=== PATIENT | female | born 1945 | race Caucasian/White ===

== ENCOUNTER 2016-09-27 13:47 | Inpatient (IN) ==
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
--- NOTE | 2016-09-27 15:38 | EKG Report ---
Stationary ECG Study [facility] Test Date: 09/27/2016 3:38:16 PM Pat Name: WHITLEY GODINEZ Department: Room: 518 Gender: F Laboratory Worker: LUIS : 1945 Requested by: Terrell Dixon Order Number: [id number] Reading MD: DON CHAUDHRY Intervals [place] Rate: 61 P: 999 IL: 0 QRS: 183 QRSD: 170 T: 13 QT: 511 QTc: 513 Interpretive Statements ELECTRONIC VENTRICULAR PACEMAKER ABNORMAL RHYTHM ECG "DON CHAUDHRY TO INTREPRET" Electronically Signed On 10-04-16 08:41:01 CDT by DON CHAUDHRY [email or web address]
[2016-09-27 15:43] LABS: Basophils % 0.5 % (0.0-0.8); Eosinophils # 0.2 10*3/uL (0.0-0.87); Eosinophils % 2.8 % (0.00-10.9); Hemoglobin 11.2 GM/DL (12.0-16.0); Immature Granulocytes % 0.3 %; Immature Granulocytes Absolute 0.02 #; Lymphocytes # 0.8 10*3/uL (1.4-4.0); Lymphocytes % 13.2 % (21.3-54.2); Mean Corpuscular Hemoglobin 27 PG (27-34); Mean Corpuscular Volume 84.1 FL (87-102); Monocytes # 0.8 10*3/uL (0.11-0.8); Monocytes % 13.7 % (1.7-12.7); Neutrophils # 4.2 10*3/uL (1.4-7.4); Neutrophils % 69.5 % (38.7-73.9); Platelet Count 123 T/CUMM (130-400); Red Blood Count 4.16 MC/CUMM (3.8-5.5); Red Cell Distribution Width 17.2 % (9.3-17.3)
[2016-09-27] MEDS: FUROSEMIDE 40 MG/4 ML VIAL IV SCH ×2 (15:47→19:01)
[2016-09-27 16:42] LABS: Albumin 4.2 G/DL (3.4-5.0); Bilirubin,Total 2.2 MG/DL (0.2-1.0); Calcium 9.4 MG/DL (8.5-10.1); Magnesium 2.3 MG/DL (1.8-2.4); Osmolality,Calculated 287.1 MOS/KG (273-304); Potassium 3.8 MMOL/L (3.5-5.1); Thyroid Stimulating Hormone 6.03 uIU/ml (0.358-3.74); Total Protein 7.8 G/DL (6.4-8.3)
[2016-09-27 16:58] LABS: Hepatitis A Ab IgM Quant 0.29 Index; Hepatitis A Ab IgM Result Negative (Negative); Hepatitis B Core IgM Quant 0.17 Index; Hepatitis B Core IgM Result Negative (Negative); Hepatitis B Surface Ag Quant 0.61 Index; Hepatitis B Surface Ag Result Negative (Negative); Hepatitis C Virus Ab Quant 0.13 Index; Hepatitis C Virus Ab Result Negative (Negative)
--- NOTE | 2016-09-27 17:39 | XRay Report ---
XR chest 2V Date: 09/27/2016 1:59 PM History: Shortness of breath Comparison: 06/16/2016 Technique: PA and lateral chest Findings: The heart is minimally enlarged with left subclavian atrioventricular pacemaker. Uncoiling of the aorta with prominent pulmonary vasculature. Progressive diffuse parenchymal findings at the right lung base with small right pleural effusion. Stable mediastinum with degenerative changes. Impression: Minimal cardiomegaly with left subclavian atrioventricular permanent pacemaker. Diffuse atelectasis/infiltration/edema at the right lung base with small right pleural effusion. Right lateral decubitus chest x-ray may be helpful to determine how much free fluid is present. Follow-up recommended to document clearing and exclude additional underlying pathology. PROCEDURE INTERPRETED AT [facility] DEPARTMENT OF RADIOLOGY Final Report Signed by: Dr. Arcelia Kitchen
--- NOTE | 2016-09-27 18:11 | Ultrasound Report ---
Exam: Bilateral lower extremity venous Doppler ultrasound Comparison: 03/22/2015 Clinical history: Lower extremity edema Technique: Duplex scan of the lower extremity veins using B-mode/grayscale scaled imaging and Doppler spectral analysis and color flow. Findings: Major venous structures of the lower extremities demonstrate a normal course and caliber. Normal color-flow study and spectral analysis. There is normal compression and augmentation of bilateral common femoral, superficial femoral and popliteal veins. The proximal bilateral greater saphenous veins appear to be patent. Impression: No evidence to suggest deep venous thrombosis within either lower extremity. Ultrasound images were captured and stored. PROCEDURE INTERPRETED AT [facility] DEPARTMENT OF RADIOLOGY Final Report Signed by: Dr. Arcelia Kitchen
--- NOTE | 2016-09-27 20:26 | Nephrology Consult Note ---
History of Present Illness Chief complaint: History of lupus and acute renal failure History of present illness: Ms. Dasilva is a 71 year old female history of lupus arthritis chronic kidney disease followed by Dr. Navarro and his chronic kidney disease clinic. Patient presents with approximately one-week history of increased lower extremity swelling associated with ascites. Patient describes increasing abdominal girth over the last week. No nausea or vomiting appreciated by the patient. Patient has had no changes in medications. 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 Nephrology is been consulted for renal issues. Patient serum creatinine is noted be 1.8 which appears to be her baseline. No history of NSAID medications. Patient had lower extremity Dopplers that were unremarkable. Home Medications Medication Instructions Recorded Confirmed Type Ascorbic Acid Tab [Vitamin C Tab] 500 mg PO DAILY 09/21/15 06/16/16 History Aspirin [Ecotrin] 81 mg PO DAILY 09/21/15 06/16/16 History Bimatoprost 0.01% Oph Soln 1 drop BOTH EYES BEDTIME 09/21/15 06/16/16 History [Lumigan] Carvedilol 25 mg PO BID 09/21/15 06/16/16 History Montelukast Tab [Singulair Tab] 10 mg PO DAILY 09/21/15 06/16/16 History Potassium Chloride 10 meq PO BID 09/21/15 06/16/16 History Simvastatin 40 mg PO BEDTIME 09/21/15 06/16/16 History Venlafaxine [Effexor] 37.5 mg PO DAILY 09/21/15 06/16/16 History amLODIPine [Norvasc] 5 mg PO DAILY 09/21/15 06/16/16 History Insulin Aspart Prot/Asp 70/30 12 unit SUBCUT AC SUPPER #0 10/04/15 06/16/16 Rx [NovoLOG Mix 70/30] injection Cholecalciferol (Vitamin D3) 5,000 unit PO DAILY 05/03/16 06/16/16 History [Vitamin D3] Famotidine Tab [Pepcid Tab] 20 mg PO DAILY 05/03/16 06/16/16 History Magnesium Chloride [Slow Mag] 64 mg PO BID 05/03/16 06/16/16 History Insulin Aspart Prot/Asp 70/30 10 unit SUBCUT AC BREAKFAST 09/27/16 09/27/16 History [NovoLOG Mix 70/30] Allergies Allergy/AdvReac Type Severity Reaction Status Date / Time ofloxacin [From Floxin] Allergy Severe Swelling Verified 06/16/16 11:42 of Lip/Tongue/Throat Penicillins Allergy Severe RASH Verified 06/16/16 11:42 Sulfa (Sulfonamide Allergy Severe RASH Verified 06/16/16 11:42 Antibiotics) cephalexin [From Keflex] Allergy Intermediate RASH Verified 06/16/16 11:42 doxycycline Allergy Intermediate RASH Verified 06/16/16 11:42 levofloxacin [From Levaquin] AdvReac Severe Swelling Verified 06/16/16 11:42 of Lip/Tongue/Throat Medical,Surgical,& Family Hx - Medical History Cardio: History of: Cardiac Dysrhythmia (Chronic atrial fibrillation), CAD ( History of coronary artery stent in 2010), Hypertension, Pacemaker Psychological: History of: Anxiety Disorders HEENT: History of: Eye Problem (glaucoma) Endocrine: History of: Diabetes Mellitus (IDDM), Diabetes Mellitus (NIDDM), Dyslipidemia Rheumatology: History of;: Rheumatological Problems (ARTHRITIS) Respiratory: History of: Bronchitis Renal: History of: Renal Failure (Patient has had 2 episodes of ATN in the last 6 months) Genitourinary: History of: Recurring Urinary Tract Infections Gastrointestinal: History of: GERD, 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) - Surgical History Cardiac Surgeries: Sugical HX of: Cardiac Catheterization (STENTS), Cardiac Surgery (PACEMAKER) Neurologic Surgeries: Patient denies: Neurologic Surgery Abdominal Surgeries: Surgical HX of: Appendectomy, Colonoscopy, EGD Reproductive Surgeries: Surgical HX of;: Hysterectomy Orthopedic Surgeries: Surgical HX of;: Orthopedic Surgery - Family History Family History: Reports;: Family Diabetes, Family Heart Disease - Social History Smoking Status: Never smoker Frequency of Alcohol Use: None Type of Drug Use: None Review of Systems Constitutional: fatigue, no anorexia, no chills Cardiovascular: no chest pain at rest, no chest pain with activity Gastrointestinal: abdominal pain, bloating, no melena Neurological: no abnormal gait, no abnormal speech Exam - Vital Signs Vital signs: Period Temp Pulse Resp BP Sys/Marcum Pulse Ox Last 24 Hr 96.7 F-96.7 F 63-63 16-20 118-118/70-70 90-90 - General Appearance General appearance: well-developed, well-nourished EENT: ATNC, PERRL Neck: supple Respiratory: clear Cardiology: edema (3+), regular rate, irregular rhythm Gastrointestinal: normoactive bowel sounds, no tenderness, distended Integumentary: no rash, warm and dry Neurologic: no focal deficit, alert and oriented x3, CN 3-12 intact Musculoskeletal: no deformities, no erythema, no clubbing Psychiatric: mood/affect appropriate, cooperative Results - Labs CBC & BMP: 09/27/16 15:33 09/27/16 15:34 Assessment and Plan (1) Atrial fibrillation Status: Chronic Current Visit: No Qualifiers: Atrial fibrillation type: chronic Qualified Code(s): I48.2 - Chronic atrial fibrillation (2) Diabetes Status: Chronic Current Visit: No Qualifiers: Diabetes mellitus type: type 2 Diabetes mellitus complication status: with kidney complications Chronic kidney disease stage: stage 2 (mild) (3) Hypertension Problem details: controlled Status: Chronic Current Visit: No Qualifiers: Hypertension type: essential hypertension (4) Chronic renal insufficiency Status: Chronic Assessment and plan: Has been followed by Dr. Navarro. Renal function appears to be stable. Metabolic panel is acceptable. Patient with history of lupus. Pending UA. Current Visit: No Qualifiers: Chronic kidney disease stage: stage 4 (severe) Qualified Code(s): N18.4 - Chronic kidney disease, stage 4 (severe) (5) Ascites Status: Acute Assessment and plan: Agree with Lasix 40 mg IV every 6. We will check a UA. Spot urine protein creatinine ratio. Current Visit: Yes
[2016-09-27] MEDS: INSULIN REGULAR 100 UNIT/ML SUBCUT SCH (20:54)
[2016-09-27] MEDS: SIMVASTATIN 40 MG TABLET PO SCH (21:13)
[2016-09-27] MEDS: CARVEDILOL 25 MG TABLET PO SCH (21:13)
[2016-09-27] MEDS: POTASSIUM CHLORIDE 10 MEQ TABLET PO SCH (21:13)
[2016-09-27] MEDS: MAGNESIUM CHLORIDE 64 MG TABLET PO SCH (21:13)
[2016-09-27 22:57] LABS: Protein/Creatinine Ratio,Urine 0.3 RATIO
[2016-09-28 07:17] LABS: Basophils % 0.8 % (0.0-0.8); Eosinophils # 0.1 10*3/uL (0.0-0.87); Eosinophils % 3.5 % (0.00-10.9); Hematocrit 32.5 VOL% (35.7-47.0); Hemoglobin 10.2 GM/DL (12.0-16.0); Immature Granulocytes % 0.5 %; Immature Granulocytes Absolute 0.02 #; Lymphocytes # 0.7 10*3/uL (1.4-4.0); Lymphocytes % 17.3 % (21.3-54.2); Mean Corpuscular HGB Conc 31.4 GM/DL (32-36); Mean Corpuscular Hemoglobin 27 PG (27-34); Mean Corpuscular Volume 84.9 FL (87-102); Mean Platelet Volume 11.2 FL (9.6-12.0); Monocytes # 0.6 10*3/uL (0.11-0.8); Monocytes % 14.5 % (1.7-12.7); Neutrophils # 2.5 10*3/uL (1.4-7.4); Neutrophils % 63.4 % (38.7-73.9); Platelet Count 108 T/CUMM (130-400); Red Blood Count 3.83 MC/CUMM (3.8-5.5); Red Cell Distribution Width 17.2 % (9.3-17.3)
[2016-09-28 07:45] LABS: Calcium 8.7 MG/DL (8.5-10.1); Osmolality,Calculated 290.8 MOS/KG (273-304); Potassium 3.7 MMOL/L (3.5-5.1)
[2016-09-28] MEDS: MAGNESIUM CHLORIDE 64 MG TABLET PO SCH ×2 (08:03→20:57)
[2016-09-28] MEDS: CHOLECALCIFEROL 1,000 UNIT TABLET PO SCH (08:04)
[2016-09-28] MEDS: POTASSIUM CHLORIDE 10 MEQ TABLET PO SCH ×2 (08:04→20:57)
[2016-09-28] MEDS: VENLAFAXINE 37.5 MG TABLET PO SCH (08:04)
[2016-09-28] MEDS: amLODIPine 5 MG TABLET PO SCH (08:04)
[2016-09-28] MEDS: MONTELUKAST 10 MG TABLET PO SCH (08:04)
[2016-09-28] MEDS: ASPIRIN EC 81 MG TABLET PO SCH (08:04)
[2016-09-28] MEDS: FAMOTIDINE 20 MG TABLET PO SCH (08:04)
[2016-09-28] MEDS: ASCORBIC ACID 500 MG TABLET PO SCH (08:04)
[2016-09-28] MEDS: FUROSEMIDE 40 MG/4 ML VIAL IV SCH ×2 (08:05→15:51)
[2016-09-28] MEDS: INSULIN REGULAR 100 UNIT/ML SUBCUT SCH ×4 (08:05→20:58)
[2016-09-28] MEDS: INSULIN ASPART PROTAMINE/ASPART 70/30 100 UNIT/ML SUBCUT SCH ×2 (08:05→16:51)
[2016-09-28] MEDS: CARVEDILOL 25 MG TABLET PO SCH ×2 (08:06→20:58)
[2016-09-28] MEDS: FUROSEMIDE 40 MG TABLET PO SCH (08:06)
[2016-09-28] MEDS ORDERED: AMIODARONE 200 MG TABLET PO SCH (09:00)
--- NOTE | 2016-09-28 09:02 | Gastrointestinal Progress Note ---
<Miri Dominguez - Last Filed: 09/28/16 08:56> Assessment and Plan (1) Ascites Status: Acute Assessment and plan: 09/28-No changes today. Will schedule for US guided paracentesis today. Hepatitis panel negative. Plan and addendum to follow by Dr Wing. 09/27-Three month hx of abd swelling worsening over last several weeks. Abd US results noted. Remote hx of hepatitis as a teenager. Obtain hepatitis panel. Plan and addendum to follow by Dr Wing. Current Visit: Yes Gastroenterology - PN: Subj Interval history: CC: Ascites Pt is seen awake and alert sitting up in side of bed. States that she is feeling about the same at this time. She is having continued shortness of breath related to her ascites. She denies any pain other than just from the discomfort of the distention and some mild RUQ tenderness at times. She is tolerating her diet at present. Weight is up slightly from admission. Abdomen is distended, mild tenderness with palpation. Hepatitis panel negative. ROS: Denies SOB or chest pain Exam (Progress Note) - Constitutional Vitals: Period Temp Pulse Resp BP Sys/Marcum Pulse Ox Last 24 Hr 96.7 F-98.2 F 62-70 14-20 109-125/55-73 90-94 General appearance: normal weight, no acute distress - Head Head exam: Present: normal inspection, normocephalic - Eye Eye exam: Present: other (lids and conjunctiva unremarkable). Absent: scleral icterus - ENT ENT exam: Present: normal exam, normal oropharynx - Neck Neck exam: Present: normal inspection - Respiratory Respiratory exam: Present: clear to auscultation bilaterally. Absent: rales, rhonchi, wheezes - Cardiovascular Cardiovascular exam: Present: regular rate and rhythm. Absent: diastolic murmur , JVD, systolic murmur - GI/Abdominal GI/Abdominal exam: Present: normal bowel sounds, ascites, distended, tenderness (mild), soft. Absent: mass, organomegaly - Extremities Exam Extremities exam: Present: normal inspection, full ROM, edema - Back Exam Back exam: Present: normal inspection - Neurological Exam Neurological exam: Present: alert, oriented X3 - Psychiatric Psychiatric exam: Present: normal affect, normal mood - Skin Skin exam: Present: normal color, warm, dry Results - Labs CBC & BMP: 09/28/16 07:04 09/28/16 07:04 Lab Results: I have reviewed the past 24 hour labs <Martin Wing - Last Filed: 09/28/16 11:09> Exam (Progress Note) - Constitutional Vitals: Period Temp Pulse Resp BP Sys/Marcum Pulse Ox Last 24 Hr 96.7 F-98.2 F 59-70 14-22 109-145/55-77 90-100 Results - Labs CBC & BMP: 09/28/16 07:04 09/28/16 07:04
--- NOTE | 2016-09-28 09:04 | XRay Report ---
XR chest 2V Indication: Shortness of breath. Comparison: Chest x-ray 09/27/2016 Technique: PA and lateral chest x-ray was performed. Findings: Mild elevation of the right hemidiaphragm is again demonstrated. The heart size is stable. Cardiac pacemaker is stable. Airspace opacification within the right cardiophrenic angle has changed little since comparison study could reflect evidence of infection or atelectasis. Minimal blunting the right costophrenic angle is stable. Bones and soft tissues appear stable. Impression: 1. Infectious process and/or atelectatic change is suggested within the right cardiophrenic angle on PA image. This is difficult to localize on the lateral image. 2. Small right-sided pleural effusion suggested. 09/28/2016 9:00 AM PROCEDURE INTERPRETED AT [facility]PARTMENT OF RADIOLOG[facility] Final Report Signed by: Dr. Paul Richard
[2016-09-28 09:44] LABS: INR 1.3
[2016-09-28 10:14] LABS: Apearance,Urine Slightly Hazy (Clear); Bacteria,Urine Moderate /HPF (Few); Bilirubin,Urine Negative (Negative); Blood, Urine Negative (Negative); Glucose,Urine (UA) Negative (Negative); Ketones,Urine Negative (Negative); Mucus,Urine Occasional /LPF (Occasional); Nitrite,Urine Negative (Negative); Protein,Urine Negative; RBC,Urine 14 /HPF (0-4); Squamous Epithelial Cell,Urine Occasional /HPF (0-10); Urine Color Yellow (Yellow); Urine Specific Gravity 1.008 (1.001-1.035); Urine Urobilinogen < 2.0 EU/DL (0.2-1.0); WBC,Urine 51 /HPF (0-6)
[2016-09-28] MEDS ORDERED: CARVEDILOL 12.5 MG TABLET PO SCH (11:30)
--- NOTE | 2016-09-28 11:49 | Pulmonology Progress Note ---
Pulmonary - PN: Subj Interval history: Raúl Medrano, ANP-BC, GNP-BC, acting as scribe for Dr. Luis Miguel Do Mrs. Dasilva is a 71-year-old white female who was admitted 09/27/2016 from [facility] with ascites/anasarca, cholelithiasis per ultrasound, and bilateral lower extremity edema. Other past history includes chronic atrial fibrillation, history of acute renal failure (interstitial nephritis) secondary to medications in contrast, systemic lupus erythematosus,, diabetes mellitus, arteriosclerotic heart disease, sick sinus syndrome, pacemaker, chronic Coumadin therapy, history of depression, history of esophageal stricture esophageal motility dysfunction, history of ruptured right Achilles tendon, allergic sinusitis, and history of abdominal wall hematoma with large retroperitoneal bleed. 09/28/2016. Patient seen today along with her sister and daughter. She is scheduled for paracentesis today by IR. We will follow-up those results. On exam, the patient obviously has less JVD today. She has been diuresed. She is being seen in GI, cardiology, and nephrology consultations. Her daughter reports that patient did not receive her Coreg this morning. Spoken with the nursing staff about this. Apparently, Leilas does not have 25 mg tablets. Pharmacy had not changed it to 12.5 mg 2 tablets twice daily. We will ask this be done. Certainly, she needs to continue her Coreg. Her home medications were restarted last night. Medications have been reviewed. Labs been reviewed. White count is 4000 with 63.4% segs; H&H 10.2/32.5; platelet count 108,000; INR 1.3; creatinine improved 1.70, BUN 28, electrolytes are normal; TSH and free T4 are both elevated at 6.030 and 1.52 respectively. BNP at admission was 455; total bilirubin 2.20; rheumatoid factor less than 15, VERNA screen is negative, hepatitis screen is negative; urinalysis shows large leukocytes but was nitrite negative, 51 WBCs per high-power field, and moderate bacteria. Urine cultures pending. Exam (Progress Note) - Constitutional Vitals: Period Temp Pulse Resp BP Sys/Marcum Pulse Ox Last 24 Hr 96.7 F-98.2 F 59-70 14-22 109-145/55-77 90-100 Exam: Chest is wheeze free Heart irregular Abdomen with moderate ascites; bowel sounds are positive 4 Extremities significant bilateral lower extremity edema Psychiatric oriented 3 Neurologic long-term motor function is intact Plan: Follow-up paracentesis results when available. Continue present treatment. We will change Coreg to 12.5 mg 2 tablets p.o. twice daily since [facility] does not 25 mg tablets. Repeat CBC, CMP, TSH, free T4, and ammonia level in the morning. See orders. Results - Labs CBC & BMP: 09/28/16 07:04 09/28/16 07:04
[2016-09-28 12:01] LABS: Neutrophils,Peritoneal Fluid 8 %
[2016-09-28 12:02] LABS: RBC,Peritoneal Fluid 8135 T/CUMM
--- NOTE | 2016-09-28 12:27 | Post Interventional Procedure ---
Pre-op diagnosis: ascites, diabetes, hypertension Post-op diagnosis: same Procedure: u/s guided paracentesis Contrast: none Flouroscopy: none Radiologist: Tucker Rosario Anesthesia: local Specimens: none sent Estimated blood loss: none Complications: none Condition: stable Description/Findings: Technically successful ultrasound guided paracentesis. See formal report for details. Assessment and Plan - Time spent with patient Time spent with patient: Less than 30 minutes
--- NOTE | 2016-09-28 12:30 | Ultrasound Report ---
Exam: Ultrasound-guided paracentesis Clinical history: ascites. Physician: Dr. Rosario. Procedure: Informed consent was obtained prior to procedure. A formal timeout was performed. Maximum sterile barrier technique was used. The right lower quadrant was prepped and draped in sterile fashion. Under sonographic guidance, a 6 [place] safety centesis catheter and needle were advanced into the ascites using trocar technique. A captured sonographic image documents needle position. The needle was removed. Through the catheter, we obtained a total of 2500 cc of straw-colored ascites. No additional fluid could be obtained. Therefore, the catheter was removed. A bandage was placed at the puncture site. The patient tolerated the procedure well. Complications: None. Estimated blood loss: Less than 5 mL. Impression: Technically successful ultrasound guided paracentesis. PROCEDURE INTERPRETED AT [facility] DEPARTMENT OF RADIOLOGY Final Report Signed by: Tucker Rosario
[2016-09-28 12:38] LABS: % Iron Saturation 12.9 % (18-50); Ferritin 214.5 ng/ml (8-252)
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
[2016-09-28 13:10] LABS: Hepatitis B Surface Ab Result Negative
[2016-09-28] MEDS: METHENAMINE HIPPURATE 1 GM TABLET PO SCH ×2 (13:19→20:57)
[2016-09-28] MEDS: BIMATOPROST 0.01% OPH SOLN 2.5 ML BOTTLE BOTH EYES SCH (20:56)
[2016-09-28] MEDS: SIMVASTATIN 40 MG TABLET PO SCH (20:57)
[2016-09-28] MEDS: SPIRONOLACTONE 50 MG TABLET PO SCH (20:58)
[2016-09-29 05:49] LABS: Basophils % 0.7 % (0.0-0.8); Eosinophils # 0.2 10*3/uL (0.0-0.87); Eosinophils % 3.7 % (0.00-10.9); Hematocrit 33.2 VOL% (35.7-47.0); Hemoglobin 10.4 GM/DL (12.0-16.0); Immature Granulocytes % 0.2 %; Immature Granulocytes Absolute 0.01 #; Lymphocytes # 0.7 10*3/uL (1.4-4.0); Lymphocytes % 16.8 % (21.3-54.2); Mean Corpuscular HGB Conc 31.3 GM/DL (32-36); Mean Corpuscular Hemoglobin 27 PG (27-34); Mean Platelet Volume 11.6 FL (9.6-12.0); Monocytes # 0.7 10*3/uL (0.11-0.8); Monocytes % 16.1 % (1.7-12.7); Neutrophils # 2.6 10*3/uL (1.4-7.4); Neutrophils % 62.5 % (38.7-73.9); Platelet Count 106 T/CUMM (130-400); Red Blood Count 3.86 MC/CUMM (3.8-5.5); Red Cell Distribution Width 17.2 % (9.3-17.3); White Blood Count 4.1 T/CUMM (4-12)
[2016-09-29 06:18] LABS: Band Neutrophils 1 % (0-10); Lymphocytes 18 % (20-55); Segmented Neutrophils 60 % (50-85); Total Cells Counted 100
[2016-09-29 06:19] LABS: Hypochromasia 1+; Ovalocytes Slight; Platelet Estimate Normal
[2016-09-29 06:21] LABS: Albumin 3.3 G/DL (3.4-5.0); Calcium 8.4 MG/DL (8.5-10.1); Free T4 (Free Thyroxine) 1.51 NG/DL (0.76-1.46); Osmolality,Calculated 289.8 MOS/KG (273-304); Potassium 3.4 MMOL/L (3.5-5.1); Thyroid Stimulating Hormone 4.51 uIU/ml (0.358-3.74); Total Protein 6.6 G/DL (6.4-8.3)
--- NOTE | 2016-09-29 07:40 | XRay Report ---
XR chest 2V Indication: Shortness of breath Comparison: 28 September 2016 Findings: The heart and mediastinum are stable in size and configuration. Pacemaker device is unchanged in position. The pulmonary vascularity is prominent centrally but similar to previous exam. No lung infiltrates, effusions, pneumothorax or other abnormality is demonstrated. Impression: No significant change. PROCEDURE INTERPRETED AT [facility] Final Report Signed by: Dr. Zack Goldman
[2016-09-29] MEDS: ASPIRIN EC 81 MG TABLET PO SCH (08:17)
[2016-09-29] MEDS: MAGNESIUM CHLORIDE 64 MG TABLET PO SCH ×2 (08:17→21:51)
[2016-09-29] MEDS: CHOLECALCIFEROL 1,000 UNIT TABLET PO SCH (08:17)
[2016-09-29] MEDS: SPIRONOLACTONE 50 MG TABLET PO SCH ×2 (08:18→21:51)
[2016-09-29] MEDS: MONTELUKAST 10 MG TABLET PO SCH (08:18)
[2016-09-29] MEDS: VENLAFAXINE 37.5 MG TABLET PO SCH (08:18)
[2016-09-29] MEDS: METHENAMINE HIPPURATE 1 GM TABLET PO SCH ×2 (08:18→21:51)
[2016-09-29] MEDS: ASCORBIC ACID 500 MG TABLET PO SCH (08:18)
[2016-09-29] MEDS: CARVEDILOL 25 MG TABLET PO SCH ×2 (08:18→21:51)
[2016-09-29] MEDS: FUROSEMIDE 40 MG TABLET PO SCH (08:18)
[2016-09-29] MEDS: FAMOTIDINE 20 MG TABLET PO SCH (08:18)
[2016-09-29] MEDS: amLODIPine 5 MG TABLET PO SCH (08:18)
[2016-09-29] MEDS: FUROSEMIDE 40 MG/4 ML VIAL IV SCH ×2 (08:18→15:49)
[2016-09-29] MEDS: POTASSIUM CHLORIDE 10 MEQ TABLET PO SCH ×2 (08:18→21:56)
[2016-09-29] MEDS: INSULIN ASPART PROTAMINE/ASPART 70/30 100 UNIT/ML SUBCUT SCH ×2 (08:18→15:50)
[2016-09-29] MEDS: FUROSEMIDE 20 MG TABLET PO SCH (08:19)
[2016-09-29] MEDS: INSULIN REGULAR 100 UNIT/ML SUBCUT SCH ×4 (08:19→21:45)
--- NOTE | 2016-09-29 08:50 | Gastrointestinal Progress Note ---
<Miri Dominguez - Last Filed: 09/29/16 08:46> Assessment and Plan (1) Ascites Status: Acute Assessment and plan: 09/29-No c/p today. Tolerating diet. Labwork still pending today, negative hepatitis B antibody. Plan and addendum to follow by Dr Wing. 09/28-No changes today. Will schedule for US guided paracentesis today. Hepatitis panel negative. Plan and addendum to follow by Dr Wing. 09/27-Three month hx of abd swelling worsening over last several weeks. Abd US results noted. Remote hx of hepatitis as a teenager. Obtain hepatitis panel. Plan and addendum to follow by Dr Wing. Current Visit: Yes Gastroenterology - PN: Subj Interval history: CC: Ascites Pt is seen sitting up in chair with family at side. States she is feeling better today. She voices relief from her abdominal discomfort following her paracentesis on yesterday. She brought forth this morning that the hepatitis she had as as teenager came from eating shrimp. Her hepatitis B antibody was negative on yesterday. Iron and saturation are low with normal TIBC and ferritin. Bilirubin is slighlty elevated at 2.00 with normal transaminases. Abdomen is soft, nontender. Other labwork is pending at present time. ROS: Denies SOB or chest pain Exam (Progress Note) - Constitutional Vitals: Period Temp Pulse Resp BP Sys/Marcum Pulse Ox Last 24 Hr 97.7 F-98.3 F 59-74 14-22 116-145/66-82 92-100 General appearance: normal weight, no acute distress - Head Head exam: Present: normal inspection, normocephalic - Eye Eye exam: Present: other (Lids and conjunctive are unremarkable). Absent: scleral icterus - ENT ENT exam: Present: normal exam, normal oropharynx - Neck Neck exam: Present: normal inspection - Respiratory Respiratory exam: Present: clear to auscultation bilaterally. Absent: rales, rhonchi, wheezes - Cardiovascular Cardiovascular exam: Present: regular rate and rhythm. Absent: diastolic murmur , JVD, systolic murmur - GI/Abdominal GI/Abdominal exam: Present: normal bowel sounds, soft. Absent: ascites, distended, mass, organomegaly, tenderness - Extremities Exam Extremities exam: Present: normal inspection, full ROM - Back Exam Back exam: Present: normal inspection - Neurological Exam Neurological exam: Present: alert, oriented X3 - Psychiatric Psychiatric exam: Present: normal affect, normal mood - Skin Skin exam: Present: normal color, warm, dry Results - Labs CBC & BMP: 09/29/16 05:24 09/29/16 05:24 Lab Results: I have reviewed the past 24 hour labs <Martin Wing - Last Filed: 09/29/16 18:18> Exam (Progress Note) - Constitutional Vitals: Period Temp Pulse Resp BP Sys/Marcum Pulse Ox Last 24 Hr 97.2 F-98.3 F 58-69 14-18 105-130/56-74 94-98 Results - Labs CBC & BMP: 09/29/16 05:24 09/29/16 05:24
--- NOTE | 2016-09-29 10:49 | Pathology Report from [facility] ---
ACCESSION # : [id number] PATIENT NAME : Erika Dasilva ORDERING DR : Tucker Rosario MD CLINICAL HX: New onset ascites POST-OP DX: Same SPECIMEN INFO: Fluid,Paracentesis - 1000 ml's red orange, cloudy CLASS: II CLASS COMMENTS: Blood, inflammation, reactive cell groups.CELL BLOCK: Same CLASS LEGEND: CLASS 0 Material inadequate for diagnosis because of (see comment) CLASS I Absence of atypical or abnormal cells CLASS II Atypical Cytology but no evidence of malignancy CLASS III Cytology suggestive of but not conclusive for malignancy CLASS IV Cytology strongly suggestive of malignancy CLASS V Cytology conclusive for malignancy SERVICE DATE: 09/28/2016 REPORT DATE: 09/29/2016 PATHOLOGIST: Demlar Hernandez III, M.D. MTDD
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
[2016-09-29] MEDS: amLODIPine 10 MG TABLET PO SCH (11:32)
--- NOTE | 2016-09-29 17:47 | Cardiology Progress Note ---
I, Evangelina Avalos RN, am scribing for, and in the presence of, Carlos A Patricia MD 17:46. Assessment and Plan (1) Shortness of breath Status: Acute Assessment and plan: Initial assessment and plan 09/28/2016: 1. 71-year-old overweight WF with CAD with remote stents in 2010, persistent atrial fibrillation with history of pacemaker, who I saw Dr. Burgess's absence late last week which she was having dyspnea fatigue and palpitations opted negative PE workup (negative his Dopplers and no PE on CT chest), where she was found to have ascites/anasarca with small, nodular liver, but had worsening symptoms and now admitted for further workup. 2. Echocardiogram last week showed normal ejection fraction of 55% with 1-2+ right ventricular enlargement and pulmonary hypertension (RVSP 55 mmHg plus RAP) 3. GI workup in progress 4. Probable chronic atrial fibrillation; discontinued amiodarone (was started last week) 5. Clinically had significant improvement after paracentesis. 09/29/2016: 1. Mrs. Dasilva is clearly improving clinically Is in progress 2. Significant lower extremity edema persists; increasing amlodipine to 10 mg may help her pulmonary hypertension marginally, but also may worsen her lower extremity edema; recommend placing her support nose and place her in the morning before getting up 3. Chronic atrial fibrillation with controlled rate, and pacemaker in place 4. No new recommendations, keep follow-up appointment with Dr. Burgess in 2-3 weeks 5. Sign-Off, please call if needed prior to discharge Current Visit: Yes (2) Ascites Status: Acute Current Visit: Yes (3) Chronic atrial fibrillation Status: Chronic Current Visit: Yes (4) Coronary artery disease Status: Chronic Current Visit: Yes Qualifiers: Coronary Disease-Associated Artery/Lesion type: [place] artery [place] vs. transplanted heart: [place] heart Associated angina: without angina Qualified Code(s): I25.10 - Atherosclerotic heart disease of [place] coronary artery without angina pectoris (5) Diabetes Status: Chronic Current Visit: Yes Qualifiers: Diabetes mellitus type: type 2 Diabetes mellitus complication status: with kidney complications Chronic kidney disease stage: stage 2 (mild) (6) Hypertension Problem details: controlled Status: Chronic Current Visit: Yes Qualifiers: Hypertension type: essential hypertension (7) Pacemaker Status: Chronic Current Visit: Yes (8) Edema, lower extremity Status: Acute Current Visit: Yes Cardiology - PN: Subj Interval history: Clinical Massage Therapist: Dr. Burgess Ms. Dasilva is seen sitting up in chair in no acute distress. She is not wearing oxygen, she states her breathing is much improved. She tells me she feels much better after paracentesis yesterday. Denies chest pain, palpitations , or dizziness. Vital signs been stable. Potassium is 3.4, she currently takes 10 meq twice daily. Exam (Progress Note) - Constitutional Vitals: Period Temp Pulse Resp BP Sys/Marcum Pulse Ox Last 24 Hr 97.7 F-98.3 F 59-74 14-22 116-145/66-82 92-100 General appearance: no acute distress, over weight - Head Head exam: Absent: abrasion, hematoma - Eye Eye exam: Absent: periorbital swelling, laceration to eyelids - Respiratory Respiratory exam: Present: clear to auscultation bilaterally. Absent: accessory muscle use, chest wall tenderness - Cardiovascular Cardiovascular exam: Present: irregular rhythm. Absent: systolic murmur - GI/Abdominal GI/Abdominal exam: Present: normal bowel sounds, soft. Absent: distended, tenderness - Extremities Exam Extremities exam: Present: edema (2-3+ bilateral lower extremities) - Neurological Exam Neurological exam: Present: alert, oriented X3 - Psychiatric Psychiatric exam: Present: normal affect, normal mood - Skin Skin exam: Present: warm, dry Result/EKG - Labs CBC & BMP: 09/29/16 05:24 09/29/16 05:24 Lab Results: I have reviewed the past 24 hour labs Labs: Laboratory Results - last 24 hr 09/28/16 09/28/16 09/28/16 10:00 10:07 11:00 WBC RBC Hgb Hct MCV MCH MCHC RDW Plt Count MPV Neut % (Auto) Lymph % (Auto) [place] % (Auto) Eos % (Auto) Baso % (Auto) Neut # (Auto) Lymph # (Auto) [place] # (Auto) Eos # (Auto) Baso # (Auto) Total Counted Immature Gran % Nucleated RBC % Immature Gran # Segmented Neutrophils Band Neutrophils Lymphocytes Monocytes Basophils Nucleated RBCs # Platelet Estimate Hypochromasia Ovalocytes Morphology Comment Sodium Potassium Chloride Carbon Dioxide Anion Gap BUN Creatinine GFR Calculation BUN/Creatinine Ratio Glucose POC Glucose Calculated Osmolality Calcium Iron TIBC % Saturation Ferritin Total Bilirubin AST ALT Alkaline Phosphatase Ammonia Total Protein Albumin Globulin Albumin/Globulin Ratio Free T4 TSH 3rd Generation Urine Color Yellow Urine Appearance Slightly hazy Urine pH 5.0 Ur Specific [place] 1.008 Urine Protein Negative Urine Glucose (UA) Negative Urine Ketones Negative Urine Blood Negative Urine Nitrate Negative Urine Bilirubin Negative Urine Urobilinogen < 2.0 H Urine Leukocytes Large H Urine RBC 14 Urine WBC 51 Ur Squamous Epith Cells Occasional Urine Bacteria Moderate Urine Mucus Occasional Ur Culture Indicated? Results to follow Peritoneal WBC 162 Peritoneal RBC [address] 100 Periton Neutrophils 8 Periton Lymphocytes 78 Peritoneal Monocytes 14 Peritoneal Diff Commnt Peritoneal Albumin 3.0 Hep Bs Antibody 09/28/16 09/28/16 09/28/16 11:57 12:15 12:15 WBC RBC Hgb Hct MCV MCH MCHC RDW Plt Count MPV Neut % (Auto) Lymph % (Auto) [place] % (Auto) Eos % (Auto) Baso % (Auto) Neut # (Auto) Lymph # (Auto) [place] # (Auto) Eos # (Auto) Baso # (Auto) Total Counted Immature Gran % Nucleated RBC % Immature Gran # Segmented Neutrophils Band Neutrophils Lymphocytes Monocytes Basophils Nucleated RBCs # Platelet Estimate Hypochromasia Ovalocytes Morphology Comment Sodium Potassium Chloride Carbon Dioxide Anion Gap BUN Creatinine GFR Calculation BUN/Creatinine Ratio Glucose POC Glucose 83 Calculated Osmolality Calcium Iron 35 L TIBC 271 % Saturation 12.9 L Ferritin 214.5 Total Bilirubin AST ALT Alkaline Phosphatase Ammonia Total Protein Albumin Globulin Albumin/Globulin Ratio Free T4 TSH 3rd Generation Urine Color Urine Appearance Urine pH Ur Specific [place] Urine Protein Urine Glucose (UA) Urine Ketones Urine Blood Urine Nitrate Urine Bilirubin Urine Urobilinogen Urine Leukocytes Urine RBC Urine WBC Ur Squamous Epith Cells Urine Bacteria Urine Mucus Ur Culture Indicated? Peritoneal WBC Peritoneal RBC Periton Tot Cells Ct Periton Neutrophils Periton Lymphocytes Peritoneal Monocytes Peritoneal Diff Commnt Peritoneal Albumin Hep Bs Antibody Negative 09/28/16 09/28/16 09/29/16 15:23 20:54 05:24 WBC 4.1 RBC 3.86 Hgb 10.4 L Hct 33.2 L MCV 86.0 L MCH 27 MCHC 31.3 L RDW 17.2 Plt Count 106 L MPV 11.6 Neut % (Auto) 62.5 Lymph % (Auto) 16.8 L [place] % (Auto) 16.1 H Eos % (Auto) 3.7 Baso % (Auto) 0.7 Neut # (Auto) 2.6 Lymph # (Auto) 0.7 L [place] # (Auto) 0.7 Eos # (Auto) 0.2 Baso # (Auto) 0.0 Total Counted 100 Immature Gran % 0.2 Nucleated RBC % 0.0 Immature Gran # 0.01 Segmented Neutrophils 60 Band Neutrophils 1 Lymphocytes 18 L Monocytes 20 H Basophils 1.0 H Nucleated RBCs # 0.00 Platelet Estimate Normal Hypochromasia 1+ Ovalocytes Slight Morphology Comment Sodium Potassium Chloride Carbon Dioxide Anion Gap BUN Creatinine GFR Calculation BUN/Creatinine Ratio Glucose POC Glucose 102 103 Calculated Osmolality Calcium Iron TIBC % Saturation Ferritin Total Bilirubin AST ALT Alkaline Phosphatase Ammonia Total Protein Albumin Globulin Albumin/Globulin Ratio Free T4 TSH 3rd Generation Urine Color Urine Appearance Urine pH Ur Specific [place] Urine Protein Urine Glucose (UA) Urine Ketones Urine Blood Urine Nitrate Urine Bilirubin Urine Urobilinogen Urine Leukocytes Urine RBC Urine WBC Ur Squamous Epith Cells Urine Bacteria Urine Mucus Ur Culture Indicated? Peritoneal WBC Peritoneal RBC Periton Tot Cells Ct Periton Neutrophils Periton Lymphocytes Peritoneal Monocytes Peritoneal Diff Commnt Peritoneal Albumin Hep Bs Antibody 09/29/16 09/29/16 05:24 07:07 WBC RBC Hgb Hct MCV MCH MCHC RDW Plt Count MPV Neut % (Auto) Lymph % (Auto) [place] % (Auto) Eos % (Auto) Baso % (Auto) Neut # (Auto) Lymph # (Auto) [place] # (Auto) Eos # (Auto) Baso # (Auto) Total Counted Immature Gran % Nucleated RBC % Immature Gran # Segmented Neutrophils Band Neutrophils Lymphocytes Monocytes Basophils Nucleated RBCs # Platelet Estimate Hypochromasia Ovalocytes Morphology Comment Sodium 144 Potassium 3.4 L Chloride 108 H Carbon Dioxide 27 Anion Gap 12.4 BUN 26 H Creatinine 1.80 H GFR Calculation 33 BUN/Creatinine Ratio 14.00 Glucose 75 POC Glucose 90 Calculated Osmolality 289.8 Calcium 8.4 L Iron TIBC % Saturation Ferritin Total Bilirubin 2.00 H AST 21 ALT 14 Alkaline Phosphatase 94 Ammonia 28 Total Protein 6.6 Albumin 3.3 L Globulin 3.3 Albumin/Globulin Ratio 1.0 L Free T4 1.51 H TSH 3rd Generation 4.510 H Urine Color Urine Appearance Urine pH Ur Specific [place] Urine Protein Urine Glucose (UA) Urine Ketones Urine Blood Urine Nitrate Urine Bilirubin Urine Urobilinogen Urine Leukocytes Urine RBC Urine WBC Ur Squamous Epith Cells Urine Bacteria Urine Mucus Ur Culture Indicated? Peritoneal WBC Peritoneal RBC Periton Tot Cells Ct Periton Neutrophils Periton Lymphocytes Peritoneal Monocytes Peritoneal Diff Commnt Peritoneal Albumin Hep Bs Antibody Simon, Carlos A Patricia MD, personally performed the services described in this documentation, ascribed by Evangelina Avalos RN in my presence, and it is both accurate and complete .
[2016-09-29] MEDS: SIMVASTATIN 40 MG TABLET PO SCH (21:51)
[2016-09-29] MEDS: BIMATOPROST 0.01% OPH SOLN 2.5 ML BOTTLE BOTH EYES SCH (21:52)
[2016-09-30 05:54] LABS: Basophils % 0.9 % (0.0-0.8); Eosinophils # 0.2 10*3/uL (0.0-0.87); Eosinophils % 4.1 % (0.00-10.9); Hematocrit 31.6 VOL% (35.7-47.0); Hemoglobin 10.1 GM/DL (12.0-16.0); Immature Granulocytes % 0.2 %; Immature Granulocytes Absolute 0.01 #; Lymphocytes # 0.8 10*3/uL (1.4-4.0); Lymphocytes % 18.3 % (21.3-54.2); Mean Corpuscular Hemoglobin 27 PG (27-34); Mean Corpuscular Volume 83.4 FL (87-102); Mean Platelet Volume 11.4 FL (9.6-12.0); Monocytes # 0.7 10*3/uL (0.11-0.8); Monocytes % 16.7 % (1.7-12.7); Neutrophils # 2.6 10*3/uL (1.4-7.4); Neutrophils % 59.8 % (38.7-73.9); Platelet Count 111 T/CUMM (130-400); Red Blood Count 3.79 MC/CUMM (3.8-5.5); Red Cell Distribution Width 17.2 % (9.3-17.3); White Blood Count 4.4 T/CUMM (4-12)
[2016-09-30 06:13] LABS: Calcium 9.1 MG/DL (8.5-10.1); Potassium 3.4 MMOL/L (3.5-5.1)
[2016-09-30 06:17] LABS: Eosinophils 2 % (0-10); Hypochromasia 1+; Lymphocytes 7 % (20-55); Platelet Estimate Decreased; Segmented Neutrophils 81 % (50-85); Total Cells Counted 100
[2016-09-30] MEDS: FUROSEMIDE 40 MG/4 ML VIAL IV SCH ×2 (08:17→17:00)
[2016-09-30] MEDS: INSULIN REGULAR 100 UNIT/ML SUBCUT SCH ×4 (08:18→20:56)
[2016-09-30] MEDS: INSULIN ASPART PROTAMINE/ASPART 70/30 100 UNIT/ML SUBCUT SCH ×2 (08:18→18:05)
--- NOTE | 2016-09-30 08:35 | Gastrointestinal Progress Note ---
<AngelicaMiri Shelton - Last Filed: 09/30/16 08:32> Assessment and Plan (1) Ascites Status: Acute Assessment and plan: 09/30-for liver biopsy today. Further serology testing still pending. No repeat LFTs today. Plan an addendum to follow by Dr. Wing. 09/29-No c/p today. Tolerating diet. Labwork still pending today, negative hepatitis B antibody. Plan and addendum to follow by Dr Wing. 09/28-No changes today. Will schedule for US guided paracentesis today. Hepatitis panel negative. Plan and addendum to follow by Dr Wing. 09/27-Three month hx of abd swelling worsening over last several weeks. Abd US results noted. Remote hx of hepatitis as a teenager. Obtain hepatitis panel. Plan and addendum to follow by Dr Wing. Current Visit: Yes Gastroenterology - PN: Subj Interval history: CC: Ascites Patient is seen awake alert sitting up in bed. Daughter at bedside. Patient is for liver biopsy later this morning. She denies any abdominal pain, nausea or vomiting. Abdomen is soft, nontender. No repeat LFTs today. Further serology testing is still pending at this time. We will await liver biopsy results later this week. ROS: Denies shortness of breath or chest pain Exam (Progress Note) - Constitutional Vitals: Period Temp Pulse Resp BP Sys/Marcum Pulse Ox Last 24 Hr 97.2 F-98.3 F 58-64 18-20 105-122/56-75 92-96 General appearance: normal weight, no acute distress - Head Head exam: Present: normal inspection, normocephalic - Eye Eye exam: Present: other (lids and conjunctiva unremarkable). Absent: scleral icterus - ENT ENT exam: Present: normal exam, normal oropharynx - Neck Neck exam: Present: normal inspection - Respiratory Respiratory exam: Present: clear to auscultation bilaterally. Absent: rales, rhonchi, wheezes - Cardiovascular Cardiovascular exam: Present: regular rate and rhythm. Absent: diastolic murmur , JVD, systolic murmur - GI/Abdominal GI/Abdominal exam: Present: normal bowel sounds, soft. Absent: ascites, distended, mass, organomegaly, tenderness - Extremities Exam Extremities exam: Present: normal inspection, full ROM - Back Exam Back exam: Present: normal inspection - Neurological Exam Neurological exam: Present: alert, oriented X3 - Psychiatric Psychiatric exam: Present: normal affect, normal mood - Skin Skin exam: Present: normal color, warm, dry Results - Labs CBC & BMP: 09/30/16 05:01 09/30/16 05:01 Lab Results: I have reviewed the past 24 hour labs Specialty Discharge - Follow Up or Referrals Follow up with: Renato Burgess MD [Primary Care Provider] - (3 weeks with EKG and labs) <Martin Wing - Last Filed: 09/30/16 18:41> Exam (Progress Note) - Constitutional Vitals: Period Temp Pulse Resp BP Sys/Marcum Pulse Ox Last 24 Hr 97.5 F-98.5 F 63-100 18-20 108-146/63-77 92-96 Results - Labs CBC & BMP: 09/30/16 05:01 09/30/16 05:01
[2016-09-30] MEDS ORDERED: DIAZEPAM 5 MG TABLET PO ONE (09:20)
[2016-09-30] MEDS: POTASSIUM CHLORIDE 10 MEQ TABLET PO SCH ×2 (11:16→20:31)
[2016-09-30] MEDS: FAMOTIDINE 20 MG TABLET PO SCH (11:17)
[2016-09-30] MEDS: CHOLECALCIFEROL 1,000 UNIT TABLET PO SCH (11:17)
[2016-09-30] MEDS: amLODIPine 10 MG TABLET PO SCH (11:17)
[2016-09-30] MEDS: MAGNESIUM CHLORIDE 64 MG TABLET PO SCH ×2 (11:17→20:31)
[2016-09-30] MEDS: ASPIRIN EC 81 MG TABLET PO SCH (11:17)
[2016-09-30] MEDS: METHENAMINE HIPPURATE 1 GM TABLET PO SCH ×2 (11:17→20:31)
[2016-09-30] MEDS: MONTELUKAST 10 MG TABLET PO SCH (11:18)
[2016-09-30] MEDS: SPIRONOLACTONE 50 MG TABLET PO SCH ×2 (11:18→20:35)
[2016-09-30] MEDS: CARVEDILOL 25 MG TABLET PO SCH ×2 (11:18→20:31)
[2016-09-30] MEDS: VENLAFAXINE 37.5 MG TABLET PO SCH (11:18)
[2016-09-30] MEDS: ASCORBIC ACID 500 MG TABLET PO SCH (11:18)
--- NOTE | 2016-09-30 11:20 | Post Interventional Procedure ---
Pre-op diagnosis: Abnormal liver function tests Post-op diagnosis: same Procedure: Ultrasound-guided core liver biopsy Radiologist: Nataliya Reddy Anesthesia: local Specimens: other (core liver biopsy specimen) Estimated blood loss: none Complications: none Condition: stable Description/Findings: A formal timeout was performed. Patient was placed supine on the CT table and cloth calender imaging obtained. The ventral skin overlying the target lesion was prepped and draped in a sterile fashion. 5 cc 1% lidocaine was injected. Under ultrasound guidance, a 17-gauge guide needle was advanced into the lesion by this radiology. Two 18-gauge core biopsies were obtained. Specimen was sent for routine pathology. Patient tolerated the procedure well. Immediate complications were encountered Assessment and Plan - Time spent with patient Time spent with patient: Less than 30 minutes
--- NOTE | 2016-09-30 11:22 | Ultrasound Report ---
History: Abnormal liver function tests Date: 09/30/2016 Study: Ultrasound-guided core liver biopsy Description: A formal timeout was performed. Patient was placed supine on the CT table and bell person imaging obtained. The ventral skin overlying the target lesion was prepped and draped in a sterile fashion. 5 cc 1% lidocaine was injected. Under ultrasound guidance, a 17-gauge guide needle was advanced into the lesion by this radiology. Two 18-gauge core biopsies were obtained. Specimen was sent for routine pathology. Patient tolerated the procedure well. Immediate complications were encountered Impression: Ultrasound-guided liver biopsy PROCEDURE INTERPRETED AT [facility] DEPARTMENT OF RADIOLOGY Final Report Signed by: Dr. Nataliya Reddy
--- NOTE | 2016-09-30 11:24 | Pulmonology Progress Note ---
Pulmonary - PN: Subj Interval history: Raúl Medrano, ANP-BC, GNP-BC, acting as scribe for Dr. Luis Miguel Do Mrs. Dasilva is a 71-year-old white female who was [facility] with ascites/anasarca, cholelithiasis per ultrasound, and bilateral lower extremity edema. Other past history includes chronic atrial fibrillation, history of acute renal failure (interstitial nephritis) secondary to medications in contrast, systemic lupus erythematosus,, diabetes mellitus, arteriosclerotic heart disease, sick sinus syndrome, pacemaker, chronic Coumadin therapy, history of depression, history of esophageal stricture esophageal motility dysfunction, history of ruptured right Achilles tendon, allergic sinusitis, and history of abdominal wall hematoma with large retroperitoneal bleed. 09/28/2016. Patient seen today along with her sister and daughter. She is scheduled for paracentesis today by IR. We will follow-up those results. On exam, the patient obviously has less JVD today. She has been diuresed. She is being seen in GI, cardiology, and nephrology consultations. Her daughter reports that patient did not receive her Coreg this morning. Spoken with the nursing staff about this. Apparently, Leilas does not have 25 mg tablets. Pharmacy had not changed it to 12.5 mg 2 tablets twice daily. We will ask this be done. Certainly, she needs to continue her Coreg. Her home medications were restarted last night. 09/29/2016. An echocardiogram done last week by Dr. Cortez the patient had an ejection fraction 55%. She had right ventricular enlargement and pulmonary artery pressures were 55 mmHg. These are elevated. Patient did not give us her medicine Norvasc 5 mg at time of admission but it turns out she was taken this for pulmonary hypertension. I am going to increase it to 10 mg daily. Her blood pressures looks safe but will be careful with this. A paracentesis was done yesterday. A number of tests are pending. Dr. Wing is 300 and GI consultation. I understand that cirrhosis of the liver is thought to be an underlying problem. After paracentesis yesterday the patient is markedly better. Her lower extremity edema is improved. Her stomach is much less distended. Jugular venous pressures are now normal. Overall her lab tests look good. 09/30/2016. The patient is for liver biopsy this morning. We will follow-up those results when available. Of note, alpha-1 antitrypsin level, ceruloplasmin and mitochondrial antibodies are all pending. Paracentesis was done 09/28/2016. Cytology has been reported as class II. The patient's glucose dropped last night to low 49. We have adjusted her nighttime insulin and decreased to 4 units. Urine cultures growing a gram-negative gerardo. ID and sensitivity is still pending. Keeping in mind her long list of allergies, we started Hiprex on 09/28/2016. Medications have been reviewed. Labs been reviewed. White count is 4400 with 59.8% segs; H&H 10.1/31.6; platelet count 111,000; creatinine has improved to 1.60, BUN 25, sodium 143, potassium 3.4 Exam (Progress Note) - Constitutional Vitals: Period Temp Pulse Resp BP Sys/Marcum Pulse Ox Last 24 Hr 97.2 F-98.5 F 58-100 18-20 105-146/56-77 92-96 Exam: Chest is wheeze free Heart irregular Abdomen with mild ascites; bowel sounds are positive 4 Extremities significant bilateral lower extremity edema Psychiatric oriented 3 Neurologic long-term motor function is intact Plan: Follow-up liver biopsy results when available. Decrease nighttime insulin to 4 units. Continue other present treatment. See orders. Results - Labs CBC & BMP: 09/30/16 05:01 09/30/16 05:01 Specialty Discharge - Follow Up or Referrals Follow up with: Renato Burgess MD [Primary Care Provider] - (3 weeks with EKG and labs)
[2016-09-30] MEDS: FUROSEMIDE 40 MG TABLET PO SCH (12:23)
[2016-09-30] MEDS: FUROSEMIDE 20 MG TABLET PO SCH (12:23)
--- NOTE | 2016-09-30 14:26 | XRay Report ---
XR chest 2V Date: 09/30/2016 4:00 AM History: Shortness of breath Comparison: 09/29/2016 Technique: PA and lateral chest Findings: The heart is minimally larger in size with left subclavian atrioventricular permanent pacemaker. More prominent pulmonary vasculature with progressive findings especially at the lung bases with small right pleural effusion. Minimal relative elevation of the right hemidiaphragm. Degenerative changes are noted. Apparent artifactual density noted far anteriorly in the left chest location. Impression: The heart is larger in size with stable left subclavian atrioventricular permanent pacemaker. Progressive mild CHF with larger small right pleural effusion. PROCEDURE INTERPRETED AT [facility] [place] DEPARTMENT OF RADIOLOGY Final Report Signed by: Dr. Arcelia Kitchen
[2016-09-30] MEDS: SIMVASTATIN 40 MG TABLET PO SCH (20:31)
[2016-09-30] MEDS: BIMATOPROST 0.01% OPH SOLN 2.5 ML BOTTLE BOTH EYES SCH (20:36)
--- NOTE | 2016-10-01 07:33 | Gastrointestinal Progress Note ---
<WallyburtcarissaMiri Shelton - Last Filed: 10/01/16 07:31> Assessment and Plan (1) Ascites Status: Acute Assessment and plan: 10/01-liver biopsy report pending at this time. Antimitochondrial antibody negative. Plan an addendum to follow by Dr. Wing 09/30-for liver biopsy today. Further serology testing still pending. No repeat LFTs today. Plan an addendum to follow by Dr. Wing. 09/29-No c/p today. Tolerating diet. Labwork still pending today, negative hepatitis B antibody. Plan and addendum to follow by Dr Wing. 09/28-No changes today. Will schedule for US guided paracentesis today. Hepatitis panel negative. Plan and addendum to follow by Dr Wing. 09/27-Three month hx of abd swelling worsening over last several weeks. Abd US results noted. Remote hx of hepatitis as a teenager. Obtain hepatitis panel. Plan and addendum to follow by Dr Wing. Current Visit: Yes Gastroenterology - PN: Subj Interval history: CC: Ascites Patient is seen awake and alert sitting on side of bed. Daughter is at bedside. Patient is status post liver biopsy on yesterday with pathology report pending this morning. She complains of some mild soreness to her biopsy site however no pain. Denies nausea or vomiting. She is tolerating her diet well. Edema seems to be improved to her lower extremities and no reaccumulation of ascitic fluid to her abdomen at present time. Her weight is down 1 pound today from yesterday. Abdomen is soft, nontender. Noted that her antimitochondrial antibody lab was returned with negative value. ROS: Denies shortness of breath or chest pain Exam (Progress Note) - Constitutional Vitals: Period Temp Pulse Resp BP Sys/Marcum Pulse Ox Last 24 Hr 97.5 F-98.6 F 63-100 18-20 99-146/60-77 92-97 General appearance: normal weight, no acute distress - Head Head exam: Present: normal inspection, normocephalic - Eye Eye exam: Present: other (Lids and conjunctive are unremarkable). Absent: scleral icterus - ENT ENT exam: Present: normal exam, normal oropharynx - Neck Neck exam: Present: normal inspection - Respiratory Respiratory exam: Present: clear to auscultation bilaterally. Absent: rales, rhonchi, wheezes - Cardiovascular Cardiovascular exam: Present: regular rate and rhythm. Absent: diastolic murmur , JVD, systolic murmur - GI/Abdominal GI/Abdominal exam: Present: normal bowel sounds, soft. Absent: ascites, distended, mass, organomegaly, tenderness - Extremities Exam Extremities exam: Present: normal inspection, full ROM - Back Exam Back exam: Present: normal inspection - Neurological Exam Neurological exam: Present: alert, oriented X3 - Psychiatric Psychiatric exam: Present: normal affect, normal mood - Skin Skin exam: Present: normal color, warm, dry Results - Labs CBC & BMP: 09/30/16 05:01 09/30/16 05:01 Lab Results: I have reviewed the past 24 hour labs Specialty Discharge - Follow Up or Referrals Follow up with: Renato Burgess MD [Primary Care Provider] - (3 weeks with EKG and labs) <Martin Wing - Last Filed: 10/01/16 16:04> Exam (Progress Note) - Constitutional Vitals: Period Temp Pulse Resp BP Sys/Marcum Pulse Ox Last 24 Hr 98.0 F-98.6 F 60-68 18-20 99-119/60-66 94-97 Results - Labs CBC & BMP: 09/30/16 05:01 10/01/16 10:15
[2016-10-01] MEDS: FUROSEMIDE 40 MG TABLET PO SCH (08:43)
[2016-10-01] MEDS: ASPIRIN EC 81 MG TABLET PO SCH (08:43)
[2016-10-01] MEDS: POTASSIUM CHLORIDE 10 MEQ TABLET PO SCH ×2 (08:43→21:27)
[2016-10-01] MEDS: METHENAMINE HIPPURATE 1 GM TABLET PO SCH ×2 (08:43→21:27)
[2016-10-01] MEDS: amLODIPine 10 MG TABLET PO SCH (08:43)
[2016-10-01] MEDS: SPIRONOLACTONE 50 MG TABLET PO SCH ×2 (08:43→21:27)
[2016-10-01] MEDS: VENLAFAXINE 37.5 MG TABLET PO SCH (08:43)
[2016-10-01] MEDS: ASCORBIC ACID 500 MG TABLET PO SCH (08:43)
[2016-10-01] MEDS: CARVEDILOL 25 MG TABLET PO SCH ×2 (08:43→21:34)
[2016-10-01] MEDS: FAMOTIDINE 20 MG TABLET PO SCH (08:43)
[2016-10-01] MEDS: CHOLECALCIFEROL 1,000 UNIT TABLET PO SCH (08:43)
[2016-10-01] MEDS: MONTELUKAST 10 MG TABLET PO SCH (08:43)
[2016-10-01] MEDS: MAGNESIUM CHLORIDE 64 MG TABLET PO SCH ×2 (08:43→21:27)
[2016-10-01] MEDS: FUROSEMIDE 40 MG/4 ML VIAL IV SCH ×2 (08:44→15:11)
[2016-10-01] MEDS: FUROSEMIDE 20 MG TABLET PO SCH (08:44)
[2016-10-01] MEDS: INSULIN ASPART PROTAMINE/ASPART 70/30 100 UNIT/ML SUBCUT SCH ×2 (08:44→17:10)
[2016-10-01] MEDS: INSULIN REGULAR 100 UNIT/ML SUBCUT SCH ×4 (08:45→21:27)
--- NOTE | 2016-10-01 09:53 | Nephrology Progress Note ---
Nephrology - PN: Subj Interval history: The patient is resting comfortably no acute changes. Serum creatinine stable at 1.6. Exam (PN)-Nephrology - Vital Signs Vital signs: Period Temp Pulse Resp BP Sys/Marcum Pulse Ox Last 24 Hr 97.5 F-98.6 F 63-100 18-20 99-146/60-77 92-97 - General Appearance General appearance: well-developed, well-nourished EENT: ATNC Neck: supple Respiratory: clear Cardiology: regular rate, regular rhythm Gastrointestinal: normoactive bowel sounds, no tenderness Neurologic: alert and oriented x3, CN 3-12 intact Musculoskeletal: no clubbing Psychiatric: mood/affect appropriate - Lab 09/30/16 05:01 09/30/16 05:01 Most recent lab results Calcium 9.1 MG/DL (8.5-10.1) 09/30/16 05:01 Magnesium 2.3 MG/DL (1.8-2.4) 09/27/16 15:34 Assessment and Plan (1) Atrial fibrillation Status: Chronic Current Visit: No Qualifiers: Atrial fibrillation type: chronic Qualified Code(s): I48.2 - Chronic atrial fibrillation (2) Diabetes Status: Chronic Current Visit: Yes Qualifiers: Diabetes mellitus type: type 2 Diabetes mellitus complication status: with kidney complications Chronic kidney disease stage: stage 2 (mild) (3) Hypertension Problem details: controlled Status: Chronic Current Visit: Yes Qualifiers: Hypertension type: essential hypertension (4) Chronic renal insufficiency Status: Chronic Assessment and plan: Renal function appears to be stable. Metabolic panel is acceptable. Patient with history of lupus. Current Visit: No Qualifiers: Chronic kidney disease stage: stage 4 (severe) Qualified Code(s): N18.4 - Chronic kidney disease, stage 4 (severe) (5) Ascites Status: Acute Assessment and plan: This is improving. Current Visit: Yes Specialty Discharge - Follow Up or Referrals Follow up with: Renato Burgess MD [Primary Care Provider] - (3 weeks with EKG and labs)
[2016-10-01 11:04] LABS: Calcium 8.7 MG/DL (8.5-10.1); Potassium 3.6 MMOL/L (3.5-5.1)
--- NOTE | 2016-10-01 11:50 | Pulmonology Progress Note ---
Pulmonary - PN: Subj Interval history: Raúl Medrano, ANP-BC, GNP-BC, acting as scribe for Dr. Luis Miguel Do Mrs. Dasilva is a 71-year-old white female who was [facility] with ascites/anasarca, cholelithiasis per ultrasound, and bilateral lower extremity edema. Other past history includes chronic atrial fibrillation, history of acute renal failure (interstitial nephritis) secondary to medications in contrast, systemic lupus erythematosus,, diabetes mellitus, arteriosclerotic heart disease, sick sinus syndrome, pacemaker, chronic Coumadin therapy, history of depression, history of esophageal stricture esophageal motility dysfunction, history of ruptured right Achilles tendon, allergic sinusitis, and history of abdominal wall hematoma with large retroperitoneal bleed. 09/28/2016. Patient seen today along with her sister and daughter. She is scheduled for paracentesis today by IR. We will follow-up those results. On exam, the patient obviously has less JVD today. She has been diuresed. She is being seen in GI, cardiology, and nephrology consultations. Her daughter reports that patient did not receive her Coreg this morning. Spoken with the nursing staff about this. Apparently, Leilas does not have 25 mg tablets. Pharmacy had not changed it to 12.5 mg 2 tablets twice daily. We will ask this be done. Certainly, she needs to continue her Coreg. Her home medications were restarted last night. 09/29/2016. An echocardiogram done last week by Dr. Cortez the patient had an ejection fraction 55%. She had right ventricular enlargement and pulmonary artery pressures were 55 mmHg. These are elevated. Patient did not give us her medicine Norvasc 5 mg at time of admission but it turns out she was taken this for pulmonary hypertension. I am going to increase it to 10 mg daily. Her blood pressures looks safe but will be careful with this. A paracentesis was done yesterday. A number of tests are pending. Dr. Wing is 300 and GI consultation. I understand that cirrhosis of the liver is thought to be an underlying problem. After paracentesis yesterday the patient is markedly better. Her lower extremity edema is improved. Her stomach is much less distended. Jugular venous pressures are now normal. Overall her lab tests look good. 09/30/2016. The patient is for liver biopsy this morning. We will follow-up those results when available. Of note, alpha-1 antitrypsin level, ceruloplasmin and mitochondrial antibodies are all pending. Paracentesis was done 09/28/2016. Cytology has been reported as class II. The patient's glucose dropped last night to low 49. We have adjusted her nighttime insulin and decreased to 4 units. Urine cultures growing a gram-negative gerardo. ID and sensitivity is still pending. Keeping in mind her long list of allergies, we started Hiprex on 09/28/2016. 10/01/16. The patient was seen today along with her daughter and Yenni Ureña RN. She had a liver biopsy yesterday and the results are pending. Her abdomen remains improved. On review of her medications, there were three different orders for Lasix. We have discontinued all oral Lasix and are going to only give IV Lasix for now. She is being seen by Dr. Wing and Dr. Sutton/Ramon. There notes have been reviewed. Her urine has grown E. coli. We have had her on Hiprex. We will repeat her urinalysis today. Medications have been reviewed. Labs been reviewed. Exam (Progress Note) - Constitutional Vitals: Period Temp Pulse Resp BP Sys/Marcum Pulse Ox Last 24 Hr 98.0 F-98.6 F 63-68 18-20 99-119/60-66 94-97 Exam: Chest is wheeze free Heart irregular Abdomen is nontender and nondistended; bowel sounds are positive 4 Extremities with markedly less edema; nothing to suggest acute DVT Psychiatric oriented 3 Neurologic long-term motor function is intact Plan: Follow-up liver biopsy results when available. Repeat urinalysis today. Stop oral Lasix. Daily BMP/Mg+. See orders. Results - Labs CBC & BMP: 09/30/16 05:01 10/01/16 10:15 Specialty Discharge - Follow Up or Referrals Follow up with: Renato Burgess MD [Primary Care Provider] - (3 weeks with EKG and labs)
[2016-10-01 14:21] LABS: Apearance,Urine CLEAR (Clear); Bacteria,Urine Moderate /HPF (Few); Bilirubin,Urine Negative (Negative); Blood, Urine Negative (Negative); Glucose,Urine (UA) Negative (Negative); Ketones,Urine Negative (Negative); Mucus,Urine Occasional /LPF (Occasional); Nitrite,Urine Negative (Negative); Protein,Urine Negative; RBC,Urine 2 /HPF (0-4); Squamous Epithelial Cell,Urine Occasional /HPF (0-10); Urine Color Straw (Yellow); Urine Specific Gravity 1.005 (1.001-1.035); Urine Urobilinogen < 2.0 EU/DL (0.2-1.0); WBC,Urine 14 /HPF (0-6)
[2016-10-01] MEDS: SIMVASTATIN 40 MG TABLET PO SCH (21:27)
[2016-10-01] MEDS: BIMATOPROST 0.01% OPH SOLN 2.5 ML BOTTLE BOTH EYES SCH (21:35)
[2016-10-02 05:54] LABS: Magnesium 2.1 MG/DL (1.8-2.4); Osmolality,Calculated 284.1 MOS/KG (273-304); Potassium 3.6 MMOL/L (3.5-5.1)
[2016-10-02] MEDS: FAMOTIDINE 20 MG TABLET PO SCH (08:09)
[2016-10-02] MEDS: VENLAFAXINE 37.5 MG TABLET PO SCH (08:09)
[2016-10-02] MEDS: CARVEDILOL 25 MG TABLET PO SCH ×2 (08:09→21:35)
[2016-10-02] MEDS: CHOLECALCIFEROL 1,000 UNIT TABLET PO SCH (08:09)
[2016-10-02] MEDS: amLODIPine 10 MG TABLET PO SCH (08:09)
[2016-10-02] MEDS: POTASSIUM CHLORIDE 10 MEQ TABLET PO SCH ×2 (08:09→21:35)
[2016-10-02] MEDS: MAGNESIUM CHLORIDE 64 MG TABLET PO SCH ×2 (08:10→21:35)
[2016-10-02] MEDS: METHENAMINE HIPPURATE 1 GM TABLET PO SCH ×2 (08:10→21:35)
[2016-10-02] MEDS: INSULIN ASPART PROTAMINE/ASPART 70/30 100 UNIT/ML SUBCUT SCH ×2 (08:10→17:06)
[2016-10-02] MEDS: ASPIRIN EC 81 MG TABLET PO SCH (08:10)
[2016-10-02] MEDS: ASCORBIC ACID 500 MG TABLET PO SCH (08:10)
[2016-10-02] MEDS: MONTELUKAST 10 MG TABLET PO SCH (08:10)
[2016-10-02] MEDS: FUROSEMIDE 40 MG/4 ML VIAL IV SCH ×2 (08:11→15:52)
[2016-10-02] MEDS: INSULIN REGULAR 100 UNIT/ML SUBCUT SCH ×4 (08:12→21:34)
[2016-10-02] MEDS: SPIRONOLACTONE 50 MG TABLET PO SCH ×2 (08:12→21:35)
--- NOTE | 2016-10-02 17:48 | Nephrology Progress Note ---
Nephrology - PN: Subj Interval history: Patient is resting comfortably and sitting up in chair visiting with family. Serum Creatinine is noted to be 2.0. No other acute changes. Exam (PN)-Nephrology - Vital Signs Vital signs: Period Temp Pulse Resp BP Sys/Marcum Pulse Ox Last 24 Hr 97.6 F-98.6 F 54-66 16-20 105-119/62-73 93-95 - General Appearance General appearance: well-developed, well-nourished EENT: ATNC Neck: supple Respiratory: clear Cardiology: regular rate, regular rhythm Gastrointestinal: normoactive bowel sounds, no tenderness Neurologic: CN 3-12 intact Psychiatric: mood/affect appropriate, cooperative - Lab 09/30/16 05:01 10/02/16 04:40 Most recent lab results Calcium 9.0 MG/DL (8.5-10.1) 10/02/16 04:40 Magnesium 2.1 MG/DL (1.8-2.4) 10/02/16 04:40 Assessment and Plan (1) Atrial fibrillation Status: Chronic Current Visit: No Qualifiers: Atrial fibrillation type: chronic Qualified Code(s): I48.2 - Chronic atrial fibrillation (2) Diabetes Status: Chronic Current Visit: Yes Qualifiers: Diabetes mellitus type: type 2 Diabetes mellitus complication status: with kidney complications Chronic kidney disease stage: stage 2 (mild) (3) Hypertension Problem details: controlled Status: Chronic Current Visit: Yes Qualifiers: Hypertension type: essential hypertension (4) Chronic renal insufficiency Status: Chronic Assessment and plan: Renal function appears to be stable. Metabolic panel is acceptable. Patient with history of lupus. Current Visit: No Qualifiers: Chronic kidney disease stage: stage 4 (severe) Qualified Code(s): N18.4 - Chronic kidney disease, stage 4 (severe) (5) Ascites Status: Acute Assessment and plan: This is improving. Current Visit: Yes Specialty Discharge - Follow Up or Referrals Follow up with: Renato Burgess MD [Primary Care Provider] - (3 weeks with EKG and labs)
--- NOTE | 2016-10-02 20:04 | Pulmonology Progress Note ---
Pulmonary - PN: Subj Interval history: 71-year-old female admitted with ascites/anasarca. Patient had no acute events overnight. This a.m. she admits to significant improvement in breathing as well as overall volume status. She continues to have lower extremity edema but she feels is improving. Abdominal distention is improved with paracentesis. Exam (Progress Note) - Constitutional Vitals: Period Temp Pulse Resp BP Sys/Marcum Pulse Ox Last 24 Hr 97.6 F-98.6 F 54-66 16-20 105-117/62-65 93-95 General appearance: over weight - Head Head exam: Present: normal inspection - Eye Eye exam: Present: EOMI Pupils: Present: PERRY - Neck Neck exam: Present: normal inspection - Respiratory Respiratory exam: Present: clear to auscultation bilaterally. Absent: rales, rhonchi, wheezes - Cardiovascular Cardiovascular exam: Present: regular rate and rhythm - GI/Abdominal GI/Abdominal exam: Present: normal bowel sounds, soft. Absent: distended, guarding, tenderness - Extremities Exam Extremities exam: Present: edema (2+ pitting edema bilateral lower extremities) - Neurological Exam Neurological exam: Present: alert, oriented X3, CN II-XII intact. Absent: motor sensory deficit - Psychiatric Psychiatric exam: Present: normal affect - Skin Skin exam: Present: warm, dry, erythema (Bilateral lower extremities consistent with venous stasis) Results - Labs CBC & BMP: 09/30/16 05:01 10/02/16 04:40 Assessment and Plan (1) Ascites Status: Acute Assessment and plan: Improved status post paracentesis. Continue to monitor for worsening and need for repeat drainage. Liver biopsy results pending. Current Visit: Yes (2) Edema, lower extremity Status: Acute Assessment and plan: Anasarca. Reportedly slowly improving per patient. Continue Lasix and monitor renal function. Current Visit: Yes (3) Shortness of breath Status: Acute Assessment and plan: Significantly improved per patient with diuresis. Monitor Current Visit: Yes (4) Atrial fibrillation Status: Chronic Assessment and plan: Currently rate controlled. Current Visit: No Qualifiers: Atrial fibrillation type: chronic Qualified Code(s): I48.2 - Chronic atrial fibrillation Specialty Discharge - Follow Up or Referrals Follow up with: Renato Burgess MD [Primary Care Provider] - (3 weeks with EKG and labs)
[2016-10-02] MEDS: SIMVASTATIN 40 MG TABLET PO SCH (21:35)
[2016-10-02] MEDS: BIMATOPROST 0.01% OPH SOLN 2.5 ML BOTTLE BOTH EYES SCH (21:36)
[2016-10-03 04:31] LABS: Ceruloplasmin 28 mg/dL (18-53)
[2016-10-03 06:38] LABS: Calcium 8.7 MG/DL (8.5-10.1); Potassium 3.9 MMOL/L (3.5-5.1)
--- NOTE | 2016-10-03 08:21 | Nephrology Progress Note ---
Nephrology - PN: Subj Interval history: The patient is resting comfortably sitting up in her chair. Serum creatinine is stable at 2.0. Lower extremity swelling is about the same. No shortness of breath. She continues to do acceptable. Exam (PN)-Nephrology - Vital Signs Vital signs: Period Temp Pulse Resp BP Sys/Marcum Pulse Ox Last 24 Hr 97.6 F-98.5 F 61-65 16-20 102-112/60-65 93-96 - General Appearance General appearance: well-developed, well-nourished EENT: ATNC Neck: supple Respiratory: clear Cardiology: edema (2+), regular rate, regular rhythm Gastrointestinal: normoactive bowel sounds, no tenderness Integumentary: no rash Neurologic: alert and oriented x3, CN 3-12 intact Musculoskeletal: no clubbing Psychiatric: mood/affect appropriate - Lab 09/30/16 05:01 10/03/16 05:16 Most recent lab results Calcium 8.7 MG/DL (8.5-10.1) 10/03/16 05:16 Magnesium 2.0 MG/DL (1.8-2.4) 10/03/16 05:16 Assessment and Plan (1) Atrial fibrillation Status: Chronic Current Visit: No Qualifiers: Atrial fibrillation type: chronic Qualified Code(s): I48.2 - Chronic atrial fibrillation (2) Diabetes Status: Chronic Current Visit: Yes Qualifiers: Diabetes mellitus type: type 2 Diabetes mellitus complication status: with kidney complications Chronic kidney disease stage: stage 2 (mild) (3) Hypertension Problem details: controlled Status: Chronic Current Visit: Yes Qualifiers: Hypertension type: essential hypertension (4) Chronic renal insufficiency Status: Chronic Assessment and plan: Renal function appears to be stable. Metabolic panel is acceptable. Patient with history of lupus. Current Visit: No Qualifiers: Chronic kidney disease stage: stage 4 (severe) Qualified Code(s): N18.4 - Chronic kidney disease, stage 4 (severe) (5) Ascites Status: Acute Assessment and plan: This is improving. Current Visit: Yes Specialty Discharge - Follow Up or Referrals Follow up with: Renato Burgess MD [Primary Care Provider] - (3 weeks with EKG and labs)
[2016-10-03] MEDS: ASPIRIN EC 81 MG TABLET PO SCH (08:32)
[2016-10-03] MEDS: amLODIPine 10 MG TABLET PO SCH (08:32)
[2016-10-03] MEDS: POTASSIUM CHLORIDE 10 MEQ TABLET PO SCH ×2 (08:32→21:23)
[2016-10-03] MEDS: FUROSEMIDE 40 MG/4 ML VIAL IV SCH ×2 (08:32→15:03)
[2016-10-03] MEDS: MONTELUKAST 10 MG TABLET PO SCH (08:32)
[2016-10-03] MEDS: FAMOTIDINE 20 MG TABLET PO SCH (08:32)
[2016-10-03] MEDS: VENLAFAXINE 37.5 MG TABLET PO SCH (08:32)
[2016-10-03] MEDS: ASCORBIC ACID 500 MG TABLET PO SCH (08:32)
[2016-10-03] MEDS: METHENAMINE HIPPURATE 1 GM TABLET PO SCH ×2 (08:32→21:23)
[2016-10-03] MEDS: CARVEDILOL 25 MG TABLET PO SCH ×2 (08:32→21:23)
[2016-10-03] MEDS: MAGNESIUM CHLORIDE 64 MG TABLET PO SCH ×2 (08:32→21:23)
[2016-10-03] MEDS: CHOLECALCIFEROL 1,000 UNIT TABLET PO SCH (08:32)
[2016-10-03] MEDS: INSULIN ASPART PROTAMINE/ASPART 70/30 100 UNIT/ML SUBCUT SCH ×2 (08:33→17:00)
[2016-10-03] MEDS: INSULIN REGULAR 100 UNIT/ML SUBCUT SCH ×4 (08:33→21:09)
[2016-10-03] MEDS: SPIRONOLACTONE 50 MG TABLET PO SCH ×2 (08:34→21:23)
--- NOTE | 2016-10-03 16:07 | Pulmonology Progress Note ---
Pulmonary - PN: Subj Interval history: 71-year-old female admitted with ascites/anasarca. Patient had no acute events overnight. Today she notes slight worsening of abdominal distention, but denies abdominal pain/diarrhea/nausea/vomiting. She continues to have lower extremity edema. She does note increased urine output in response to Lasix dosing. No new issues or concerns today. Exam (Progress Note) - Constitutional Vitals: Period Temp Pulse Resp BP Sys/Marcum Pulse Ox Last 24 Hr 97.6 F-98.5 F 62-75 18-20 100-118/60-65 93-96 General appearance: over weight - Head Head exam: Present: normal inspection - Eye Eye exam: Present: EOMI. Absent: scleral icterus Pupils: Present: PERRY - Respiratory Respiratory exam: Present: clear to auscultation bilaterally. Absent: rales, rhonchi, wheezes - Cardiovascular Cardiovascular exam: Present: regular rate and rhythm - GI/Abdominal GI/Abdominal exam: Present: normal bowel sounds, distended (Slight), soft. Absent: tenderness, rebound - Extremities Exam Extremities exam: Present: edema (2+ pitting edema bilateral lower extremities) - Neurological Exam Neurological exam: Present: alert, oriented X3, CN II-XII intact - Psychiatric Psychiatric exam: Present: normal affect - Skin Skin exam: Present: warm, dry Results - Labs CBC & BMP: 09/30/16 05:01 10/03/16 05:16 Assessment and Plan (1) Ascites Status: Acute Assessment and plan: Initially improved status post paracentesis, now with slight worsening. Continue to monitor for need for repeat drainage. Liver biopsy results pending to assess etiology of cirrhosis. Current Visit: Yes (2) Edema, lower extremity Status: Acute Assessment and plan: Anasarca. Continue Lasix and monitor renal function. Current Visit: Yes (3) Shortness of breath Status: Acute Assessment and plan: Significantly improved per patient with diuresis. Monitor Current Visit: Yes (4) Atrial fibrillation Status: Chronic Assessment and plan: Currently rate controlled. Current Visit: No Qualifiers: Atrial fibrillation type: chronic Qualified Code(s): I48.2 - Chronic atrial fibrillation (5) NONI (acute kidney injury) Problem details: improved to baseline Status: Acute Current Visit: No (6) Ngrep-hi-jhaxlvw kidney injury Status: Acute Assessment and plan: Nephrology following. Appreciate their assistance. Creatinine stable today with good urine output. Continue to monitor Current Visit: No Specialty Discharge - Follow Up or Referrals Follow up with: Renato Burgess MD [Primary Care Provider] - (3 weeks with EKG and labs)
[2016-10-03] MEDS: SIMVASTATIN 40 MG TABLET PO SCH (21:23)
[2016-10-03] MEDS: BIMATOPROST 0.01% OPH SOLN 2.5 ML BOTTLE BOTH EYES SCH (21:23)
[2016-10-04 06:59] LABS: Calcium 8.7 MG/DL (8.5-10.1); Magnesium 2.1 MG/DL (1.8-2.4); Osmolality,Calculated 287.1 MOS/KG (273-304); Potassium 4.2 MMOL/L (3.5-5.1)
[2016-10-04] MEDS: INSULIN ASPART PROTAMINE/ASPART 70/30 100 UNIT/ML SUBCUT SCH ×2 (07:48→16:46)
[2016-10-04] MEDS: INSULIN REGULAR 100 UNIT/ML SUBCUT SCH ×4 (07:48→21:46)
[2016-10-04] MEDS: MAGNESIUM CHLORIDE 64 MG TABLET PO SCH ×2 (08:26→21:28)
[2016-10-04] MEDS: ASPIRIN EC 81 MG TABLET PO SCH (08:26)
[2016-10-04] MEDS: VENLAFAXINE 37.5 MG TABLET PO SCH (08:26)
[2016-10-04] MEDS: MONTELUKAST 10 MG TABLET PO SCH (08:26)
[2016-10-04] MEDS: amLODIPine 10 MG TABLET PO SCH (08:26)
[2016-10-04] MEDS: CHOLECALCIFEROL 1,000 UNIT TABLET PO SCH (08:26)
[2016-10-04] MEDS: ASCORBIC ACID 500 MG TABLET PO SCH (08:27)
[2016-10-04] MEDS: SPIRONOLACTONE 50 MG TABLET PO SCH ×2 (08:27→21:29)
[2016-10-04] MEDS: FUROSEMIDE 40 MG/4 ML VIAL IV SCH ×2 (08:27→16:46)
[2016-10-04] MEDS: FAMOTIDINE 20 MG TABLET PO SCH (08:27)
[2016-10-04] MEDS: METHENAMINE HIPPURATE 1 GM TABLET PO SCH ×2 (08:27→21:29)
[2016-10-04] MEDS: CARVEDILOL 25 MG TABLET PO SCH ×2 (08:27→21:28)
[2016-10-04] MEDS: POTASSIUM CHLORIDE 10 MEQ TABLET PO SCH ×2 (08:27→21:28)
--- NOTE | 2016-10-04 09:09 | Nephrology Progress Note ---
Nephrology - PN: Subj Interval history: Patient is resting comfortably no acute changes. Still has some lower extremity swelling but is slowly improving. Serum creatinine is noted to be 2.1 which is stable for this patient. No shortness of breath or chest pain. Exam (PN)-Nephrology - Vital Signs Vital signs: Period Temp Pulse Resp BP Sys/Marcum Pulse Ox Last 24 Hr 97.3 F-98.5 F 61-74 18-20 100-121/60-67 94-97 - General Appearance General appearance: well-developed, well-nourished EENT: ATNC Neck: supple Respiratory: clear Cardiology: edema (2+), regular rate, regular rhythm Gastrointestinal: normoactive bowel sounds, no tenderness Integumentary: no rash Neurologic: alert and oriented x3 Psychiatric: mood/affect appropriate - Lab 09/30/16 05:01 10/04/16 05:08 Most recent lab results Calcium 8.7 MG/DL (8.5-10.1) 10/04/16 05:08 Magnesium 2.1 MG/DL (1.8-2.4) 10/04/16 05:08 Assessment and Plan (1) Atrial fibrillation Status: Chronic Current Visit: No Qualifiers: Qualified Code(s): I48.2 - Chronic atrial fibrillation (2) Diabetes Status: Chronic Current Visit: Yes (3) Hypertension Problem details: controlled Status: Chronic Current Visit: Yes (4) Chronic renal insufficiency Status: Chronic Assessment and plan: Renal function appears to be stable. Metabolic panel is acceptable. Patient with history of lupus. Current Visit: No Qualifiers: Qualified Code(s): N18.4 - Chronic kidney disease, stage 4 (severe) (5) Ascites Status: Acute Assessment and plan: This is improving. Current Visit: Yes Specialty Discharge - Follow Up or Referrals Follow up with: Renato Burgess MD [Primary Care Provider] - (3 weeks with EKG and labs)
--- NOTE | 2016-10-04 09:10 | Gastrointestinal Progress Note ---
<Hawa Dominguezher Shelton - Last Filed: 10/04/16 09:08> Assessment and Plan (1) Ascites Status: Acute Assessment and plan: 10/04-Path report still pending at present. Plan and addendum to follow by Dr Wing. 10/01-liver biopsy report pending at this time. Antimitochondrial antibody negative. Plan an addendum to follow by Dr. Wing 09/30-for liver biopsy today. Further serology testing still pending. No repeat LFTs today. Plan an addendum to follow by Dr. Wing. 09/29-No c/p today. Tolerating diet. Labwork still pending today, negative hepatitis B antibody. Plan and addendum to follow by Dr Wing. 09/28-No changes today. Will schedule for US guided paracentesis today. Hepatitis panel negative. Plan and addendum to follow by Dr Wing. 09/27-Three month hx of abd swelling worsening over last several weeks. Abd US results noted. Remote hx of hepatitis as a teenager. Obtain hepatitis panel. Plan and addendum to follow by Dr Wing. Current Visit: Yes Gastroenterology - PN: Subj Interval history: CC: Ascites Pt is awake and alert sitting up in chair, spouse at side. States she is feeling fairly well however her fluid seems to be reaccumulating at this time however she states she is not to the point of being very uncomfortable yet. Pathology report is pending at present time. Abdomen is soft, nontender. Weight continues to hold at this time. ROS: Denies SOB or chest pain Exam (Progress Note) - Constitutional Vitals: Period Temp Pulse Resp BP Sys/Marcum Pulse Ox Last 24 Hr 97.3 F-98.5 F 61-74 18-20 100-121/60-67 94-97 General appearance: normal weight, no acute distress - Head Head exam: Present: normal inspection, normocephalic - Eye Eye exam: Present: other (lids and conjunctiva unremarkable). Absent: scleral icterus - ENT ENT exam: Present: normal exam, normal oropharynx - Neck Neck exam: Present: normal inspection - Respiratory Respiratory exam: Present: clear to auscultation bilaterally. Absent: rales, rhonchi, wheezes - Cardiovascular Cardiovascular exam: Present: regular rate and rhythm. Absent: diastolic murmur , JVD, systolic murmur - GI/Abdominal GI/Abdominal exam: Present: normal bowel sounds, soft. Absent: ascites, distended, mass, organomegaly, tenderness - Extremities Exam Extremities exam: Present: normal inspection, full ROM - Back Exam Back exam: Present: normal inspection - Neurological Exam Neurological exam: Present: alert, oriented X3 - Psychiatric Psychiatric exam: Present: normal affect, normal mood - Skin Skin exam: Present: normal color, warm, dry Results - Labs CBC & BMP: 09/30/16 05:01 10/04/16 05:08 Lab Results: I have reviewed the past 24 hour labs Specialty Discharge - Follow Up or Referrals Follow up with: Renato Burgess MD [Primary Care Provider] - (3 weeks with EKG and labs) <Martin Wing - Last Filed: 10/04/16 20:46> Exam (Progress Note) - Constitutional Vitals: Period Temp Pulse Resp BP Sys/Marcum Pulse Ox Last 24 Hr 96.9 F-98.2 F 60-74 18-20 100-121/59-79 93-98 Results - Labs CBC & BMP: 09/30/16 05:01 10/04/16 05:08
--- NOTE | 2016-10-04 10:31 | Pulmonology Progress Note ---
Pulmonary - PN: Subj Interval history: Raúl Medrano, ANP-BC, GNP-BC, acting as scribe for Dr. Luis Miguel Do Mrs. Dasilva is a 71-year-old white female who was [facility] with ascites/anasarca, cholelithiasis per ultrasound, and bilateral lower extremity edema. Other past history includes chronic atrial fibrillation, history of acute renal failure (interstitial nephritis) secondary to medications in contrast, systemic lupus erythematosus,, diabetes mellitus, arteriosclerotic heart disease, sick sinus syndrome, pacemaker, chronic Coumadin therapy, history of depression, history of esophageal stricture esophageal motility dysfunction, history of ruptured right Achilles tendon, allergic sinusitis, and history of abdominal wall hematoma with large retroperitoneal bleed. 09/28/2016. Patient seen today along with her sister and daughter. She is scheduled for paracentesis today by IR. We will follow-up those results. On exam, the patient obviously has less JVD today. She has been diuresed. She is being seen in GI, cardiology, and nephrology consultations. Her daughter reports that patient did not receive her Coreg this morning. Spoken with the nursing staff about this. Apparently, Leilas does not have 25 mg tablets. Pharmacy had not changed it to 12.5 mg 2 tablets twice daily. We will ask this be done. Certainly, she needs to continue her Coreg. Her home medications were restarted last night. 09/29/2016. An echocardiogram done last week by Dr. Cortez the patient had an ejection fraction 55%. She had right ventricular enlargement and pulmonary artery pressures were 55 mmHg. These are elevated. Patient did not give us her medicine Norvasc 5 mg at time of admission but it turns out she was taken this for pulmonary hypertension. I am going to increase it to 10 mg daily. Her blood pressures looks safe but will be careful with this. A paracentesis was done yesterday. A number of tests are pending. Dr. Wing is 300 and GI consultation. I understand that cirrhosis of the liver is thought to be an underlying problem. After paracentesis yesterday the patient is markedly better. Her lower extremity edema is improved. Her stomach is much less distended. Jugular venous pressures are now normal. Overall her lab tests look good. 09/30/2016. The patient is for liver biopsy this morning. We will follow-up those results when available. Of note, alpha-1 antitrypsin level, ceruloplasmin and mitochondrial antibodies are all pending. Paracentesis was done 09/28/2016. Cytology has been reported as class II. The patient's glucose dropped last night to low 49. We have adjusted her nighttime insulin and decreased to 4 units. Urine cultures growing a gram-negative gerardo. ID and sensitivity is still pending. Keeping in mind her long list of allergies, we started Hiprex on 09/28/2016. 10/01/16. The patient was seen today along with her daughter and Yenni Ureña RN. She had a liver biopsy yesterday and the results are pending. Her abdomen remains improved. On review of her medications, there were three different orders for Lasix. We have discontinued all oral Lasix and are going to only give IV Lasix for now. She is being seen by Dr. Wing and Dr. Sutton/Ramon. There notes have been reviewed. Her urine has grown E. coli. We have had her on Hiprex. We will repeat her urinalysis today. 10/04/2016. The patient was seen today along with her in Sesar Montesinos RN. Ms. Dasilva states that her abdomen feels like it is becoming distended again. Her legs are less edematous however. She notes that her weight is up approximately 2-3 pounds from yesterday. Alpha-1 antitrypsin level was 214 ( normal 100-190). Ceruloplasmin was 28 (normal 18-53). Antimitochondrial antibody was less than 0.1 (negative). We called the lab to check on the patient's liver biopsy. Apparently, the specimen has been sent to [facility] and can take reportedly 7-10 business days to get back. Her urine has again grown E. coli and also a gram-positive cocci which is awaiting identification. She continues on Hiprex. Creatinine has increased slightly to 2.10. She is being followed by nephrology. Medications have been reviewed. We made no changes today. Labs been reviewed. Creatinine 2.10, BUN 28, electrolytes are normal Exam (Progress Note) - Constitutional Vitals: Period Temp Pulse Resp BP Sys/Marcum Pulse Ox Last 24 Hr 97.3 F-98.5 F 61-74 18-20 100-121/60-67 94-97 Exam: Chest is wheeze free Heart irregular Abdomen is nontender; bowel sounds are positive 4 Extremities (lower) with markedly less edema (approximately +1/4); nothing to suggest acute DVT Psychiatric oriented 3 Neurologic long-term motor function is intact Plan: Follow-up liver biopsy results when available. Continue present treatment. We have asked patient to be up and ambulating in halls today with the assistance of her . We will take her discharge date on the day by day basis. Results - Labs CBC & BMP: 09/30/16 05:01 10/04/16 05:08 Specialty Discharge - Follow Up or Referrals Follow up with: Renato Burgess MD [Primary Care Provider] - (3 weeks with EKG and labs)
[2016-10-04] MEDS: SIMVASTATIN 40 MG TABLET PO SCH (21:29)
[2016-10-04] MEDS: BIMATOPROST 0.01% OPH SOLN 2.5 ML BOTTLE BOTH EYES SCH (21:29)
[2016-10-05] MEDS: INSULIN ASPART PROTAMINE/ASPART 70/30 100 UNIT/ML SUBCUT SCH ×2 (07:59→16:54)
[2016-10-05] MEDS: INSULIN REGULAR 100 UNIT/ML SUBCUT SCH ×4 (07:59→20:21)
[2016-10-05] MEDS: MAGNESIUM CHLORIDE 64 MG TABLET PO SCH ×2 (08:23→20:24)
[2016-10-05] MEDS: CHOLECALCIFEROL 1,000 UNIT TABLET PO SCH (08:23)
[2016-10-05] MEDS: ASCORBIC ACID 500 MG TABLET PO SCH (08:23)
[2016-10-05] MEDS: VENLAFAXINE 37.5 MG TABLET PO SCH (08:23)
[2016-10-05] MEDS: FAMOTIDINE 20 MG TABLET PO SCH (08:23)
[2016-10-05] MEDS: MONTELUKAST 10 MG TABLET PO SCH (08:23)
[2016-10-05] MEDS: amLODIPine 10 MG TABLET PO SCH (08:23)
[2016-10-05] MEDS: METHENAMINE HIPPURATE 1 GM TABLET PO SCH (08:23)
[2016-10-05] MEDS: ASPIRIN EC 81 MG TABLET PO SCH (08:23)
[2016-10-05] MEDS: POTASSIUM CHLORIDE 10 MEQ TABLET PO SCH ×2 (08:23→20:25)
[2016-10-05] MEDS: SPIRONOLACTONE 50 MG TABLET PO SCH (08:23)
[2016-10-05] MEDS: CARVEDILOL 25 MG TABLET PO SCH ×2 (08:24→20:25)
[2016-10-05] MEDS: FUROSEMIDE 40 MG/4 ML VIAL IV SCH (08:27)
--- NOTE | 2016-10-05 08:52 | Gastrointestinal Progress Note ---
<AngelicaMiri Shelton - Last Filed: 10/05/16 08:49> Assessment and Plan (1) Ascites Status: Acute Assessment and plan: 10/05-no changes at present time. Path report still pending. Plan an addendum to follow by Dr. Wing. 10/04-Path report still pending at present. Plan and addendum to follow by Dr Wing. 10/01-liver biopsy report pending at this time. Antimitochondrial antibody negative. Plan an addendum to follow by Dr. Wing 09/30-for liver biopsy today. Further serology testing still pending. No repeat LFTs today. Plan an addendum to follow by Dr. Wing. 09/29-No c/p today. Tolerating diet. Labwork still pending today, negative hepatitis B antibody. Plan and addendum to follow by Dr Wing. 09/28-No changes today. Will schedule for US guided paracentesis today. Hepatitis panel negative. Plan and addendum to follow by Dr Wing. 09/27-Three month hx of abd swelling worsening over last several weeks. Abd US results noted. Remote hx of hepatitis as a teenager. Obtain hepatitis panel. Plan and addendum to follow by Dr Wing. Current Visit: Yes Gastroenterology - PN: Subj Interval history: cc: Ascites Pt is seen awake and alert sitting up in chair. Daughter at bedside. States she is feeling better at this time. Rested well overnight. We are still awaiting her liver biopsy results at present time. Abdomen is soft, nontender. Her weight is down 2 pounds today. She is tolerating her diet well. ROS: Denies SOB or chest pain Exam (Progress Note) - Constitutional Vitals: Period Temp Pulse Resp BP Sys/Marcum Pulse Ox Last 24 Hr 96.9 F-98.5 F 60-74 16-18 99-118/59-79 93-98 General appearance: normal weight, no acute distress - Head Head exam: Present: normal inspection, normocephalic - Eye Eye exam: Present: other (Lids and conjunctive are unremarkable). Absent: scleral icterus - ENT ENT exam: Present: normal exam, normal oropharynx - Neck Neck exam: Present: normal inspection - Respiratory Respiratory exam: Present: clear to auscultation bilaterally. Absent: rales, rhonchi, wheezes - Cardiovascular Cardiovascular exam: Present: regular rate and rhythm. Absent: diastolic murmur , JVD, systolic murmur - GI/Abdominal GI/Abdominal exam: Present: normal bowel sounds, soft. Absent: ascites, distended, mass, organomegaly, tenderness - Extremities Exam Extremities exam: Present: normal inspection, full ROM - Back Exam Back exam: Present: normal inspection - Neurological Exam Neurological exam: Present: alert, oriented X3 - Psychiatric Psychiatric exam: Present: normal affect, normal mood - Skin Skin exam: Present: normal color, warm, dry Results - Labs CBC & BMP: 09/30/16 05:01 10/04/16 05:08 Lab Results: I have reviewed the past 24 hour labs Specialty Discharge - Follow Up or Referrals Follow up with: Renato Burgess MD [Primary Care Provider] - (3 weeks with EKG and labs) <Martin Wing - Last Filed: 10/05/16 21:33> Exam (Progress Note) - Constitutional Vitals: Period Temp Pulse Resp BP Sys/Marcum Pulse Ox Last 24 Hr 97.4 F-98.5 F 61-74 16-18 103-118/54-67 93-96 Results - Labs CBC & BMP: 09/30/16 05:01 10/05/16 08:16
[2016-10-05 09:14] LABS: Calcium 9.3 MG/DL (8.5-10.1); Osmolality,Calculated 286.3 MOS/KG (273-304); Potassium 4.4 MMOL/L (3.5-5.1)
--- NOTE | 2016-10-05 10:16 | Pulmonology Progress Note ---
Pulmonary - PN: Subj Interval history: Mrs. Dasilva is a 71-year-old white female who was [facility] with ascites/anasarca, cholelithiasis per ultrasound, and bilateral lower extremity edema. Other past history includes chronic atrial fibrillation, history of acute renal failure (interstitial nephritis) secondary to medications in contrast, systemic lupus erythematosus,, diabetes mellitus, arteriosclerotic heart disease, sick sinus syndrome, pacemaker, chronic Coumadin therapy, history of depression, history of esophageal stricture esophageal motility dysfunction, history of ruptured right Achilles tendon, allergic sinusitis, and history of abdominal wall hematoma with large retroperitoneal bleed. 09/28/2016. Patient seen today along with her sister and daughter. She is scheduled for paracentesis today by IR. We will follow-up those results. On exam, the patient obviously has less JVD today. She has been diuresed. She is being seen in GI, cardiology, and nephrology consultations. Her daughter reports that patient did not receive her Coreg this morning. Spoken with the nursing staff about this. Apparently, Leilas does not have 25 mg tablets. Pharmacy had not changed it to 12.5 mg 2 tablets twice daily. We will ask this be done. Certainly, she needs to continue her Coreg. Her home medications were restarted last night. 09/29/2016. An echocardiogram done last week by Dr. Cortez the patient had an ejection fraction 55%. She had right ventricular enlargement and pulmonary artery pressures were 55 mmHg. These are elevated. Patient did not give us her medicine Norvasc 5 mg at time of admission but it turns out she was taken this for pulmonary hypertension. I am going to increase it to 10 mg daily. Her blood pressures looks safe but will be careful with this. A paracentesis was done yesterday. A number of tests are pending. Dr. Wing is 300 and GI consultation. I understand that cirrhosis of the liver is thought to be an underlying problem. After paracentesis yesterday the patient is markedly better. Her lower extremity edema is improved. Her stomach is much less distended. Jugular venous pressures are now normal. Overall her lab tests look good. 09/30/2016. The patient is for liver biopsy this morning. We will follow-up those results when available. Of note, alpha-1 antitrypsin level, ceruloplasmin and mitochondrial antibodies are all pending. Paracentesis was done 09/28/2016. Cytology has been reported as class II. The patient's glucose dropped last night to low 49. We have adjusted her nighttime insulin and decreased to 4 units. Urine cultures growing a gram-negative gerardo. ID and sensitivity is still pending. Keeping in mind her long list of allergies, we started Hiprex on 09/28/2016. 10/01/16. The patient was seen today along with her daughter and Yenni Ureña RN. She had a liver biopsy yesterday and the results are pending. Her abdomen remains improved. On review of her medications, there were three different orders for Lasix. We have discontinued all oral Lasix and are going to only give IV Lasix for now. She is being seen by Dr. Wing and Dr. Sutton/Ramon. There notes have been reviewed. Her urine has grown E. coli. We have had her on Hiprex. We will repeat her urinalysis today. 10/04/2016. The patient was seen today along with her in Sesar Montesinos RN. Ms. Dasilva states that her abdomen feels like it is becoming distended again. Her legs are less edematous however. She notes that her weight is up approximately 2-3 pounds from yesterday. Alpha-1 antitrypsin level was 214 ( normal 100-190). Ceruloplasmin was 28 (normal 18-53). Antimitochondrial antibody was less than 0.1 (negative). We called the lab to check on the patient's liver biopsy. Apparently, the specimen has been sent to [facility] and can take reportedly 7-10 business days to get back. Her urine has again grown E. coli and also a gram-positive cocci which is awaiting identification. She continues on Hiprex. Creatinine has increased slightly to 2.10. She is being followed by nephrology. 10/05/2016. Patient's creatinine is up to 2.2. In the past she has been seen by Dr. Efren Navarro and the family has requested consultation for him. I talked to Dr. Navarro and because they ask and I asked he is going to see her. Patient's been on Lasix and spironolactone. I will stop these. She was on these prior to admission but we switched it to IV push. I believe Spironolactone is new. I will also stop hiprex. This is metabolized in the liver and excreted in the kidney and is being given for urinary tract infection. Patient's anasarca has for all practical purposes resolved. Liver biopsies have been sent for second opinion and of the be a while before they come back. It is thought that she had cirrhosis of the liver as a cause of her anasarca and ascites. Note she also has pulmonary hypertension. During this admission I have increased her Norvasc from 5 mg daily to 10 mg daily. Medications have been reviewed. We made no changes today. Labs been reviewed. Creatinine 2.10, BUN 28, electrolytes are normal Exam (Progress Note) - Constitutional Vitals: Period Temp Pulse Resp BP Sys/Marcum Pulse Ox Last 24 Hr 97.3 F-98.5 F 61-74 18-20 100-121/60-67 94-97 Exam: Eyes face lips and tongue are normal. Neck. Symmetrical no meningismus. Lymphatics. No submandibular cervical supraclavicular adenopathy. No epitrochlear adenopathy. Chest is wheeze free Heart irregular Abdomen is nontender; bowel sounds are positive 4 Extremities (lower) with markedly less edema (approximately +1/4); nothing to suggest acute DVT Psychiatric oriented 3 Neurologic long-term motor function is intact Plan: 1. Follow-up liver biopsy results when available. Continue present treatment. We have asked patient to be up and ambulating in halls today with the assistance of her . We will take her discharge date on the day by day basis. 2. 10/05/2016. Patient's been followed as an outpatient by Dr. Efren Navarro. Family would and patient like to talk to him about her kidney status. This is understandable and I will let Dr. Ye know. 3. 10/05/2016. Stop Hiprex, spironolactone and Lasix. Exam (Progress Note) - Constitutional Vitals: Period Temp Pulse Resp BP Sys/Marcum Pulse Ox Last 24 Hr 96.9 F-98.5 F 60-74 16-18 99-118/59-79 93-98 Results - Labs CBC & BMP: 09/30/16 05:01 10/05/16 08:16 Specialty Discharge - Follow Up or Referrals Follow up with: Renato Burgess MD [Primary Care Provider] - (3 weeks with EKG and labs)
[2016-10-05 11:56] LABS: Apearance,Urine CLEAR (Clear); Bacteria,Urine Few /HPF (Few); Bilirubin,Urine Negative (Negative); Blood, Urine Negative (Negative); Glucose,Urine (UA) Negative (Negative); Hyaline Casts,Urine 4 /LPF (0-3); Ketones,Urine Negative (Negative); Mucus,Urine Occasional /LPF (Occasional); Nitrite,Urine Negative (Negative); Protein,Urine Negative; RBC,Urine 3 /HPF (0-4); Squamous Epithelial Cell,Urine Occasional /HPF (0-10); Urine Color Yellow (Yellow); Urine Specific Gravity 1.005 (1.001-1.035); Urine Urobilinogen < 2.0 EU/DL (0.2-1.0); WBC,Urine 55 /HPF (0-6)
--- NOTE | 2016-10-05 12:19 | Nephrology Progress Note ---
Nephrology - PN: Subj Interval history: The patient is sitting up resting comfortably no acute changes. No shortness of breath or chest pain. Exam (PN)-Nephrology - Vital Signs Vital signs: Period Temp Pulse Resp BP Sys/Marcum Pulse Ox Last 24 Hr 96.9 F-98.5 F 61-74 16-18 99-118/54-67 93-98 - General Appearance General appearance: well-developed, well-nourished EENT: ATNC Neck: supple Respiratory: clear Cardiology: edema (1+), regular rate, regular rhythm Gastrointestinal: normoactive bowel sounds, no tenderness Neurologic: alert and oriented x3 Musculoskeletal: no clubbing Psychiatric: mood/affect appropriate, cooperative - Lab 09/30/16 05:01 10/05/16 08:16 Most recent lab results Calcium 9.3 MG/DL (8.5-10.1) 10/05/16 08:16 Magnesium 2.1 MG/DL (1.8-2.4) 10/04/16 05:08 Assessment and Plan (1) Atrial fibrillation Status: Chronic Current Visit: No Qualifiers: Atrial fibrillation type: chronic Qualified Code(s): I48.2 - Chronic atrial fibrillation (2) Diabetes Status: Chronic Current Visit: Yes Qualifiers: Diabetes mellitus type: type 2 Diabetes mellitus complication status: with kidney complications Chronic kidney disease stage: stage 2 (mild) (3) Hypertension Problem details: controlled Status: Chronic Current Visit: Yes Qualifiers: Hypertension type: essential hypertension (4) Chronic renal insufficiency Status: Chronic Assessment and plan: Renal function appears to be stable. Metabolic panel is acceptable. Patient with history of lupus. Current Visit: No Qualifiers: Chronic kidney disease stage: stage 4 (severe) Qualified Code(s): N18.4 - Chronic kidney disease, stage 4 (severe) (5) Ascites Status: Acute Assessment and plan: This is improving. Current Visit: Yes Specialty Discharge - Follow Up or Referrals Follow up with: Renato Burgess MD [Primary Care Provider] - (3 weeks with EKG and labs)
--- NOTE | 2016-10-05 14:20 | Event Note ---
Asked to see patient at her and Dr Do's request. Chart/data reviewed. Pt interviewed and examined. Onset BLE edema and abd fullness as well as " worsening of my A fib" over the last 3 weeks or so per patient, longer per chart notes. Creatinine a couple of months ago was around 1.0. NONI x 2 in the last year both resolved. Currently creatinine has gone from 1.6 to 2.2 with diuresis, last dose of lasix IV this am, high dose aldactone 50 bid also on hold. UA shows poor acidification and concentration. FeUrea 47% is consistent with intrinsic renal dz, not prerenal azotemia. New dx of cirrhosis without etiology to date, s/p liver bx and paracentesis. Cytology class II. She feels her ascites and edema is recurring. Urine cx repeatedly shows UTI with E.coli pansensitive x for flouroquinolones which she has AIN with anyway. Multiple abx allergies listed have limited choices to treat. Pyuria is worsening. She carries a dx of lupus, there are no positive serologies or diagnostic criteria met for a diagnosis of SLE. Others have been ordered today by me. I think we must treat her UTI. Test dose rocephin today, if tolerated, give 1gm IV q24h until urine cleared. Renal failure can be caused by liver failure, and can be precipitated by large volume paracentesis as well as aggressive diuresis. I discussed with patient that the treatment for hepatorenal syndrome is liver transplant, not dialysis. I have started misoprostol, 200mcg po q6h to help with renal perfusion even in liver disease. Will follow up tomorrow am. Please call for any questions or concerns. I have answered all Ms Dasilva's questions to the best of my ability. She voices understanding and agrees with plan as stated above.
[2016-10-05] MEDS: cefTRIAXone 1,000 MG in SODIUM CHLORIDE 0.9% 100 ML IV SCH (14:26)
--- NOTE | 2016-10-05 14:45 | Pathology Report from [facility] ---
ACCESSION # : [id number] PATIENT NAME : Erika Godinez ORDERING DR : NATALIE NAJERA MD CLINICAL HX: New onset ascites POST-OP DX: Same SPECIMEN INFO: Liver, Maricruz cut BX x 2 GROSS DESCRIPTION: The specimen is received in formalin labeled with the patient 's name "ERIKA GODINEZ and LIVER" consists of two reddish-yellow cylindrical soft tissue fragments measuring 1.8 x 0.2 cm respectively. Submitted in one cassette. DIAGNOSIS FOR ERIKA GODINEZ: LIVER, MARICRUZ CUT BIOPSIES x 2: Fibrosis, possible cirrhosis Referred to [facility] for evaluation.The following is a consultation report from Dr. Aminta De Paz at [facility] Pathology, [place], [place]:LIVER, BIOPSY: Sinusoidal dilatation with congestion. Trichrome stain shows extensive sinusoidal fibrosis and periportal fibrosis and rare bridging. No evidence to support [id number] deficiency on PAS/D stain. PAS shows normal glycogen. Iron stain is negative.NOTE: Histologic finding are subtle, but suggestive of hepatic venous outflow obstruction. Differential diagnosis would include cardiac failure, Budd-Chiari syndrome and sinusoidal obstruction syndrome. Because of paucity of inflammation and steatosis, steatohepatitis, viral and autoimmune hepatitis are unlikely. Clinical correlation is recommended. SERVICE DATE: 09/30/2016 REPORT DATE: 10/05/2016 PATHOLOGIST: Kaitlyn Hagan
--- NOTE | 2016-10-05 16:01 | Ultrasound Report ---
Exam: US renal Bilateral Date: 10/05/2016 1:31 PM Comparison: 09/24/2015 Indication: Renal failure Technique:[Multiple real-time scans were obtained of the kidneys. Ultrasound images were captured and stored.] Findings: Right kidney measures 95 x 45 x 42 mm compared to 113 x 49 x 56 mm. The left kidney measures 103 x 48 x 45 mm compared to 107 x 53 x 86 mm. 9 mm simple appearing right midpole renal cyst with no hydronephrosis. Inhomogeneous echogenicity in the kidneys with evidence of ascites. Impression: Progressive cortical loss in the kidneys with no hydronephrosis. 9 mm simple appearing right midpole renal cyst. Inhomogeneous echogenicity which can be seen with medical renal disease. Ascites. PROCEDURE INTERPRETED AT [facility] DEPARTMENT OF RADIOLOGY Final Report Signed by: Dr. Arcelia Kitchen
[2016-10-05] MEDS: miSOPROStol 200 MCG TABLET PO SCH ×2 (16:54→20:24)
[2016-10-05] MEDS: SIMVASTATIN 40 MG TABLET PO SCH (20:25)
[2016-10-05] MEDS: BIMATOPROST 0.01% OPH SOLN 2.5 ML BOTTLE BOTH EYES SCH (20:25)
[2016-10-06 05:40] LABS: Basophils % 0.6 % (0.0-0.8); Eosinophils # 0.2 10*3/uL (0.0-0.87); Eosinophils % 4.8 % (0.00-10.9); Hematocrit 32.3 VOL% (35.7-47.0); Hemoglobin 10.3 GM/DL (12.0-16.0); Immature Granulocytes % 0.2 %; Immature Granulocytes Absolute 0.01 #; Lymphocytes # 0.9 10*3/uL (1.4-4.0); Lymphocytes % 18.3 % (21.3-54.2); Mean Corpuscular HGB Conc 31.9 GM/DL (32-36); Mean Corpuscular Hemoglobin 27 PG (27-34); Mean Corpuscular Volume 84.8 FL (87-102); Mean Platelet Volume 11.5 FL (9.6-12.0); Monocytes # 0.8 10*3/uL (0.11-0.8); Monocytes % 16.3 % (1.7-12.7); Neutrophils # 2.9 10*3/uL (1.4-7.4); Neutrophils % 59.8 % (38.7-73.9); Platelet Count 114 T/CUMM (130-400); Red Blood Count 3.81 MC/CUMM (3.8-5.5); Red Cell Distribution Width 17.2 % (9.3-17.3); White Blood Count 4.8 T/CUMM (4-12)
[2016-10-06 06:06] LABS: Eosinophils 2 % (0-10); Hypochromasia 1+; Lymphocytes 14 % (20-55); Ovalocytes Slight; Platelet Estimate Decreased; Segmented Neutrophils 73 % (50-85); Total Cells Counted 100
[2016-10-06 06:21] LABS: Albumin 3.5 G/DL (3.4-5.0); Bilirubin,Total 2.1 MG/DL (0.2-1.0); Calcium 8.7 MG/DL (8.5-10.1); Osmolality,Calculated 289.1 MOS/KG (273-304); Potassium 4.2 MMOL/L (3.5-5.1); Total Protein 6.9 G/DL (6.4-8.3)
--- NOTE | 2016-10-06 07:44 | Ultrasound Report ---
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 Duplex scan of the hepatic vasculature was also performed using B-Mode/grayscale imaging and Doppler spectral analysis and color flow. Ultrasound images were captured and stored. Findings: The liver measures 18.0 cm in length. No suspicious hepatic lesion is identified. The portal veins appear patent. The main portal vein is also patent, but demonstrates pulsatile waveforms which are nonspecific. There is hepatopetal flow within the main portal vein. Normal hepatic arterial waveforms are observed with no evidence of tardus parvus. The gallbladder is partially collapsed, which makes evaluation for gallbladder wall thickening difficult, especially in the presence of ascites. There are several small gallstones. The common bile duct was not measured, but no biliary duct dilatation is seen. The visualized pancreas is unremarkable. The right kidney measures 11.0 x 5.4 x 4.5 cm. No right hydronephrosis or suspicious renal lesion is identified. There is mild ascites, mainly adjacent to the liver. Impression: 1. The vein portal vein and hepatic veins appear patent. Note is made of nonspecific pulsatile flow within the main portal vein. 2. Mild ascites. 3. Gallstones. There is diffuse gallbladder wall thickening, but this is nonspecific in the setting of ascites and a collapsed gallbladder. If there is a concern for cholecystitis, further evaluation could be performed with a nuclear medicine biliary study. PROCEDURE INTERPRETED AT [facility] DEPARTMENT OF RADIOLOGY Final Report Signed by: Dr. Doroteo Vieira
--- NOTE | 2016-10-06 08:50 | Gastrointestinal Progress Note ---
<Miri Dominguez Shelton - Last Filed: 10/06/16 08:48> Assessment and Plan (1) Ascites Status: Acute Assessment and plan: 10/06-liver pathology report noted. Abdominal ultrasound, Doppler studies and echocardiogram pending for today. Weight down 4 pounds. Plan an addendum to follow by Dr. Wing. 10/05-no changes at present time. Path report still pending. Plan an addendum to follow by Dr. Wing. 10/04-Path report still pending at present. Plan and addendum to follow by Dr Wing. 10/01-liver biopsy report pending at this time. Antimitochondrial antibody negative. Plan an addendum to follow by Dr. Wing 09/30-for liver biopsy today. Further serology testing still pending. No repeat LFTs today. Plan an addendum to follow by Dr. Wing. 09/29-No c/p today. Tolerating diet. Labwork still pending today, negative hepatitis B antibody. Plan and addendum to follow by Dr Wing. 09/28-No changes today. Will schedule for US guided paracentesis today. Hepatitis panel negative. Plan and addendum to follow by Dr Wing. 09/27-Three month hx of abd swelling worsening over last several weeks. Abd US results noted. Remote hx of hepatitis as a teenager. Obtain hepatitis panel. Plan and addendum to follow by Dr Wing. Current Visit: Yes Gastroenterology - PN: Subj Interval history: CC: Ascites Patient is seen awake and alert sitting up in bed. States she rested well overnight. Denies any abdominal pain, nausea or vomiting. Tolerating her diet well at present time. Liver biopsy pathology report has been returned and findings noted to show fibrosis with sinusodial dilation with congestion. She is undergone abdominal ultrasound and Doppler studies this morning as well as echocardiogram. Abdomen is soft, nontender. Weight is down 4 pounds from yesterday. Creatinine is slightly elevated at 2.3. Bilirubin 2.1. ROS: Denies shortness of breath or chest pain Exam (Progress Note) - Constitutional Vitals: Period Temp Pulse Resp BP Sys/Marcum Pulse Ox Last 24 Hr 97.9 F-98.9 F 61-76 16-20 103-119/53-72 92-96 General appearance: normal weight, no acute distress - Head Head exam: Present: normal inspection, normocephalic - Eye Eye exam: Present: other (Lids and conjunctive are unremarkable). Absent: scleral icterus - ENT ENT exam: Present: normal exam, normal oropharynx - Neck Neck exam: Present: normal inspection - Respiratory Respiratory exam: Present: clear to auscultation bilaterally. Absent: rales, rhonchi, wheezes - Cardiovascular Cardiovascular exam: Present: regular rate and rhythm. Absent: diastolic murmur , JVD, systolic murmur - GI/Abdominal GI/Abdominal exam: Present: normal bowel sounds, soft. Absent: ascites, distended, mass, organomegaly, tenderness - Extremities Exam Extremities exam: Present: normal inspection, full ROM - Back Exam Back exam: Present: normal inspection - Neurological Exam Neurological exam: Present: alert, oriented X3 - Psychiatric Psychiatric exam: Present: normal affect, normal mood - Skin Skin exam: Present: normal color, warm, dry Results - Labs CBC & BMP: 10/06/16 04:55 10/06/16 04:55 Lab Results: I have reviewed the past 24 hour labs Specialty Discharge - Follow Up or Referrals Follow up with: Renato Burgess MD [Primary Care Provider] - (3 weeks with EKG and labs) <Martin Wing - Last Filed: 10/06/16 18:14> Exam (Progress Note) - Constitutional Vitals: Period Temp Pulse Resp BP Sys/Mracum Pulse Ox Last 24 Hr 98 F-98.9 F 60-90 16-20 105-119/53-72 92-96 Results - Labs CBC & BMP: 10/06/16 04:55 10/06/16 04:55
[2016-10-06] MEDS: INSULIN ASPART PROTAMINE/ASPART 70/30 100 UNIT/ML SUBCUT SCH ×2 (09:22→17:03)
[2016-10-06] MEDS: CHOLECALCIFEROL 1,000 UNIT TABLET PO SCH (09:23)
[2016-10-06] MEDS: ASCORBIC ACID 500 MG TABLET PO SCH (09:24)
[2016-10-06] MEDS: POTASSIUM CHLORIDE 10 MEQ TABLET PO SCH ×2 (09:24→21:43)
[2016-10-06] MEDS: ASPIRIN EC 81 MG TABLET PO SCH (09:24)
[2016-10-06] MEDS: amLODIPine 10 MG TABLET PO SCH (09:24)
[2016-10-06] MEDS: MONTELUKAST 10 MG TABLET PO SCH (09:24)
[2016-10-06] MEDS: miSOPROStol 200 MCG TABLET PO SCH ×4 (09:24→21:42)
[2016-10-06] MEDS: VENLAFAXINE 37.5 MG TABLET PO SCH (09:24)
[2016-10-06] MEDS: FAMOTIDINE 20 MG TABLET PO SCH (09:24)
[2016-10-06] MEDS: CARVEDILOL 25 MG TABLET PO SCH ×2 (09:24→21:42)
[2016-10-06] MEDS: MAGNESIUM CHLORIDE 64 MG TABLET PO SCH ×2 (09:24→21:42)
[2016-10-06] MEDS: INSULIN REGULAR 100 UNIT/ML SUBCUT SCH ×4 (09:29→21:38)
[2016-10-06 10:06] LABS: Double Stranded DNA Antibodies < 25.0 IU/ML
--- NOTE | 2016-10-06 11:23 | Nephrology Progress Note ---
Nephrology - PN: Subj Interval history: Ms Dasilva in good spirits this am. Daughter at bedside. Tolerated test dose of rocephin without evidence of allergic reaction so full dose 1gm q24hrs started for treatment of her E.coli UTI. Started on misoprostol to help reverse renal vasoconstriction seen with liver disease. Liver bx results noted. UOP increased weight down 2kg. Creatinine essentially unchanged. Exam (PN)-Nephrology - Vital Signs Vital signs: Period Temp Pulse Resp BP Sys/Marcum Pulse Ox Last 24 Hr 97.9 F-98.9 F 61-76 16-20 103-119/53-72 92-96 - General Appearance General appearance: well-developed, chronically ill EENT: ATNC, PERRL, mucous membranes dry, hearing intact, vision intact Neck: no JVD, no thyromegaly Respiratory: no kyphosis, clear Cardiology: no murmurs, no rub, edema Gastrointestinal: normoactive bowel sounds, no tenderness Integumentary: no rash, warm and dry Neurologic: no focal deficit, no asterixis, alert and oriented x3 Musculoskeletal: no deformities, no cyanosis Psychiatric: mood/affect appropriate, cooperative - Lab 10/06/16 04:55 10/06/16 04:55 Most recent lab results Calcium 8.7 MG/DL (8.5-10.1) 10/06/16 04:55 Magnesium 2.1 MG/DL (1.8-2.4) 10/06/16 04:55 Assessment and Plan (1) NONI (acute kidney injury) Problem details: Baseline creatinine around 1 a few months ago. Intrinsic renal injury by urinary indices. Complements normal. DsDNA neg. Other serologies to evaluate for SLE pending. RPR neg. May be hepatorenal type II. Continue misoprostol, consider increasing to 400mcg q6h since no side effects to the 200mcg. Low side effect profile, mainly abd pain, dose dependent. Status: Acute Current Visit: No Specialty Discharge - Follow Up or Referrals Follow up with: Renato Burgess MD [Primary Care Provider] - (3 weeks with EKG and labs)
--- NOTE | 2016-10-06 12:06 | Pulmonology Progress Note ---
Pulmonary - PN: Subj Interval history: Raúl Medrano, ANP-BC, GNP-BC, acting as scribe for Dr. Luis Miguel Do Mrs. Dasilva is a 71-year-old white female who was [facility] with ascites/anasarca, cholelithiasis per ultrasound, and bilateral lower extremity edema. Other past history includes chronic atrial fibrillation, history of acute renal failure (interstitial nephritis) secondary to medications in contrast, systemic lupus erythematosus,, diabetes mellitus, arteriosclerotic heart disease, sick sinus syndrome, pacemaker, chronic Coumadin therapy, history of depression, history of esophageal stricture esophageal motility dysfunction, history of ruptured right Achilles tendon, allergic sinusitis, and history of abdominal wall hematoma with large retroperitoneal bleed. 09/28/2016. Patient seen today along with her sister and daughter. She is scheduled for paracentesis today by IR. We will follow-up those results. On exam, the patient obviously has less JVD today. She has been diuresed. She is being seen in GI, cardiology, and nephrology consultations. Her daughter reports that patient did not receive her Coreg this morning. Spoken with the nursing staff about this. Apparently, Leilas does not have 25 mg tablets. Pharmacy had not changed it to 12.5 mg 2 tablets twice daily. We will ask this be done. Certainly, she needs to continue her Coreg. Her home medications were restarted last night. 09/29/2016. An echocardiogram done last week by Dr. Cortez the patient had an ejection fraction 55%. She had right ventricular enlargement and pulmonary artery pressures were 55 mmHg. These are elevated. Patient did not give us her medicine Norvasc 5 mg at time of admission but it turns out she was taken this for pulmonary hypertension. I am going to increase it to 10 mg daily. Her blood pressures looks safe but will be careful with this. A paracentesis was done yesterday. A number of tests are pending. Dr. Wing is 300 and GI consultation. I understand that cirrhosis of the liver is thought to be an underlying problem. After paracentesis yesterday the patient is markedly better. Her lower extremity edema is improved. Her stomach is much less distended. Jugular venous pressures are now normal. Overall her lab tests look good. 09/30/2016. The patient is for liver biopsy this morning. We will follow-up those results when available. Of note, alpha-1 antitrypsin level, ceruloplasmin and mitochondrial antibodies are all pending. Paracentesis was done 09/28/2016. Cytology has been reported as class II. The patient's glucose dropped last night to low 49. We have adjusted her nighttime insulin and decreased to 4 units. Urine cultures growing a gram-negative gerardo. ID and sensitivity is still pending. Keeping in mind her long list of allergies, we started Hiprex on 09/28/2016. 10/01/16. The patient was seen today along with her daughter and Yenni Ureña RN. She had a liver biopsy yesterday and the results are pending. Her abdomen remains improved. On review of her medications, there were three different orders for Lasix. We have discontinued all oral Lasix and are going to only give IV Lasix for now. She is being seen by Dr. Wing and Dr. Sutton/Ramon. There notes have been reviewed. Her urine has grown E. coli. We have had her on Hiprex. We will repeat her urinalysis today. 10/04/2016. The patient was seen today along with her in Sesar Montesinos RN. Ms. Dasilva states that her abdomen feels like it is becoming distended again. Her legs are less edematous however. She notes that her weight is up approximately 2-3 pounds from yesterday. Alpha-1 antitrypsin level was 214 ( normal 100-190). Ceruloplasmin was 28 (normal 18-53). Antimitochondrial antibody was less than 0.1 (negative). We called the lab to check on the patient's liver biopsy. Apparently, the specimen has been sent to [facility] and can take reportedly 7-10 business days to get back. Her urine has again grown E. coli and also a gram-positive cocci which is awaiting identification. She continues on Hiprex. Creatinine has increased slightly to 2.10. She is being followed by nephrology. 10/05/2016. Patient's creatinine is up to 2.2. In the past she has been seen by Dr. Efren Navarro and the family has requested consultation for him. I talked to Dr. Navarro and because they ask and I asked he is going to see her. Patient's been on Lasix and spironolactone. I will stop these. She was on these prior to admission but we switched it to IV push. I believe Spironolactone is new. I will also stop hiprex. This is metabolized in the liver and excreted in the kidney and is being given for urinary tract infection. Patient's anasarca has for all practical purposes resolved. Liver biopsies have been sent for second opinion and of the be a while before they come back. It is thought that she had cirrhosis of the liver as a cause of her anasarca and ascites. Note she also has pulmonary hypertension. During this admission I have increased her Norvasc from 5 mg daily to 10 mg daily. 10/06/16. The patient was seen today along with her daughter and Sesar Montesinos RN. She has been seen by Dr. Navarro today. His note has been reviewed and we appreciate his help. The patient's liver biopsy report has been reviewed. We will await Dr. Wing' interpretation. Her weight is down again today. Her urine has grown E. coli and Enterococcus faecalis. Rocephin was started yesterday. We will continue the Hiprex. Urinalysis obtained yesterday is growing a gram negative gerardo. Medications have been reviewed. We made no changes today. Labs been reviewed. Exam (Progress Note) - Constitutional Vitals: Period Temp Pulse Resp BP Sys/Marcum Pulse Ox Last 24 Hr 97.9 F-98.9 F 61-76 16-20 106-119/53-72 92-96 Exam: Chest is wheeze free Heart irregular Abdomen is nontender; bowel sounds are positive 4; mild ascites Extremities (lower) with markedly less edema (approximately +1/4); nothing to suggest acute DVT Psychiatric oriented 3 Neurologic long-term motor function is intact Plan: Continue present treatment. Continue present medications. We will take her discharge date on the day by day basis. Results - Labs CBC & BMP: 10/06/16 04:55 10/06/16 04:55 Specialty Discharge - Follow Up or Referrals Follow up with: Renato Burgess MD [Primary Care Provider] - (3 weeks with EKG and labs)
[2016-10-06 12:31] LABS: Anti SS-A Antibodies < 16 EU/ML; Anti SS-B Antibodies < 16 EU/ML
[2016-10-06] MEDS: OCTREOTIDE 100 MCG/ML SYRINGE SUBCUT SCH ×2 (14:26→21:43)
[2016-10-06] MEDS: cefTRIAXone 1,000 MG in SODIUM CHLORIDE 0.9% 100 ML IV SCH (14:30)
--- NOTE | 2016-10-06 17:50 | ECHO Report ---
Erika Dasilva Exam Date: 10/06/2016 08:16 Referring Physician: Technologist: Kenyetta Corrales RDCS Age: 71 Ht (in): 65 Wt (lb): 202 Gender: F Exam Location: [facility] Echo Indications: Ascites, Anasarca, Pleural effusion, Atrial fibrillation, Presence of cardiac pacemaker BP: 115 / 63 HR: 67 Rhythm: Atrial fibrillation Technical Quality: Good IMPRESSIONS Left ventricular ejection fraction is estimated at 60 %. Flat or D shaped septum in SA view indicative or pulmonary pressure overload. [id number]-jhlvetgs tricuspid valve regurgitation. Tricuspid regurgitation velocities suggest a PAP of 80 mmHg. 2+ increased right ventricular size. Moderately increased right atrial size. Moderately increased left atrial size. Mild mitral annular and leaflet calcification with mild mitral regurgitation. Aortic valve sclerosis without stenosis or regurgitation. MEASUREMENTS (Male / Female) Normal Values 2D ECHO LV Diastolic Diameter PLAX 4.1 cm 4.2 - 5.9 / 3.9 - 5.3 cm LV Systolic Diameter PLAX 2.4 cm LV Fractional Shortening PLAX 40.3 % IVS Diastolic Thickness 1.2 cm 0.6 - 1.0 / 0.6 - 0.9 cm LVPW Diastolic Thickness 1.1 cm 0.6 - 1.0 / 0.6 - 0.9 cm RV Internal Dim ED PLAX 3.9 cm Aortic Root Diameter 3.5 cm LA Systolic Diameter LX 5.1 cm 3.0 - 4.0 / 2.7 - 3.8 cm DOPPLER TR Peak Velocity 419.0 cm/s TR Peak Gradient 70.2 mmHg FINDINGS Left Ventricle Normal left ventricular cavity size. Mild left ventricular hypertrophy. Left ventricular ejection fraction is estimated at 60 %. flat or D shaped septum in SA view indicative or pulmonary pressure overload Right Ventricle 2+ increased right ventricular size. Catheter/pacemaker wire visualized in the right ventricle. Right Atrium Moderately increased right atrial size. Catheter/pacemaker wire in the right atrial cavity. Left Atrium Moderately increased left atrial size. Mitral Valve Mild mitral annular and leaflet calcification with mild mitral regurgitation. Aortic Valve Aortic valve sclerosis without stenosis or regurgitation. Tricuspid Valve Morphologically normal tricuspid valve. Mznj-el-dbbtbssf tricuspid valve regurgitation. Tricuspid regurgitation velocities suggest a PAP of 80 mmHg. Pulmonic Valve Morphologically normal pulmonic valve. Mild pulmonary valve stenosis. Pericardium Normal pericardium without effusion. Aorta Normal ascending aorta dimension. Lalo Bhardwaj MD (Electronically Signed) Final Date: 06 October 2016 17:49
[2016-10-06] MEDS: SIMVASTATIN 40 MG TABLET PO SCH (21:42)
[2016-10-06] MEDS: BIMATOPROST 0.01% OPH SOLN 2.5 ML BOTTLE BOTH EYES SCH (21:43)
--- NOTE | 2016-10-07 08:35 | Gastrointestinal Progress Note ---
<FrederickcarissaMiri Shelton - Last Filed: 10/07/16 08:32> Assessment and Plan (1) Ascites Status: Acute Assessment and plan: 10/07-weight increased 4 kg according to nursing records. No complaints of increased shortness of breath. Tolerating diet. Plan an addendum to follow by Dr. Wing. 10/06-liver pathology report noted. Abdominal ultrasound, Doppler studies and echocardiogram pending for today. Weight down 4 pounds. Plan an addendum to follow by Dr. Wing. 10/05-no changes at present time. Path report still pending. Plan an addendum to follow by Dr. Wing. 10/04-Path report still pending at present. Plan and addendum to follow by Dr Wing. 10/01-liver biopsy report pending at this time. Antimitochondrial antibody negative. Plan an addendum to follow by Dr. Wing 09/30-for liver biopsy today. Further serology testing still pending. No repeat LFTs today. Plan an addendum to follow by Dr. Wing. 09/29-No c/p today. Tolerating diet. Labwork still pending today, negative hepatitis B antibody. Plan and addendum to follow by Dr Wing. 09/28-No changes today. Will schedule for US guided paracentesis today. Hepatitis panel negative. Plan and addendum to follow by Dr Wing. 09/27-Three month hx of abd swelling worsening over last several weeks. Abd US results noted. Remote hx of hepatitis as a teenager. Obtain hepatitis panel. Plan and addendum to follow by Dr Wing. Current Visit: Yes Gastroenterology - PN: Subj Interval history: CC: Ascites Patient is seen awake and alert with daughter at bedside. Patient states she rested well overnight. Denies any abdominal pain, nausea or vomiting. Patient is tolerating her diet well at present time. Weight is noted to be up 4 kg today. Unsure as to this accuracy at this time. Patient's edema to her lower extremities does not seem to be significantly worse and she does not seem to have an increase in her ascites. She denies shortness of breath. Abdomen is soft, nontender. She has started IV antibiotics for her UTI noted with E. coli and Enterococcus faecalis. VERNA is negative. Patient and daughter are slightly confused regarding patient's prognosis and diagnosis regarding her liver. Informed patient that Dr. Wing and Dr. Navarro would discuss this further today. ROS: Denies shortness of breath or chest pain Exam (Progress Note) - Constitutional Vitals: Period Temp Pulse Resp BP Sys/Marcum Pulse Ox Last 24 Hr 97.9 F-99.1 F 60-90 16-18 105-127/59-68 92-96 General appearance: normal weight, no acute distress - Head Head exam: Present: normal inspection, normocephalic - Eye Eye exam: Present: other (Lids and conjunctive are unremarkable). Absent: scleral icterus - ENT ENT exam: Present: normal exam, normal oropharynx - Neck Neck exam: Present: normal inspection - Respiratory Respiratory exam: Present: clear to auscultation bilaterally. Absent: rales, rhonchi, wheezes - Cardiovascular Cardiovascular exam: Present: regular rate and rhythm. Absent: diastolic murmur , JVD, systolic murmur - GI/Abdominal GI/Abdominal exam: Present: normal bowel sounds, soft. Absent: ascites, distended, mass, organomegaly, tenderness - Extremities Exam Extremities exam: Present: normal inspection, full ROM - Back Exam Back exam: Present: normal inspection - Neurological Exam Neurological exam: Present: alert, oriented X3 - Psychiatric Psychiatric exam: Present: normal affect, normal mood - Skin Skin exam: Present: normal color, warm, dry Results - Labs CBC & BMP: 10/06/16 04:55 10/06/16 04:55 Lab Results: I have reviewed the past 24 hour labs Specialty Discharge - Follow Up or Referrals Follow up with: Renato Burgess MD [Primary Care Provider] - (3 weeks with EKG and labs) <Martin Wing - Last Filed: 10/07/16 11:03> Exam (Progress Note) - Constitutional Vitals: Period Temp Pulse Resp BP Sys/Marcum Pulse Ox Last 24 Hr 97.9 F-99.6 F 60- 16-18 105-127/59-77 92-96 Results - Labs CBC & BMP: 10/07/16 04:37 10/07/16 09:24
[2016-10-07] MEDS: INSULIN REGULAR 100 UNIT/ML SUBCUT SCH ×4 (08:41→21:44)
[2016-10-07 09:20] LABS: Basophils % 0.6 % (0.0-0.8); Eosinophils # 0.3 10*3/uL (0.0-0.87); Eosinophils % 4.7 % (0.00-10.9); Hematocrit 32.1 VOL% (35.7-47.0); Hemoglobin 10.1 GM/DL (12.0-16.0); Immature Granulocytes % 0.4 %; Immature Granulocytes Absolute 0.02 #; Lymphocytes % 19.2 % (21.3-54.2); Mean Corpuscular HGB Conc 31.5 GM/DL (32-36); Mean Corpuscular Hemoglobin 27 PG (27-34); Mean Corpuscular Volume 86.1 FL (87-102); Mean Platelet Volume 12.3 FL (9.6-12.0); Monocytes # 0.9 10*3/uL (0.11-0.8); Monocytes % 16.2 % (1.7-12.7); Neutrophils # 3.2 10*3/uL (1.4-7.4); Neutrophils % 58.9 % (38.7-73.9); Platelet Count 133 T/CUMM (130-400); Red Blood Count 3.73 MC/CUMM (3.8-5.5); Red Cell Distribution Width 17.2 % (9.3-17.3); White Blood Count 5.4 T/CUMM (4-12)
[2016-10-07] MEDS: CHOLECALCIFEROL 1,000 UNIT TABLET PO SCH (09:31)
[2016-10-07] MEDS: POTASSIUM CHLORIDE 10 MEQ TABLET PO SCH ×2 (09:31→21:43)
[2016-10-07] MEDS: CARVEDILOL 25 MG TABLET PO SCH ×2 (09:32→21:43)
[2016-10-07] MEDS: ASCORBIC ACID 500 MG TABLET PO SCH (09:32)
[2016-10-07] MEDS: MONTELUKAST 10 MG TABLET PO SCH (09:32)
[2016-10-07] MEDS: VENLAFAXINE 37.5 MG TABLET PO SCH (09:32)
[2016-10-07] MEDS: FAMOTIDINE 20 MG TABLET PO SCH (09:32)
[2016-10-07] MEDS: ASPIRIN EC 81 MG TABLET PO SCH (09:32)
[2016-10-07] MEDS: MAGNESIUM CHLORIDE 64 MG TABLET PO SCH ×2 (09:32→21:43)
[2016-10-07] MEDS: INSULIN ASPART PROTAMINE/ASPART 70/30 100 UNIT/ML SUBCUT SCH ×2 (09:33→17:28)
[2016-10-07] MEDS: miSOPROStol 200 MCG TABLET PO SCH ×4 (09:33→21:43)
[2016-10-07] MEDS: amLODIPine 10 MG TABLET PO SCH (09:35)
[2016-10-07 09:37] LABS: Calcium 8.8 MG/DL (8.5-10.1); Magnesium 2.1 MG/DL (1.8-2.4); Osmolality,Calculated 284.5 MOS/KG (273-304); Potassium 4.2 MMOL/L (3.5-5.1)
[2016-10-07] MEDS: OCTREOTIDE 100 MCG/ML SYRINGE SUBCUT SCH (10:13)
--- NOTE | 2016-10-07 10:24 | Nephrology Progress Note ---
Nephrology - PN: Subj Interval history: Pt thinks her abd distention is worse and her BLE edema is better. Fixated on daily weights which are obviously not accurate. Echo revealed very high right sided pulmonary pressures. Got one dose of octreotide 50mcg, refused any further dosing. Liver bx felt to be from congestive findings, may be related to right sided failure. Untreated has high one year mortality. Exam (PN)-Nephrology - Vital Signs Vital signs: Period Temp Pulse Resp BP Sys/Marcum Pulse Ox Last 24 Hr 97.9 F-99.6 F 60-90 16-18 105-127/59-77 92-96 - General Appearance General appearance: well-developed, obese EENT: ATNC, PERRL, mucous membranes moist, hearing intact, vision intact Neck: no JVD, no thyromegaly Respiratory: no kyphosis, clear Cardiology: no murmurs, no rub, edema Gastrointestinal: normoactive bowel sounds, distended Integumentary: no rash, warm and dry Neurologic: no focal deficit, no asterixis, alert and oriented x3 Musculoskeletal: no deformities, no erythema Psychiatric: mood/affect appropriate, cooperative - Lab 10/07/16 04:37 10/07/16 09:24 Most recent lab results Calcium 8.8 MG/DL (8.5-10.1) 10/07/16 09:24 Magnesium 2.1 MG/DL (1.8-2.4) 10/07/16 09:24 Assessment and Plan (1) NONI (acute kidney injury) Problem details: Baseline creatinine around 1 a few months ago. Continue misoprostol 400mcg q6h to help with renal perfusion. Low side effect profile, mainly abd pain, dose dependent. Creatinine improved slightly to 2.1. Status: Acute Current Visit: No (2) Iron deficiency anemia Problem details: Fe Sat too low for effective erythropoiesis. Will hold on IV iron sucrose until infection cleared. Status: Acute Current Visit: Yes (3) UTI (urinary tract infection) Problem details: Continue rocephin 1gm IVP daily. Repeat urine culture today. Status: Acute Current Visit: No (4) Pulmonary hypertension Problem details: Discussed complicated physiology with Dr Do. We agree on assessment and plans. Status: Acute Current Visit: No (5) Ascites Problem details: Spot urine sodium today in 20s. Agree with treatment of pHTN with revatio. Will need to restart diuretics to help reduce ascites. Aldactone alone when urine Na is >20, add lasix when urine Na <20 at a ratio of 100:40 aldactone to lasix ratio. Continue to hold for now. Status: Acute Current Visit: Yes Specialty Discharge - Follow Up or Referrals Follow up with: Renato Burgess MD [Primary Care Provider] - (3 weeks with EKG and labs)
[2016-10-07 10:28] LABS: Eosinophils 1 % (0-10); Hypochromasia 1+; Lymphocytes 16 % (20-55); Ovalocytes Slight; Platelet Estimate Normal; Segmented Neutrophils 67 % (50-85); Total Cells Counted 100
--- NOTE | 2016-10-07 11:55 | Pulmonology Progress Note ---
Pulmonary - PN: Subj Interval history: Raúl Medrano, ANP-BC, GNP-BC, acting as scribe for Dr. Luis Miguel Do Mrs. Dasilva is a 71-year-old white female who was admitted [facility]/27/2016 [facility] with ascites/anasarca, cholelithiasis per ultrasound, and bilateral lower extremity edema. Other past history includes chronic atrial fibrillation, history of acute renal failure (interstitial nephritis) secondary to medications in contrast, systemic lupus erythematosus,, diabetes mellitus, arteriosclerotic heart disease, sick sinus syndrome, pacemaker, chronic Coumadin therapy, history of depression, history of esophageal stricture esophageal motility dysfunction, history of ruptured right Achilles tendon, allergic sinusitis, and history of abdominal wall hematoma with large retroperitoneal bleed. 09/28/2016. Patient seen today along with her sister and daughter. She is scheduled for paracentesis today by IR. We will follow-up those results. On exam, the patient obviously has less JVD today. She has been diuresed. She is being seen in GI, cardiology, and nephrology consultations. Her daughter reports that patient did not receive her Coreg this morning. Spoken with the nursing staff about this. Apparently, Leilas does not have 25 mg tablets. Pharmacy had not changed it to 12.5 mg 2 tablets twice daily. We will ask this be done. Certainly, she needs to continue her Coreg. Her home medications were restarted last night. 09/29/2016. An echocardiogram done last week by Dr. Cortez the patient had an ejection fraction 55%. She had right ventricular enlargement and pulmonary artery pressures were 55 mmHg. These are elevated. Patient did not give us her medicine Norvasc 5 mg at time of admission but it turns out she was taken this for pulmonary hypertension. I am going to increase it to 10 mg daily. Her blood pressures looks safe but will be careful with this. A paracentesis was done yesterday. A number of tests are pending. Dr. Wing is 300 and GI consultation. I understand that cirrhosis of the liver is thought to be an underlying problem. After paracentesis yesterday the patient is markedly better. Her lower extremity edema is improved. Her stomach is much less distended. Jugular venous pressures are now normal. Overall her lab tests look good. 09/30/2016. The patient is for liver biopsy this morning. We will follow-up those results when available. Of note, alpha-1 antitrypsin level, ceruloplasmin and mitochondrial antibodies are all pending. Paracentesis was done 09/28/2016. Cytology has been reported as class II. The patient's glucose dropped last night to low 49. We have adjusted her nighttime insulin and decreased to 4 units. Urine cultures growing a gram-negative gerardo. ID and sensitivity is still pending. Keeping in mind her long list of allergies, we started Hiprex on 09/28/2016. 10/01/16. The patient was seen today along with her daughter and Yenni Ureña RN. She had a liver biopsy yesterday and the results are pending. Her abdomen remains improved. On review of her medications, there were three different orders for Lasix. We have discontinued all oral Lasix and are going to only give IV Lasix for now. She is being seen by Dr. Wing and Dr. Sutton/Ramon. There notes have been reviewed. Her urine has grown E. coli. We have had her on Hiprex. We will repeat her urinalysis today. 10/04/2016. The patient was seen today along with her in Sesar Montesinos RN. Ms. Dasilva states that her abdomen feels like it is becoming distended again. Her legs are less edematous however. She notes that her weight is up approximately 2-3 pounds from yesterday. Alpha-1 antitrypsin level was 214 ( normal 100-190). Ceruloplasmin was 28 (normal 18-53). Antimitochondrial antibody was less than 0.1 (negative). We called the lab to check on the patient's liver biopsy. Apparently, the specimen has been sent to [facility] and can take reportedly 7-10 business days to get back. Her urine has again grown E. coli and also a gram-positive cocci which is awaiting identification. She continues on Hiprex. Creatinine has increased slightly to 2.10. She is being followed by nephrology. 10/05/2016. Patient's creatinine is up to 2.2. In the past she has been seen by Dr. Efren Navarro and the family has requested consultation for him. I talked to Dr. Navarro and because they ask and I asked he is going to see her. Patient's been on Lasix and spironolactone. I will stop these. She was on these prior to admission but we switched it to IV push. I believe Spironolactone is new. I will also stop hiprex. This is metabolized in the liver and excreted in the kidney and is being given for urinary tract infection. Patient's anasarca has for all practical purposes resolved. Liver biopsies have been sent for second opinion and of the be a while before they come back. It is thought that she had cirrhosis of the liver as a cause of her anasarca and ascites. Note she also has pulmonary hypertension. During this admission I have increased her Norvasc from 5 mg daily to 10 mg daily. 10/06/16. The patient was seen today along with her daughter and Sesar Montesinos RN. She has been seen by Dr. Navarro today. His note has been reviewed and we appreciate his help. The patient's liver biopsy report has been reviewed. We will await Dr. Wing' interpretation. Her weight is down again today. Her urine has grown E. coli and Enterococcus faecalis. Rocephin was started yesterday. We will continue the Hiprex. Urinalysis obtained yesterday is growing a gram negative gerardo. 10/07/2016. The patient was seen today along with Yenni Ureña RN, and multiple family members. We have discussed the case with Dr. Wing and Dr. Navarro and all coordinated our care. Patient's echocardiogram done 10/06/[address] Bhardwaj showed an EF of 60%, flat or D shaped septum and SA view indicative of pulmonary pressure overload, mild to moderate tricuspid regurgitation, pulmonary artery pressure 80 mmHg, 2+ increased right ventricular size, moderately increased right atrial size, moderately increased left atrial size, mild mitral annular and leaflet calcification with mild mitral regurgitation, and aortic valve sclerosis without stenosis or regurgitation. All things considered, we will more aggressively treat the patient's pulmonary hypertension. She has had her Norvasc increased this admission to 10 mg daily. She is tolerating this fine. We will add Revatio 20 mg 3 times daily. Her abdomen is certainly more distended and firm today. We will ask IR for a therapeutic paracentesis. Dr. Navarro started the patient on Cytotec and we absolutely agree with this rationale. All of these things were discussed with the patient and her family at length into their understanding. They are in agreement. We will repeat urinalysis today as discussed with Dr. Navarro. Urinalysis obtained 10/05/2016 again grew E. coli. Medications have been reviewed. Today we started Revatio 20 mg p.o. 3 times daily. Labs been reviewed. White count is 5400 with 58.9 percent segs; H&H 10.1/32.1; platelet count 133,000; creatinine 2.10, BUN 33, electrolytes are normal; VERNA screen was negative Exam (Progress Note) - Constitutional Vitals: Period Temp Pulse Resp BP Sys/Marcum Pulse Ox Last 24 Hr 97.9 F-99.6 F 60-90 16-18 105-127/59-77 92-96 Exam: Chest is wheeze free Heart irregular Abdomen... See above Extremities (lower) with markedly less edema (approximately +1/4); nothing to suggest acute DVT Psychiatric oriented 3 Neurologic long-term motor function is intact Plan: Start Revatio 20 mg p.o. 3 times daily. Consult interventional radiology for therapeutic paracentesis. Continue other present treatment as discussed with Dr. Navarro and Dr. Wing. Repeat urinalysis today. We will take her discharge date on the day by day basis. Results - Labs CBC & BMP: 10/07/16 04:37 10/07/16 09:24 Specialty Discharge - Follow Up or Referrals Follow up with: Renato Burgess MD [Primary Care Provider] - (3 weeks with EKG and labs)
[2016-10-07] MEDS: cefTRIAXone 1,000 MG in SODIUM CHLORIDE 0.9% 100 ML IV SCH (13:51)
[2016-10-07] MEDS: SILDENAFIL 20 MG TABLET PO SCH ×2 (14:15→21:43)
[2016-10-07 16:26] LABS: Phospholipid Ab IgM, S < 9.4 MPL
--- NOTE | 2016-10-07 17:05 | Ultrasound Report ---
US paracentesis abd w/image Indication: Ascites. Ultrasound-guided paracentesis Description: A formal timeout was performed. Maximum sterile barrier technique was used. The right lower quadrant was prepped and draped in sterile fashion. Under sonographic guidance, a 6 Swedish pigtail catheter was advanced into the ascites using trocar technique. A captured sonographic image documents needle position. The needle was removed. Through the catheter, we obtained a total of 800 cc of straw-colored ascites. No additional fluid could be obtained. Therefore, the catheter was removed. A bandage was placed at the puncture site. The patient tolerated the procedure well. Impression: Ultrasound-guided paracentesis. Recommend future drainages only after a significantly larger accumulation of ascites than was present today. PROCEDURE INTERPRETED AT [facility] DEPARTMENT OF RADIOLOGY Final Report Signed by: Too Amin M.D.
[2016-10-07] MEDS: COLESEVELAM 625 MG TABLET PO SCH (17:26)
[2016-10-07] MEDS: BIMATOPROST 0.01% OPH SOLN 2.5 ML BOTTLE BOTH EYES SCH (21:43)
[2016-10-07] MEDS: SIMVASTATIN 40 MG TABLET PO SCH (21:43)
[2016-10-08 03:51] LABS: Apearance,Urine CLEAR (Clear); Bilirubin,Urine Negative (Negative); Blood, Urine Negative (Negative); Glucose,Urine (UA) Negative (Negative); Ketones,Urine Negative (Negative); Nitrite,Urine Negative (Negative); Protein,Urine Negative; RBC,Urine <1 /HPF (0-4); Urine Color Yellow (Yellow); Urine Specific Gravity 1.014 (1.001-1.035); Urine Urobilinogen < 2.0 EU/DL (0.2-1.0); WBC,Urine 2 /HPF (0-6)
[2016-10-08 06:16] LABS: PT Mix 1:1 (Mayo Reflex) 12.2 sec; Thrombin Time (Bovine), P 15 sec (15 - 23)
[2016-10-08] MEDS: COLESEVELAM 625 MG TABLET PO SCH ×3 (07:17→16:54)
[2016-10-08 08:06] LABS: Calcium 8.5 MG/DL (8.5-10.1); Magnesium 2.1 MG/DL (1.8-2.4); Osmolality,Calculated 279.5 MOS/KG (273-304)
--- NOTE | 2016-10-08 08:35 | Gastrointestinal Progress Note ---
<Miri Dominguez - Last Filed: 10/08/16 08:33> Assessment and Plan (1) Ascites Problem details: Spot urine sodium today in 20s. Agree with treatment of pHTN with revatio. Will need to restart diuretics to help reduce ascites. Aldactone alone when urine Na is >20, add lasix when urine Na <20 at a ratio of 100:40 aldactone to lasix ratio. Continue to hold for now. Status: Acute Assessment and plan: 10/08-weight down 2 kg. Creatinine down today at 1.8. Paracentesis with 800 cc removed. Plan an addendum to follow by Dr. Wing. 10/07-weight increased 4 kg according to nursing records. No complaints of increased shortness of breath. Tolerating diet. Plan an addendum to follow by Dr. Wing. 10/06-liver pathology report noted. Abdominal ultrasound, Doppler studies and echocardiogram pending for today. Weight down 4 pounds. Plan an addendum to follow by Dr. Wing. 10/05-no changes at present time. Path report still pending. Plan an addendum to follow by Dr. Wing. 10/04-Path report still pending at present. Plan and addendum to follow by Dr Wing. 10/01-liver biopsy report pending at this time. Antimitochondrial antibody negative. Plan an addendum to follow by Dr. Wing 09/30-for liver biopsy today. Further serology testing still pending. No repeat LFTs today. Plan an addendum to follow by Dr. Wing. 09/29-No c/p today. Tolerating diet. Labwork still pending today, negative hepatitis B antibody. Plan and addendum to follow by Dr Wing. 09/28-No changes today. Will schedule for US guided paracentesis today. Hepatitis panel negative. Plan and addendum to follow by Dr Wing. 09/27-Three month hx of abd swelling worsening over last several weeks. Abd US results noted. Remote hx of hepatitis as a teenager. Obtain hepatitis panel. Plan and addendum to follow by Dr Wing. Current Visit: Yes Gastroenterology - PN: Subj Interval history: CC: Ascites Patient is seen awake alert sitting up in chair eating breakfast. States her appetite is improving every day. She is having regular bowel movements. She had a paracentesis on yesterday with 800 cc of straw-colored fluid removed. She verbalizes some relief from her abdominal discomfort. Weight is noted to be down 2 kg today creatinine is also down at 1.8. Abdomen soft, nontender. ROS: Denies shortness of breath or chest pain Exam (Progress Note) - Constitutional Vitals: Period Temp Pulse Resp BP Sys/Marcum Pulse Ox Last 24 Hr 98.1 F-100.2 F 60-88 16-20 109-133/47-90 92-96 General appearance: normal weight, no acute distress - Head Head exam: Present: normal inspection, normocephalic - Eye Eye exam: Present: other (Lids and conjunctive are unremarkable). Absent: scleral icterus - ENT ENT exam: Present: normal exam, normal oropharynx - Neck Neck exam: Present: normal inspection - Respiratory Respiratory exam: Present: clear to auscultation bilaterally. Absent: rales, rhonchi, wheezes - Cardiovascular Cardiovascular exam: Present: regular rate and rhythm. Absent: diastolic murmur , JVD, systolic murmur - GI/Abdominal GI/Abdominal exam: Present: normal bowel sounds, soft. Absent: ascites, distended, mass, organomegaly, tenderness - Extremities Exam Extremities exam: Present: normal inspection, full ROM - Back Exam Back exam: Present: normal inspection - Neurological Exam Neurological exam: Present: alert, oriented X3 - Psychiatric Psychiatric exam: Present: normal affect, normal mood - Skin Skin exam: Present: normal color, warm, dry Results - Labs CBC & BMP: 10/07/16 04:37 10/08/16 06:00 Lab Results: I have reviewed the past 24 hour labs Specialty Discharge - Follow Up or Referrals Follow up with: Renato Burgess MD [Primary Care Provider] - (3 weeks with EKG and labs) <Martin Wing - Last Filed: 10/08/16 11:04> Exam (Progress Note) - Constitutional Vitals: Period Temp Pulse Resp BP Sys/Marcum Pulse Ox Last 24 Hr 98.1 F-100.2 F 60-88 16-20 108-133/47-90 92-96 Results - Labs CBC & BMP: 10/07/16 04:37 10/08/16 06:00
--- NOTE | 2016-10-08 09:25 | Nephrology Progress Note ---
Nephrology - PN: Subj Interval history: Pt states she is breathing better s/p approx 1L paracentesis yesterday. Creatinine down to 1.8, has recieved 2 doses revatio for pHTN. States she had some diarrhea overnight. May be due to antibiotics or the misoprostol. UA cleared of E.coli, s/p 3 days rocephin. Exam (PN)-Nephrology - Vital Signs Vital signs: Period Temp Pulse Resp BP Sys/Marcum Pulse Ox Last 24 Hr 98.1 F-100.2 F 60-88 16-20 109-133/47-90 92-96 - General Appearance General appearance: well-developed, well-nourished EENT: ATNC, PERRL, mucous membranes dry, hearing intact, vision intact Neck: no thyromegaly, no carotid bruit Respiratory: no kyphosis, clear Cardiology: no murmurs, no rub, edema Gastrointestinal: normoactive bowel sounds, no tenderness, distended Integumentary: no rash, warm and dry Neurologic: no focal deficit, no asterixis, alert and oriented x3 Musculoskeletal: no deformities, no erythema Psychiatric: mood/affect appropriate, cooperative - Lab 10/07/16 04:37 10/08/16 06:00 Most recent lab results Calcium 8.5 MG/DL (8.5-10.1) 10/08/16 06:00 Magnesium 2.1 MG/DL (1.8-2.4) 10/08/16 06:00 Assessment and Plan (1) NONI (acute kidney injury) Problem details: Baseline creatinine around 1 a few months ago. Decrease misoprostol to 200mcg q6h to help with renal perfusion. Low side effect profile , mainly abd pain, dose dependent. Creatinine improved slightly to 1.8. Status: Acute Current Visit: No (2) Iron deficiency anemia Problem details: Fe Sat too low for effective erythropoiesis. Will hold on IV iron sucrose until infection cleared. Status: Acute Current Visit: Yes (3) UTI (urinary tract infection) Problem details: Cleared. Stop rocephin. Status: Acute Current Visit: No (4) Pulmonary hypertension Problem details: Discussed complicated physiology with Dr Do. We agree on assessment and plans. Status: Acute Current Visit: No (5) Ascites Problem details: Agree with treatment of pHTN with revatio. Restart aldactone to help reduce ascites. 100mg po qam. Status: Acute Current Visit: Yes Specialty Discharge - Follow Up or Referrals Follow up with: Renato Burgess MD [Primary Care Provider] - (3 weeks with EKG and labs)
[2016-10-08] MEDS: CHOLECALCIFEROL 1,000 UNIT TABLET PO SCH (10:09)
[2016-10-08] MEDS: ASCORBIC ACID 500 MG TABLET PO SCH (10:10)
[2016-10-08] MEDS: MAGNESIUM CHLORIDE 64 MG TABLET PO SCH ×2 (10:10→21:11)
[2016-10-08] MEDS: MONTELUKAST 10 MG TABLET PO SCH (10:11)
[2016-10-08] MEDS: FAMOTIDINE 20 MG TABLET PO SCH (10:11)
[2016-10-08] MEDS: miSOPROStol 200 MCG TABLET PO SCH ×4 (10:11→21:12)
[2016-10-08] MEDS: ASPIRIN EC 81 MG TABLET PO SCH (10:11)
[2016-10-08] MEDS: VENLAFAXINE 37.5 MG TABLET PO SCH (10:11)
[2016-10-08] MEDS: POTASSIUM CHLORIDE 10 MEQ TABLET PO SCH ×2 (10:11→21:11)
[2016-10-08] MEDS: SILDENAFIL 20 MG TABLET PO SCH ×3 (10:12→21:11)
[2016-10-08] MEDS: CARVEDILOL 25 MG TABLET PO SCH ×2 (10:12→21:11)
[2016-10-08] MEDS: INSULIN REGULAR 100 UNIT/ML SUBCUT SCH ×4 (10:14→21:12)
[2016-10-08] MEDS: INSULIN ASPART PROTAMINE/ASPART 70/30 100 UNIT/ML SUBCUT SCH ×2 (10:14→16:54)
[2016-10-08] MEDS: amLODIPine 10 MG TABLET PO SCH (10:16)
[2016-10-08] MEDS: SPIRONOLACTONE 50 MG TABLET PO SCH (10:17)
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
[2016-10-08 13:56] LABS: INR 1.4
[2016-10-08 15:26] LABS: IgG Immunoblot Negative (Negative); IgM Immunoblot Negative (Negative)
[2016-10-08] MEDS: SIMVASTATIN 40 MG TABLET PO SCH (21:11)
[2016-10-08] MEDS: BIMATOPROST 0.01% OPH SOLN 2.5 ML BOTTLE BOTH EYES SCH (21:12)
[2016-10-09 07:03] LABS: Calcium 9.1 MG/DL (8.5-10.1); Magnesium 2.3 MG/DL (1.8-2.4); Osmolality,Calculated 280.5 MOS/KG (273-304); Potassium 4.1 MMOL/L (3.5-5.1)
[2016-10-09] MEDS: CHOLECALCIFEROL 1,000 UNIT TABLET PO SCH (08:41)
[2016-10-09] MEDS: SILDENAFIL 20 MG TABLET PO SCH ×3 (08:41→21:30)
[2016-10-09] MEDS: amLODIPine 10 MG TABLET PO SCH ×2 (08:41→08:50)
[2016-10-09] MEDS: MAGNESIUM CHLORIDE 64 MG TABLET PO SCH ×2 (08:41→21:28)
[2016-10-09] MEDS: ASCORBIC ACID 500 MG TABLET PO SCH (08:41)
[2016-10-09] MEDS: POTASSIUM CHLORIDE 10 MEQ TABLET PO SCH ×2 (08:41→21:28)
[2016-10-09] MEDS: ASPIRIN EC 81 MG TABLET PO SCH (08:42)
[2016-10-09] MEDS: SPIRONOLACTONE 50 MG TABLET PO SCH (08:42)
[2016-10-09] MEDS: COLESEVELAM 625 MG TABLET PO SCH ×3 (08:42→17:15)
[2016-10-09] MEDS: VENLAFAXINE 37.5 MG TABLET PO SCH (08:43)
[2016-10-09] MEDS: FAMOTIDINE 20 MG TABLET PO SCH (08:43)
[2016-10-09] MEDS: INSULIN ASPART PROTAMINE/ASPART 70/30 100 UNIT/ML SUBCUT SCH ×2 (08:43→17:15)
[2016-10-09] MEDS: CARVEDILOL 25 MG TABLET PO SCH ×2 (08:43→21:28)
[2016-10-09] MEDS: MONTELUKAST 10 MG TABLET PO SCH (08:43)
[2016-10-09] MEDS: miSOPROStol 200 MCG TABLET PO SCH ×4 (08:44→21:28)
[2016-10-09] MEDS: INSULIN REGULAR 100 UNIT/ML SUBCUT SCH ×4 (08:44→21:29)
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
--- NOTE | 2016-10-09 14:40 | Nephrology Progress Note ---
Nephrology - PN: Subj Interval history: Pt states she had a good night. Abd pressure less, BLE improved. Diarrhea still , but improved per her report.Creatinine down to 1.7 from 1.8. Exam (PN)-Nephrology - Vital Signs Vital signs: Period Temp Pulse Resp BP Sys/Marcum Pulse Ox Last 24 Hr 98.2 F-99.5 F 64-72 18-20 94-119/47-69 93-95 - General Appearance General appearance: well-developed, obese EENT: ATNC, PERRL, mucous membranes dry, hearing intact, vision intact Neck: JVD, no thyromegaly Respiratory: no kyphosis, clear Cardiology: no murmurs, no rub, edema Gastrointestinal: normoactive bowel sounds, no tenderness, obese, distended Integumentary: no rash, warm and dry Neurologic: no focal deficit, no asterixis, alert and oriented x3 Musculoskeletal: no deformities, no erythema Psychiatric: mood/affect appropriate, cooperative - Lab 10/07/16 04:37 10/09/16 06:07 Most recent lab results Calcium 9.1 MG/DL (8.5-10.1) 10/09/16 06:07 Magnesium 2.3 MG/DL (1.8-2.4) 10/09/16 06:07 Assessment and Plan (1) NONI (acute kidney injury) Problem details: Baseline creatinine around 1 a few months ago. Decrease misoprostol to 200mcg q6h to help with renal perfusion. Low side effect profile , mainly abd pain, dose dependent. Creatinine improved slightly to 1.7. Status: Acute Current Visit: No (2) Iron deficiency anemia Status: Acute Current Visit: Yes (3) UTI (urinary tract infection) Problem details: Cleared. Status: Resolved Current Visit: No (4) Pulmonary hypertension Problem details: Discussed complicated physiology with Dr Do. We agree on assessment and plans. Status: Acute Current Visit: No (5) Ascites Problem details: Agree with treatment of pHTN with revatio. Restart aldactone to help reduce ascites. 100mg po qam. Status: Acute Current Visit: Yes Specialty Discharge - Follow Up or Referrals Follow up with: Renato Burgess MD [Primary Care Provider] - (3 weeks with EKG and labs)
[2016-10-09] MEDS: FERROUS SULFATE 325 MG TABLET PO SCH (21:28)
[2016-10-09] MEDS: SIMVASTATIN 40 MG TABLET PO SCH (21:28)
[2016-10-09] MEDS: BIMATOPROST 0.01% OPH SOLN 2.5 ML BOTTLE BOTH EYES SCH (21:28)
[2016-10-10] MEDS: INSULIN REGULAR 100 UNIT/ML SUBCUT SCH ×4 (07:13→20:41)
[2016-10-10 07:33] LABS: Calcium 8.9 MG/DL (8.5-10.1); Magnesium 2.2 MG/DL (1.8-2.4); Osmolality,Calculated 280.5 MOS/KG (273-304); Potassium 4.5 MMOL/L (3.5-5.1)
[2016-10-10] MEDS: INSULIN ASPART PROTAMINE/ASPART 70/30 100 UNIT/ML SUBCUT SCH ×2 (09:09→16:08)
[2016-10-10] MEDS: CHOLECALCIFEROL 1,000 UNIT TABLET PO SCH (09:10)
[2016-10-10] MEDS: COLESEVELAM 625 MG TABLET PO SCH ×3 (09:10→16:08)
[2016-10-10] MEDS: FAMOTIDINE 20 MG TABLET PO SCH (09:11)
[2016-10-10] MEDS: amLODIPine 10 MG TABLET PO SCH (09:11)
[2016-10-10] MEDS: SPIRONOLACTONE 50 MG TABLET PO SCH (09:11)
[2016-10-10] MEDS: ASPIRIN EC 81 MG TABLET PO SCH (09:11)
[2016-10-10] MEDS: MAGNESIUM CHLORIDE 64 MG TABLET PO SCH ×2 (09:11→20:40)
[2016-10-10] MEDS: FERROUS SULFATE 325 MG TABLET PO SCH ×2 (09:11→20:40)
[2016-10-10] MEDS: miSOPROStol 200 MCG TABLET PO SCH ×2 (09:11→11:02)
[2016-10-10] MEDS: SILDENAFIL 20 MG TABLET PO SCH ×3 (09:12→20:40)
[2016-10-10] MEDS: ASCORBIC ACID 500 MG TABLET PO SCH (09:12)
[2016-10-10] MEDS: VENLAFAXINE 37.5 MG TABLET PO SCH (09:12)
[2016-10-10] MEDS: MONTELUKAST 10 MG TABLET PO SCH (09:12)
[2016-10-10] MEDS: CARVEDILOL 25 MG TABLET PO SCH ×2 (09:12→20:40)
[2016-10-10] MEDS: POTASSIUM CHLORIDE 10 MEQ TABLET PO SCH ×2 (09:12→20:40)
[2016-10-10] MEDS ORDERED: LOPERAMIDE 2 MG CAPSULE PO ONE (10:35)
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
--- NOTE | 2016-10-10 12:48 | Nephrology Progress Note ---
Nephrology - PN: Subj Interval history: Diarrhea continues, less frequent. Creatinine down to 1.6. C. diff toxin negative. Abd swelling and BLE improved. CO2 19, likely from bicarb loss in stool. Exam (PN)-Nephrology - Vital Signs Vital signs: Period Temp Pulse Resp BP Sys/Marcum Pulse Ox Last 24 Hr 97.8 F-99.5 F 62-104 17-20 100-122/53-62 92-95 - General Appearance General appearance: well-developed, well-nourished, chronically ill EENT: ATNC, PERRL, mucous membranes dry, hearing intact, vision intact Neck: no JVD, no thyromegaly Respiratory: no kyphosis, clear Cardiology: no murmurs, no rub, edema Gastrointestinal: normoactive bowel sounds, no tenderness, distended Integumentary: no rash, warm and dry Neurologic: no focal deficit, no asterixis, alert and oriented x3 Musculoskeletal: no deformities, no erythema Psychiatric: mood/affect appropriate, cooperative - Lab 10/07/16 04:37 10/10/16 07:02 Most recent lab results Calcium 8.9 MG/DL (8.5-10.1) 10/10/16 07:02 Magnesium 2.2 MG/DL (1.8-2.4) 10/10/16 07:02 Assessment and Plan (1) NONI (acute kidney injury) Problem details: Baseline creatinine around 1 a few months ago. Creatinine improved slightly to 1.6. Status: Acute Current Visit: No (2) Iron deficiency anemia Status: Acute Current Visit: Yes (3) Pulmonary hypertension Problem details: Discussed complicated physiology with Dr Do. We agree on assessment and plans. Status: Acute Current Visit: No (4) Ascites Problem details: Agree with treatment of pHTN with revatio. Restarted aldactone to help reduce ascites. 100mg po qam. Status: Acute Current Visit: Yes (5) Diarrhea Problem details: slightly improved. Status: Acute Assessment and plan: Doubt due to misoprostol, but will stop it. Current Visit: Yes Specialty Discharge - Follow Up or Referrals Follow up with: Renato Burgess MD [Primary Care Provider] - (3 weeks with EKG and labs)
[2016-10-10] MEDS: FUROSEMIDE 40 MG TABLET PO SCH (15:17)
[2016-10-10] MEDS: SIMVASTATIN 40 MG TABLET PO SCH (20:40)
[2016-10-10] MEDS: BIMATOPROST 0.01% OPH SOLN 2.5 ML BOTTLE BOTH EYES SCH (20:41)
[2016-10-11 05:26] LABS: Basophils % 0.5 % (0.0-0.8); Eosinophils # 0.2 10*3/uL (0.0-0.87); Eosinophils % 3.7 % (0.00-10.9); Hematocrit 29.1 VOL% (35.7-47.0); Hemoglobin 9.3 GM/DL (12.0-16.0); Immature Granulocytes % 0.2 %; Immature Granulocytes Absolute 0.01 #; Lymphocytes # 0.7 10*3/uL (1.4-4.0); Lymphocytes % 16.2 % (21.3-54.2); Mean Corpuscular Hemoglobin 27 PG (27-34); Mean Corpuscular Volume 85.8 FL (87-102); Monocytes # 0.8 10*3/uL (0.11-0.8); Monocytes % 19.2 % (1.7-12.7); Neutrophils # 2.4 10*3/uL (1.4-7.4); Neutrophils % 60.2 % (38.7-73.9); Platelet Count 110 T/CUMM (130-400); Red Blood Count 3.39 MC/CUMM (3.8-5.5); Red Cell Distribution Width 16.8 % (9.3-17.3)
[2016-10-11 06:10] LABS: Calcium 8.6 MG/DL (8.5-10.1); Magnesium 2.1 MG/DL (1.8-2.4); Osmolality,Calculated 282.3 MOS/KG (273-304); Potassium 4.4 MMOL/L (3.5-5.1)
[2016-10-11 06:12] LABS: Eosinophils 3 % (0-10); Hypochromasia 1+; Lymphocytes 16 % (20-55); Microcytosis 1+; Ovalocytes Slight; Segmented Neutrophils 65 % (50-85); Total Cells Counted 100
[2016-10-11 06:13] LABS: Platelet Estimate Adequate
[2016-10-11] MEDS: INSULIN REGULAR 100 UNIT/ML SUBCUT SCH ×4 (08:19→22:10)
--- NOTE | 2016-10-11 08:40 | Gastrointestinal Progress Note ---
<AngelicaMiri Shelton - Last Filed: 10/11/16 08:38> Assessment and Plan (1) Ascites Problem details: Agree with treatment of pHTN with revatio. Restarted aldactone to help reduce ascites. 100mg po qam. Status: Acute Assessment and plan: 10/11-Creatnine better at 1.6. Weight down today. Plan and addendum to follow by Dr Wing. 10/08-weight down 2 kg. Creatinine down today at 1.8. Paracentesis with 800 cc removed. Plan an addendum to follow by Dr. Wing. 10/07-weight increased 4 kg according to nursing records. No complaints of increased shortness of breath. Tolerating diet. Plan an addendum to follow by Dr. Wing. 10/06-liver pathology report noted. Abdominal ultrasound, Doppler studies and echocardiogram pending for today. Weight down 4 pounds. Plan an addendum to follow by Dr. Wing. 10/05-no changes at present time. Path report still pending. Plan an addendum to follow by Dr. Wing. 10/04-Path report still pending at present. Plan and addendum to follow by Dr Wing. 10/01-liver biopsy report pending at this time. Antimitochondrial antibody negative. Plan an addendum to follow by Dr. Wing 09/30-for liver biopsy today. Further serology testing still pending. No repeat LFTs today. Plan an addendum to follow by Dr. Wing. 09/29-No c/p today. Tolerating diet. Labwork still pending today, negative hepatitis B antibody. Plan and addendum to follow by Dr Wing. 09/28-No changes today. Will schedule for US guided paracentesis today. Hepatitis panel negative. Plan and addendum to follow by Dr Wing. 09/27-Three month hx of abd swelling worsening over last several weeks. Abd US results noted. Remote hx of hepatitis as a teenager. Obtain hepatitis panel. Plan and addendum to follow by Dr Wing. Current Visit: Yes Gastroenterology - PN: Subj Interval history: CC: Ascites Pt is seen, awake and alert sitting up in bed, family at side. States she had a good weekend and is feeling better today. Denies any abdominal pain, nausea or vomiting. She is tolerating her diet well. Abdomen is soft, nontender. She states the diarrhea has almost resolved at this time. She was negative for C.diff. Weight is down two pounds today. She seems to have decreased edema to BLE as well. Creatnine is improved at 1.6 ROS: Denies SOB or chest pain Exam (Progress Note) - Constitutional Vitals: Period Temp Pulse Resp BP Sys/Marcum Pulse Ox Last 24 Hr 97.5 F-99.7 F 58-104 18-21 104-170/54-78 92-96 General appearance: normal weight, no acute distress - Head Head exam: Present: normal inspection, normocephalic - Eye Eye exam: Present: other (lids and conjunctiva unremarkable). Absent: scleral icterus - ENT ENT exam: Present: normal exam, normal oropharynx - Neck Neck exam: Present: normal inspection - Respiratory Respiratory exam: Present: clear to auscultation bilaterally. Absent: rales, rhonchi, wheezes - Cardiovascular Cardiovascular exam: Present: regular rate and rhythm. Absent: diastolic murmur , JVD, systolic murmur - GI/Abdominal GI/Abdominal exam: Present: normal bowel sounds, soft. Absent: ascites, distended, mass, organomegaly, tenderness - Extremities Exam Extremities exam: Present: normal inspection, full ROM - Back Exam Back exam: Present: normal inspection - Neurological Exam Neurological exam: Present: alert, oriented X3 - Psychiatric Psychiatric exam: Present: normal affect, normal mood - Skin Skin exam: Present: normal color, warm, dry Results - Labs CBC & BMP: 10/11/16 04:37 10/11/16 04:37 Lab Results: I have reviewed the past 24 hour labs Specialty Discharge - Follow Up or Referrals Follow up with: Renato Burgess MD [Primary Care Provider] - (3 weeks with EKG and labs) <Martin Wing - Last Filed: 10/11/16 18:00> Exam (Progress Note) - Constitutional Vitals: Period Temp Pulse Resp BP Sys/Marcum Pulse Ox Last 24 Hr 97.5 F-99.7 F 58-83 20-20 98-170/54-78 92-96 Results - Labs CBC & BMP: 10/11/16 04:37 10/11/16 04:37
[2016-10-11] MEDS: ASCORBIC ACID 500 MG TABLET PO SCH (08:42)
[2016-10-11] MEDS: INSULIN ASPART PROTAMINE/ASPART 70/30 100 UNIT/ML SUBCUT SCH ×2 (08:42→16:53)
[2016-10-11] MEDS: FERROUS SULFATE 325 MG TABLET PO SCH ×2 (08:42→22:10)
[2016-10-11] MEDS: ASPIRIN EC 81 MG TABLET PO SCH (08:42)
[2016-10-11] MEDS: MAGNESIUM CHLORIDE 64 MG TABLET PO SCH ×2 (08:42→22:09)
[2016-10-11] MEDS: SILDENAFIL 20 MG TABLET PO SCH ×3 (08:42→22:10)
[2016-10-11] MEDS: COLESEVELAM 625 MG TABLET PO SCH ×3 (08:42→16:53)
[2016-10-11] MEDS: FUROSEMIDE 40 MG TABLET PO SCH ×2 (08:43→16:53)
[2016-10-11] MEDS: CARVEDILOL 25 MG TABLET PO SCH ×2 (08:43→22:10)
[2016-10-11] MEDS: amLODIPine 10 MG TABLET PO SCH (08:43)
[2016-10-11] MEDS: SPIRONOLACTONE 50 MG TABLET PO SCH (08:43)
[2016-10-11] MEDS: POTASSIUM CHLORIDE 10 MEQ TABLET PO SCH ×2 (08:43→22:10)
[2016-10-11] MEDS: VENLAFAXINE 37.5 MG TABLET PO SCH (08:43)
[2016-10-11] MEDS: MONTELUKAST 10 MG TABLET PO SCH (08:43)
[2016-10-11] MEDS: FAMOTIDINE 20 MG TABLET PO SCH (08:43)
--- NOTE | 2016-10-11 11:00 | Pulmonology Progress Note ---
Pulmonary - PN: Subj Interval history: Mrs. Dasilva is a 71-year-old white female who was [facility] with ascites/anasarca, cholelithiasis per ultrasound, and bilateral lower extremity edema. Other past history includes chronic atrial fibrillation, history of acute renal failure (interstitial nephritis) secondary to medications in contrast, systemic lupus erythematosus,, diabetes mellitus, arteriosclerotic heart disease, sick sinus syndrome, pacemaker, chronic Coumadin therapy, history of depression, history of esophageal stricture esophageal motility dysfunction, history of ruptured right Achilles tendon, allergic sinusitis, and history of abdominal wall hematoma with large retroperitoneal bleed. 09/28/2016. Patient seen today along with her sister and daughter. She is scheduled for paracentesis today by IR. We will follow-up those results. On exam, the patient obviously has less JVD today. She has been diuresed. She is being seen in GI, cardiology, and nephrology consultations. Her daughter reports that patient did not receive her Coreg this morning. Spoken with the nursing staff about this. Apparently, Leilas does not have 25 mg tablets. Pharmacy had not changed it to 12.5 mg 2 tablets twice daily. We will ask this be done. Certainly, she needs to continue her Coreg. Her home medications were restarted last night. 09/29/2016. An echocardiogram done last week by Dr. Cortez the patient had an ejection fraction 55%. She had right ventricular enlargement and pulmonary artery pressures were 55 mmHg. These are elevated. Patient did not give us her medicine Norvasc 5 mg at time of admission but it turns out she was taken this for pulmonary hypertension. I am going to increase it to 10 mg daily. Her blood pressures looks safe but will be careful with this. A paracentesis was done yesterday. A number of tests are pending. Dr. Wing is 300 and GI consultation. I understand that cirrhosis of the liver is thought to be an underlying problem. After paracentesis yesterday the patient is markedly better. Her lower extremity edema is improved. Her stomach is much less distended. Jugular venous pressures are now normal. Overall her lab tests look good. 09/30/2016. The patient is for liver biopsy this morning. We will follow-up those results when available. Of note, alpha-1 antitrypsin level, ceruloplasmin and mitochondrial antibodies are all pending. Paracentesis was done 09/28/2016. Cytology has been reported as class II. The patient's glucose dropped last night to low 49. We have adjusted her nighttime insulin and decreased to 4 units. Urine cultures growing a gram-negative gerardo. ID and sensitivity is still pending. Keeping in mind her long list of allergies, we started Hiprex on 09/28/2016. 10/01/16. The patient was seen today along with her daughter and Yenni Ureña RN. She had a liver biopsy yesterday and the results are pending. Her abdomen remains improved. On review of her medications, there were three different orders for Lasix. We have discontinued all oral Lasix and are going to only give IV Lasix for now. She is being seen by Dr. Wing and Dr. Sutton/Ramon. There notes have been reviewed. Her urine has grown E. coli. We have had her on Hiprex. We will repeat her urinalysis today. 10/04/2016. The patient was seen today along with her in Sesar Montesinos RN. Ms. Dasilva states that her abdomen feels like it is becoming distended again. Her legs are less edematous however. She notes that her weight is up approximately 2-3 pounds from yesterday. Alpha-1 antitrypsin level was 214 ( normal 100-190). Ceruloplasmin was 28 (normal 18-53). Antimitochondrial antibody was less than 0.1 (negative). We called the lab to check on the patient's liver biopsy. Apparently, the specimen has been sent to [facility] and can take reportedly 7-10 business days to get back. Her urine has again grown E. coli and also a gram-positive cocci which is awaiting identification. She continues on Hiprex. Creatinine has increased slightly to 2.10. She is being followed by nephrology. 10/05/2016. Patient's creatinine is up to 2.2. In the past she has been seen by Dr. Efren Navarro and the family has requested consultation for him. I talked to Dr. Navarro and because they ask and I asked he is going to see her. Patient's been on Lasix and spironolactone. I will stop these. She was on these prior to admission but we switched it to IV push. I believe Spironolactone is new. I will also stop hiprex. This is metabolized in the liver and excreted in the kidney and is being given for urinary tract infection. Patient's anasarca has for all practical purposes resolved. Liver biopsies have been sent for second opinion and of the be a while before they come back. It is thought that she had cirrhosis of the liver as a cause of her anasarca and ascites. Note she also has pulmonary hypertension. During this admission I have increased her Norvasc from 5 mg daily to 10 mg daily. 10/06/16. The patient was seen today along with her daughter and Sesar Montesinos RN. She has been seen by Dr. Navarro today. His note has been reviewed and we appreciate his help. The patient's liver biopsy report has been reviewed. We will await Dr. Wing' interpretation. Her weight is down again today. Her urine has grown E. coli and Enterococcus faecalis. Rocephin was started yesterday. We will continue the Hiprex. Urinalysis obtained yesterday is growing a gram negative gerardo. 10/07/2016. The patient was seen today along with Yenni Ureña RN, and multiple family members. We have discussed the case with Dr. Wing and Dr. Navarro and all coordinated our care. Patient's echocardiogram done 10/06/[address] Bhardwaj showed an EF of 60%, flat or D shaped septum and SA view indicative of pulmonary pressure overload, mild to moderate tricuspid regurgitation, pulmonary artery pressure 80 mmHg, 2+ increased right ventricular size, moderately increased right atrial size, moderately increased left atrial size, mild mitral annular and leaflet calcification with mild mitral regurgitation, and aortic valve sclerosis without stenosis or regurgitation. All things considered, we will more aggressively treat the patient's pulmonary hypertension. She has had her Norvasc increased this admission to 10 mg daily. She is tolerating this fine. We will add Revatio 20 mg 3 times daily. Her abdomen is certainly more distended and firm today. We will ask IR for a therapeutic paracentesis. Dr. Navarro started the patient on Cytotec and we absolutely agree with this rationale. All of these things were discussed with the patient and her family at length into their understanding. They are in agreement. We will repeat urinalysis today as discussed with Dr. Navarro. Urinalysis obtained 10/05/2016 again grew E. coli. 10/08/2016. Patient was seen today along with Sesar Montesinos RN. The patient was started on Cytotec yesterday as per Dr. Navarro. She has developed some diarrhea which could be secondary to the Cytotec and/or antibiotics. Nonetheless, we started WelChol 1250 mg before meals 3 times daily yesterday. This is helped. Will continue the Cytotec and WelChol. Her creatinine has improved to 1.8 today. Repeat urinalysis shows her previously noted urinary tract infection has resolved. Dr. Navarro. The patient's Rocephin. Paracentesis was done yesterday by interventional radiology with approximately 800 cc of fluid drawn off. There is no growth from the peritoneal fluid at 12 hours. Her weight is down approximately 16 pounds since admission. Overall, she states she feels "pretty good" today. Yesterday we started the patient on Revatio for severe pulmonary hypertension. She is also on Norvasc 10 mg daily. Her blood pressure has remained stable. 10/11/2016. Today the patient was seen along with Raúl Medrano nurse practitioner, Juju Ureña RN, the patient's son. I spent a long time discussing my plan. Patient has pulmonary hypertension. Recent pulmonary artery pressure was estimated to be 80 mmHg. In April it was estimated to be 67 mmHg. I recently increased her Norvasc from 5 mg to 10 mg daily. 3 days ago we added Revatio 20 mg 3 times daily and could go a good bit higher if needed. I am going to add back a low dose of Cytotec, 100 g p.o. twice daily for its prostaglandin properties. If she has no diarrhea will use this as an add-on for pulmonary hypertension. She has had negative venograms. I will check a ventilation perfusion lung scan to make sure there are no clandestine on pulmonary emboli. I have consulted Dr. Calles for sleep studies. I have told her that I will refer her to [facility] in the future if these measures do not work. Right now her kidneys are not good enough to do the dye studies they would like to have done. Her creatinine has fallen from 2.1-1.[address] Navarro's help. The patient does well with these changes a day I will probably discharge her tomorrow. All questions were answered. The son has should she be on anticoagulation. I told him not with her history. I also told him that this is sometimes used especially in the cases of venoocclusive disease. Patient however did not present as a venoocclusive pulmonary hypertension. Dr. 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 I have asked him to see her in cardiology follow-up today. Dr. Newton has seen her during this admission Medications have been reviewed. We made no changes today. Labs been reviewed. Creatinine has improved to 1.0, BUN 27, electrolytes are normal; urinalysis was nitrate and leukocyte negative with only 2 WBCs per high- power field. Exam (Progress Note) - Constitutional Vitals: Period Temp Pulse Resp BP Sys/Marcum Pulse Ox Last 24 Hr 98.1 F-100.2 F 60-88 16-20 109-133/47-90 92-96 Exam: Psychiatric oriented 3 Face. Symmetrical. Neck. No meningismus. Lymphatics. No submandibular cervical supraclavicular or epitrochlear adenopathy. Chest is wheeze free Heart irregular Abdomen soft and nontender; bowel sounds are positive 4 Extremities (lower) with markedly less edema (approximately +1/4); nothing to suggest acute DVT Neurologic long-term motor function is intact. Cranial nerves are intact. The remainder the physical exam is noncontributory. Plan. 1. 10/11/2016. See today's note 2. Possible discharge tomorrow Exam (Progress Note) - Constitutional Vitals: Period Temp Pulse Resp BP Sys/Marcum Pulse Ox Last 24 Hr 97.5 F-99.7 F 58-104 18-21 104-170/54-78 92-96 Results - Labs CBC & BMP: 10/11/16 04:37 10/11/16 04:37 Specialty Discharge - Follow Up or Referrals Follow up with: Renato Burgess MD [Primary Care Provider] - (3 weeks with EKG and labs)
--- NOTE | 2016-10-11 12:16 | Pathology Report from [facility] ---
ACCESSION # : [id number] PATIENT NAME : Erika Dasilva ORDERING DR : HOLGER JACKSON MD CLINICAL HX: Peritoneal Fluid, Ascites POST-OP DX: Same SPECIMEN INFO: Fluid,Peritoneal - 1000 ml's bloody, cloudy CLASS: II CLASS COMMENTS: Blood, acute, chronic inflammation, reactive mesothelial cells.CELL BLOCK: Same. CLASS LEGEND: CLASS 0 Material inadequate for diagnosis because of (see comment) CLASS I Absence of atypical or abnormal cells CLASS II Atypical Cytology but no evidence of malignancy CLASS III Cytology suggestive of but not conclusive for malignancy CLASS IV Cytology strongly suggestive of malignancy CLASS V Cytology conclusive for malignancy SERVICE DATE: 10/08/2016 REPORT DATE: 10/11/2016 PATHOLOGIST: Ramiro Espana M.D. [id number]
--- NOTE | 2016-10-11 12:24 | Nuclear Medicine Report ---
History: Pulmonary hypertension. Pleural effusion. Date: 10/11/2016 Study: Nuclear medicine ventilation/perfusion lung scan. Post lung scan PA chest x-ray Comparison exam: Chest x-ray September 30, 2016 Following the inhalation of 40 mCi of aerosolized technetium 99m DTPA, images were acquired of the lungs in 6 projections for the purpose of ventilation study. Then, following IV administration of 5 mCi technetium 99m MAA, images were acquired of the lungs in same projections for the purpose of a perfusion scan. There is a matched area of decreased ventilation/perfusion involving the right lower lobe posteriorly and inferiorly. There is a small amount of corresponding infiltrate in the right lower lobe in this area. There is also a matched area of decreased ventilation perfusion involving the posterior inferior aspect of the left upper lobe without corresponding infiltrate. There is no moderate or large unmatched segmental perfusion defect. Impression: Intermediate probability for pulmonary embolic disease on the basis of a triple match in the right lower lobe Single view chest x-ray post lung scan: There is stable borderline to mild cardiomegaly. The mediastinal contours are unchanged from the September 30, 2016 chest x-ray exam. The pulmonary vasculature is not engorged. Left lung is generally clear. Atelectatic parenchymal consolidation in the right lower lobe is similar to the previous study. There is mild right-sided pleural effusion as before. A left subclavian dual lead transvenous pacemaker is noted as before. The osseous structures are unchanged. Impression: Mild right lower lobe atelectasis/infiltrate and mild right pleural effusion, unchanged. Otherwise unchanged PROCEDURE INTERPRETED AT [facility] DEPARTMENT OF RADIOLOGY Final Report Signed by: Dr. Nataliya Reddy
--- NOTE | 2016-10-11 13:43 | Sleep Medicine Consult ---
Assessment and Plan (1) Unspecified sleep apnea Status: Acute Assessment and plan: Pulmonary hypertension can be associated with obstructive sleep apnea. It is usually mild to moderate at worse unless accompanied by an other breathing disorder that would cause chronic hypoxia or CO2 retention such as obesity hypoventilation or severe chronic lung disease. Given this patient's comorbidities of coronary artery disease and atrial fibrillation, sleep evaluation is indicated to see if there is any significant coincident oxygen desaturation. In this patient's case treatment of any contributing factor may be of some benefit to her. We will schedule HST evaluation. Hopefully this can be done tonight. If this does not show significant sleep apnea, I think with her lack of snoring, we can avoid polysomnography. I do suspect that her pulmonary hypertension may be more related to a combination of her chronic liver disease and/or lupus. Current Visit: Yes (2) Diabetes Status: Chronic Assessment and plan: The prevalence rate for obstructive sleep apnea in patients with type 2 diabetes can be as high as 86%. Those patients with moderate to severe obstructive sleep apnea are at a greater risk for diabetic nephropathy and neuropathy. Compliance with CPAP therapy for these patients can lead to improvement in glycemic control and improvement in insulin sensitivity. Current Visit: Yes Qualifiers: Diabetes mellitus type: type 2 Diabetes mellitus complication status: with kidney complications Chronic kidney disease stage: stage 2 (mild) (3) Hypertension Problem details: controlled Status: Chronic Assessment and plan: The prevalence rate for obstructive sleep apnea patients with hypertension is 35 %. That rate can be as high as 80% in patients who require 4 or more medications for blood pressure control. Current Visit: Yes Qualifiers: Hypertension type: essential hypertension History of Present Illness Chief complaint: Possible sleep apnea History of present illness: Ms. Dasilva is a 71 year old female admitted with abdominal swelling and increased girth. 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 She has had large volume paracentesis twice since this hospitalization. She has had previous CTA of the chest done which showed no evidence of pulmonary thromboembolic disease. She was found to have severe pulmonary artery hypertension with a PA pressure of 80 and sleep medicine was consulted to exclude sleep apnea as a contributing factor. She does not have a history of snoring. She denies any significant issues with daytime fatigue and sleepiness. She usually retires about 10 PM and will awaken the next morning around 8 AM. She will only awaken about twice a night to urinate. She has never been told that she snores loudly nor has she been told that she stops breathing during her sleep. She has no family history of sleep apnea. Notably , she does have a history of coronary artery disease, atrial fibrillation, and a previous diagnosis of systemic lupus erythematosus. Home Medications Medication Instructions Recorded Confirmed Type Ascorbic Acid Tab [Vitamin C Tab] 500 mg PO DAILY 09/21/15 09/27/16 History Aspirin [Ecotrin] 81 mg PO DAILY 09/21/15 09/27/16 History Bimatoprost 0.01% Oph Soln 1 drop BOTH EYES BEDTIME 09/21/15 09/27/16 History [Lumigan] Carvedilol 25 mg PO BID 09/21/15 09/27/16 History Montelukast Tab [Singulair Tab] 10 mg PO DAILY 09/21/15 09/27/16 History Potassium Chloride 10 meq PO BID 09/21/15 09/27/16 History Simvastatin 40 mg PO BEDTIME 09/21/15 09/27/16 History Venlafaxine [Effexor] 37.5 mg PO DAILY 09/21/15 09/27/16 History amLODIPine [Norvasc] 5 mg PO DAILY 09/21/15 09/27/16 History Insulin Aspart Prot/Asp 70/30 12 unit SUBCUT AC SUPPER #0 10/04/15 09/27/16 Rx [NovoLOG Mix 70/30] injection Cholecalciferol (Vitamin D3) 5,000 unit PO DAILY 05/03/16 09/27/16 History [Vitamin D3] Famotidine Tab [Pepcid Tab] 40 mg PO DAILY 05/03/16 09/27/16 History Magnesium Chloride [Slow Mag] 128 mg PO BID 05/03/16 09/27/16 History Amiodarone Tab [Cordarone Tab] 200 mg PO DAILY 09/27/16 09/27/16 History Furosemide Tab [Lasix Tab] 40 mg PO DAILY 09/27/16 09/27/16 History Insulin Aspart Prot/Asp 70/30 10 unit SUBCUT AC BREAKFAST 09/27/16 09/27/16 History [NovoLOG Mix 70/30] Valsartan [Diovan] 40 mg PO DAILY 09/27/16 09/27/16 History Allergies Allergy/AdvReac Type Severity Reaction Status Date / Time ofloxacin [From Floxin] Allergy Severe Swelling Verified 06/16/16 11:42 of Lip/Tongue/Throat Penicillins Allergy Severe RASH Verified 06/16/16 11:42 Sulfa (Sulfonamide Allergy Severe RASH Verified 06/16/16 11:42 Antibiotics) cephalexin [From Keflex] Allergy Intermediate RASH Verified 06/16/16 11:42 doxycycline Allergy Intermediate RASH Verified 06/16/16 11:42 levofloxacin [From Levaquin] AdvReac Severe Swelling Verified 06/16/16 11:42 of Lip/Tongue/Throat Review of systems: Otherwise unremarkable from a sleep standpoint. Exam (Pulmonay) H&P - Constitutional Vitals: Period Temp Pulse Resp BP Sys/Marcum Pulse Ox Last 24 Hr 97.5 F-99.7 F 58-83 20-21 106-170/54-78 92-96 Exam: She is alert and responsive in no acute distress. Pupils equal round reactive to light and accommodation. Extraocular movements intact. Oropharynx with a class II Mallampati exam. Neck is supple without adenopathy or thyromegaly. No supraclavicular adenopathy is noted. Chest with symmetrical breath sounds without significant wheeze or rhonchi. Cardiac exam reveals a regular rhythm without murmur or gallop. Abdomen obese nontender without palpable hepatosplenomegaly. Extremities with trace edema bilaterally. Neurologically, she is grossly intact. She moves all extremities with good strength. Medical,Surgical,& Family Hx - Medical History Cardio: History of: Cardiac Dysrhythmia (Chronic atrial fibrillation), CAD ( History of coronary artery stent in 2010), Hypertension, Pacemaker Psychological: History of: Anxiety Disorders HEENT: History of: Eye Problem (glaucoma) Endocrine: History of: Diabetes Mellitus (IDDM), Dyslipidemia No history of: Diabetes Mellitus (NIDDM) Rheumatology: History of;: Rheumatological Problems (ARTHRITIS) Respiratory: History of: Bronchitis Renal: History of: Renal Failure (Patient has had 2 episodes of ATN in the last 6 months) Genitourinary: History of: Recurring Urinary Tract Infections Gastrointestinal: History of: GERD, 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) - Surgical History Cardiac Surgeries: Sugical HX of: Cardiac Catheterization (STENTS), Cardiac Surgery (PACEMAKER) Neurologic Surgeries: Patient denies: Neurologic Surgery HEENT Surgeries: Surgical HX of: Eye Surgery (bilateral cataract) Abdominal Surgeries: Surgical HX of: Appendectomy, Colonoscopy, EGD Reproductive Surgeries: Surgical HX of;: Breast Surgery (biopsy), Hysterectomy Orthopedic Surgeries: Surgical HX of;: Orthopedic Surgery (bilateral carpal tunnel) - Family History Family History: Reports;: Family Diabetes, Family Heart Disease - Social History Smoking Status: Never smoker Frequency of Alcohol Use: None Type of Drug Use: None Results - Labs CBC & BMP: 10/11/16 04:37 10/11/16 04:37 Labs: VERNA was negative and she is anemic. She does have mild renal insufficiency with a creatinine of 1.6. Specialty Discharge - Follow Up or Referrals Follow up with: Renato Burgess MD [Primary Care Provider] - (3 weeks with EKG and labs)
--- NOTE | 2016-10-11 14:03 | Nephrology Progress Note ---
Nephrology - PN: Subj Interval history: Pt not in room on am rounds. Getting V/Q scan revealing no mismatches, read as intermediate prob. Her cytotec was stopped yesterday to see if diarrhea improved, since it was causing a mild metabolic acidosis from stool loss of bicarb. I do not know if diarrhea resolved. It was added back at reduced dose bid. I added back lasix to her aldactone to help keep ascites off since her urine Na on aldactone alone was <30. Her weight is down today, but has been unreliable regarding her volume. She has no serologic evidence of systemic lupus erythematosus. She does not meet WHO criteria for dx of SLE. But I am not an expert in Rheumatology. She certainly does not have labs or urinary evidence of lupus nephrititis and does not warrant a renal biopsy in my opinion. Exam (PN)-Nephrology - Vital Signs Vital signs: Period Temp Pulse Resp BP Sys/Marcum Pulse Ox Last 24 Hr 97.5 F-99.7 F 58-83 20-21 106-170/54-78 92-96 Exam: Not available for exam. Labs, notes and VS reviewed. Nursing staff interviewed. - Lab 10/11/16 04:37 10/11/16 04:37 Most recent lab results Calcium 8.6 MG/DL (8.5-10.1) 10/11/16 04:37 Magnesium 2.1 MG/DL (1.8-2.4) 10/11/16 04:37 Assessment and Plan (1) NONI (acute kidney injury) Problem details: Baseline creatinine around 1 a few months ago. Creatinine stable 1.6. Status: Acute Current Visit: No (2) Iron deficiency anemia Status: Acute Assessment and plan: Consider IV iron today, 200mg slow (2-3min) IVP. Repeat 200mg slow IVP in am prior to planned dc. Current Visit: Yes (3) Pulmonary hypertension Problem details: Discussed complicated physiology with Dr Do. We agree on assessment and plans. Status: Acute Current Visit: No (4) Ascites Problem details: Agree with treatment of pHTN with revatio. Continue aldactone/ lasix at ratio of 100 aldactone 40 lasix. Status: Acute Current Visit: Yes (5) Diarrhea Status: Acute Assessment and plan: Misoprostol restarted, low dose. Current Visit: Yes Specialty Discharge - Follow Up or Referrals Follow up with: Renato Burgess MD [Primary Care Provider] - (3 weeks with EKG and labs)
[2016-10-11] MEDS: LIDOCAINE 5% PATCH TRANSDERM SCH (16:54)
[2016-10-11] MEDS: miSOPROStol 100 MCG TABLET PO SCH (16:54)
[2016-10-11] MEDS: SIMVASTATIN 40 MG TABLET PO SCH (22:10)
[2016-10-11] MEDS: BIMATOPROST 0.01% OPH SOLN 2.5 ML BOTTLE BOTH EYES SCH (22:12)
[2016-10-11] MEDS ORDERED: ACETAMINOPHEN 325 MG TABLET ONE (22:18)
[2016-10-12] MEDS: INSULIN REGULAR 100 UNIT/ML SUBCUT SCH ×2 (09:09→12:18)
[2016-10-12 10:22] LABS: Calcium 9.1 MG/DL (8.5-10.1); Osmolality,Calculated 286.4 MOS/KG (273-304); Potassium 4.2 MMOL/L (3.5-5.1)
--- NOTE | 2016-10-12 10:38 | Pulmonology Progress Note ---
Pulmonary - PN: Subj Interval history: Mrs. Dasilva is a 71-year-old white female who was [facility] with ascites/anasarca, cholelithiasis per ultrasound, and bilateral lower extremity edema. Other past history includes chronic atrial fibrillation, history of acute renal failure (interstitial nephritis) secondary to medications in contrast, systemic lupus erythematosus,, diabetes mellitus, arteriosclerotic heart disease, sick sinus syndrome, pacemaker, chronic Coumadin therapy, history of depression, history of esophageal stricture esophageal motility dysfunction, history of ruptured right Achilles tendon, allergic sinusitis, and history of abdominal wall hematoma with large retroperitoneal bleed. 09/28/2016. Patient seen today along with her sister and daughter. She is scheduled for paracentesis today by IR. We will follow-up those results. On exam, the patient obviously has less JVD today. She has been diuresed. She is being seen in GI, cardiology, and nephrology consultations. Her daughter reports that patient did not receive her Coreg this morning. Spoken with the nursing staff about this. Apparently, Leilas does not have 25 mg tablets. Pharmacy had not changed it to 12.5 mg 2 tablets twice daily. We will ask this be done. Certainly, she needs to continue her Coreg. Her home medications were restarted last night. 09/29/2016. An echocardiogram done last week by Dr. Cortez the patient had an ejection fraction 55%. She had right ventricular enlargement and pulmonary artery pressures were 55 mmHg. These are elevated. Patient did not give us her medicine Norvasc 5 mg at time of admission but it turns out she was taken this for pulmonary hypertension. I am going to increase it to 10 mg daily. Her blood pressures looks safe but will be careful with this. A paracentesis was done yesterday. A number of tests are pending. Dr. Wing is 300 and GI consultation. I understand that cirrhosis of the liver is thought to be an underlying problem. After paracentesis yesterday the patient is markedly better. Her lower extremity edema is improved. Her stomach is much less distended. Jugular venous pressures are now normal. Overall her lab tests look good. 09/30/2016. The patient is for liver biopsy this morning. We will follow-up those results when available. Of note, alpha-1 antitrypsin level, ceruloplasmin and mitochondrial antibodies are all pending. Paracentesis was done 09/28/2016. Cytology has been reported as class II. The patient's glucose dropped last night to low 49. We have adjusted her nighttime insulin and decreased to 4 units. Urine cultures growing a gram-negative gerardo. ID and sensitivity is still pending. Keeping in mind her long list of allergies, we started Hiprex on 09/28/2016. 10/01/16. The patient was seen today along with her daughter and Yenni Ureña RN. She had a liver biopsy yesterday and the results are pending. Her abdomen remains improved. On review of her medications, there were three different orders for Lasix. We have discontinued all oral Lasix and are going to only give IV Lasix for now. She is being seen by Dr. Wing and Dr. Sutton/Ramon. There notes have been reviewed. Her urine has grown E. coli. We have had her on Hiprex. We will repeat her urinalysis today. 10/04/2016. The patient was seen today along with her in Sesar Montesinos RN. Ms. Dasilva states that her abdomen feels like it is becoming distended again. Her legs are less edematous however. She notes that her weight is up approximately 2-3 pounds from yesterday. Alpha-1 antitrypsin level was 214 ( normal 100-190). Ceruloplasmin was 28 (normal 18-53). Antimitochondrial antibody was less than 0.1 (negative). We called the lab to check on the patient's liver biopsy. Apparently, the specimen has been sent to [facility] and can take reportedly 7-10 business days to get back. Her urine has again grown E. coli and also a gram-positive cocci which is awaiting identification. She continues on Hiprex. Creatinine has increased slightly to 2.10. She is being followed by nephrology. 10/05/2016. Patient's creatinine is up to 2.2. In the past she has been seen by Dr. Efren Navarro and the family has requested consultation for him. I talked to Dr. Navarro and because they ask and I asked he is going to see her. Patient's been on Lasix and spironolactone. I will stop these. She was on these prior to admission but we switched it to IV push. I believe Spironolactone is new. I will also stop hiprex. This is metabolized in the liver and excreted in the kidney and is being given for urinary tract infection. Patient's anasarca has for all practical purposes resolved. Liver biopsies have been sent for second opinion and of the be a while before they come back. It is thought that she had cirrhosis of the liver as a cause of her anasarca and ascites. Note she also has pulmonary hypertension. During this admission I have increased her Norvasc from 5 mg daily to 10 mg daily. 10/06/16. The patient was seen today along with her daughter and Sesar Montesinos RN. She has been seen by Dr. Navarro today. His note has been reviewed and we appreciate his help. The patient's liver biopsy report has been reviewed. We will await Dr. Wing' interpretation. Her weight is down again today. Her urine has grown E. coli and Enterococcus faecalis. Rocephin was started yesterday. We will continue the Hiprex. Urinalysis obtained yesterday is growing a gram negative gerardo. 10/07/2016. The patient was seen today along with Yenni Ureña RN, and multiple family members. We have discussed the case with Dr. Wing and Dr. Navarro and all coordinated our care. Patient's echocardiogram done 10/06/[address] Bhardwaj showed an EF of 60%, flat or D shaped septum and SA view indicative of pulmonary pressure overload, mild to moderate tricuspid regurgitation, pulmonary artery pressure 80 mmHg, 2+ increased right ventricular size, moderately increased right atrial size, moderately increased left atrial size, mild mitral annular and leaflet calcification with mild mitral regurgitation, and aortic valve sclerosis without stenosis or regurgitation. All things considered, we will more aggressively treat the patient's pulmonary hypertension. She has had her Norvasc increased this admission to 10 mg daily. She is tolerating this fine. We will add Revatio 20 mg 3 times daily. Her abdomen is certainly more distended and firm today. We will ask IR for a therapeutic paracentesis. Dr. Navarro started the patient on Cytotec and we absolutely agree with this rationale. All of these things were discussed with the patient and her family at length into their understanding. They are in agreement. We will repeat urinalysis today as discussed with Dr. Navarro. Urinalysis obtained 10/05/2016 again grew E. coli. 10/08/2016. Patient was seen today along with Sesar Montesinos RN. The patient was started on Cytotec yesterday as per Dr. Navarro. She has developed some diarrhea which could be secondary to the Cytotec and/or antibiotics. Nonetheless, we started WelChol 1250 mg before meals 3 times daily yesterday. This is helped. Will continue the Cytotec and WelChol. Her creatinine has improved to 1.8 today. Repeat urinalysis shows her previously noted urinary tract infection has resolved. Dr. Navarro. The patient's Rocephin. Paracentesis was done yesterday by interventional radiology with approximately 800 cc of fluid drawn off. There is no growth from the peritoneal fluid at 12 hours. Her weight is down approximately 16 pounds since admission. Overall, she states she feels "pretty good" today. Yesterday we started the patient on Revatio for severe pulmonary hypertension. She is also on Norvasc 10 mg daily. Her blood pressure has remained stable. 10/11/2016. Today the patient was seen along with Raúl Medrano nurse practitioner, Juju Ureña RN, the patient's son. I spent a long time discussing my plan. Patient has pulmonary hypertension. Recent pulmonary artery pressure was estimated to be 80 mmHg. In April it was estimated to be 67 mmHg. I recently increased her Norvasc from 5 mg to 10 mg daily. 3 days ago we added Revatio 20 mg 3 times daily and could go a good bit higher if needed. I am going to add back a low dose of Cytotec, 100 g p.o. twice daily for its prostaglandin properties. If she has no diarrhea will use this as an add-on for pulmonary hypertension. She has had negative venograms. I will check a ventilation perfusion lung scan to make sure there are no clandestine on pulmonary emboli. I have consulted Dr. Calles for sleep studies. I have told her that I will refer her to [facility] in the future if these measures do not work. Right now her kidneys are not good enough to do the dye studies they would like to have done. Her creatinine has fallen from 2.1-1.[address] Navarro's help. The patient does well with these changes a day I will probably discharge her tomorrow. All questions were answered. The son has should she be on anticoagulation. I told him not with her history. I also told him that this is sometimes used especially in the cases of venoocclusive disease. Patient however did not present as a venoocclusive pulmonary hypertension. Dr. Burgess is back on hospital duty and has been this patient's municipal bond trader on a long-term basis. I have asked him to see her in cardiology follow-up today. Dr. Newton has seen her during this admission 10/12/2016. Patient was seen along with Raúl Medrano nurse practitioner and joon Montesinos RN. No family was present. Dr. Calles's HST is pending. Ventilation perfusion lung scan shows no evidence of pulmonary emboli. Creatinine has increased to 1.9. Lasix was added back to her regimen yesterday. Patient will be discharged today she has a follow-up appointment to see Racquel Dixon nurse practitioner and me in about 1 month. On that day will check a CBC and a BMP. I have asked for Dr. Renato Burgess to do an echocardiogram with attention pulmonary artery pressures before that visit. See my note 10/11/2016 concerning pulmonary artery pressures. Vital signs are normal. Today's weight is 89.76 kg. The patient's admit weight was 99.337 kg edema in her legs are markedly improved. She says her abdomen no longer feels distended. Her jugular veins collapse with a deep breath. ress Note) - Constitutional Vitals: Period Temp Pulse Resp BP Sys/Marcum Pulse Ox Last 24 Hr 98.1 F-100.2 F 60-88 16-20 109-133/47-90 92-96 Exam: Psychiatric oriented 3 Face. Symmetrical. Neck. No meningismus. Lymphatics. No submandibular cervical supraclavicular or epitrochlear adenopathy. Chest is wheeze free Heart irregular Abdomen soft and nontender; bowel sounds are positive 4 Extremities (lower) with markedly less edema (approximately +1/4); nothing to suggest acute DVT Neurologic long-term motor function is intact. Cranial nerves are intact. Venous exam. Chronic venous stasis both lower extremities. Jugular veins collapse with a deep breath. Right heart failure is resolved The remainder the physical exam is noncontributory. Plan. 1. 10/11/2016. See today's note 2. 10/12/2016. See my note 10/11/2016 and see my note 10/12/2016. Creatinine is increased from 1.6-1.9. Electrolytes are normal. Patient is comfortable. I am going to discharge her home today and she will see Racquel Dixon nurse practitioner and me in about 1 month. She will have an echocardiogram read by Dr. Burgess just before the visit. Pulmonary artery pressures this hospitalization was estimated to be 80 mmHg. Several months ago the pressures were estimated to be 67 mmHg. Patient is presently on Norvasc 10 mg daily and Viagra 20 mg every 8 hours. Revatio can be increased higher if needed. Patient understands that for pulmonary hypertension does not respond in a fashion and appears appropriate we will last for second opinion from the pulmonary hypertension Center at [facility]. Exam (Progress Note) - Constitutional Vitals: Period Temp Pulse Resp BP Sys/Marcum Pulse Ox Last 24 Hr 97.3 F-98.3 F 60-64 16-20 95-128/54-68 92-94 Results - Labs CBC & BMP: 10/11/16 04:37 10/12/16 09:32 Specialty Discharge - Follow Up or Referrals Follow up with: Renato Burgess MD [Primary Care Provider] - (3 weeks with EKG and labs)
[2016-10-12 10:44] LABS: Apearance,Urine CLEAR (Clear); Bacteria,Urine Occasional /HPF (Few); Bilirubin,Urine Negative (Negative); Blood, Urine Negative (Negative); Glucose,Urine (UA) Negative (Negative); Hyaline Casts,Urine 4 /LPF (0-3); Ketones,Urine Negative (Negative); Mucus,Urine Occasional /LPF (Occasional); Nitrite,Urine Negative (Negative); Protein,Urine Negative; RBC,Urine 3 /HPF (0-4); Squamous Epithelial Cell,Urine Occasional /HPF (0-10); Urine Color Straw (Yellow); Urine Specific Gravity 1.004 (1.001-1.035); Urine Urobilinogen < 2.0 EU/DL (0.2-1.0); WBC,Urine 8 /HPF (0-6)
[2016-10-12] MEDS: INSULIN ASPART PROTAMINE/ASPART 70/30 100 UNIT/ML SUBCUT SCH (10:51)
[2016-10-12] MEDS: FAMOTIDINE 20 MG TABLET PO SCH (10:51)
[2016-10-12] MEDS: COLESEVELAM 625 MG TABLET PO SCH ×2 (10:51)
[2016-10-12] MEDS: VENLAFAXINE 37.5 MG TABLET PO SCH (10:52)
[2016-10-12] MEDS: MAGNESIUM CHLORIDE 64 MG TABLET PO SCH (10:52)
[2016-10-12] MEDS: FUROSEMIDE 40 MG TABLET PO SCH (10:52)
[2016-10-12] MEDS: SPIRONOLACTONE 50 MG TABLET PO SCH (10:52)
[2016-10-12] MEDS: amLODIPine 10 MG TABLET PO SCH (10:53)
[2016-10-12] MEDS: FERROUS SULFATE 325 MG TABLET PO SCH (10:53)
[2016-10-12] MEDS: ASCORBIC ACID 500 MG TABLET PO SCH (10:53)
[2016-10-12] MEDS: MONTELUKAST 10 MG TABLET PO SCH (10:53)
[2016-10-12] MEDS: POTASSIUM CHLORIDE 10 MEQ TABLET PO SCH (10:53)
[2016-10-12] MEDS: SILDENAFIL 20 MG TABLET PO SCH (10:53)
[2016-10-12] MEDS: CARVEDILOL 25 MG TABLET PO SCH (10:53)
[2016-10-12] MEDS: ASPIRIN EC 81 MG TABLET PO SCH (10:53)
[2016-10-12] MEDS: LIDOCAINE 5% PATCH TRANSDERM SCH (10:54)
[2016-10-12] MEDS: miSOPROStol 100 MCG TABLET PO SCH (10:54)
--- NOTE | 2016-10-12 11:14 | Discharge Summary ---
Hospital Course - Hospital Course Hospital Course: Raúl Medrano, ANP-BC, GNP-BC, acting as scribe for Dr. Luis Miguel Do Mrs. Dasilva is a 71-year-old white female who was admitted 09/27/2016 from [facility] with ascites and anasarca. The patient was seen in GI consultation by Dr. Wing. Ultrasound prior to admission showed cholelithiasis. Paracentesis was done initially on 09/28/2016 by interventional radiology. Cytology was reported as class II. Peritoneal fluid showed 162 WBCs, 8135 RBCs, 8 neutrophils, 78 lymphocytes, 14 monocytes, and albumin 3.0. Repeat paracentesis was done 10/07/2016. Liver biopsy was done 09/30/2016. This was ultimately sent off to [facility] pathology in [place], [place]. This showed sinusoidal dilatation with congestion. 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 There is no evidence to support alpha-1 antitrypsin deficiency. PAS showed normal glycogen. Iron stain was negative. It was noted that the histologic findings were subtle but suggestive of hepatic venous outflow obstruction. Differential diagnoses included cardiac failure, blood Chiari syndrome and sinusoidal obstruction syndrome. Because of paucity of inflammation and steatosis, steatohepatitis, viral and autoimmune hepatitis was felt unlikely. Alpha-1 antitrypsin level was 214 (normal 100-190). Ceruloplasmin was 28 (normal 18-53). Antimitochondrial antibody was less than 0.1 (negative). She has been seen in nephrology consultation by Dr. Navarro. He made several medication adjustments to help better perfuse the kidneys. He tried octreotide , but the patient refused this after 1 dose. She was started on Cytotec. This initially caused significant diarrhea. The dose was lowered and at the time of discharge she has no diarrhea. She is on WelChol 1250 milligrams before meals 3 times a day. Her Lasix and Aldactone were discontinued on 10/05/2016, but were restarted as per Dr. Navarro. She will continue these at discharge. Her renal function has remained stable. She has been seen in cardiology consultation by Dr. Patricia for Dr. Burgess. 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 Echocardiogram in April 2016 showed an estimated pulmonary artery pressure of 67 mmHg. At admission, the patient's Norvasc was increased to 10 mg daily. Repeat echocardiogram done 10/06/[address] Bhardwaj showed an EF of 60%, flat or D shaped septum and SA view indicative of pulmonary pressure overload, mild to moderate tricuspid regurgitation, pulmonary artery pressure 88 mmHg, 2+ increased right ventricular size, moderately increased right atrial size, moderately increased left atrial size, mild mitral annular and leaflet calcification with mild mitral regurgitation, and aortic valve sclerosis without stenosis or regurgitation. On 10/07/2016 the patient was started on Revatio. We will repeat an echocardiogram with Dr. Burgess to read in approximately 1 month and prior to her follow-up appointment. If the patient does not improve on these medications, we would consider referral to [facility] pulmonary hypertension clinic. She has been seen in sleep consultation with Dr. Calles. An HST was ordered by Dr. Calles on 10/11/2016. The results of that are pending at the time of discharge. He did note, however, if this did not show significant sleep apnea he felt with her lack of snoring we could avoid polysomnography. The patient and her daughter reported that Dr. Nguyen has told him that the patient has lupus. We have been unable to prove that with labs here. Lupus PPT interpretation showed no evidence of lupus anticoagulant. Dilute Mario viper venom was 1.0 (normal 0.0-1.1). Rheumatoid factor was less than 15. VERNA screen was negative. SSA/RO antibody was less than 16, SSB/LA antibody was less than 16, SSB/LA IgG antibody was less than 0.2, Vieira antibody was less than 16, ION EXCHANGE OPERATOR antibody was less than 16, double-stranded DNA antibody was less than 25.0, antimitochondrial antibody was less than 0.1, beta2 GPI IgG antibody was less than 9.4, beta2 GPI IgM antibody was less than 9.4, phospholipid IgG antibody was less than 9.4, phospholipid IgA antibody was less than 9.4, phospholipid IgM antibody was less than 9.4, complement C3 was 108.0, and complement C4 was 17.9. We asked medical records to contact Dr. Nguyen's office for his documentations and labs to this effect. At the time of discharge , these have not been received. Doppler venograms done 09/27/2016 showed no evidence of deep venous thrombophlebitis within either lower extremity. Renal ultrasound on 10/05/2016 showed progressive cortical loss in the kidneys with no hydronephrosis. There was a 9 mm simple appearing right midpole renal cyst. Inhomogenous echogenicity which was noted could be seen with medical renal disease. Ascites. Abdominal arterial ultrasound done 10/06/2016 showed the portal vein and hepatic veins appeared patent. Note is made of nonspecific pulsatile flow within the main portal vein. Mild ascites. Gallstones. There is diffuse gallbladder wall thickening, but this was nonspecific in the setting of ascites and a collapsed gallbladder. VQ lung scan done 10/11/2016 showed mild intermediate probability for pulmonary embolic disease on the basis of a triple match in the right lower lobe. At the time of discharge, the patient's weight has decreased from 99.337 kg to 89.222 kg. She is breathing comfortably. Her lower extremity edema has markedly improved. There is no significant ascites. She did have an acute urinary tract infection secondary to E. coli and Enterococcus faecalis. This was initially treated with Hiprex, but ultimately required the addition of Rocephin. Urinalysis obtained 10/12/2016 showed small leukocytes, 8 WBCs per high-power field and occasional bacteria. At discharge, white count is 4000 with 60.2% segs, 16.2% lymphs, 19.2% monos; H& H 9.3/29.1 with low to low normal indices and top normal red blood cell distribution with; platelet count 110,000; creatinine 1.90, BUN 23, sodium 140, potassium 4.2, magnesium 2.1; liver function tests within normal limits; total bilirubin 2.10; TSH was elevated at 4.510 and free T4 was elevated at 1.51; BNP at admission was 455; ammonia level 28; iron is low at 35, iron saturation was low at 12.9%, and total iron-binding capacity was normal at 271; ferritin 214.5 ; INR 1.4. Treponema palladium IgG was nonreactive. Lyme IgG bands were reported as P 41. Lyme IgG antibody was negative. Lyme IgM antibody was negative. Lyme IgM bands were reported as no bands detected. Hepatitis A IgM antibody was negative. Hepatitis B surface antigen was negative. Hepatitis B surface antibody was negative. Hepatitis B core IgM antibody was negative. Hepatitis C antibody was negative. For more information regarding Mrs. Dasilva's past medical history, social history, family history, admit labs, admit x-rays and admit exam, please see the admission note dated 09/27/2016. Impression: 1. Ascites/anasarca felt secondary to severe pulmonary hypertension. Requiring to paracenteses this admission. Improved 2. Cholelithiasis per ultrasound with no evidence of cholecystitis. 3. Severe pulmonary hypertension as evidenced by estimated pulmonary artery pressure of 80 mmHg seen on echocardiogram this admission. 4. Chronic atrial fib. Note, the patient is not on anticoagulation secondary to history of GI bleed and anemia. This is followed by Dr. Renato uBrgess. 5. History of acute renal failure with medications and contrast. This is followed by Dr. Minal Navarro. 6. Systemic lupus erythematosus followed by Dr. Sunny Nguyen by report. 7. Diabetes mellitus. 8. See past medical history Plan: Norvasc 10 mg daily, vitamin C 500 mg daily, aspirin 81 mg daily, Lumigan eyedrops 1 drop in each eye at bedtime, Coreg 25 mg twice daily, WelChol 1250 mg before meals 3 times daily, Pepcid 40 mg daily, Feosol 325 mg twice daily, Lasix 40 mg twice daily, NovoLog units before breakfast and 4 units before supper, Slow-Mag 128 mg twice daily, Cytotec 100 g twice daily with meals, Singulair 10 mg daily, K-Dur 10 milliequivalents twice daily, Revatio 20 mg 3 times daily, Zocor 40 mg at bedtime, Aldactone 100 mg daily, and Effexor 37.5 mg daily. Note, the patient's amiodarone, Diovan, and vitamin D3 were discontinued this admission. She will be scheduled to follow-up with Racquel Dixon, nurse practitioner, and Dr. Do in 1 month with a BMP/magnesium and CBC. A few days prior to that admission will ask for an echocardiogram to be scheduled with attention to the patient's pulmonary artery pressure. This will need to be read by Dr. Renato Burgess. She could be seen sooner if needed. Specialty Discharge - Follow Up or Referrals Follow up with: Renato Burgess MD [Primary Care Provider] - (3 weeks with EKG and labs) Racquel Dixon CFNP [Advanced Practice Nurse] - (One month (NOT A TUESDAY) with CBC and BMP/Mg+. She needs to also be scheduled for an echocardiogram a few days prior to this appointment. It should be read by Dr. Burgess with attention to the patient's PAP. It can be done at [facility] or [place].) Discharge Plan - Discharge Data Disposition: Disch To Home/Self Care Condition at Discharge: Stable Discharge Diet: diabetic diet, heart healthy, low salt diet Activity: resume usual activities as tolerated - Discharge Medications New Ferrous Sulfate Tab [Feosol Original Tab] 325 mg PO BID #60 tablet Furosemide Tab [Lasix Tab] 40 mg PO BID DIURETIC #60 tablet Insulin Aspart Prot/Asp 70/30 [NovoLOG Mix 70/30] 10 unit SUBCUT AC BREAKFAST unit Sildenafil [Revatio] 20 mg PO TID #90 tablet Spironolactone [Aldactone] 100 mg PO DAILY #60 tablet miSOPROStol [Cytotec] 100 mcg PO BID W/MEALS #60 tablet Colesevelam [Welchol] 1,250 mg PO TIDAC #180 tablet Insulin Aspart Prot/Asp 70/30 [NovoLOG Mix 70/30] 4 unit SUBCUT AC SUPPER unit amLODIPine [Norvasc] 10 mg PO DAILY #30 tablet Continue Aspirin [Ecotrin] 81 mg PO DAILY Ascorbic Acid Tab [Vitamin C Tab] 500 mg PO DAILY Bimatoprost 0.01% Oph Soln [Lumigan] 1 drop BOTH EYES BEDTIME Potassium Chloride 10 meq PO BID Montelukast Tab [Singulair Tab] 10 mg PO DAILY Carvedilol 25 mg PO BID Venlafaxine [Effexor] 37.5 mg PO DAILY Simvastatin 40 mg PO BEDTIME Famotidine Tab [Pepcid Tab] 40 mg PO DAILY Magnesium Chloride [Slow Mag] 128 mg PO BID Discontinued amLODIPine [Norvasc] 5 mg PO DAILY Insulin Aspart Prot/Asp 70/30 [NovoLOG Mix 70/30] 12 unit SUBCUT AC SUPPER # 0 injection Cholecalciferol (Vitamin D3) [Vitamin D3] 5,000 unit PO DAILY Insulin Aspart Prot/Asp 70/30 [NovoLOG Mix 70/30] 10 unit SUBCUT AC BREAKFAST Furosemide Tab [Lasix Tab] 40 mg PO DAILY Amiodarone Tab [Cordarone Tab] 200 mg PO DAILY Valsartan [Diovan] 40 mg PO DAILY - Follow Up or Referral Follow Up: Renato Burgess MD [Primary Care Provider] - (3 weeks with EKG and labs) - Forms/Instructions Exam - Constitutional Vitals: Period Temp Pulse Resp BP Sys/Marcum Pulse Ox Last 24 Hr 97.3 F-98.3 F 60-64 16-20 95-128/54-68 92-94 Discharge Results Procedures and tests throughout hospitalization: Pending Orders 09/28/16 09:12 Cytology Request Routine 10/07/16 10:39 Cytology Request Routine 10/10/16 10:32 stool [C. Diff Toxins A & B] Routine 10/12/16 04:00 Sodium, Urine Random Urinalysis Labs on day of discharge: Labs from last 24 hours 10/12/16 10/12/16 10/11/16 09:32 07:21 20:58 PT INR APTT PT Normal/Saline 1:1 Thrombin Time Lupus aPPT Interpret Dil Mario Viper Venom Sodium 140 Potassium 4.2 Chloride 109 H Carbon Dioxide 21 Anion Gap 14.2 BUN 23 H Creatinine 1.90 H GFR Calculation 30 BUN/Creatinine Ratio 12.00 Glucose 172 H POC Glucose 101 122 H Calculated Osmolality 286.4 Calcium 9.1 Lgaxe-4-Rouvdydeyha SS-B/La IgG Antibody Beta-2 GPI IgG Ab Beta-2 GPI IgM Ab Phospholipid IgG Ab Phospholipid IgA Ab Phospholipid IgM Ab Lyme IgG Bands Present Lyme IgG Ab (Immblot) Lyme IgM Ab (Immblot) Lyme IgM Bands Present Lyme Interpret Prior 10/11/16 10/11/16 10/05/16 15:35 12:49 14:10 PT 15.4 H INR 1.4 APTT 35 PT Normal/Saline 1:1 12.2 Thrombin Time 15 Lupus aPPT Interpret See comments Dil Mario Viper Venom 1.0 Sodium Potassium Chloride Carbon Dioxide Anion Gap BUN Creatinine GFR Calculation BUN/Creatinine Ratio Glucose POC Glucose 141 H 120 H Calculated Osmolality Calcium Gluhu-0-Ularlunnmnb 242 H SS-B/La IgG Antibody < 0.2 Beta-2 GPI IgG Ab < 9.4 Beta-2 GPI IgM Ab < 9.4 Phospholipid IgG Ab < 9.4 Phospholipid IgA Ab < 9.4 Phospholipid IgM Ab < 9.4 Lyme IgG Bands Present p41, Lyme IgG Ab (Immblot) Negative Lyme IgM Ab (Immblot) Negative Lyme IgM Bands Present No bands detected Lyme Interpret Prior See comments DS: Provider Date of admission: 09/27/16 14:13 Primary care physician: Renato Burgess MD Attending physician on admission: Luis Miguel Do MD Consults: 09/27/16 13:56 Consult to Physician [CONS] Routine Comment: known patient of dr. navarro Consulting Provider: Danilo Sutton Jr. Person Notified: tanner Date Notified: 09/27/16 Time Notified: 16:14 Consult to Physician [CONS] Routine Comment: new onset ascites, anasarca, cholelithiasis Consulting Provider: Martin Wing Consulting Provider Notified: Yes Consult to Specialist Group: Gastroenterology Person Notified: tanner Date Notified: 09/27/16 Time Notified: 16:23 09/27/16 14:00 Consult to Physician [CONS] Routine Comment: known patient of dr. burgess consult for afib Consulting Provider: Cardiology - [facility] Person Notified: Zora Date Notified: 09/27/16 Time Notified: 16:11 09/27/16 17:27 Consult to Pharmacy [CONS] Routine Reason for Pharmacy Consult: Adjust Meds Renal Funct 10/11/16 10:26 Consult to Physician [CONS] Routine Comment: Sleep eval; severe Pulm HTN (PAP 80mmHg) Consulting Provider: Jen Calles Person Notified: md august Date Notified: 10/11/16 Time Notified: 11:39 Discharging clinician: RETA Brown
--- NOTE | 2016-10-12 11:27 | Nephrology Progress Note ---
Nephrology - PN: Subj Interval history: Creatinine 1.9 from 1.6. Likely from diuretics. Forward flow with pHTN can be tricky. Too much diuresis, decreased left heart filling. Need additional preload. So, some degree of edema for ideal Starling curve for her. Exam (PN)-Nephrology - Vital Signs Vital signs: Period Temp Pulse Resp BP Sys/Marcum Pulse Ox Last 24 Hr 97.3 F-98.3 F 60-64 16-20 95-128/54-68 92-94 - General Appearance General appearance: well-developed, chronically ill EENT: ATNC, PERRL, mucous membranes dry, hearing intact, vision intact Neck: no JVD, no thyromegaly Respiratory: no kyphosis, clear Cardiology: no murmurs, no rub, edema (1+ to proximal tibias bilat) Gastrointestinal: normoactive bowel sounds, no tenderness, distended (less distended) Integumentary: no rash, warm and dry Neurologic: no focal deficit, no asterixis, alert and oriented x3 Musculoskeletal: no deformities, no erythema Psychiatric: mood/affect appropriate, cooperative - Lab 10/11/16 04:37 10/12/16 09:32 Most recent lab results Calcium 9.1 MG/DL (8.5-10.1) 10/12/16 09:32 Magnesium 2.1 MG/DL (1.8-2.4) 10/11/16 04:37 Assessment and Plan (1) NONI (acute kidney injury) Problem details: Varies according to volume/forward cardiac outpt. Creatinine 1.9 today for eGFR 30cc/min. Continue lasix/aldactone at current dosage. Status: Acute Assessment and plan: Stable for d/c. Follow up with me on same day as appt with Dr Do if possible. Renal function panel and urine sodium at that time. Current Visit: No (2) Iron deficiency anemia Status: Acute Assessment and plan: Consider IV iron today, 200mg slow (2-3min) IVP. Repeat 200mg slow IVP in am prior to planned dc. Current Visit: Yes (3) Pulmonary hypertension Problem details: Discussed complicated physiology with Dr Do. We agree on assessment and plans. Status: Acute Current Visit: No (4) Ascites Problem details: Agree with treatment of pHTN with revatio. Continue aldactone/ lasix at ratio of 100 aldactone 40 lasix. Status: Acute Current Visit: Yes Specialty Discharge - Follow Up or Referrals Follow up with: Efren Navarro MD [Physician] - 1 Month (RENAL PANEL AND URINE SODIUM ) Renato Burgess MD [Primary Care Provider] - (3 weeks with EKG and labs) Racquel Dixon CFNP [Advanced Practice Nurse] - (One month (NOT A TUESDAY) with CBC and BMP/Mg+. She needs to also be scheduled for an echocardiogram a few days prior to this appointment. It should be read by Dr. Burgess with attention to the patient's PAP. It can be done at [facility] or [place].)
--- NOTE | 2016-10-12 13:12 | Sleep Medicine Progress Note ---
Assessment and Plan (1) Unspecified sleep apnea Status: Acute Assessment and plan: Patient does have evidence of obstructive sleep apnea on HST. We will set her up for outpatient CPAP titration. Current Visit: Yes (2) Diabetes Status: Chronic Current Visit: Yes Qualifiers: Diabetes mellitus type: type 2 Diabetes mellitus complication status: with kidney complications Chronic kidney disease stage: stage 2 (mild) (3) Hypertension Problem details: controlled Status: Chronic Current Visit: Yes Qualifiers: Hypertension type: essential hypertension Sleep Medicine Subjective Interval history: Patient did have mild obstructive sleep apnea with AHI of 5.7. She had O2 desaturation to lows of 80%. She did spend over 20 minutes of her sleep with O2 sats of less than 85%. I should note that the first portion of her study was technically insufficient. Her sleep apnea actually could be worse than what we were able to ascertain on review of the data. I reviewed these results with her and we will set her up for outpatient sleep study for CPAP titration. If she does not tolerate CPAP, she would be a candidate for supplemental oxygen alone based on severity and duration of oxygen desaturation. Exam (Progress Note) - Constitutional Vitals: Period Temp Pulse Resp BP Sys/Marcum Pulse Ox Last 24 Hr 97.3 F-98.3 F 60-64 16-20 95-128/56-68 92-94 Exam: Patient alert and responsive in no acute distress. Chest with good air movement and no focal wheeze or rhonchi. Cardiac exam reveals a regular rhythm without murmur or gallop. Abdomen soft nontender extremities with edema. Neurologically, grossly intact. Results - Labs CBC & BMP: 10/11/16 04:37 10/12/16 09:32 Lab Results: I have reviewed the past 24 hour labs Specialty Discharge - Follow Up or Referrals Follow up with: Efren Navarro MD [Physician] - 11/15/16 10:00 am (RENAL PANEL AND URINE SODIUM ) Renato Burgess MD [Primary Care Provider] - 11/02/16 1:00 pm (3 weeks with EKG and labs) Racquel Dixon CFNP [Advanced Practice Nurse] - 11/15/16 1:00 pm (One month (NOT A TUESDAY) with CBC and BMP/Mg+. She needs to also be scheduled for an echocardiogram a few days prior to this appointment. It should be read by Dr. Burgess with attention to the patient's PAP. It can be done at [facility] or [place].)
[2016-10-12 13:44] VITALS: BP 120/66
== END 2016-10-12 13:47 | disposition home or self-care (01) | DRG 315 ==
LOC: N.5E 14:13
PROVIDERS: ADMIT Internal Medicine Pulmonary Disease; ATTEND Internal Medicine Pulmonary Disease

== ENCOUNTER 2016-10-18 10:43 | Inpatient (IN) ==
[2016-10-18] MEDS ORDERED: DEXTROSE 50% 25 GM/50 ML VIAL IV PRN (10:45)
[2016-10-18] MEDS ORDERED: GLUCAGON 1 MG VIAL IM PRN (10:45)
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
--- NOTE | 2016-10-18 12:01 | EKG Report ---
Stationary ECG Study [facility] Test Date: 10/18/2016 12:01:26 PM Pat Name: WHITLEY GODINEZ Department: Room: 545 Gender: F Maintenance Controller: LUIS : 1945 Requested by: Raúl Medrano Order Number: [id number] Reading MD: DON CHAUDHRY Intervals [place] Rate: 68 P: 999 DE: 0 QRS: 74 QRSD: 124 T: 245 QT: 427 QTc: 443 Interpretive Statements ATRIAL FIBRILLATION RIGHT BUNDLE BRANCH BLOCK . Left bundle branch block. No acute changes. Functioning pacemaker Electronically Signed On 10-20-16 09:33:34 CDT by DON CHAUDHRY [email or web address]
--- NOTE | 2016-10-18 12:49 | Nephrology Consult Note ---
History of Present Illness Chief complaint: Increased BUN and creatinine History of present illness: Ms. Dasilva is a 71 year old female with chronic kidney disease who was admitted today for nausea vomiting and back pain. Patient states she began to have some back pain as well as nausea and vomiting about 2 days prior to admission. She was seen in the emergency room however conservative measures at home did not result in any improvement. She is admitted at this time for treatment of her persistent nausea and vomiting. We are asked see the patient for increased BUN and creatinine. The patient states her creatinine was around 2 mg/dL recently. The patient has a history of acute renal failure secondary to fluoroquinolones about a year ago and then acute renal failure secondary to hypotension and contrast nephropathy about 6 months ago. The patient's creatinine over the past month has ranged between 1.3-2.3 mg/dL. Patient has a history of moderate tricuspid regurgitation and pulmonary hypertension as well as a long history of diabetes and essential hypertension. The patient states she has been able to drink or eat much of anything the past couple of days. She denies any urinary hesitancy straining or decrease in her urine output. Patient does take Lasix on a regular basis. The patient has a history of ascites and has required recent abdominal paracentesis, she feels like her abdomen is beginning to swell a little bit. ROS: Head - denies headaches ENT - denies sore throat Lymphatics - denies lymphadenopathy Hematology - denies bleeding problems Heart - denies chest pain Lungs - denies shortness of breath Abdomen - denies abdominal pain Musculoskeletal -patient complains of arthritis she does not take any nonsteroidal anti-inflammatory medications. She has been having some back pain the past few days between her shoulder blades Skin - denies rash Neurology - denies stroke General - denies fever PE: General: in no acute distress Eyes: Pupils are round and reactive, conjunctivae are clear ENT: Nose is clear, O/P is benign Neck: Supple, no thyromegaly Lymphatics: No cervical, supraclavicular or axillary adenopathy Heart: Regular rate and rhythm, no pretibial edema Lungs: Clear to auscultation anteriorly, chest expansion symmetric Abdomen: Firm, normoactive bowel sounds, no hepatomegaly Musculoskeletal: No joint erythema or effusions or joint asymmetry Skin: Normal turgor, normal hydration, no rash Neuro/Psych: Alert and cooperative with fair insight Home Medications Medication Instructions Recorded Confirmed Type Ascorbic Acid Tab [Vitamin C Tab] 500 mg PO DAILY 09/21/15 09/27/16 History Aspirin [Ecotrin] 81 mg PO DAILY 09/21/15 09/27/16 History Bimatoprost 0.01% Oph Soln 1 drop BOTH EYES BEDTIME 09/21/15 09/27/16 History [Lumigan] Carvedilol 25 mg PO BID 09/21/15 09/27/16 History Montelukast Tab [Singulair Tab] 10 mg PO DAILY 09/21/15 09/27/16 History Potassium Chloride 10 meq PO BID 09/21/15 09/27/16 History Simvastatin 40 mg PO BEDTIME 09/21/15 09/27/16 History Venlafaxine [Effexor] 37.5 mg PO DAILY 09/21/15 09/27/16 History Famotidine Tab [Pepcid Tab] 40 mg PO DAILY 05/03/16 09/27/16 History Magnesium Chloride [Slow Mag] 128 mg PO BID 05/03/16 09/27/16 History Colesevelam [Welchol] 1,250 mg PO TIDAC #180 tablet 10/12/16 Rx Ferrous Sulfate Tab [Feosol 325 mg PO BID #60 tablet 10/12/16 Rx Original Tab] Furosemide Tab [Lasix Tab] 40 mg PO BID DIURETIC #60 tablet 10/12/16 Rx Insulin Aspart Prot/Asp 70/30 4 unit SUBCUT AC SUPPER unit 10/12/16 Rx [NovoLOG Mix 70/30] Insulin Aspart Prot/Asp 70/30 10 unit SUBCUT AC BREAKFAST unit 10/12/16 Rx [NovoLOG Mix 70/30] Sildenafil [Revatio] 20 mg PO TID #90 tablet 10/12/16 Rx Spironolactone [Aldactone] 100 mg PO DAILY #60 tablet 10/12/16 Rx amLODIPine [Norvasc] 10 mg PO DAILY #30 tablet 10/12/16 Rx miSOPROStol [Cytotec] 100 mcg PO BID W/MEALS #60 tablet 10/12/16 Rx Allergies Allergy/AdvReac Type Severity Reaction Status Date / Time ofloxacin [From Floxin] Allergy Severe Swelling Verified 06/16/16 11:42 of Lip/Tongue/Throat Penicillins Allergy Severe RASH Verified 06/16/16 11:42 Sulfa (Sulfonamide Allergy Severe RASH Verified 06/16/16 11:42 Antibiotics) cephalexin [From Keflex] Allergy Intermediate RASH Verified 06/16/16 11:42 doxycycline Allergy Intermediate RASH Verified 06/16/16 11:42 levofloxacin [From Levaquin] AdvReac Severe Swelling Verified 06/16/16 11:42 of Lip/Tongue/Throat Medical,Surgical,& Family Hx - Medical History Cardio: History of: Cardiac Dysrhythmia (Chronic atrial fibrillation), CAD ( History of coronary artery stent in 2010), Hypertension, Pacemaker Psychological: History of: Anxiety Disorders HEENT: History of: Eye Problem (glaucoma) Endocrine: History of: Diabetes Mellitus (IDDM), Dyslipidemia No history of: Diabetes Mellitus (NIDDM) Rheumatology: History of;: Rheumatological Problems (ARTHRITIS) Respiratory: History of: Bronchitis Renal: History of: Renal Failure (Patient has had 2 episodes of ATN in the last 6 months) Genitourinary: History of: Recurring Urinary Tract Infections Gastrointestinal: History of: GERD, 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) Musculoskeletal: History of: Back/Neck Problems Hematology: History of: Blood Transfusion Reaction - Surgical History Cardiac Surgeries: Sugical HX of: Cardiac Catheterization (STENTS), Cardiac Surgery (PACEMAKER) Thoracic Surgeries: Patient denies;: Organ Transplant, Lobectomy Neurologic Surgeries: Patient denies: Neurologic Surgery HEENT Surgeries: Surgical HX of: Eye Surgery (bilateral cataract) Abdominal Surgeries: Surgical HX of: Appendectomy, Colonoscopy, EGD Reproductive Surgeries: Surgical HX of;: Breast Surgery (biopsy), Hysterectomy Orthopedic Surgeries: Surgical HX of;: Orthopedic Surgery (bilateral carpal tunnel) - Family History Family History: Reports;: Family Diabetes, Family Heart Disease - Social History Smoking Status: Never smoker Type of Drug Use: None Assessment and Plan (1) Yhtdb-fi-bykfyle kidney injury Status: Acute Assessment and plan: This patient's creatinine was recently around 2 mg/dL the past month it is very quite wildly between 1.3-2.3 mg/dL, I suspect she has some acute on chronic injury related to volume depletion and her decreased p.o. intake. I agree with the gentle IV fluid hydration of 75 cc an hour Current Visit: No (2) Tricuspid regurgitation Status: Acute Current Visit: Yes (3) Ascites Problem details: Agree with treatment of pHTN with revatio. Continue aldactone/ lasix at ratio of 100 aldactone 40 lasix. Status: Acute Current Visit: No (4) Debility Status: Acute Current Visit: No (5) Pulmonary hypertension Problem details: Discussed complicated physiology with Dr Do. We agree on assessment and plans. Status: Acute Current Visit: No (6) Atrial fibrillation Status: Chronic Current Visit: No Qualifiers: Atrial fibrillation type: chronic Qualified Code(s): I48.2 - Chronic atrial fibrillation (7) Diabetes Status: Chronic Current Visit: No Qualifiers: Diabetes mellitus type: type 2 Diabetes mellitus complication status: with kidney complications Chronic kidney disease stage: stage 2 (mild) (8) Hypertension Problem details: controlled Status: Chronic Current Visit: No Qualifiers: Hypertension type: essential hypertension
[2016-10-18 13:54] LABS: Albumin 4.1 G/DL (3.4-5.0); Calcium 9.5 MG/DL (8.5-10.1); Magnesium 2.2 MG/DL (1.8-2.4); Osmolality,Calculated 283.7 MOS/KG (273-304); Thyroid Stimulating Hormone 5.71 uIU/ml (0.358-3.74)
[2016-10-18] MEDS: INSULIN REGULAR 100 UNIT/ML SUBCUT SCH ×3 (14:56→20:00)
--- NOTE | 2016-10-18 15:02 | Gastrointestinal Consult Note ---
<Miri Dominguez - Last Filed: 10/18/16 14:49> Assessment and Plan (1) Abdominal pain Status: Acute Assessment and plan: 8-2 day history of severe right upper quadrant abdominal pain radiating to back and shoulder shoulders with associated nausea and intractable vomiting. Recent hospitalization with findings on ultrasound of cholelithiasis without acute cholecystitis. No change in LFTs at present time. Repeat ultrasound in consult surgery at this time. Plan an addendum to follow by Dr. Wing. Current Visit: Yes History of Present Illness Chief complaint: Abdominal pain, nausea and vomiting History of present illness: Ms. Dasilva is a 71 year old female who presented to Dr. Do's office with complaints of abdominal pain and intractable nausea and vomiting. Patient has a history of chronic atrial fibrillation (no anticoagulation), pulmonary hypertension, lupus, diabetes mellitus, and chronic kidney disease. Patient states that on Tuesday she was not feeling very well and having some mild discomfort between her shoulder blades however she went and ate lunch and shortly after this she had an onset of nausea with intractable vomiting. She states that the pain between her shoulder blades worsened and she also had onset of right upper quadrant pain that radiated around to her back. She states the pain was severe in nature with sharp and stabbing. She continued having nausea and vomiting and presented to the ER here at [facility]. Due to the severity of her symptoms, and the delay in being seen, she left and went to [place] where she had an EKG and was given an aspirin and something for nausea and sent home. Patient states that the symptoms continued throughout yesterday and she was unable to eat or drink anything due to the pain, nausea vomiting. She presented to see Dr. Do this morning and was admitted for further workup. Patient denies any coffee-ground emesis or hematemesis. She states she did initially have diarrhea at the onset of symptoms but this is resolved, but denies any melena or hematochezia with this. She states his abdominal pain is like none she has had in the past. She was recently discharged from our facility last week after a protracted inpatient stay for workup after findings of ascites. She had an abdominal ultrasound done prior to this admission with findings of cholelithiasis without acute cholecystitis. While inpatient, she had a liver biopsy at that time with findings returned as fibrosis, probably cirrhosis. She underwent paracentesis during this stay for her ascites and which 2500 cc were removed at that time. She was discharged home on 10/12 from this inpatient stay. Home Medications Medication Instructions Recorded Confirmed Type Ascorbic Acid Tab [Vitamin C Tab] 500 mg PO DAILY 09/21/15 09/27/16 History Aspirin [Ecotrin] 81 mg PO DAILY 09/21/15 09/27/16 History Bimatoprost 0.01% Oph Soln 1 drop BOTH EYES BEDTIME 09/21/15 09/27/16 History [Lumigan] Carvedilol 25 mg PO BID 09/21/15 09/27/16 History Montelukast Tab [Singulair Tab] 10 mg PO DAILY 09/21/15 09/27/16 History Potassium Chloride 10 meq PO BID 09/21/15 09/27/16 History Simvastatin 40 mg PO BEDTIME 09/21/15 09/27/16 History Venlafaxine [Effexor] 37.5 mg PO DAILY 09/21/15 09/27/16 History Famotidine Tab [Pepcid Tab] 40 mg PO DAILY 05/03/16 09/27/16 History Magnesium Chloride [Slow Mag] 128 mg PO BID 05/03/16 09/27/16 History Colesevelam [Welchol] 1,250 mg PO TIDAC #180 tablet 10/12/16 Rx Ferrous Sulfate Tab [Feosol 325 mg PO BID #60 tablet 10/12/16 Rx Original Tab] Furosemide Tab [Lasix Tab] 40 mg PO BID DIURETIC #60 tablet 10/12/16 Rx Insulin Aspart Prot/Asp 70/30 4 unit SUBCUT AC SUPPER unit 10/12/16 Rx [NovoLOG Mix 70/30] Insulin Aspart Prot/Asp 70/30 10 unit SUBCUT AC BREAKFAST unit 10/12/16 Rx [NovoLOG Mix 70/30] Sildenafil [Revatio] 20 mg PO TID #90 tablet 10/12/16 Rx Spironolactone [Aldactone] 100 mg PO DAILY #60 tablet 10/12/16 Rx amLODIPine [Norvasc] 10 mg PO DAILY #30 tablet 10/12/16 Rx miSOPROStol [Cytotec] 100 mcg PO BID W/MEALS #60 tablet 10/12/16 Rx Allergies Allergy/AdvReac Type Severity Reaction Status Date / Time ofloxacin [From Floxin] Allergy Severe Swelling Verified 06/16/16 11:42 of Lip/Tongue/Throat Penicillins Allergy Severe RASH Verified 06/16/16 11:42 Sulfa (Sulfonamide Allergy Severe RASH Verified 06/16/16 11:42 Antibiotics) cephalexin [From Keflex] Allergy Intermediate RASH Verified 06/16/16 11:42 doxycycline Allergy Intermediate RASH Verified 06/16/16 11:42 levofloxacin [From Levaquin] AdvReac Severe Swelling Verified 06/16/16 11:42 of Lip/Tongue/Throat Medical,Surgical,& Family Hx - Medical History Cardio: History of: Cardiac Dysrhythmia (Chronic atrial fibrillation), CAD ( History of coronary artery stent in 2010), Hypertension, Pacemaker Psychological: History of: Anxiety Disorders HEENT: History of: Eye Problem (glaucoma) Endocrine: History of: Diabetes Mellitus (IDDM), Dyslipidemia No history of: Diabetes Mellitus (NIDDM) Rheumatology: History of;: Rheumatological Problems (ARTHRITIS) Respiratory: History of: Bronchitis Renal: History of: Renal Failure (Patient has had 2 episodes of ATN in the last 6 months) Genitourinary: History of: Recurring Urinary Tract Infections Gastrointestinal: History of: GERD, 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) Musculoskeletal: History of: Back/Neck Problems Hematology: History of: Blood Transfusion Reaction - Surgical History Cardiac Surgeries: Sugical HX of: Cardiac Catheterization (STENTS), Cardiac Surgery (PACEMAKER) Thoracic Surgeries: Patient denies;: Organ Transplant, Lobectomy Neurologic Surgeries: Patient denies: Neurologic Surgery HEENT Surgeries: Surgical HX of: Eye Surgery (bilateral cataract) Abdominal Surgeries: Surgical HX of: Appendectomy, Colonoscopy, EGD Reproductive Surgeries: Surgical HX of;: Breast Surgery (biopsy), Hysterectomy Orthopedic Surgeries: Surgical HX of;: Orthopedic Surgery (bilateral carpal tunnel) - Family History Family History: Reports;: Family Diabetes, Family Heart Disease - Social History Smoking Status: Never smoker Type of Drug Use: None 12 point system: reviewed and no additional remarkable complaints except as stated - Constitutional Constitutional: Present: as per HPI - EENT Eyes: Present: as per HPI Ears: Present: as per HPI Nose, mouth and throat: Present: as per HPI - Cardiovascular Cardiovascular: Present: as per HPI - Respiratory Respiratory: Present: as per HPI - Gastrointestinal Gastrointestinal: Present: as per HPI, abdominal pain, nausea, vomiting - Genitourinary Genitourinary: Present: as per HPI - Musculoskeletal Musculoskeletal: Present: as per HPI - Neurological Neurological: Present: as per HPI - Psychiatric Psychiatric: Present: as per HPI - Endocrine Endocrine: Present: as per HPI - Hematologic/Lymphatic Hematologic/Lymphatic: Present: as per HPI Exam - Constitutional Vitals: Period Temp Pulse Resp BP Sys/Marcum Pulse Ox Last 24 Hr 97.3 F 70 18 118/68 93 General appearance: normal weight, no acute distress - Head Head exam: Present: normal inspection, normocephalic - Eye Eye exam: Present: other (lids and conjunctiva unremarkable). Absent: scleral icterus - ENT ENT exam: Present: normal exam, normal oropharynx - Neck Neck exam: Present: normal inspection - Respiratory Respiratory exam: Present: clear to auscultation bilaterally. Absent: rales, rhonchi, wheezes - Cardiovascular Cardiovascular exam: Present: regular rate and rhythm. Absent: diastolic murmur , JVD, systolic murmur - GI/Abdominal GI/Abdominal exam: Present: normal bowel sounds, soft. Absent: ascites, distended, mass, organomegaly, tenderness - Extremities Exam Extremities exam: Present: normal inspection, full ROM - Back Exam Back exam: Present: normal inspection - Neurological Exam Neurological exam: Present: alert, oriented X3 - Psychiatric Psychiatric exam: Present: normal affect, normal mood - Skin Skin exam: Present: normal color, warm, dry Results - Labs CBC & BMP: 10/18/16 12:22 Lab Results: I have reviewed the past 24 hour labs Quality Measures - Stroke Symptom Onset Unknown: No <Martin Wing - Last Filed: 10/18/16 18:26> History of Present Illness Chief complaint: 3030 History of present illness: Ms. Dasilva is a 71 year old female Exam - Constitutional Vitals: Period Temp Pulse Resp BP Sys/Marcum Pulse Ox Last 24 Hr 97.3 F-97.8 F 70-73 18-18 118-118/66-68 91-93 Results - Labs CBC & BMP: 10/18/16 12:22
[2016-10-18] MEDS: ONDANSETRON 4 MG/2 ML VIAL IV PRN ×2 (15:05→20:18)
[2016-10-18] MEDS: COLESEVELAM 625 MG TABLET PO SCH ×2 (15:06→17:38)
[2016-10-18] MEDS: SILDENAFIL 20 MG TABLET PO SCH ×2 (15:06→20:18)
[2016-10-18] MEDS: DEXTROSE 5% NACL 0.9% 1,000 ML IV SCH (15:12)
--- NOTE | 2016-10-18 16:04 | XRay Report ---
Portable chest Date: 10/18/2016 Clinical history: Shortness of breath Comparison: 10/11/2016 Technique: Portable AP sitting chest Findings: The heart is slightly larger in size with left subclavian atrioventricular permanent pacemaker. More prominent pulmonary vasculature/perihilar lung markings with smaller right pleural effusion. Stable left subclavian atrioventricular permanent pacemaker and degenerative changes. Impression: Smaller right pleural effusion with minimally progressive cardiomegaly and prominent pulmonary vasculature. Progressive perihilar atelectasis/edema/infiltration especially in the right hilar location. There is associated right hilar prominence and follow-up chest x-ray is recommended document clearing. Left subclavian atrioventricular pacemaker. PROCEDURE INTERPRETED AT [facility] DEPARTMENT OF RADIOLOGY Final Report Signed by: Dr. Arcelia Kitchen
[2016-10-18] MEDS: INSULIN ASPART PROTAMINE/ASPART 70/30 100 UNIT/ML SUBCUT SCH (17:38)
[2016-10-18] MEDS: FUROSEMIDE 40 MG TABLET PO SCH (17:38)
--- NOTE | 2016-10-18 17:59 | Ultrasound Report ---
Referring Physician: Miri Dominguez Exam: US abdomen Date: October 18, 2016 at 4:27 PM Reason: Generalized abdominal pain, nausea and vomiting, history of gallstones Comparison: CT abdomen and pelvis May 05, 2016 Technique: Kern scale and color flow images of the abdomen were obtained. Ultrasound images were captured and stored. Findings: The liver measures 16.6 cm in length. No suspicious hepatic lesion is identified. There is echogenic material within the gallbladder, which is consistent with sludge and stones. Evaluation for gallbladder wall thickening is difficult due to adjacent ascites. The common bile duct is prominent, measuring 0.7-0.8 cm in diameter. A distal obstructing process such as a biliary duct stone cannot be excluded. The visualized pancreas is unremarkable. The right kidney measures 9.6 x 4.7 x 4.7 cm, and the left kidney measures 9.5 x 4.8 x 4.7 cm. No hydronephrosis is seen. There is a 0.9 x 0.8 x 0.6 cm exophytic cyst at the upper pole of the right kidney. The spleen measures 11.2 x 4.2 x 4.0 cm. The visualized IVC appears patent. The visualized aorta is normal in size. There is ascites within the right upper quadrant and right lower quadrant. Impression: 1. Gallstones and gallbladder sludge are present. Evaluation for cholecystitis is limited by adjacent ascites. Further evaluation could be performed with a nuclear medicine biliary scan. 2. The common bile duct is mildly dilated, measuring 0.7-0.8 cm in diameter. A distal obstructing process such as a biliary duct stone cannot be excluded. Please correlate with bilirubin levels. 3. Moderate ascites. 4. Small right renal cyst. PROCEDURE INTERPRETED AT [facility] DEPARTMENT OF RADIOLOGY Final Report Signed by: Dr. Doroteo Vieira
[2016-10-18] MEDS: miSOPROStol 100 MCG TABLET PO SCH (18:14)
--- NOTE | 2016-10-18 18:19 | General Surgery Consult Note ---
Assessment and Plan (1) Abdominal pain Status: Acute Assessment and plan: This patient has abdominal pain and has evidence of gallstones on her ultrasound. She is tender in the right upper quadrant. I believe she is symptomatic from her gallstones. Based on her presentation cholecystitis is concerning. I have discussed her care with Dr. Wing and Dr. Hancock in both feel that from their standpoints cholecystectomy would be possible without undue risk to the patient. I have discussed her risk of liver problems as well as pulmonary problems with cholecystectomy and have discussed the options of percutaneous cholecystostomy drainage versus cholecystectomy versus antibiotics and Actigall. The patient would prefer to go ahead with laparoscopic cholecystectomy. We will do a cholangiogram because of her dilated bile duct and her elevated bilirubin to rule out any stones in her bile duct. Current Visit: Yes History of Present Illness Chief complaint: Abdominal pain History of present illness: Ms. Dasilva is a 71 year old female with an extensive history of pulmonary hypertension and potential right heart failure who was recently admitted to the hospital with congestive hepatopathy that resulted in ascites in the abdomen treated with paracentesis and she seemed to stabilize from a standpoint of some renal failure and heart failure during that hospital stay. She was then at home and developed some right upper quadrant pain that radiated to the back and both shoulder blades. She was brought back to the hospital and admitted. I was consulted to evaluate her because of a history of gallstones. Her total bilirubin is 2 with remaining LFTs are normal. She had a gallbladder ultrasound that showed some moderate ascites in the right upper and lower quadrants. Gallbladder wall thickening is at 5 mm. The common bile duct measures 7-8 mm in size. The patient reports pain in the right upper quadrant when examined. Home Medications Medication Instructions Recorded Confirmed Type Ascorbic Acid Tab [Vitamin C Tab] 500 mg PO DAILY 09/21/15 09/27/16 History Aspirin [Ecotrin] 81 mg PO DAILY 09/21/15 09/27/16 History Bimatoprost 0.01% Oph Soln 1 drop BOTH EYES BEDTIME 09/21/15 09/27/16 History [Lumigan] Carvedilol 25 mg PO BID 09/21/15 09/27/16 History Montelukast Tab [Singulair Tab] 10 mg PO DAILY 09/21/15 09/27/16 History Potassium Chloride 10 meq PO BID 09/21/15 09/27/16 History Simvastatin 40 mg PO BEDTIME 09/21/15 09/27/16 History Venlafaxine [Effexor] 37.5 mg PO DAILY 09/21/15 09/27/16 History Famotidine Tab [Pepcid Tab] 40 mg PO DAILY 05/03/16 09/27/16 History Magnesium Chloride [Slow Mag] 128 mg PO BID 05/03/16 09/27/16 History Colesevelam [Welchol] 1,250 mg PO TIDAC #180 tablet 10/12/16 Rx Ferrous Sulfate Tab [Feosol 325 mg PO BID #60 tablet 10/12/16 Rx Original Tab] Furosemide Tab [Lasix Tab] 40 mg PO BID DIURETIC #60 tablet 10/12/16 Rx Insulin Aspart Prot/Asp 70/30 4 unit SUBCUT AC SUPPER unit 10/12/16 Rx [NovoLOG Mix 70/30] Insulin Aspart Prot/Asp 70/30 10 unit SUBCUT AC BREAKFAST unit 10/12/16 Rx [NovoLOG Mix 70/30] Sildenafil [Revatio] 20 mg PO TID #90 tablet 10/12/16 Rx Spironolactone [Aldactone] 100 mg PO DAILY #60 tablet 10/12/16 Rx amLODIPine [Norvasc] 10 mg PO DAILY #30 tablet 10/12/16 Rx miSOPROStol [Cytotec] 100 mcg PO BID W/MEALS #60 tablet 10/12/16 Rx Allergies Allergy/AdvReac Type Severity Reaction Status Date / Time ofloxacin [From Floxin] Allergy Severe Swelling Verified 06/16/16 11:42 of Lip/Tongue/Throat Penicillins Allergy Severe RASH Verified 06/16/16 11:42 Sulfa (Sulfonamide Allergy Severe RASH Verified 06/16/16 11:42 Antibiotics) cephalexin [From Keflex] Allergy Intermediate RASH Verified 06/16/16 11:42 doxycycline Allergy Intermediate RASH Verified 06/16/16 11:42 levofloxacin [From Levaquin] AdvReac Severe Swelling Verified 06/16/16 11:42 of Lip/Tongue/Throat Medical,Surgical,& Family Hx - Medical History Cardio: History of: Cardiac Dysrhythmia (Chronic atrial fibrillation), CAD ( History of coronary artery stent in 2010), Hypertension, Pacemaker Psychological: History of: Anxiety Disorders HEENT: History of: Eye Problem (glaucoma) Endocrine: History of: Diabetes Mellitus (IDDM), Dyslipidemia No history of: Diabetes Mellitus (NIDDM) Rheumatology: History of;: Rheumatological Problems (ARTHRITIS) Respiratory: History of: Bronchitis Renal: History of: Renal Failure (Patient has had 2 episodes of ATN in the last 6 months) Genitourinary: History of: Recurring Urinary Tract Infections Gastrointestinal: History of: GERD, 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) Musculoskeletal: History of: Back/Neck Problems Hematology: History of: Blood Transfusion Reaction - Surgical History Cardiac Surgeries: Sugical HX of: Cardiac Catheterization (STENTS), Cardiac Surgery (PACEMAKER) Thoracic Surgeries: Patient denies;: Organ Transplant, Lobectomy Neurologic Surgeries: Patient denies: Neurologic Surgery HEENT Surgeries: Surgical HX of: Eye Surgery (bilateral cataract) Abdominal Surgeries: Surgical HX of: Appendectomy, Colonoscopy, EGD Reproductive Surgeries: Surgical HX of;: Breast Surgery (biopsy), Hysterectomy Orthopedic Surgeries: Surgical HX of;: Orthopedic Surgery (bilateral carpal tunnel) - Family History Family History: Reports;: Family Diabetes, Family Heart Disease - Social History Smoking Status: Never smoker Type of Drug Use: None - Constitutional Constitutional: Present: as per HPI - EENT Nose, mouth and throat: Present: as per HPI - Cardiovascular Cardiovascular: Present: as per HPI - Respiratory Respiratory: Present: as per HPI - Gastrointestinal Gastrointestinal: Present: as per HPI - Genitourinary Genitourinary: Present: as per HPI - Musculoskeletal Musculoskeletal: Present: as per HPI - Neurological Neurological: Present: as per HPI - Endocrine Endocrine: Present: as per HPI Hematologic/Lymphatic: Present: as per HPI Exam - Constitutional Vitals: Period Temp Pulse Resp BP Sys/Marcum Pulse Ox Last 24 Hr 97.3 F-97.8 F 70-73 18-18 118-118/66-68 91-93 General appearance: no acute distress, over weight - Head Head exam: Present: normal inspection, normocephalic - Eye Eye exam: Present: EOMI Pupils: Present: PERRY - ENT ENT exam: Present: normal exam Mouth exam: Present: normal external inspection, normal voice - Neck Neck exam: Present: normal inspection, trachea midline - Respiratory Respiratory exam: Present: clear to auscultation bilaterally. Absent: accessory muscle use, chest wall tenderness - Cardiovascular Cardiovascular exam: Present: RRR. Absent: systolic murmur, tachycardia - GI/Abdominal GI/Abdominal exam: Present: normal bowel sounds, Black's sign, tenderness, soft. Absent: guarding, rebound - Extremities Exam Extremities exam: Present: normal inspection, normal capillary refill - Back Exam Back exam: Present: normal inspection - Neurological Exam Neurological exam: Present: alert, oriented X3 Speech: Present: normal - Skin Skin exam: Present: normal color, warm Quality Measures - Stroke Symptom Onset Unknown: No Results - Labs CBC & BMP: 10/18/16 12:22 - Diagnostic Findings Procedure: Ultrasound: image reviewed by me, report reviewed by me (Gallstones with sludge and wall thickening. 7-8 mm common bile duct. There is some moderate ascites in the right upper and lower quadrants.)
[2016-10-18] MEDS: HYDROmorphone 2 MG/1 ML VIAL IV PRN ×2 (18:32→22:32)
[2016-10-18 18:58] LABS: Basophils % 0.4 % (0.0-0.8); Eosinophils # 0.1 10*3/uL (0.0-0.87); Eosinophils % 1.1 % (0.00-10.9); Hematocrit 37.7 VOL% (35.7-47.0); Hemoglobin 11.8 GM/DL (12.0-16.0); Immature Granulocytes % 0.2 %; Immature Granulocytes Absolute 0.02 #; Lymphocytes # 0.6 10*3/uL (1.4-4.0); Lymphocytes % 7.1 % (21.3-54.2); Mean Corpuscular HGB Conc 31.3 GM/DL (32-36); Mean Corpuscular Hemoglobin 28 PG (27-34); Mean Corpuscular Volume 87.9 FL (87-102); Mean Platelet Volume 11.1 FL (9.6-12.0); Monocytes # 1.1 10*3/uL (0.11-0.8); Monocytes % 12.9 % (1.7-12.7); Neutrophils # 6.4 10*3/uL (1.4-7.4); Neutrophils % 78.3 % (38.7-73.9); Platelet Count 164 T/CUMM (130-400); Red Blood Count 4.29 MC/CUMM (3.8-5.5); Red Cell Distribution Width 17.5 % (9.3-17.3); White Blood Count 8.2 T/CUMM (4-12)
[2016-10-18 19:06] LABS: INR 1.2; PT Patient Result 12.7 SECS
[2016-10-18] MEDS: CLINDAMYCIN INJ 600 MG in PREMIX 1 EACH IV SCH (20:17)
[2016-10-18] MEDS: SIMVASTATIN 40 MG TABLET PO SCH (20:18)
[2016-10-18] MEDS: BIMATOPROST 0.01% OPH SOLN 2.5 ML BOTTLE BOTH EYES SCH (20:18)
[2016-10-18] MEDS: POTASSIUM CHLORIDE 10 MEQ TABLET PO SCH (20:18)
[2016-10-18] MEDS: MAGNESIUM CHLORIDE 64 MG TABLET PO SCH (20:18)
[2016-10-18] MEDS: CARVEDILOL 25 MG TABLET PO SCH (20:18)
[2016-10-19] MEDS: DEXTROSE 5% NACL 0.9% 1,000 ML IV SCH (04:33)
[2016-10-19] MEDS: CLINDAMYCIN INJ 600 MG in PREMIX 1 EACH IV SCH ×3 (04:55→18:43)
[2016-10-19 05:00] LABS: Apearance,Urine Slightly Hazy (Clear); Bacteria,Urine Occasional /HPF (Few); Bilirubin,Urine Negative (Negative); Blood, Urine Negative (Negative); Glucose,Urine (UA) Negative (Negative); Hyaline Casts,Urine 15 /LPF (0-3); Ketones,Urine Negative (Negative); Mucus,Urine Occasional /LPF (Occasional); Nitrite,Urine Negative (Negative); Protein,Urine Negative; RBC,Urine 54 /HPF (0-4); Squamous Epithelial Cell,Urine Occasional /HPF (0-10); Urine Color Yellow (Yellow); Urine Specific Gravity 1.016 (1.001-1.035); Urine Urobilinogen < 2.0 EU/DL (0.2-1.0); WBC,Urine 36 /HPF (0-6)
[2016-10-19 05:35] LABS: Basophils % 0.1 % (0.0-0.8); Eosinophils % 0.4 % (0.00-10.9); Hematocrit 31.5 VOL% (35.7-47.0); Hemoglobin 10.1 GM/DL (12.0-16.0); Immature Granulocytes % 0.5 %; Immature Granulocytes Absolute 0.04 #; Lymphocytes # 0.5 10*3/uL (1.4-4.0); Lymphocytes % 5.9 % (21.3-54.2); Mean Corpuscular HGB Conc 32.1 GM/DL (32-36); Mean Corpuscular Hemoglobin 27 PG (27-34); Mean Corpuscular Volume 84.2 FL (87-102); Mean Platelet Volume 11.9 FL (9.6-12.0); Monocytes # 1.3 10*3/uL (0.11-0.8); Monocytes % 16.8 % (1.7-12.7); Neutrophils # 5.9 10*3/uL (1.4-7.4); Neutrophils % 76.3 % (38.7-73.9); Platelet Count 146 T/CUMM (130-400); Red Blood Count 3.74 MC/CUMM (3.8-5.5); Red Cell Distribution Width 17.6 % (9.3-17.3); White Blood Count 7.7 T/CUMM (4-12)
[2016-10-19 06:00] LABS: Lymphocytes 11 % (20-55); Segmented Neutrophils 78 % (50-85); Total Cells Counted 100
[2016-10-19 06:01] LABS: Hypochromasia 1+; Ovalocytes Slight; Platelet Estimate Normal
[2016-10-19 06:06] LABS: Calcium 9.1 MG/DL (8.5-10.1); Magnesium 2.1 MG/DL (1.8-2.4); Osmolality,Calculated 287.4 MOS/KG (273-304)
[2016-10-19] MEDS ORDERED: CLINDAMYCIN INJ 900 MG in PREMIX 1 EACH IV ONE (07:00)
--- NOTE | 2016-10-19 07:29 | General Surgery Progress Note ---
Assessment and Plan (1) Abdominal pain Status: Acute Assessment and plan: The patient is scheduled for laparoscopic cholecystectomy with cholangiogram today. I will defer the treatment of urinary tract infection to Dr. Do because of her multiple antibiotic allergies. She certainly understands her cardiopulmonary risk and risk related to the surgery from this and wants to proceed as opposed to a cholecystostomy tube. I have discussed this with her medical physiologist and I will think this is reasonable and that she should be able to tolerate the operation. Current Visit: Yes Subjective Patient reports: Present: no new complaints, feels better, still having pain, pain is less, nausea, fever. Absent: vomiting Narrative: The patient continues to have mild right upper quadrant pain and had a low- grade temperature overnight. Her urinalysis demonstrates the possibility of urinary tract infection. She denies any dysuria, frequency, or urgency. Exam - Constitutional Vitals: Period Temp Pulse Resp BP Sys/Marcum Pulse Ox Last 24 Hr 97.3 F-100.3 F 70-80 16-18 100-121/52-68 90-93 General appearance: no acute distress, over weight - Head Head exam: Present: normal inspection, normocephalic - Eye Eye exam: Present: EOMI Pupils: Present: PERRY - ENT ENT exam: Present: normal exam Mouth exam: Present: normal external inspection, normal voice - Neck Neck exam: Present: normal inspection, trachea midline - Respiratory Respiratory exam: Present: clear to auscultation bilaterally. Absent: accessory muscle use, chest wall tenderness - Cardiovascular Cardiovascular exam: Present: RRR. Absent: systolic murmur, tachycardia - GI/Abdominal GI/Abdominal exam: Present: tenderness (There is some right upper quadrant tenderness today), soft. Absent: Black's sign, rebound - Extremities Exam Extremities exam: Present: normal inspection, normal capillary refill - Back Exam Back exam: Present: normal inspection - Neurological Exam Neurological exam: Present: alert, oriented X3 Speech: Present: normal - Skin Skin exam: Present: normal color, warm Results - Labs CBC & BMP: 10/19/16 04:33 10/19/16 04:33 Quality Measures - Stroke Symptom Onset Unknown: No
[2016-10-19] MEDS: INSULIN ASPART PROTAMINE/ASPART 70/30 100 UNIT/ML SUBCUT SCH ×2 (07:41→16:56)
[2016-10-19] MEDS: INSULIN REGULAR 100 UNIT/ML SUBCUT SCH ×4 (07:41→21:38)
--- NOTE | 2016-10-19 08:27 | Gastrointestinal Progress Note ---
<AngelicaMiri Shelton - Last Filed: 10/19/16 08:24> Assessment and Plan (1) Abdominal pain Status: Acute Assessment and plan: 10/19-Pain better controlled today. US findings noted. For lap lucila today with Dr Toussaint. Plan and addendum to follow by Dr Wing. 10/18-2 day history of severe right upper quadrant abdominal pain radiating to back and shoulder shoulders with associated nausea and intractable vomiting. Recent hospitalization with findings on ultrasound of cholelithiasis without acute cholecystitis. No change in LFTs at present time. Repeat ultrasound in consult surgery at this time. Plan an addendum to follow by Dr. Wing. Current Visit: Yes Gastroenterology - PN: Subj Interval history: CC: Abd pain Pt is seen awake and alert, states she had a more restful night last night and pain was better controlled. Denies any nausea or vomiting at present time. Abdomen is soft, mild tenderness. She is for surgery this morning for laparascopic cholecystectomy and will have intraoperative cholangiogram as well. Noted to have UTI with C&S pending at this time. Afebrile without leukocytosis. ROS: Denies SOB or chest pain Exam (Progress Note) - Constitutional Vitals: Period Temp Pulse Resp BP Sys/Marcum Pulse Ox Last 24 Hr 97.3 F-100.3 F 70-80 16-18 100-121/52-68 90-93 General appearance: normal weight, no acute distress - Head Head exam: Present: normal inspection, normocephalic - Eye Eye exam: Present: other (lids and conjunctiva unremarkable). Absent: scleral icterus - ENT ENT exam: Present: normal exam, normal oropharynx - Neck Neck exam: Present: normal inspection - Respiratory Respiratory exam: Present: clear to auscultation bilaterally. Absent: rales, rhonchi, wheezes - Cardiovascular Cardiovascular exam: Present: regular rate and rhythm. Absent: diastolic murmur , JVD, systolic murmur - GI/Abdominal GI/Abdominal exam: Present: normal bowel sounds, tenderness, soft. Absent: ascites, distended, mass, organomegaly - Extremities Exam Extremities exam: Present: normal inspection, full ROM - Back Exam Back exam: Present: normal inspection - Neurological Exam Neurological exam: Present: alert, oriented X3 - Psychiatric Psychiatric exam: Present: normal affect, normal mood - Skin Skin exam: Present: normal color, warm, dry Results - Labs CBC & BMP: 10/19/16 04:33 10/19/16 04:33 Lab Results: I have reviewed the past 24 hour labs - Diagnostic Findings Procedure: Ultrasound: report reviewed by me <Martin Wing - Last Filed: 10/19/16 11:02> Exam (Progress Note) - Constitutional Vitals: Period Temp Pulse Resp BP Sys/Marcum Pulse Ox Last 24 Hr 97.3 F-100.3 F 70-83 16-18 100-121/52-70 90-93 Results - Labs CBC & BMP: 10/19/16 04:33 10/19/16 04:33
[2016-10-19] MEDS: FUROSEMIDE 40 MG TABLET PO SCH (08:33)
[2016-10-19] MEDS: VENLAFAXINE 75 MG TABLET PO SCH (08:33)
[2016-10-19] MEDS: miSOPROStol 100 MCG TABLET PO SCH ×2 (08:33→16:58)
[2016-10-19] MEDS: POTASSIUM CHLORIDE 10 MEQ TABLET PO SCH (08:33)
[2016-10-19] MEDS: COLESEVELAM 625 MG TABLET PO SCH ×3 (08:33→16:27)
[2016-10-19] MEDS: ASPIRIN EC 81 MG TABLET PO SCH (08:33)
[2016-10-19] MEDS: MONTELUKAST 10 MG TABLET PO SCH (08:34)
[2016-10-19] MEDS: SILDENAFIL 20 MG TABLET PO SCH ×3 (08:34→22:56)
[2016-10-19] MEDS: FAMOTIDINE 20 MG TABLET PO SCH (08:34)
[2016-10-19] MEDS: MAGNESIUM CHLORIDE 64 MG TABLET PO SCH ×2 (08:34→22:56)
[2016-10-19] MEDS: ASCORBIC ACID 500 MG TABLET PO SCH (08:34)
[2016-10-19] MEDS ORDERED: amLODIPine 10 MG TABLET PO SCH (09:00)
[2016-10-19] MEDS ORDERED: SPIRONOLACTONE 50 MG TABLET PO SCH (09:00)
[2016-10-19] MEDS: CARVEDILOL 25 MG TABLET PO SCH (09:13)
--- NOTE | 2016-10-19 11:08 | Pulmonology Progress Note ---
Pulmonary - PN: Subj Interval history: This is a 71-year-old white female whom I admitted from my office on 10/18/2016. She had had a recent hospitalization and had been sent home in good condition. At that time she had presented with anasarca secondary to pulmonary hypertension and right heart failure. She is followed from a renal standpoint by Dr. Efren Navarro, cardiology standpoint by Dr. Renato Burgess and from a GI standpoint by Dr. Mateo Wing. My impressions were. 1. Acute nausea, vomiting, and dehydration refractory top OP treatment. Viral vs. bacterial vs. medication side effect. 2. Recent hospitalization secondary to ascites/anasarca felt secondary to severe pulmonary hypertension. Requiring to paracenteses that admission. 2. Cholelithiasis per ultrasound with no evidence of cholecystitis. 3. Severe pulmonary hypertension as evidenced by estimated pulmonary artery pressure of 80 mmHg seen on echocardiogram. 4. Chronic atrial fib. Note, the patient is not on anticoagulation secondary to history of GI bleed and anemia. This is followed by Dr. Renato Burgess. 5. History of acute renal failure with medications and contrast. This is followed by Dr. Efren Navarro. 6. Systemic lupus erythematosus followed by Dr. Sunny Nguyen by report. 7. Diabetes mellitus. 8. See past medical history 10/19/2016. This patient has had acute cholecystitis and she is for surgery little later on this morning. Ultrasound of the abdomen shows she still has ascites. Her renal status is stable with a creatinine of 2.1 and a BUN of 31. Electrolytes are normal. Admit white count was 8200 with 78 segs 7 lymphs and 13 monos. Physical exam. Vital signs see below Psychiatric. Alert oriented 3. Family is present Neurological. Cranial nerves are intact long track motor functions intact Face. Symmetrical. Lips and tongue are normal. Neck. Symmetrical. No meningismus. Lymphatics. No submandibular cervical supraclavicular or epitrochlear adenopathy. Chest. Wheeze free Heart. Regular no gallop. Abdomen. Right upper quadrant tenderness. Lower extremities. Small amount of pedal and pretibial edema under much better control than usual. The remainder the physical exam is noncontributory. Plan: 10/18/2016 1. Admit to inpatient 2. Consult Dr. Navarro 3. Hold medications which could cause nausea 3. Daily labs 5. Gentle rehydration 6. See orders. GI consult. Surgery consult. #7. 10/19/2016. For cholecystectomy today. We will have to monitor her fluid status and renal status etc. very carefully. Exam (Progress Note) - Constitutional Vitals: Period Temp Pulse Resp BP Sys/Marcum Pulse Ox Last 24 Hr 97.3 F-100.3 F 70-83 16-18 100-121/52-70 90-93 Results - Labs CBC & BMP: 10/19/16 04:33 10/19/16 04:33
--- NOTE | 2016-10-19 12:11 | Anesthesia Post-Op ---
Anesthesia Post OP - Post Ansesthetic Evaluation Patient seen in post op: Yes Resp: within normal limits CV: within normal limits Mental: within normal limits Temp: within normal limits [id number]-[id number]: within normal limits Nausea and Vomiting: within normal limits Pain: within normal limits
--- NOTE | 2016-10-19 12:20 | Nephrology Progress Note ---
Nephrology - PN: Subj Interval history: Patient denies shortness of breath. Review of systems CV-the patient denies much swelling in her legs, GI she denies nausea vomiting today, she is to have her gallbladder removed today Physical exam general the patient is chronically ill-appearing, she has no pitting edema Assessment/plan 1. Acute renal failure on chronic renal failure-this patient's creatinine is 2.1 mg/dL down from 2.2 mg/dL yesterday 2. Pulmonary hypertension 3. Diabetes mellitus 4. Hypertension 5. Cholelithiasis-patient's to have a cholecystectomy today 6. Elevated potassium-I am going to stop her potassium supplement, the patient' s potassium was 5.0 today 7. Metabolic acidosis-I am going to adjust her IV fluids to give her some sodium bicarbonate Exam (PN)-Nephrology - Vital Signs Vital signs: Period Temp Pulse Resp BP Sys/Marcum Pulse Ox Last 24 Hr 97.8 F-100.3 F 73-89 16-18 99-121/52-70 90-93 - Lab 10/19/16 04:33 10/19/16 04:33 Most recent lab results Calcium 9.1 MG/DL (8.5-10.1) 10/19/16 04:33 Magnesium 2.1 MG/DL (1.8-2.4) 10/19/16 04:33 Assessment and Plan (1) [id number] kidney injury Status: Acute Assessment and plan: This patient's creatinine was recently around 2 mg/dL the past month it is very quite wildly between 1.3-2.3 mg/dL, I suspect she has some acute on chronic injury related to volume depletion and her decreased p.o. intake. I agree with the gentle IV fluid hydration of 75 cc an hour Current Visit: No (2) Tricuspid regurgitation Status: Acute Current Visit: Yes (3) Ascites Problem details: Agree with treatment of pHTN with revatio. Continue aldactone/ lasix at ratio of 100 aldactone 40 lasix. Status: Acute Current Visit: No (4) Debility Status: Acute Current Visit: No (5) Pulmonary hypertension Problem details: Discussed complicated physiology with Dr Do. We agree on assessment and plans. Status: Acute Current Visit: No (6) Atrial fibrillation Status: Chronic Current Visit: No Qualifiers: Atrial fibrillation type: chronic Qualified Code(s): I48.2 - Chronic atrial fibrillation (7) Diabetes Status: Chronic Current Visit: No Qualifiers: Diabetes mellitus type: type 2 Diabetes mellitus complication status: with kidney complications Chronic kidney disease stage: stage 2 (mild) (8) Hypertension Problem details: controlled Status: Chronic Current Visit: No Qualifiers: Hypertension type: essential hypertension
[2016-10-19] MEDS ORDERED: LIDOCAINE 2%/EPI 20 ML VIAL ONE (12:22)
[2016-10-19] MEDS ORDERED: TISSUE ADHESIVE 1 EACH APPLICATOR TOP ONE (12:22)
[2016-10-19] MEDS ORDERED: PHENYLEPHRINE 1 MG/10 ML SYRINGE IV ONE (12:47)
[2016-10-19] MEDS: LACTATED RINGERS 1,000 ML IV SCH ×2 (12:47→14:31)
[2016-10-19] MEDS ORDERED: LIDOCAINE 2% 5 ML VIAL ONE (12:47)
[2016-10-19] MEDS ORDERED: ETOMIDATE 20 MG/10 ML VIAL IV ONE (12:47)
[2016-10-19] MEDS ORDERED: ROCURONIUM 100 MG/10 ML VIAL IV ONE (12:47)
[2016-10-19] MEDS ORDERED: ONDANSETRON 4 MG/2 ML VIAL ONE (12:47)
[2016-10-19] MEDS ORDERED: DEXTROSE 5% IV SCH (13:00)
[2016-10-19] MEDS ORDERED: SODIUM ACETATE IV SCH (13:00)
[2016-10-19] MEDS ORDERED: SODIUM ACETATE 100 MEQ in DEXTROSE 5% 1,000 ML IV SCH ×2 (13:00→19:00)
--- NOTE | 2016-10-19 14:31 | Operative Note ---
Date of procedure: 10/19/16 Pre-op diagnosis: Acute cholecystitis Post-op diagnosis: same Procedure: Preoperative diagnosis Acute cholecystitis Postoperative diagnosis Same Procedures performed Laparoscopic cholecystectomy Laparoscopic repair of serosal defect of the transverse colon 22 modifier Findings Acute and chronic cholecystitis was seen. The critical view of safety was obtained prior to placing clips on the cystic duct and cystic artery. There was a serosal laceration at the transverse colon from the Veress needle placement due to some scar tissue just below this and this was oversewn with a 3 -0 silk Lembert suture. The gallbladder had acute cholecystitis and there is actually pus in the gallbladder. I was unable to culture the pus because the case was done laparoscopically but a MARISABEL drain was left in the gallbladder fossa. Unfortunately, because of the tenuous nature of the cystic duct infundibulum junction and significant scar tissue at the cystic duct, I was unable to do a cholangiogram. I was able to get into the cystic duct several times but it was occluded distally and I was unable to opacify this or fill it with contrast. A 22 modifier was added to this case. Because of how friable tissue was and inflamed the surgery took more than twice usual length of time. Complications None apparent Specimen Gallbladder Anesthesia GETA Blood loss 5 mL Indications This patient was admitted with acute cholecystitis. The risks, benefits, and alternatives of the operation were discussed with the patient in detail, and the expected outcomes were reviewed. In particular, the risk of bowel injury, liver injury, bile duct leak and bile duct injury, as well as pancreatitis and retained or drop stones were discussed in detail. All the patient's questions were answered. She like to proceed with the operation. Description of procedure The patient was taken to the operating room and transferred to the operating table in the supine position. Pressure points were padded and SCDs were placed to bilateral lower extremities. General endotracheal anesthesia was administered. The abdomen was prepped chlorhexidine and draped sterilely. Preoperative antibiotics were administered, a timeout was performed. The abdomen was entered in a supraumbilical location of the Veress needle. The skin incision was made in the supraumbilical location with a 11 blade scalpel after local anesthetic was administered. Umbilical stalk was grasped with a penetrating towel clip. A Veress needle was used to enter the peritoneal cavity confirmed by double click technique. Aspiration was negative. Saline drop test confirmed intraperitoneal location. The abdomen was insufflated to 15 mmHg with an initial insufflation pressure of 2 mmHg. The Veress needle was removed and a 5 mm trocar was placed blindly. The towel clip was removed. Diagnostic laparoscopy was performed. There is no evidence of Veress needle or trocar injury. The patient was placed in reverse Trendelenburg and left side rolled down position. Under direct visualization, and after local anesthetic was administered, an 11 mm midepigastric trocar and 2 right subcostal 5 mm trochars were placed. There was a serosal laceration of the transverse colon from the edge of the Veress needle that was oversewn with 3-0 silk Lembert suture. The gallbladder was acutely inflamed and had hydrops as well as pus which required aspiration prior to grasping the gallbladder. Initially only hydrops was aspirated so no cultures were taken but the gallbladder tore later and dissection and pus came out of it. The gallbladder was grasped at the fundus and infundibulum. The cystic plate peritoneum was dissected into the critical view of safety was obtained. The cystic duct and infundibulum was very friable and tore easily. Pus erupted from the gallbladder when it tore and several stones spilled out which were suctioned and removed from the abdomen. I attempted to perform a cholangiogram through the cystic duct autotomy which actually with a tear and the cystic duct and the catheter advanced about 1 cm and but would not pass beyond this. A clip was placed over the catheter but I was unable to opacify the bile duct because of complete obstruction at this level. The critical view of safety was able to be obtained and I did not feel the cholangiogram was absolutely necessary for anatomic purposes but rather we were just trying to get it to clear her bile duct of any stones. The suspicion for this was not extremely high preoperatively so I thought the safest thing to do was to ligate the cystic duct and remove the gallbladder and trend her LFTs postoperatively. The cystic duct and cystic artery were clipped twice initially and once laterally and divided laparoscopically with scissors between clips. Gallbladder was removed from the gallbladder fossa using hook electrocautery. A #10 MARISABEL drain was tunneled in the abdominal wall in order to prevent leakage when it was removed postoperatively and placed in the gallbladder fossa. The MARISABEL drain was sewn in with a 3-0 nylon suture. The gallbladder was placed in a Endo Catch retrieval bag through the 11 mm trocar and removed through the trocar with no significant fascial extension of the incision. The gallbladder fossa was suction irrigated until the effluent was clear. The CO2 was released from the abdomen and the trochars were removed. The skin incisions were closed with 4-0 Monocryl subcuticular suture and sterile skin glue. The patient was awakened from anesthesia and transferred to recovery. Postoperative plan Continue antibiotics and monitor in ICU overnight Advance diet as tolerated Pain control Implants: #10 MARISABEL drain Anesthesia: TIMA, local Surgeon / Physician: Mohan Toussaint Estimated blood loss: minimal Specimens: other (gallbladder) Condition: stable Disposition: PACU Results - Labs CBC & BMP: 10/19/16 04:33 10/19/16 04:33 Discharge Plan - Discharge Medications No Action RX: Aspirin [Ecotrin] 81 mg PO DAILY RX: Ascorbic Acid Tab [Vitamin C Tab] 500 mg PO DAILY RX: Bimatoprost 0.01% Oph Soln [Lumigan] 1 drop BOTH EYES BEDTIME RX: Potassium Chloride 10 meq PO BID RX: Montelukast Tab [Singulair Tab] 10 mg PO DAILY RX: Carvedilol 25 mg PO BID RX: Venlafaxine [Effexor] 37.5 mg PO DAILY RX: Simvastatin 40 mg PO BEDTIME RX: Famotidine Tab [Pepcid Tab] 40 mg PO DAILY RX: Magnesium Chloride [Slow Mag] 128 mg PO BID RX: Ferrous Sulfate Tab [Feosol Original Tab] 325 mg PO BID #60 tablet RX: Furosemide Tab [Lasix Tab] 40 mg PO BID DIURETIC #60 tablet RX: Insulin Aspart Prot/Asp 70/30 [NovoLOG Mix 70/30] 10 unit SUBCUT AC BREAKFAST unit RX: Sildenafil [Revatio] 20 mg PO TID #90 tablet RX: Spironolactone [Aldactone] 100 mg PO DAILY #60 tablet RX: miSOPROStol [Cytotec] 100 mcg PO BID W/MEALS #60 tablet RX: Colesevelam [Welchol] 1,250 mg PO TIDAC #180 tablet RX: Insulin Aspart Prot/Asp 70/30 [NovoLOG Mix 70/30] 4 unit SUBCUT AC SUPPER unit RX: amLODIPine [Norvasc] 10 mg PO DAILY #30 tablet - Follow Up or Referral - Forms/Instructions
[2016-10-19] MEDS ORDERED: ALBUMIN 5% 12.5 GM/250 ML VIAL IV ONE ×2 (14:48)
[2016-10-19] MEDS ORDERED: fentaNYL 100 MCG/2 ML VIAL ONE (14:50)
[2016-10-19] MEDS ORDERED: ALBUMIN 5% 25 GM in PREMIX 1 EACH IV ONE (15:00)
[2016-10-19] MEDS ORDERED: MEROPENEM 500 MG in SODIUM CHLORIDE 0.9% 100 ML IV SCH (15:49)
[2016-10-19] MEDS ORDERED: ALBUMIN 5% 50 GM in PREMIX 1 EACH IV ONE (15:51)
[2016-10-19] MEDS: HYDROmorphone 2 MG/1 ML VIAL IV PRN ×2 (16:01→18:42)
[2016-10-19 18:25] LABS: Basophils % 0.1 % (0.0-0.8); Eosinophils % 0.1 % (0.00-10.9); Hematocrit 29.5 VOL% (35.7-47.0); Hemoglobin 9.7 GM/DL (12.0-16.0); Immature Granulocytes % 0.8 %; Immature Granulocytes Absolute 0.06 #; Lymphocytes # 0.6 10*3/uL (1.4-4.0); Lymphocytes % 8.4 % (21.3-54.2); Mean Corpuscular HGB Conc 32.9 GM/DL (32-36); Mean Corpuscular Hemoglobin 28 PG (27-34); Mean Corpuscular Volume 85.3 FL (87-102); Monocytes # 1.3 10*3/uL (0.11-0.8); Monocytes % 17.5 % (1.7-12.7); Neutrophils # 5.2 10*3/uL (1.4-7.4); Neutrophils % 73.1 % (38.7-73.9); Platelet Count 111 T/CUMM (130-400); Red Blood Count 3.46 MC/CUMM (3.8-5.5); Red Cell Distribution Width 17.8 % (9.3-17.3); White Blood Count 7.2 T/CUMM (4-12)
[2016-10-19] MEDS ORDERED: ALBUMIN 25% 25 GM in PREMIX 1 EACH IV ONE (18:48)
[2016-10-19 18:49] LABS: Alanine Aminotransferase < 9 U/L (13-56); Albumin 3.6 G/DL (3.4-5.0); Alkaline Phosphatase 60 U/L (45-117); Aspartate Amino Transferase 12 U/L (0-37); Blood Urea Nitrogen 30 MG/DL (7-18); Calcium 8.4 MG/DL (8.5-10.1); Glucose 121 MG/DL (74-106); Osmolality,Calculated 289.1 MOS/KG (273-304); Potassium 5.1 MMOL/L (3.5-5.1); Sodium 142 MMOL/L (136-145); Total Protein 6.5 G/DL (6.4-8.3)
--- NOTE | 2016-10-19 18:53 | Event Note ---
General Surgery Progress Note Chief complaint This patient is a 71-year-old woman with pulmonary hypertension who was admitted to the hospital with acute cholecystitis and underwent laparoscopic cholecystectomy on 10/19/2016 Interval history The patient is hypotensive but she is not tachycardic. She is doing well from a pulmonary standpoint. Her urine output is only 10 cc since surgery. She received 500 cc of 25% albumin in the recovery room. Her hemoglobin is stable on her repeat lab work. Physical exam The patient is afebrile and she is not tachycardic but she does have a low blood pressure. She is awake and alert. Abdominal exam is benign with expected postoperative tenderness and serosanguineous fluid in the MARISABEL drain Labs Hemoglobin is stable Platelet count is only 111,000 Imaging None new Assessment and plan I discussed the patient's care with Dr. Do who is her signal helper. We will place her on dopamine low dose for her blood pressure and also continue her pulmonary hypertension medications. She will be given another dose of albumin now and her Lasix and spironolactone will be held. Follow-up chemistry Repeat labs tomorrow
[2016-10-19] MEDS ORDERED: DEXTROSE 5% NACL 0.9% 1,000 ML IV SCH (19:00)
[2016-10-19 20:01] LABS: Hypochromasia Slight; Lymphocytes 9 % (20-55); Platelet Estimate Adequate; Segmented Neutrophils 83 % (50-85); Total Cells Counted 100
[2016-10-19] MEDS: DOPamine 800 MG/250 ML PREMIX IV SCH (21:10)
[2016-10-19] MEDS: ONDANSETRON 4 MG/2 ML VIAL IV PRN (21:54)
[2016-10-19] MEDS: SIMVASTATIN 40 MG TABLET PO SCH (22:56)
[2016-10-20] MEDS: BIMATOPROST 0.01% OPH SOLN 2.5 ML BOTTLE BOTH EYES SCH ×2 (00:17→20:34)
[2016-10-20 01:23] LABS: ABG HCO3 19.4 MMOL/L (20-26); ABG Oxygen Saturation 92.7 % (95-100); ABG PCO2 28.5 MM HG (35-48); ABG PH 7.402 (7.35-7.45); ABG TCO2 16.1 MMOL/L (23-27); Allen Test Positive
[2016-10-20] MEDS: CLINDAMYCIN INJ 600 MG in PREMIX 1 EACH IV SCH ×3 (04:02→20:34)
[2016-10-20 04:43] LABS: Basophils % 0.2 % (0.0-0.8); Eosinophils % 0.3 % (0.00-10.9); Hematocrit 33.2 VOL% (35.7-47.0); Immature Granulocytes % 0.6 %; Immature Granulocytes Absolute 0.05 #; Lymphocytes # 0.4 10*3/uL (1.4-4.0); Lymphocytes % 4.7 % (21.3-54.2); Mean Corpuscular HGB Conc 33.1 GM/DL (32-36); Mean Corpuscular Hemoglobin 27 PG (27-34); Mean Corpuscular Volume 82.6 FL (87-102); Mean Platelet Volume 12.1 FL (9.6-12.0); Monocytes # 1.4 10*3/uL (0.11-0.8); Neutrophils # 6.9 10*3/uL (1.4-7.4); Neutrophils % 78.2 % (38.7-73.9); Platelet Count 140 T/CUMM (130-400); Red Blood Count 4.02 MC/CUMM (3.8-5.5); Red Cell Distribution Width 17.3 % (9.3-17.3); White Blood Count 8.8 T/CUMM (4-12)
[2016-10-20 05:08] LABS: Calcium 8.8 MG/DL (8.5-10.1); Osmolality,Calculated 287.5 MOS/KG (273-304)
[2016-10-20 05:09] LABS: Band Neutrophils 1 % (0-10); Burr Cells Slight; Elliptocytes Few; Eosinophils 2 % (0-10); Hypochromasia 1+; Lymphocytes 3 % (20-55); Platelet Estimate Normal; Segmented Neutrophils 82 % (50-85); Total Cells Counted 100
[2016-10-20 05:10] LABS: Albumin 3.9 G/DL (3.4-5.0); Bilirubin,Indirect 2.6 MG/DL (0.0-1.0); Bilirubin,Total 3.6 MG/DL (0.2-1.0)
[2016-10-20] MEDS: MEROPENEM 500 MG in SODIUM CHLORIDE 0.9% 100 ML IV SCH ×2 (05:51→16:22)
[2016-10-20] MEDS ORDERED: ALBUMIN 5% 25 GM in PREMIX 1 EACH IV ONE ×2 (06:51→21:14)
--- NOTE | 2016-10-20 07:01 | Nephrology Progress Note ---
Nephrology - PN: Subj Interval history: Patient denies shortness of breath. Review of systems GI-she denies pain Physical exam general the patient in no acute distress, heart is regular rate and rhythm, lungs are clear to auscultation anteriorly, extremities reveal trace edema Assessment/plan 1. Acute renal failure on chronic renal failure-this patient's creatinine is increased to 3 mg/dL from 2.2 mg/dL yesterday, I suspect this is related to her hypotension, will continue pressure support therapy, I am going to decrease her IV fluids to 50 cc an hour. 2. Pulmonary hypertension with tricuspid regurgitation 3. Diabetes mellitus 4. Hypotension continue dopamine 5. Cholecystitis-patient status post laparoscopic cholecystectomy yesterday. 6. Metabolic acidosis-I am going to increase her sodium acetate in her IV fluids. Exam (PN)-Nephrology - Vital Signs Vital signs: Period Temp Pulse Resp BP Sys/Marcum Pulse Ox Last 24 Hr 98.1 F-100.1 F 61-106 12-29 76-114/39-70 87-100 - Lab 10/20/16 03:36 10/20/16 03:36 Most recent lab results ABG pH 7.402 (7.35-7.45) 10/20/16 01:12 ABG pCO2 28.5 MM HG (35-48) L 10/20/16 01:12 ABG pO2 63.0 MM HG (80-95) L 10/20/16 01:12 ABG HCO3 19.4 MMOL/L (20-26) L 10/20/16 01:12 ABG O2 Saturation 92.7 % (95-100) L 10/20/16 01:12 Calcium 8.8 MG/DL (8.5-10.1) 10/20/16 03:36 Magnesium 2.0 MG/DL (1.8-2.4) 10/20/16 03:36 Assessment and Plan (1) [id number] kidney injury Status: Acute Assessment and plan: This patient's creatinine was recently around 2 mg/dL the past month it is very quite wildly between 1.3-2.3 mg/dL, I suspect she has some acute on chronic injury related to volume depletion and her decreased p.o. intake. I agree with the gentle IV fluid hydration of 75 cc an hour Current Visit: No (2) Tricuspid regurgitation Status: Acute Current Visit: Yes (3) Ascites Problem details: Agree with treatment of pHTN with revatio. Continue aldactone/ lasix at ratio of 100 aldactone 40 lasix. Status: Acute Current Visit: No (4) Debility Status: Acute Current Visit: No (5) Pulmonary hypertension Problem details: Discussed complicated physiology with Dr Do. We agree on assessment and plans. Status: Acute Current Visit: No (6) Atrial fibrillation Status: Chronic Current Visit: No Qualifiers: Atrial fibrillation type: chronic Qualified Code(s): I48.2 - Chronic atrial fibrillation (7) Diabetes Status: Chronic Current Visit: No Qualifiers: Diabetes mellitus type: type 2 Diabetes mellitus complication status: with kidney complications Chronic kidney disease stage: stage 2 (mild) (8) Hypertension Problem details: controlled Status: Chronic Current Visit: No Qualifiers: Hypertension type: essential hypertension
--- NOTE | 2016-10-20 07:17 | XRay Report ---
XR chest 1V portable Indication: SOB Comparison: Chest x-ray dated October 18, 2016 Technique: Single frontal view of the chest Findings: Continued cardiomegaly. Cardiac pacemaker apparatus again noted. Interval development of diffuse hazy opacification throughout the right lung, greatest inferiorly. This could reflect right lower lobe atelectasis. However, infection, other consolidative process, and pleural fluid not excluded. Osseous and surrounding soft tissue structures appear grossly unchanged. IMPRESSION: As above. PROCEDURE INTERPRETED AT [facility] DEPARTMENT OF RADIOLOGY Final Report Signed by: Dr Jame Lomax
--- NOTE | 2016-10-20 08:07 | Event Note ---
General Surgery Progress Note Chief complaint This patient is a 71-year-old woman with pulmonary hypertension who was admitted to the hospital with acute cholecystitis and underwent laparoscopic cholecystectomy on 10/19/2016 Interval history The patient has remained hypotensive overnight. She is making minimal urine but is starting to warp picker some this morning. She is on dopamine. She is awake and alert. Her chest x-ray shows increased opacification of the right lung. Her MARISABEL drain is serosanguineous. Her bilirubin has gone up with a direct bilirubin component of 1. Alk phos is normal Physical exam The patient is afebrile and she is not tachycardic but she does have a low blood pressure. She is awake and alert. Abdominal exam is benign with expected postoperative tenderness and serosanguineous fluid in the MARISABEL drain Labs Hemoglobin is stable LFTs as above Imaging chest xray reviewed Assessment and plan The patient is struggling a little bit postoperatively from a volume standpoint. We continued her antibiotics postop because of pus in her gallbladder. Her MARISABEL drain looks clear. We will continue supportive care but I am concerned about her kidney function and whether or not this will return. I have discussed her volume status in detail with Dr. Hancock last night and we will give her another challenge of albumin and wait until he gets her to do any more fluid but I do not want to overdo it with fluids because of her underlying medical problems.
[2016-10-20] MEDS: SODIUM ACETATE 150 MEQ in DEXTROSE 5% 1,000 ML IV SCH (08:23)
[2016-10-20] MEDS: ASPIRIN EC 81 MG TABLET PO SCH (08:24)
[2016-10-20] MEDS: miSOPROStol 100 MCG TABLET PO SCH ×2 (08:24→16:19)
[2016-10-20] MEDS: VENLAFAXINE 75 MG TABLET PO SCH (08:24)
[2016-10-20] MEDS: FAMOTIDINE 20 MG TABLET PO SCH (08:25)
[2016-10-20] MEDS: MAGNESIUM CHLORIDE 64 MG TABLET PO SCH ×2 (08:25→20:34)
[2016-10-20] MEDS: MONTELUKAST 10 MG TABLET PO SCH (08:26)
[2016-10-20] MEDS: ASCORBIC ACID 500 MG TABLET PO SCH (08:29)
[2016-10-20] MEDS: INSULIN REGULAR 100 UNIT/ML SUBCUT SCH ×4 (08:30→20:35)
[2016-10-20] MEDS: INSULIN ASPART PROTAMINE/ASPART 70/30 100 UNIT/ML SUBCUT SCH ×2 (08:35→16:21)
[2016-10-20] MEDS: DOPamine 800 MG/250 ML PREMIX IV SCH ×2 (08:36→19:18)
--- NOTE | 2016-10-20 09:17 | Gastrointestinal Progress Note ---
<FrederickcarissaMiri Shelton - Last Filed: 10/20/16 09:15> Assessment and Plan (1) Abdominal pain Status: Acute Assessment and plan: 10/20-Post op tenderness but controlled. Hypotension with Dopamine infusion, decreased UOP. Elevated bilirubin today at 3.6. Plan and addendum to follow by Dr Wing. 10/19-Pain better controlled today. US findings noted. For lap lucila today with Dr Toussaint. Plan and addendum to follow by Dr Wing. 10/18-2 day history of severe right upper quadrant abdominal pain radiating to back and shoulder shoulders with associated nausea and intractable vomiting. Recent hospitalization with findings on ultrasound of cholelithiasis without acute cholecystitis. No change in LFTs at present time. Repeat ultrasound in consult surgery at this time. Plan an addendum to follow by Dr. Wing. Current Visit: Yes Gastroenterology - PN: Subj Interval history: CC: Abdominal pain Patient is seen awake and alert sitting up in bed, status post laparoscopic cholecystectomy on yesterday. She was placed in ICU for observation overnight and is noted to have had some hypotension develop and initiation of dopamine. She continues on dopamine infusion this morning with also noted report of decreased urine output. She is having suboptimal output at this time and is receiving her second albumin challenge. Noted to have an elevation in her bilirubin to 3.6 today. Creatinine is also up at 3 today. Abdomen is soft, mild tenderness postoperatively. ROS: Denies shortness of breath or chest Exam (Progress Note) - Constitutional Vitals: Period Temp Pulse Resp BP Sys/Marcum Pulse Ox Last 24 Hr 98.1 F-100.1 F 61-106 12-29 76-114/39-64 87-100 General appearance: normal weight, no acute distress - Head Head exam: Present: normal inspection, normocephalic - Eye Eye exam: Present: other (lids and conjunctiva unremarkable ). Absent: scleral icterus - ENT ENT exam: Present: normal exam, normal oropharynx - Neck Neck exam: Present: normal inspection - Respiratory Respiratory exam: Present: clear to auscultation bilaterally. Absent: rales, rhonchi, wheezes - Cardiovascular Cardiovascular exam: Present: regular rate and rhythm. Absent: diastolic murmur , JVD, systolic murmur - GI/Abdominal GI/Abdominal exam: Present: normal bowel sounds, soft. Absent: ascites, distended, mass, organomegaly, tenderness - Extremities Exam Extremities exam: Present: normal inspection, full ROM - Back Exam Back exam: Present: normal inspection - Neurological Exam Neurological exam: Present: alert, oriented X3 - Psychiatric Psychiatric exam: Present: normal affect, normal mood - Skin Skin exam: Present: normal color, warm, dry Results - Labs CBC & BMP: 10/20/16 03:36 10/20/16 03:36 Lab Results: I have reviewed the past 24 hour labs <Martin Wing - Last Filed: 10/20/16 10:04> Exam (Progress Note) - Constitutional Vitals: Period Temp Pulse Resp BP Sys/Marcum Pulse Ox Last 24 Hr 98.1 F-100.1 F 61-106 12-29 76-114/39-64 87-100 Results - Labs CBC & BMP: 10/20/16 03:36 10/20/16 03:36
--- NOTE | 2016-10-20 10:49 | Pulmonology Progress Note ---
Pulmonary - PN: Subj Interval history: This is a 71-year-old white female whom I admitted from my office on 10/18/2016. She had had a recent hospitalization and had been sent home in good condition. At that time she had presented with anasarca secondary to pulmonary hypertension and right heart failure. She is followed from a renal standpoint by Dr. Efren Navarro, cardiology standpoint by Dr. Renato Burgess and from a GI standpoint by Dr. Mateo Wing. My impressions were. 1. Acute nausea, vomiting, and dehydration refractory top OP treatment. Viral vs. bacterial vs. medication side effect. 2. Recent hospitalization secondary to ascites/anasarca felt secondary to severe pulmonary hypertension. Requiring to paracenteses that admission. 2. Cholelithiasis per ultrasound with no evidence of cholecystitis. 3. Severe pulmonary hypertension as evidenced by estimated pulmonary artery pressure of 80 mmHg seen on echocardiogram. 4. Chronic atrial fib. Note, the patient is not on anticoagulation secondary to history of GI bleed and anemia. This is followed by Dr. Renato Burgess. 5. History of acute renal failure with medications and contrast. This is followed by Dr. Efren Navarro. 6. Systemic lupus erythematosus followed by Dr. Sunny Nguyen by report. 7. Diabetes mellitus. 8. See past medical history 10/19/2016. This patient has had acute cholecystitis and she is for surgery little later on this morning. Ultrasound of the abdomen shows she still has ascites. Her renal status is stable with a creatinine of 2.1 and a BUN of 31. Electrolytes are normal. Admit white count was 8200 with 78 segs 7 lymphs and 13 monos. 10/20/2016. On 10/19/2016 this patient had a laparoscopic cholecystectomy. Her gallbladder was infected. See Dr. Preston to lupus surgical note. Patient had hypotensive tension and I kept her in the unit overnight. She has low urine output and I put her on on dopamine open to increase her renal function. She is tolerated this well but her systolic blood pressures are mainly around 90. Creatinine is increased from 2.3-3.0 with a BUN of 38. and he is seeing her in renal consultation. Electrolytes are normal. Today's chest x-ray shows a small right pleural effusion and I assume that this is related to the patient' s ascites which Dr. Toussaint noted during surgery. Her ascites is thought to be secondary to right heart failure based on pulmonary hypertension. I am restarting her Norvasc to 5 mg daily which is one half the previous dose and I am going to restart Revatio 20 mg p.o. every 8 hours. Will have to watch her blood pressure closely while she is on this but if it works like it is supposed to it should actually help the blood pressure improved. I am giving the patient fluids for the present time and her diuretics are being held. She is previously been on Lasix and Aldactone. White count is 8800 with 78 segs per ABGs on FiO2 of 50% show a pH 7.40, PCO2 28.5, PO2 of 63 and a bicarb at 19.4. When the patient takes several deep breaths this improved significantly. There are no positive cultures. Patient's had a temp up to 100.1. She is on Cleocin and meropenem and we have given her test doses for allergies since she has multiple allergies by history. She remains in atrial fib. She cannot be anticoagulated because of previous bleeding problems. Dr. Renato Burgess is her manager country and I have consulted him. She has been followed by Dr. Efren Navarro from a renal standpoint for chronic renal failure. For the present time I will follow serial lab chest x-rays. Physical exam. Vital signs see below Psychiatric. Alert oriented 3. Neurological. Cranial nerves are intact long track motor functions intact Face. Symmetrical. Lips and tongue are normal. Neck. Symmetrical. No meningismus. Lymphatics. No submandibular cervical supraclavicular or epitrochlear adenopathy. Chest. Wheeze free Heart. Regular no gallop. Abdomen. Right upper quadrant tenderness. Lower extremities. Small amount of pedal and pretibial edema under much better control than usual. The remainder the physical exam is noncontributory. Plan: 10/18/2016 1. Admit to inpatient 2. Consult Dr. Navarro 3. Hold medications which could cause nausea 3. Daily labs 5. Gentle rehydration 6. See orders. GI consult. Surgery consult. #7. 10/19/2016. For cholecystectomy today. We will have to monitor her fluid status and renal status etc. very carefully. 8. 10/20/2016. See today's note above. Exam (Progress Note) - Constitutional Vitals: Period Temp Pulse Resp BP Sys/Marcum Pulse Ox Last 24 Hr 98.1 F-100.1 F 61-106 12-29 76-114/39-64 87-100 Results - Labs CBC & BMP: 10/20/16 03:36 10/20/16 03:36
--- NOTE | 2016-10-20 10:55 | Physician Query Form ---
CLICK EDIT DOCUMENT TO SELECT QUERY ANSWER --> OK --> SIGN Viv Day RN Clinical Supervisor [employer] W) [phone] (f) [phone] [email or web address]: Make your selection(s) from the choices in EACH section by typing an "x" and enter comments in the comment section. Please use your independent medical judgment in providing your response. This request does not imply that any particular answer is desired or expected. CLINICAL INDICATORS: (Providers should not edit this section) Pt. had Laparoscopic cholecystectomy and Laparoscopic repair of serosal defect of the transverse colon. Based on documentation in the operative report of "There was a serosal laceration at the transverse colon from the Veress needle placement due to some scar tissue just below this and this was oversewn with a 3 -0 silk Lembert suture". Diagnosis: Serosal laceration Please clarify the following: ( ) The above diagnosis is an expected occurrence following this surgery and is not a complication ( ) The above diagnosis is not an expected occurrence following this surgery but is not a complication ( ) The above diagnosis is a complication but not due to the surgery, specify cause: ( ) The above diagnosis is a complication of the surgery (x) The above diagnosis is integral to the surgery and/or is not clinically significant ( ) Other, please specify: ( ) Clinically unable to determine COMMENTS: Use of terms such as suspected, likely, or probable (associated with a specific diagnosis that is being evaluated, monitored, or treated as if it exists) are acceptable and can be restated in the discharge summary if not ruled out. MTDD
[2016-10-20] MEDS: COLESEVELAM 625 MG TABLET PO SCH ×3 (12:17→16:19)
--- NOTE | 2016-10-20 16:34 | Cardiology Consult Note ---
Manas Montes Vanessa, RN, am scribing for, and in the presence of, Too Cortez MD 16:30. Assessment and Plan - Time spent with patient Time spent with patient: Greater than 30 minutes (Due to assessment, documentation, planning, medication review) (1) Pulmonary hypertension Status: Acute Assessment and plan: Per echocardiogram in September 2016, this is moderate to severe with a PA pressure of 80 mmHg. Flat or D shaped septum in the SAB indicative of pulmonary pressure overload. LV ejection fraction is 60%. Previous echo in April 2016 with LV ejection fraction of 55%, severely elevated right-sided pressures, and mild to moderate TR with a PA pressure 67 mmHg. this is been following treated by pulmonary medicine. Current Visit: No (2) Hypotension Status: Acute Assessment and plan: Currently receiving IV dopamine at 15 mcg/kg/min. this is improving. Current Visit: Yes (3) [id number] kidney injury Status: Acute Assessment and plan: Creatinine is steadily rising. Current Visit: No (4) Acute cholecystitis Status: Acute Assessment and plan: Patient is now status post laparoscopic cholecystectomy. Patient does have common bile duct dilation, but cholangiogram unable to be completed due to inflammation. ERCP may be possible in the future as current acute issues improved. Current Visit: Yes (5) Status post laparoscopic cholecystectomy Status: Acute Assessment and plan: POD #1 status post laparoscopic cholecystectomy per Dr. Toussaint or acute cholecystitis. Will defer primary management of this to general surgery. Current Visit: Yes (6) Iron deficiency anemia Problem details: Started po ferrous sulfate 325mg po bid. goal FeSat >20%. Stopped vit D, binds with iron. Status: Chronic Current Visit: No (7) Chronic atrial fibrillation Status: Chronic Assessment and plan: Ventricular response well controlled at this time. She is unable to be anticoagulated due to recent previous bleeding. She does take a baby aspirin daily. Current Visit: No (8) Coronary artery disease Status: Chronic Assessment and plan: Clinically, appears to be stable at this time. No recent or current overt anginal complaint. Current Visit: No Qualifiers: Coronary Disease-Associated Artery/Lesion type: teller artery [place] vs. transplanted heart: teller heart Associated angina: without angina Qualified Code(s): I25.10 - Atherosclerotic heart disease of teller coronary artery without angina pectoris (9) Diabetes Status: Chronic Assessment and plan: Continue current plan of care. Defer primary management to attending physician. Current Visit: No Qualifiers: Diabetes mellitus type: type 2 Diabetes mellitus complication status: with kidney complications Chronic kidney disease stage: stage 2 (mild) (10) Pacemaker Status: Chronic Assessment and plan: Dual-chamber pacemaker implanted per Dr. Burgess in 2009 due to SA node dysfunction. Device appears to be functioning appropriately. Current Visit: No (11) UTI (urinary tract infection) Problem details: Cleared. Status: Resolved Current Visit: No History of Present Illness - Data of Consult Patient: known to practice within the last 3 years Consult date: 10/20/16 Requesting Physician: Luis Miguel Chaudhry Primary care physician: Luis Miguel Chaudhry - Consult Narrative Reason for consult: hypotension, pulmonary HTN History of present illness: [employer] TECH: DR. JUAN ALBERTO BURGESS PCP: DR. CHAUDHRY CARDIOLOGY CONSULT NOTE: HYPOTENSION, PULMONARY HYPERTENSION Ms. Dasilva is a 71 year old white female routinely followed by Dr. Burgess for cardiology. Risk factors include: Age, hypertension, diabetes, dyslipidemia, known history of coronary artery disease. Past medical history significant for chronic atrial fibrillation (not anticoagulated due to recent previous bleeding) , SA node dysfunction status post dual-chamber pacemaker implant, severe pulmonary hypertension, systemic lupus erythematosus, renal failure, and GERD. Patient was recently discharged from [facility] on 10/12/16 after admission and treatment for congestive hepatopathy which resulted in ascites of the abdomen and was treated with paracentesis. Patient was overall stable but did experience some mild renal and heart failure during the course of her stay. She did relatively for a few days while at home but then presented to Dr. Hancock 's office on 10/18 with complaints of nausea, vomiting, and retching with onset on 10/16. Patient had also experienced right upper quadrant pain with radiation to the back of both shoulder blades. Patient reported she had presented to [facility] on 10/16 but was never evaluated due to her leaving after "waiting for a long time". She then presented to [facility], was evaluated, and reported she was given an ASA, 2 EKGs, blood work, and was told that it was not of cardiac etiology. She was found to be severely dehydrated in the office that day, and she was directly admitted by Dr. Chaudhry to [facility] for further evaluation and care. Patient is under treatment at this time for UTI. Gallbladder ultrasound showed some moderate ascites in the right upper and lower quadrant with gallbladder wall thickening of 5 mm, and common bile duct was dilated 7-8 mm in size. Bilirubin was elevated with LFTs relatively normal. Cholangiogram was unable to be completed prior to laparoscopic cholecystectomy due to inflammation. Patient underwent laparoscopic cholecystectomy on 10/[address] Toussaint. Surgical note indicates acute cholecystitis was seen in the gallbladder and there was actually pus in the gallbladder. She underwent laparoscopic repair of serosal defect in the transverse colon. Surgical procedure was uneventful, and she was transferred to the intensive care unit for close observation overnight. Yesterday afternoon after she arriving to the ICU from the PACU, patient became hypotensive without tachycardia. Her urine output minimal to none having only put out 10 cc post operatively. She did receive 500 mL's of 25% albumin in PACU. H&H also stable without overt S/S of bleeding. Patient was initiated on IV dopamine infusion for BP support and renal perfusion. Medications for pulmonary hypertension or continued postoperatively. POD #1 status post laparoscopic cholecystectomy, and her bilirubin has increased from 2.4-3.6. Patient continues to have minimal urine output, remains hypotensive with BP as low as 60/40, and creatinine has now increased from 2.3-3.0. She also has a metabolic acidosis. During this admission, she has been evaluated and treated by gastroenterology, nephrology, and general surgery. Cardiology has been consulted to evaluate and and optimize as able for hypotension and pulmonary hypertension. Echocardiogram 10/06/16 LV ejection fraction of 60%. There was a flat OD straight septum and the SAP which was indicative of pulmonary pressure overload. Severe pulmonary hypertension noted with a PA pressure of 80 mmHg. Patient is seen and examined in the ICU this afternoon. She appears to be comfortable and in no acute distress at this time. She rouses easily, and she denies any chest pressure or pain recently or currently. Reports that she feels her breathing "has been doing fairly well" and she has not experienced any acute dyspnea. Only complaint at this time is at right lower quadrant abdominal area and surgical site. Surgical dressing at that site is dry and intact and MARISABEL drain 1 present with dark serous drainage. Urine output today has been approximately 50 mL since 7 AM. Systolic BP ranging 85-100 mmHg, and currently she is on dopamine at 15 mcg/kg/min. Potassium is 5.0 and magnesium is 2.0. Atrial fibrillation with controlled pulse rate in the 80s and 90s without overt ectopy or arrhythmia. She has been febrile with temperature up to 100.1F earlier today and currently 99.0F. Denies cough or chills. She also denies recent or current orthopnea, PND, palpitation, LE edema, syncope. Denies recent bleeding, dizziness, or confusion. Chest x-ray today with small right pleural effusion thought to be related to patient's ascites which may be secondary to right heart failure due to severe pulmonary hypertension. The patient personally interviewed and examined by me and chart fully reviewed. I reviewed this case with Christina Malagon RN. As noted above this patient has prior cardiac history coronary disease and chronic atrial fibrillation. She admitted had cholecystectomies had initially hypotensive and increasing creatinine and renal dysfunction. She has no special complaints at this time other than just tenderness related to her surgery. She has chronic pulmonary hypertension is followed by pulmonary medicine. At present she is lying progress. Her ventricular response to atrial fibrillation stable. As noted her blood pressures are improved. She has had no angina and no significant shortness of breath. CC: Luis Miguel Chaudhry MD - Home Medications and Allergies Home Medications: Home Medications Medication Instructions Recorded Confirmed Type Ascorbic Acid Tab [Vitamin C Tab] 500 mg PO DAILY 09/21/15 09/27/16 History Aspirin [Ecotrin] 81 mg PO DAILY 09/21/15 09/27/16 History Bimatoprost 0.01% Oph Soln 1 drop BOTH EYES BEDTIME 09/21/15 09/27/16 History [Lumigan] Carvedilol 25 mg PO BID 09/21/15 09/27/16 History Montelukast Tab [Singulair Tab] 10 mg PO DAILY 09/21/15 09/27/16 History Potassium Chloride 10 meq PO BID 09/21/15 09/27/16 History Simvastatin 40 mg PO BEDTIME 09/21/15 09/27/16 History Venlafaxine [Effexor] 37.5 mg PO DAILY 09/21/15 09/27/16 History Famotidine Tab [Pepcid Tab] 40 mg PO DAILY 05/03/16 09/27/16 History Magnesium Chloride [Slow Mag] 128 mg PO BID 05/03/16 09/27/16 History Colesevelam [Welchol] 1,250 mg PO TIDAC #180 tablet 10/12/16 Rx Ferrous Sulfate Tab [Feosol 325 mg PO BID #60 tablet 10/12/16 Rx Original Tab] Furosemide Tab [Lasix Tab] 40 mg PO BID DIURETIC #60 tablet 10/12/16 Rx Insulin Aspart Prot/Asp 70/30 4 unit SUBCUT AC SUPPER unit 10/12/16 Rx [NovoLOG Mix 70/30] Insulin Aspart Prot/Asp 70/30 10 unit SUBCUT AC BREAKFAST unit 10/12/16 Rx [NovoLOG Mix 70/30] Sildenafil [Revatio] 20 mg PO TID #90 tablet 10/12/16 Rx Spironolactone [Aldactone] 100 mg PO DAILY #60 tablet 10/12/16 Rx amLODIPine [Norvasc] 10 mg PO DAILY #30 tablet 10/12/16 Rx miSOPROStol [Cytotec] 100 mcg PO BID W/MEALS #60 tablet 10/12/16 Rx Allergies/Adverse Reactions: Allergies Allergy/AdvReac Type Severity Reaction Status Date / Time ofloxacin [From Floxin] Allergy Severe Swelling Verified 06/16/16 11:42 of Lip/Tongue/Throat Penicillins Allergy Severe RASH Verified 06/16/16 11:42 Sulfa (Sulfonamide Allergy Severe RASH Verified 06/16/16 11:42 Antibiotics) cephalexin [From Keflex] Allergy Intermediate RASH Verified 06/16/16 11:42 doxycycline Allergy Intermediate RASH Verified 06/16/16 11:42 levofloxacin [From Levaquin] AdvReac Severe Swelling Verified 06/16/16 11:42 of Lip/Tongue/Throat - Constitutional Constitutional: Present: as per HPI - EENT Eyes: Present: as per HPI - Cardiovascular Cardiovascular: Present: as per HPI - Respiratory Respiratory: Present: as per HPI - Gastrointestinal Gastrointestinal: Present: as per HPI - Genitourinary Genitourinary: Present: as per HPI - Musculoskeletal Musculoskeletal: Present: as per HPI - Neurological Neurological: Present: as per HPI - Psychiatric Psychiatric: Present: as per HPI - Endocrine Endocrine: Present: as per HPI - Hematologic/Lymphatic Hematologic/Lymphatic: Present: as per HPI Medical,Surgical,& Family Hx - Medical History Cardio: History of: Cardiac Dysrhythmia (Chronic atrial fibrillation), CHF, CAD (History of coronary artery stent in 2010), Hypertension, Pacemaker No history of: Valvular Heart Disease Psychological: History of: Anxiety Disorders HEENT: History of: Eye Problem (glaucoma) Endocrine: History of: Diabetes Mellitus (IDDM), Dyslipidemia No history of: Diabetes Mellitus (NIDDM) Rheumatology: History of;: Systemic Lupus Erythematosus, Rheumatological Problems (ARTHRITIS) Respiratory: History of: Bronchitis, Pulmonary Hypertension No history of: COPD Renal: History of: Renal Failure (Patient has had 2 episodes of ATN in the last 6 months) Genitourinary: History of: Recurring Urinary Tract Infections Gastrointestinal: History of: GERD, 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) Musculoskeletal: History of: Back/Neck Problems Hematology: History of: Anemia, Blood Transfusion Reaction, Bleeding Problems Other: No history of: Cancer - Surgical History Cardiac Surgeries: Sugical HX of: Cardiac Catheterization (STENTS), Cardiac Surgery (PACEMAKER) Thoracic Surgeries: Patient denies;: Organ Transplant, Lobectomy Neurologic Surgeries: Patient denies: Neurologic Surgery HEENT Surgeries: Surgical HX of: Eye Surgery (bilateral cataract) Abdominal Surgeries: Surgical HX of: Appendectomy, Colonoscopy, EGD Reproductive Surgeries: Surgical HX of;: Breast Surgery (biopsy), Hysterectomy Orthopedic Surgeries: Surgical HX of;: Orthopedic Surgery (bilateral carpal tunnel) - Family History Family History: Reports;: Family Diabetes, Family Heart Disease - Social History Smoking Status: Never smoker Type of Drug Use: None Physical Examination Vital Signs Temp Pulse Resp BP Pulse Ox 97.3 F L 70 18 118/68 93 L 10/18/16 11:48 10/18/16 11:48 10/18/16 11:48 10/18/16 11:48 10/18/16 11:48 General: Present: No Apparent Distress, Other (Normal right) HEENT: Present: PERRL, Normocephaly, Mucus Membranes Dry. Absent: Jaundice, Pallor, Oral Lesions Neck: Present: Supple Neck, Midline Trachea, No JVD/HJR, No Bruit Cardiac: Present: Irregularly Regular, No Murmur, Other (pacemaker noted in left chest.). Absent: Gallop, Tachycardia, Bradycardia Lungs: Present: Clear Ascult./Percussion (Anteriorly with good air movement), Oxygen, No Wheeze, Rales, Rhonchi Neuro: Present: Grossly Intact. Absent: Numbness, Weakness, Resting Tremor Abdomen: Present: Soft, No Masses, No Pulsations/Bruits, Tender (Right quadrant) , Other (Hypoactive bowel sounds; right abdominal quadrant with dry and intact surgical dressing with MARISABEL drain 1. Umbilical and periumbilical incisions both intact without drainage or redness.). Absent: Firm, Distended Skin: Present: Bruising (Ecchymoses bilateral upper extremities; slight bruising around umbilical area). Absent: Rash, Suspicious Lesions Musculoskeletal: Present: Decreased Range of Motion, No Fluid Collection Extremities: Present: No Clubbing, No Cyanosis, Normal Upper Extr. Pulses (2+ bilaterally), Normal Lower Extr. Pulses (2+ bilaterally), Edema (Trace edema bilateral lower extremities), Capillary Refill (Normal) Result/EKG - Labs CBC & BMP: 10/20/16 03:36 10/20/16 03:36 Lab Results: I have reviewed the past 24 hour labs Labs: Laboratory Results - last 24 hr 10/19/16 10/19/16 10/19/16 16:12 18:16 18:17 WBC 7.2 RBC 3.46 L Hgb 9.7 L Hct 29.5 L MCV 85.3 L MCH 28 MCHC 32.9 RDW 17.8 H Plt Count 111 L D MPV 10.0 Neut % (Auto) 73.1 Lymph % (Auto) 8.4 L [place] % (Auto) 17.5 H Eos % (Auto) 0.1 Baso % (Auto) 0.1 Neut # (Auto) 5.2 Lymph # (Auto) 0.6 L [place] # (Auto) 1.3 H Eos # (Auto) 0.0 Baso # (Auto) 0.0 Total Counted 100 Immature Gran % 0.8 Nucleated RBC % 0.0 Immature Gran # 0.06 Segmented Neutrophils 83 Band Neutrophils Lymphocytes 9 L Monocytes 8 Eosinophils Nucleated RBCs # 0.00 Platelet Estimate Adequate Hypochromasia Slight [place] Cells Elliptocytes Morphology Comment ABG pH ABG pCO2 ABG pO2 ABG HCO3 ABG Total CO2 ABG O2 Saturation ABG Base Excess FiO2 Sodium 142 Potassium 5.1 Chloride 110 H Carbon Dioxide 19 L Anion Gap 18.1 H BUN 30 H Creatinine 2.30 H GFR Calculation 24 BUN/Creatinine Ratio 13.00 Glucose 121 H POC Glucose 132 H Calculated Osmolality 289.1 Calcium 8.4 L Magnesium Total Bilirubin 2.40 H Direct Bilirubin Indirect Bilirubin AST 12 ALT < 9 L Alkaline Phosphatase 60 Total Protein 6.5 Albumin 3.6 Globulin 2.9 Albumin/Globulin Ratio 1.2 10/19/16 10/20/16 10/20/16 20:32 01:12 03:36 WBC 8.8 RBC 4.02 Hgb 11.0 L Hct 33.2 L MCV 82.6 L MCH 27 MCHC 33.1 RDW 17.3 Plt Count 140 D MPV 12.1 H Neut % (Auto) 78.2 H Lymph % (Auto) 4.7 L [place] % (Auto) 16.0 H Eos % (Auto) 0.3 Baso % (Auto) 0.2 Neut # (Auto) 6.9 Lymph # (Auto) 0.4 L [place] # (Auto) 1.4 H Eos # (Auto) 0.0 Baso # (Auto) 0.0 Total Counted 100 Immature Gran % 0.6 Nucleated RBC % 0.0 Immature Gran # 0.05 Segmented Neutrophils 82 Band Neutrophils 1 Lymphocytes 3 L Monocytes 12 Eosinophils 2 Nucleated RBCs # 0.00 Platelet Estimate Normal Hypochromasia 1+ [place] Cells Slight Elliptocytes Few Morphology Comment ABG pH 7.402 ABG pCO2 28.5 L ABG pO2 63.0 L ABG HCO3 19.4 L ABG Total CO2 16.1 L ABG O2 Saturation 92.7 L ABG Base Excess -6.0 L FiO2 50.00 Sodium Potassium Chloride Carbon Dioxide Anion Gap BUN Creatinine GFR Calculation BUN/Creatinine Ratio Glucose POC Glucose 107 H Calculated Osmolality Calcium Magnesium Total Bilirubin Direct Bilirubin Indirect Bilirubin AST ALT Alkaline Phosphatase Total Protein Albumin Globulin Albumin/Globulin Ratio 10/20/16 10/20/16 10/20/16 03:36 03:36 07:03 WBC RBC Hgb Hct MCV MCH MCHC RDW Plt Count MPV Neut % (Auto) Lymph % (Auto) [place] % (Auto) Eos % (Auto) Baso % (Auto) Neut # (Auto) Lymph # (Auto) [place] # (Auto) Eos # (Auto) Baso # (Auto) Total Counted Immature Gran % Nucleated RBC % Immature Gran # Segmented Neutrophils Band Neutrophils Lymphocytes Monocytes Eosinophils Nucleated RBCs # Platelet Estimate Hypochromasia [place] Cells Elliptocytes Morphology Comment ABG pH ABG pCO2 ABG pO2 ABG HCO3 ABG Total CO2 ABG O2 Saturation ABG Base Excess FiO2 Sodium 139 Potassium 5.0 Chloride 109 H Carbon Dioxide 19 L Anion Gap 16.0 H BUN 38 H Creatinine 3.00 H GFR Calculation 18 BUN/Creatinine Ratio 12.00 Glucose 127 H POC Glucose 144 H Calculated Osmolality 287.5 Calcium 8.8 Magnesium 2.0 Total Bilirubin 3.60 H Direct Bilirubin 1.00 H Indirect Bilirubin 2.6 H AST 16 ALT 11 L Alkaline Phosphatase 59 Total Protein 7.0 Albumin 3.9 Globulin Albumin/Globulin Ratio 10/20/16 10:49 WBC RBC Hgb Hct MCV MCH MCHC RDW Plt Count MPV Neut % (Auto) Lymph % (Auto) [place] % (Auto) Eos % (Auto) Baso % (Auto) Neut # (Auto) Lymph # (Auto) [place] # (Auto) Eos # (Auto) Baso # (Auto) Total Counted Immature Gran % Nucleated RBC % Immature Gran # Segmented Neutrophils Band Neutrophils Lymphocytes Monocytes Eosinophils Nucleated RBCs # Platelet Estimate Hypochromasia [place] Cells Elliptocytes Morphology Comment ABG pH ABG pCO2 ABG pO2 ABG HCO3 ABG Total CO2 ABG O2 Saturation ABG Base Excess FiO2 Sodium Potassium Chloride Carbon Dioxide Anion Gap BUN Creatinine GFR Calculation BUN/Creatinine Ratio Glucose POC Glucose 131 H Calculated Osmolality Calcium Magnesium Total Bilirubin Direct Bilirubin Indirect Bilirubin AST ALT Alkaline Phosphatase Total Protein Albumin Globulin Albumin/Globulin Ratio - Impressions Impressions: Telemetry is atrial fibrillation and adequate ventricular rate control. - Diagnostic Findings Procedure: Chest x-ray: image reviewed by me, report reviewed by me - EKG EKG results: interpreted by me, no acute changes EKG shows: atrial fibrillation Quality Measures - Stroke Symptom Onset Unknown: No I, Too Cortez MD, personally performed the services described in this documentation, ascribed by Christina Malagon RN in my presence, and it is both accurate and complete [id number] .
[2016-10-20] MEDS: SIMVASTATIN 40 MG TABLET PO SCH (20:34)
[2016-10-20] MEDS: HYDROmorphone 2 MG/1 ML VIAL IV PRN (21:33)
[2016-10-20] MEDS: ONDANSETRON 4 MG/2 ML VIAL IV PRN (21:41)
[2016-10-21] MEDS ORDERED: ALBUMIN 5% 25 GM in PREMIX 1 EACH IV ONE ×3 (00:23→17:37)
[2016-10-21] MEDS: SODIUM ACETATE 150 MEQ in DEXTROSE 5% 1,000 ML IV SCH ×2 (02:00→05:36)
[2016-10-21] MEDS: HYDROmorphone 2 MG/1 ML VIAL IV PRN ×2 (03:29→13:04)
[2016-10-21] MEDS: CLINDAMYCIN INJ 600 MG in PREMIX 1 EACH IV SCH ×3 (03:29→21:00)
[2016-10-21] MEDS: ONDANSETRON 4 MG/2 ML VIAL IV PRN ×2 (03:44→13:04)
[2016-10-21] MEDS: MEROPENEM 500 MG in SODIUM CHLORIDE 0.9% 100 ML IV SCH ×2 (04:12→15:44)
[2016-10-21 05:33] LABS: Basophils % 0.4 % (0.0-0.8); Eosinophils # 0.3 10*3/uL (0.0-0.87); Eosinophils % 2.9 % (0.00-10.9); Hematocrit 30.3 VOL% (35.7-47.0); Hemoglobin 10.1 GM/DL (12.0-16.0); Immature Granulocytes % 0.5 %; Immature Granulocytes Absolute 0.05 #; Lymphocytes # 0.8 10*3/uL (1.4-4.0); Lymphocytes % 8.2 % (21.3-54.2); Mean Corpuscular HGB Conc 33.3 GM/DL (32-36); Mean Corpuscular Hemoglobin 27 PG (27-34); Mean Corpuscular Volume 82.3 FL (87-102); Mean Platelet Volume 12.1 FL (9.6-12.0); Monocytes # 1.4 10*3/uL (0.11-0.8); Monocytes % 14.1 % (1.7-12.7); Neutrophils # 7.3 10*3/uL (1.4-7.4); Neutrophils % 73.9 % (38.7-73.9); Platelet Count 135 T/CUMM (130-400); Red Blood Count 3.68 MC/CUMM (3.8-5.5); Red Cell Distribution Width 17.2 % (9.3-17.3); White Blood Count 9.9 T/CUMM (4-12)
[2016-10-21 05:56] LABS: Hypochromasia Slight; Microcytosis 1+
[2016-10-21 05:57] LABS: Ovalocytes Slight; Platelet Estimate Adequate
[2016-10-21 06:13] LABS: Blood Urea Nitrogen 43 MG/DL (7-18); Calcium 8.7 MG/DL (8.5-10.1); Cholesterol < 50 MG/DL (50-200); Free T4 (Free Thyroxine) 1.35 NG/DL (0.76-1.46); Glucose 117 MG/DL (74-106); HDL Cholesterol 21 MG/DL (40-60); Magnesium 2.1 MG/DL (1.8-2.4); Osmolality,Calculated 281.1 MOS/KG (273-304); Potassium 4.7 MMOL/L (3.5-5.1); Risk Ratio 2.38; Sodium 135 MMOL/L (136-145); Thyroid Stimulating Hormone 0.661 uIU/ml (0.358-3.74); Triglycerides 50 MG/DL (2-150)
[2016-10-21 06:14] LABS: Bilirubin,Direct 1.1 MG/DL (0.0-0.20); Bilirubin,Indirect 2.1 MG/DL (0.0-1.0); Bilirubin,Total 3.2 MG/DL (0.2-1.0); Total Protein 6.7 G/DL (6.4-8.3)
--- NOTE | 2016-10-21 07:10 | Event Note ---
General Surgery Progress Note Chief complaint This patient is a 71-year-old woman with pulmonary hypertension who was admitted to the hospital with acute cholecystitis and underwent laparoscopic cholecystectomy on 10/19/2016 Interval history The patient had a fairly good night last night. Her urine output is responding to intermittent albumin boluses but drops back off afterwards. Her weight is not up significantly. She does not have any problems breathing. She tolerated some liquids yesterday but she is still on some dopamine. It is weaning off slowly. Her creatinine went up to 3.2. Overall her kidney function appears to be improving as far as her output by the hour and it does respond albumin as mentioned earlier. Her bilirubin is down little bit. Direct bilirubin went up just a little. Alkaline phosphatase is normal. Physical exam The patient is afebrile and she is not tachycardic but she does have a low blood pressure. She is awake and alert. Abdominal exam is benign with expected postoperative tenderness and serous fluid in the MARISABEL drain Labs Hemoglobin is stable LFTs as above Imaging chest xray reviewed Assessment and plan The patient appears to be slowly improving. I will give her 1 more dose of albumin this morning. We will repeat her LFTs tomorrow. She can eat diet as tolerated. Continue to wean dopamine. Continue antibiotics until off pressors for at least 24 hours.
[2016-10-21] MEDS: INSULIN ASPART PROTAMINE/ASPART 70/30 100 UNIT/ML SUBCUT SCH ×2 (08:08→15:50)
[2016-10-21] MEDS: miSOPROStol 100 MCG TABLET PO SCH (08:09)
[2016-10-21] MEDS: MAGNESIUM CHLORIDE 64 MG TABLET PO SCH ×2 (08:09→21:00)
[2016-10-21] MEDS: ASCORBIC ACID 500 MG TABLET PO SCH (08:10)
[2016-10-21] MEDS: COLESEVELAM 625 MG TABLET PO SCH ×3 (08:10→15:50)
[2016-10-21] MEDS: FAMOTIDINE 20 MG TABLET PO SCH (08:11)
[2016-10-21] MEDS: MONTELUKAST 10 MG TABLET PO SCH (08:11)
[2016-10-21] MEDS: ASPIRIN EC 81 MG TABLET PO SCH (08:11)
[2016-10-21] MEDS: FUROSEMIDE 40 MG/4 ML VIAL IV SCH ×2 (08:11→15:44)
[2016-10-21] MEDS: DOPamine 800 MG/250 ML PREMIX IV SCH ×2 (08:12→19:05)
[2016-10-21] MEDS: INSULIN REGULAR 100 UNIT/ML SUBCUT SCH ×4 (08:14→20:32)
--- NOTE | 2016-10-21 08:33 | Nephrology Progress Note ---
Nephrology - PN: Subj Interval history: Patient denies shortness of breath. Review of systems GI she has some mild to moderate abdominal pain but is improved overall. Physical exam general the patient in no acute distress, her lungs are clear to auscultation anteriorly, extremities reveal no pitting edema, the patient's weight is up a couple of KGs over the past 4 days or so Assessment/plan 1. Acute renal failure-patient's creatinine is increased to 3.3 mg/dL 3 mg/dL yesterday, her urine output remains low, I think were dealing with an ATN injury related to hypoperfusion the main thing to do at this point is keep the patient in a euvolemic state and continue support, I would expect her kidneys to recover if she has no further bumps in the road. 2. Hypotension-patient's systolic blood pressure around 108 she remains on dopamine, I am going to ask the nurses to wean her off the dopamine as allowed by a systolic blood pressure of greater than 90 3. Pulmonary hypertension 4. Diabetes mellitus 5. Cholecystitis patient status post cholecystectomy 6. Metabolic acidosis-patient's bicarbonate level is improved, I am going to stop her IV fluids and put her on some p.o. bicarbonate replacement to decrease her fluid administration Exam (PN)-Nephrology - Vital Signs Vital signs: Period Temp Pulse Resp BP Sys/Marcum Pulse Ox Last 24 Hr 98.1 F-99 F 66-97 16-33 84-123/43-68 91-99 - Lab 10/21/16 04:40 10/21/16 04:41 Most recent lab results ABG pH 7.402 (7.35-7.45) 10/20/16 01:12 ABG pCO2 28.5 MM HG (35-48) L 10/20/16 01:12 ABG pO2 63.0 MM HG (80-95) L 10/20/16 01:12 ABG HCO3 19.4 MMOL/L (20-26) L 10/20/16 01:12 ABG O2 Saturation 92.7 % (95-100) L 10/20/16 01:12 Calcium 8.7 MG/DL (8.5-10.1) 10/21/16 04:41 Magnesium 2.1 MG/DL (1.8-2.4) 10/21/16 04:41 Assessment and Plan (1) [id number] kidney injury Status: Acute Assessment and plan: This patient's creatinine was recently around 2 mg/dL the past month it is very quite wildly between 1.3-2.3 mg/dL, I suspect she has some acute on chronic injury related to volume depletion and her decreased p.o. intake. I agree with the gentle IV fluid hydration of 75 cc an hour Current Visit: No (2) Tricuspid regurgitation Status: Acute Current Visit: Yes (3) Ascites Problem details: Agree with treatment of pHTN with revatio. Continue aldactone/ lasix at ratio of 100 aldactone 40 lasix. Status: Acute Current Visit: No (4) Debility Status: Acute Current Visit: No (5) Pulmonary hypertension Status: Acute Current Visit: No (6) Atrial fibrillation Status: Chronic Current Visit: No Qualifiers: Atrial fibrillation type: chronic Qualified Code(s): I48.2 - Chronic atrial fibrillation (7) Diabetes Status: Chronic Current Visit: No Qualifiers: Diabetes mellitus type: type 2 Diabetes mellitus complication status: with kidney complications Chronic kidney disease stage: stage 2 (mild) (8) Hypertension Problem details: controlled Status: Chronic Current Visit: No Qualifiers: Hypertension type: essential hypertension
--- NOTE | 2016-10-21 09:08 | XRay Report ---
XR chest 1V portable Indication: Pleural effusion Comparison: Chest x-ray dated October 20, 2016 Technique: Single frontal view of the chest Findings: Continued cardiac megaly. Cardiac pacemaker apparatus again noted. No significant change in diffuse hazy opacification throughout the right lung. Osseous and surrounding soft tissue structures appear grossly unchanged. IMPRESSION: No significant interval change. PROCEDURE INTERPRETED AT [facility] DEPARTMENT OF RADIOLOGY Final Report Signed by: Dr Jame Lomax
--- NOTE | 2016-10-21 09:12 | XRay Report ---
XR KUB Indication: Postop laparoscopic cholecystectomy. Ascites. Abdomen one view: MARISABEL drain and surgical clips in the right upper quadrant noted. There is some embolization coils in left midabdomen. No small bowel dilatation is shown. Normal amount of stool and gas is seen in the colon. Stomach appears modestly distended with gas. No convincing evidence of ascites on plain film. Impression: Postoperative changes as described. Unremarkable bowel gas pattern. PROCEDURE INTERPRETED AT [facility] DEPARTMENT OF RADIOLOGY Final Report Signed by: Too Amin M.D.
--- NOTE | 2016-10-21 09:21 | Cardiology Progress Note ---
Assessment and Plan (1) Chronic atrial fibrillation Status: Chronic Assessment and plan: Ventricular response well controlled at this time. She is unable to be anticoagulated due to recent previous bleeding. She does take a baby aspirin daily. This continues to be stable. Current Visit: No (2) Pacemaker Status: Chronic Assessment and plan: This is functioning appropriately. Current Visit: No (3) Pulmonary hypertension Status: Acute Assessment and plan: This is a chronic issue has been treated by pulmonary medicine Current Visit: No (4) Hypotension Status: Acute Assessment and plan: Currently receiving IV dopamine with plans to try to wean this down or off. She is really stable at this time. Current Visit: Yes (5) [id number] kidney injury Status: Acute Assessment and plan: Creatinine is steadily rising. This is being followed by nephrology. Current Visit: No (6) Acute cholecystitis Status: Acute Assessment and plan: She is post op. This is improving. Current Visit: Yes (7) Status post laparoscopic cholecystectomy Status: Acute Assessment and plan: This is for acute cholecystitis and is postop day 2. Current Visit: Yes (8) Iron deficiency anemia Problem details: Started po ferrous sulfate 325mg po bid. goal FeSat >20%. Stopped vit D, binds with iron. Status: Chronic Current Visit: No (9) Coronary artery disease Status: Chronic Assessment and plan: Clinically, appears to be stable at this time. No recent or current overt anginal complaint. Current Visit: No Qualifiers: Coronary Disease-Associated Artery/Lesion type: [place] artery [place] vs. transplanted heart: [place] heart Associated angina: without angina Qualified Code(s): I25.10 - Atherosclerotic heart disease of [place] coronary artery without angina pectoris (10) Diabetes Status: Chronic Assessment and plan: Followed by the primary service. Current Visit: No Qualifiers: Diabetes mellitus type: type 2 Diabetes mellitus complication status: with kidney complications Chronic kidney disease stage: stage 2 (mild) Cardiology - PN: Subj Interval history: Patient this morning denies any chest pain or shortness of breath. She has minimal postoperative abdominal pain. Her blood pressures are stable but she remains on dopamine. It is noted that Dr. Mansfield plans on trying to wean her off of this in keeping systolic pressures 90+. Her rhythm remains atrial fibrillation which is chronic and her ventricular response is well controlled and managed. She is not on anticoagulants for stroke prevention secondary to bleeding issues with prior attempts at anticoagulation. Her echocardiogram previously revealing ejection fraction 60% . She is receiving albumin. Her lab work is fairly unremarkable but her creatinine continues to rise. In general her cardiac status remained stable. I do not that she has cardiac issues causing her hypotension. Exam (Progress Note) - Constitutional Vitals: Period Temp Pulse Resp BP Sys/Marcum Pulse Ox Last 24 Hr 97.3 F-99 F 66-97 16-33 84-123/43-82 85-100 Exam: General appearance: normal weight, no acute distress HEENT exam: normal inspection, atraumatic Neck exam: normal inspection no JVD. No carotid bruit. Trachea is in midline Respiratory/lungs exam: clear to auscultation anteriorly bilaterally good air movement. Cardiovascular exam: Irregular rate and rhythm, no murmur or gallop or rub. No precordial lift. Chest wall exam: nontender GI/Abdominal exam: Postop bowel sounds present, soft, minimally tender. Extremeties/musculoskeletal: normal inspection without edema or cyanosis. Neurological exam: alert, oriented X3, no focal deficits Psychiatric exam: normal affect, normal mood. Cognitive function is grossly normal. Skin exam: normal color, warm Result/EKG - Labs CBC & BMP: 10/21/16 04:40 10/21/16 04:41 Lab Results: I have reviewed the past 24 hour labs Labs: Laboratory Results - last 24 hr 10/20/16 10/20/16 10/20/16 10:49 16:06 20:14 WBC RBC Hgb Hct MCV MCH MCHC RDW Plt Count MPV Neut % (Auto) Lymph % (Auto) [place] % (Auto) Eos % (Auto) Baso % (Auto) Neut # (Auto) Lymph # (Auto) [place] # (Auto) Eos # (Auto) Baso # (Auto) Immature Gran % Nucleated RBC % Immature Gran # Nucleated RBCs # Platelet Estimate Hypochromasia Microcytosis Ovalocytes Sodium Potassium Chloride Carbon Dioxide Anion Gap BUN Creatinine GFR Calculation BUN/Creatinine Ratio Glucose POC Glucose 131 H 171 H 122 H Calculated Osmolality Calcium Magnesium Total Bilirubin Direct Bilirubin Indirect Bilirubin AST ALT Alkaline Phosphatase Total Protein Albumin Triglycerides Cholesterol LDL Cholesterol VLDL Cholesterol HDL Cholesterol Heart Disease Risk Ratio Free T4 TSH 3rd Generation 10/21/16 10/21/16 10/21/16 04:40 04:41 04:41 WBC 9.9 RBC 3.68 L Hgb 10.1 L Hct 30.3 L MCV 82.3 L MCH 27 MCHC 33.3 RDW 17.2 Plt Count 135 MPV 12.1 H Neut % (Auto) 73.9 Lymph % (Auto) 8.2 L [place] % (Auto) 14.1 H Eos % (Auto) 2.9 Baso % (Auto) 0.4 Neut # (Auto) 7.3 Lymph # (Auto) 0.8 L [place] # (Auto) 1.4 H Eos # (Auto) 0.3 Baso # (Auto) 0.0 Immature Gran % 0.5 Nucleated RBC % 0.0 Immature Gran # 0.05 Nucleated RBCs # 0.00 Platelet Estimate Adequate Hypochromasia Slight Microcytosis 1+ Ovalocytes Slight Sodium 135 L Potassium 4.7 Chloride 103 Carbon Dioxide 21 Anion Gap 15.7 H BUN 43 H Creatinine 3.20 H GFR Calculation 16 BUN/Creatinine Ratio 13.00 Glucose 117 H POC Glucose Calculated Osmolality 281.1 Calcium 8.7 Magnesium 2.1 Total Bilirubin 3.20 H Direct Bilirubin 1.10 H Indirect Bilirubin 2.1 H AST 11 ALT 9 L Alkaline Phosphatase 49 Total Protein 6.7 Albumin 4.0 Triglycerides 50 Cholesterol < 50 L LDL Cholesterol 27.0 VLDL Cholesterol 10.0 HDL Cholesterol 21 L Heart Disease Risk Ratio 2.38 Free T4 1.35 TSH 3rd Generation 0.661 10/21/16 07:32 WBC RBC Hgb Hct MCV MCH MCHC RDW Plt Count MPV Neut % (Auto) Lymph % (Auto) [place] % (Auto) Eos % (Auto) Baso % (Auto) Neut # (Auto) Lymph # (Auto) [place] # (Auto) Eos # (Auto) Baso # (Auto) Immature Gran % Nucleated RBC % Immature Gran # Nucleated RBCs # Platelet Estimate Hypochromasia Microcytosis Ovalocytes Sodium Potassium Chloride Carbon Dioxide Anion Gap BUN Creatinine GFR Calculation BUN/Creatinine Ratio Glucose POC Glucose 143 H Calculated Osmolality Calcium Magnesium Total Bilirubin Direct Bilirubin Indirect Bilirubin AST ALT Alkaline Phosphatase Total Protein Albumin Triglycerides Cholesterol LDL Cholesterol VLDL Cholesterol HDL Cholesterol Heart Disease Risk Ratio Free T4 TSH 3rd Generation - Impressions Impressions: Telemetry with atrial fibrillation and controlled ventricular response. Quality Measures - Stroke Symptom Onset Unknown: No
[2016-10-21] MEDS ORDERED: ALBUTEROL/IPRATROPIUM 3 ML NEB RESP TX PRN (09:44)
--- NOTE | 2016-10-21 09:46 | Pulmonology Progress Note ---
Pulmonary - PN: Subj Interval history: This is a 71-year-old white female whom I admitted from my office on 10/18/2016. She had had a recent hospitalization and had been sent home in good condition. At that time she had presented with anasarca secondary to pulmonary hypertension and right heart failure. She is followed from a renal standpoint by Dr. Efren Navarro, cardiology standpoint by Dr. Renato Burgess and from a GI standpoint by Dr. Mateo Wing. My impressions were. 1. Acute nausea, vomiting, and dehydration refractory top OP treatment. Viral vs. bacterial vs. medication side effect. 2. Recent hospitalization secondary to ascites/anasarca felt secondary to severe pulmonary hypertension. Requiring to paracenteses that admission. 2. Cholelithiasis per ultrasound with no evidence of cholecystitis. 3. Severe pulmonary hypertension as evidenced by estimated pulmonary artery pressure of 80 mmHg seen on echocardiogram. 4. Chronic atrial fib. Note, the patient is not on anticoagulation secondary to history of GI bleed and anemia. This is followed by Dr. Renato Burgess. 5. History of acute renal failure with medications and contrast. This is followed by Dr. Efren Navarro. 6. Systemic lupus erythematosus followed by Dr. Sunny Nguyen by report. 7. Diabetes mellitus. 8. See past medical history 10/19/2016. This patient has had acute cholecystitis and she is for surgery little later on this morning. Ultrasound of the abdomen shows she still has ascites. Her renal status is stable with a creatinine of 2.1 and a BUN of 31. Electrolytes are normal. Admit white count was 8200 with 78 segs 7 lymphs and 13 monos. 10/20/2016. On 10/19/2016 this patient had a laparoscopic cholecystectomy. Her gallbladder was infected. See Dr. Preston to lupus surgical note. Patient had hypotensive tension and I kept her in the unit overnight. She has low urine output and I put her on on dopamine open to increase her renal function. She is tolerated this well but her systolic blood pressures are mainly around 90. Creatinine is increased from 2.3-3.0 with a BUN of 38. and he is seeing her in renal consultation. Electrolytes are normal. Today's chest x-ray shows a small right pleural effusion and I assume that this is related to the patient' s ascites which Dr. Toussaint noted during surgery. Her ascites is thought to be secondary to right heart failure based on pulmonary hypertension. I am restarting her Norvasc to 5 mg daily which is one half the previous dose and I am going to restart Revatio 20 mg p.o. every 8 hours. Will have to watch her blood pressure closely while she is on this but if it works like it is supposed to it should actually help the blood pressure improved. I am giving the patient fluids for the present time and her diuretics are being held. She is previously been on Lasix and Aldactone. White count is 8800 with 78 segs per ABGs on FiO2 of 50% show a pH 7.40, PCO2 28.5, PO2 of 63 and a bicarb at 19.4. When the patient takes several deep breaths this improved significantly. There are no positive cultures. Patient's had a temp up to 100.1. She is on Cleocin and meropenem and we have given her test doses for allergies since she has multiple allergies by history. She remains in atrial fib. She cannot be anticoagulated because of previous bleeding problems. Dr. Renato Burgess is her cargo service agent and I have consulted him. She has been followed by Dr. Efren Navarro from a renal standpoint for chronic renal failure. For the present time I will follow serial lab chest x-rays. 10/21/2016. Patient has a stable night. Her blood pressures much better. I am going to continue her dopamine drip. Chest x-ray shows a small right pleural effusion I think this is related to ascites. I see nothing to suggest congestive heart failure. Urine output has been less than optimal. Dr. Shahid Mansfield and I have discussed the case and coordinated care including Lasix 40 IV push every 12 hours and IV fluids. Creatinine has increased to 3.20 with a BUN of 43 electrolytes are normal. White count is 9900 with 74 segs 8 lymphs and 14 monocytes. H&H is 10.1/30.3 and platelets are 135,000. Repeat TSH and free T4 are normal. Today we are going to try to get the patient out of bed and hopefully she will be ready for transfer to the floor and another day. Her daughter was present and I reviewed the case with her and she promised to inform all other family members of what I said. Raúl Medrano nurse practitioner was present and her nurses Sandra and Luis were present. Patient is eating without any problems. She has had no bowel movements. KUB shows only a small amount of air in the colon. No ileus was seen. Physical exam. Vital signs see below Psychiatric. Alert oriented 3. Neurological. Cranial nerves are intact long track motor functions intact Face. Symmetrical. Lips and tongue are normal. Neck. Symmetrical. No meningismus. Lymphatics. No submandibular cervical supraclavicular or epitrochlear adenopathy. Chest. Wheeze free Heart. Regular no gallop. Abdomen. Right upper quadrant tenderness. Lower extremities. Small amount of pedal and pretibial edema under much better control than usual. The remainder the physical exam is noncontributory. Plan: 10/18/2016 1. Admit to inpatient 2. Consult Dr. Navarro 3. Hold medications which could cause nausea 3. Daily labs 5. Gentle rehydration 6. See orders. GI consult. Surgery consult. #7. 10/19/2016. For cholecystectomy today. We will have to monitor her fluid status and renal status etc. very carefully. 8. 10/21/2016. See today's note above. Increase Cytotec to 200 g twice a day. Doppler venograms of the lower extremities. Inhalation therapy twice a day and as needed. Continue dopamine Exam (Progress Note) - Constitutional Vitals: Period Temp Pulse Resp BP Sys/Marcum Pulse Ox Last 24 Hr 97.3 F-99 F 66-97 16-33 84-123/45-82 85-100 Results - Labs CBC & BMP: 10/21/16 04:40 10/21/16 04:41
--- NOTE | 2016-10-21 10:13 | Gastrointestinal Progress Note ---
<Hawa Dominguezher Shelton - Last Filed: 10/21/16 10:11> Assessment and Plan (1) Abdominal pain Status: Acute Assessment and plan: 10/21-Continued dopamine, currently weaning down. Increased UOP. Bilirubin down slightly at 3.2. Plan and addendum to follow by Dr Wing. 10/20-Post op tenderness but controlled. Hypotension with Dopamine infusion, decreased UOP. Elevated bilirubin today at 3.6. Plan and addendum to follow by Dr Wing. 10/19-Pain better controlled today. US findings noted. For lap lucila today with Dr Toussaint. Plan and addendum to follow by Dr Wing. 10/18-2 day history of severe right upper quadrant abdominal pain radiating to back and shoulder shoulders with associated nausea and intractable vomiting. Recent hospitalization with findings on ultrasound of cholelithiasis without acute cholecystitis. No change in LFTs at present time. Repeat ultrasound in consult surgery at this time. Plan an addendum to follow by Dr. Wing. Current Visit: Yes Gastroenterology - PN: Subj Interval history: CC: Abd pain Pt is seen awake and alert sitting up in bed. States she is feeling a little better today. She denies any nausea or vomiting. She is having some mild abdominal pain post operatively. Her bilirubin is down slightly at 3.2. She is afebrile. She remains on Dopamine but is having increased UOP at present time. Abdomen is soft, nontender. Tolerating small amounts of her diet. ROS: Denies SOB or chest pain Exam (Progress Note) - Constitutional Vitals: Period Temp Pulse Resp BP Sys/Marcum Pulse Ox Last 24 Hr 97.3 F-99 F 66-97 16-33 84-123/45-82 85-100 General appearance: normal weight, no acute distress - Head Head exam: Present: normal inspection, normocephalic - Eye Eye exam: Present: other (lids and conjunctiva unremarkable). Absent: scleral icterus - ENT ENT exam: Present: normal exam, normal oropharynx - Neck Neck exam: Present: normal inspection - Respiratory Respiratory exam: Present: clear to auscultation bilaterally. Absent: rales, rhonchi, wheezes - Cardiovascular Cardiovascular exam: Present: regular rate and rhythm. Absent: diastolic murmur , JVD, systolic murmur - GI/Abdominal GI/Abdominal exam: Present: normal bowel sounds, soft. Absent: ascites, distended, mass, organomegaly, tenderness - Extremities Exam Extremities exam: Present: normal inspection, full ROM - Back Exam Back exam: Present: normal inspection - Neurological Exam Neurological exam: Present: alert, oriented X3 - Psychiatric Psychiatric exam: Present: normal affect, normal mood - Skin Skin exam: Present: normal color, warm, dry Results - Labs CBC & BMP: 10/21/16 04:40 10/21/16 04:41 Lab Results: I have reviewed the past 24 hour labs <Martin Wing - Last Filed: 10/21/16 10:23> Exam (Progress Note) - Constitutional Vitals: Period Temp Pulse Resp BP Sys/Marcum Pulse Ox Last 24 Hr 97.3 F-99 F 66-97 16-33 84-123/45-82 85-100 Results - Labs CBC & BMP: 10/21/16 04:40 10/21/16 04:41
--- NOTE | 2016-10-21 11:18 | Ultrasound Report ---
Exam: US venous doppler LE BI Indication: Bilateral activity edema Comparison 09/27/2016. Date: 10/21/2016 9:44 AM Findings: Grayscale color flow duplex/Doppler imaging and spectral analysis waveform imaging was performed with real-time ultrasound with image stored and captured. The right common femoral, superficial femoral, popliteal saphenous veins are patent with normal augmentation and compression. There is no evidence of popliteal or Benitez's cyst. Normal wave form analysis present. Normal color flow. Subcutaneous edema in the right leg noted. The left common femoral, superficial femoral, popliteal saphenous veins are patent with normal augmentation and compression. There is no evidence of popliteal or Benitez's cyst. Normal wave form analysis present. Normal color flow Impression: 1. No DVT 2. Subcutaneous edema right leg. PROCEDURE INTERPRETED AT [facility] DEPARTMENT OF RADIOLOGY Final Report Signed by: Dr. Luis Miguel Valdez
[2016-10-21] MEDS: miSOPROStol 200 MCG TABLET PO SCH ×2 (11:28→16:00)
[2016-10-21] MEDS: SODIUM BICARBONATE 650 MG TABLET PO SCH ×2 (11:28→21:00)
[2016-10-21] MEDS: ALBUTEROL/IPRATROPIUM 3 ML NEB RESP TX SCH ×2 (11:38→20:15)
[2016-10-21] MEDS: VENLAFAXINE 75 MG TABLET PO SCH (12:13)
[2016-10-21] MEDS: SILDENAFIL 20 MG TABLET PO SCH ×2 (15:44→21:00)
[2016-10-21] MEDS: BIMATOPROST 0.01% OPH SOLN 2.5 ML BOTTLE BOTH EYES SCH (21:00)
[2016-10-21] MEDS: SIMVASTATIN 40 MG TABLET PO SCH (21:00)
[2016-10-21] MEDS ORDERED: SODIUM CHLORIDE 0.9% 1,000 ML IV ONE (21:01)
[2016-10-22] MEDS: CLINDAMYCIN INJ 600 MG in PREMIX 1 EACH IV SCH ×3 (03:28→20:20)
[2016-10-22] MEDS: MEROPENEM 500 MG in SODIUM CHLORIDE 0.9% 100 ML IV SCH ×2 (04:10→15:57)
[2016-10-22 04:57] LABS: Basophils % 0.3 % (0.0-0.8); Eosinophils # 0.3 10*3/uL (0.0-0.87); Eosinophils % 4.8 % (0.00-10.9); Hematocrit 27.7 VOL% (35.7-47.0); Hemoglobin 9.2 GM/DL (12.0-16.0); Immature Granulocytes % 0.4 %; Immature Granulocytes Absolute 0.03 #; Lymphocytes # 0.5 10*3/uL (1.4-4.0); Lymphocytes % 7.4 % (21.3-54.2); Mean Corpuscular HGB Conc 33.2 GM/DL (32-36); Mean Corpuscular Hemoglobin 28 PG (27-34); Mean Corpuscular Volume 82.7 FL (87-102); Mean Platelet Volume 11.4 FL (9.6-12.0); Neutrophils # 5.2 10*3/uL (1.4-7.4); Neutrophils % 73.1 % (38.7-73.9); Platelet Count 142 T/CUMM (130-400); Red Blood Count 3.35 MC/CUMM (3.8-5.5); Red Cell Distribution Width 16.9 % (9.3-17.3); White Blood Count 7.1 T/CUMM (4-12)
[2016-10-22 05:29] LABS: Calcium 8.2 MG/DL (8.5-10.1); Magnesium 2.3 MG/DL (1.8-2.4); Osmolality,Calculated 276.4 MOS/KG (273-304); Potassium 4.7 MMOL/L (3.5-5.1)
[2016-10-22 05:46] LABS: Albumin 3.8 G/DL (3.4-5.0); Bilirubin,Direct 1.3 MG/DL (0.0-0.20); Bilirubin,Indirect 1.7 MG/DL (0.0-1.0); Total Protein 6.2 G/DL (6.4-8.3)
--- NOTE | 2016-10-22 06:35 | Event Note ---
General Surgery Progress Note Chief complaint This patient is a 71-year-old woman with pulmonary hypertension who was admitted to the hospital with acute cholecystitis and underwent laparoscopic cholecystectomy on 10/19/2016 Interval history The patient continues to have low urine output and require a low-dose of dopamine. She is not responding to IV fluids as far as her urine output. Her creatinine is up to 3.6. Her total bilirubin is down to 3 but her direct bilirubin is up to 1.3 from 1.1 yesterday. Her alkaline phosphatase remains normal. Her MARISABEL drain remained serous and there is no bile leaking to the drain. Physical exam The patient is afebrile and she is not tachycardic but she does have a low blood pressure. She is awake and alert. Abdominal exam is benign with expected postoperative tenderness and serous fluid in the MARISABEL drain Labs Hemoglobin is stable LFTs as above Imaging chest xray and abdominal x-ray reviewed Assessment and plan The patient continues to require a low dose of dopamine. Her renal function continues to worsen but she is still making a small amount of urine. She appears euvolemic on exam. We will continue to monitor this but it does not appear that there is any acute indications for dialysis today Continue to monitor LFTs. Repeat LFTs on Tuesday. Continue antibiotics and MARISABEL drain over the weekend
--- NOTE | 2016-10-22 07:20 | XRay Report ---
XR KUB Indication: Ascites, postop lap cholecystectomy Comparison: Abdominal x-ray dated October 21, 2016 Technique: Single frontal view the abdomen Findings: Please note that the study does not include much of the left lateral and upper abdomen. Surgical drain and clips project over the right upper quadrant. Bowel gas pattern is nonspecific. Diffuse osteopenia. IMPRESSION: No adverse interval change. PROCEDURE INTERPRETED AT [facility] DEPARTMENT OF RADIOLOGY Final Report Signed by: Dr Jame Lomax
--- NOTE | 2016-10-22 07:30 | XRay Report ---
XR chest 1V portable Indication: Pleural effusion Comparison: Chest x-ray dated October 21, 2016 3:05 AM Technique: Single frontal view of the chest Findings: Continued cardiomegaly. Cardiac pacemaker apparatus again noted. Diffuse right pulmonary opacification and probable right pleural fluid appear grossly unchanged from prior examination. Osseous and surrounding soft tissue structures appear grossly unchanged. IMPRESSION: No significant interval change. PROCEDURE INTERPRETED AT [facility] DEPARTMENT OF RADIOLOGY Final Report Signed by: Dr Jame Lomax
[2016-10-22] MEDS: ALBUTEROL/IPRATROPIUM 3 ML NEB RESP TX SCH ×2 (07:42→20:41)
[2016-10-22] MEDS: INSULIN REGULAR 100 UNIT/ML SUBCUT SCH ×4 (07:45→21:32)
[2016-10-22] MEDS: INSULIN ASPART PROTAMINE/ASPART 70/30 100 UNIT/ML SUBCUT SCH ×2 (08:32→17:22)
[2016-10-22] MEDS: COLESEVELAM 625 MG TABLET PO SCH ×3 (08:33→18:18)
[2016-10-22] MEDS: MAGNESIUM CHLORIDE 64 MG TABLET PO SCH ×2 (08:33→21:33)
[2016-10-22] MEDS: FUROSEMIDE 40 MG/4 ML VIAL IV SCH ×2 (08:33→15:57)
[2016-10-22] MEDS: ASCORBIC ACID 500 MG TABLET PO SCH (08:34)
[2016-10-22] MEDS: ASPIRIN EC 81 MG TABLET PO SCH (08:34)
[2016-10-22] MEDS: VENLAFAXINE 75 MG TABLET PO SCH (08:34)
[2016-10-22] MEDS: SODIUM BICARBONATE 650 MG TABLET PO SCH ×2 (08:34→21:33)
[2016-10-22] MEDS: SILDENAFIL 20 MG TABLET PO SCH ×4 (08:34→21:51)
[2016-10-22] MEDS: MONTELUKAST 10 MG TABLET PO SCH (08:34)
[2016-10-22] MEDS: FAMOTIDINE 20 MG TABLET PO SCH (08:34)
[2016-10-22] MEDS: amLODIPine 5 MG TABLET PO SCH (08:35)
[2016-10-22] MEDS: miSOPROStol 200 MCG TABLET PO SCH ×2 (08:35→17:22)
--- NOTE | 2016-10-22 09:57 | Cardiology Progress Note ---
Assessment and Plan (1) Chronic atrial fibrillation Status: Chronic Assessment and plan: Ventricular response remains managed. I will continue her present medications. Current Visit: No (2) Pacemaker Status: Chronic Assessment and plan: This is functioning appropriately. It is set at VVI Current Visit: No (3) Pulmonary hypertension Status: Acute Assessment and plan: This is a chronic issue has been treated by pulmonary medicine Current Visit: No (4) Hypotension Status: Resolved Assessment and plan: Currently this appears to resolved and she is off her dopamine. Current Visit: Yes (5) Mbvlt-jk-lmviyol kidney injury Status: Acute Assessment and plan: Creatinine is steadily rising. This is being followed by nephrology. Current Visit: No (6) Acute cholecystitis Status: Acute Assessment and plan: She is post op. This appears clinically to be improving postoperatively. Current Visit: Yes (7) Status post laparoscopic cholecystectomy Status: Acute Assessment and plan: This is for acute cholecystitis and is now progressing postoperatively. Current Visit: Yes (8) Iron deficiency anemia Problem details: Started po ferrous sulfate 325mg po bid. goal FeSat >20%. Stopped vit D, binds with iron. Status: Chronic Current Visit: No (9) Coronary artery disease Status: Chronic Assessment and plan: Clinically, appears to be stable at this time she has had no symptomatology. Current Visit: No Qualifiers: Coronary Disease-Associated Artery/Lesion type: [place] artery [place] vs. transplanted heart: [place] heart Associated angina: without angina Qualified Code(s): I25.10 - Atherosclerotic heart disease of [place] coronary artery without angina pectoris (10) Diabetes Status: Chronic Assessment and plan: Followed by the primary service. Current Visit: No Qualifiers: Diabetes mellitus type: type 2 Diabetes mellitus complication status: with kidney complications Chronic kidney disease stage: stage 2 (mild) Cardiology - PN: Subj Interval history: Patient is doing well. She is progressed to the point she is no longer on her dopamine. She has been off this now 5 hours her blood pressure stays stable. She of course has her atrial fibrillation with controlled ventricular response with occasional ventricular pacemaker spike and impulse. The pacemaker is functioning appropriately. She has had no cardiac rhythm issues her blood pressures as noted are stable. She has no cardiac symptomatology or complaints. Her lab was noted. Creatinine continues to rise and nephrology is following this. Exam (Progress Note) - Constitutional Vitals: Period Temp Pulse Resp BP Sys/Marcum Pulse Ox Last 24 Hr 98.8 F-99.3 F 60-75 13-26 84-111/38-68 88-98 Exam: General appearance: normal weight, no acute distress HEENT exam: normal inspection, atraumatic Neck exam: normal inspection no JVD. No carotid bruit. Trachea is in midline Respiratory/lungs exam: clear to auscultation anteriorly bilaterally good air movement. Cardiovascular exam: Irregular rate and rhythm, no murmur or gallop or rub. No precordial lift. Chest wall exam: nontender GI/Abdominal exam: Postop recently with bowel sounds present, soft, minimally tender. Extremeties/musculoskeletal: normal inspection without edema or cyanosis. Neurological exam: alert, oriented X3, no focal deficits Psychiatric exam: normal affect, normal mood. Cognitive function is grossly normal. Skin exam: normal color, warm Result/EKG - Labs CBC & BMP: 10/22/16 03:37 10/22/16 03:37 Lab Results: I have reviewed the past 24 hour labs Labs: Laboratory Results - last 24 hr 10/21/16 10/21/16 10/21/16 11:28 15:48 20:28 WBC RBC Hgb Hct MCV MCH MCHC RDW Plt Count MPV Neut % (Auto) Lymph % (Auto) [place] % (Auto) Eos % (Auto) Baso % (Auto) Neut # (Auto) Lymph # (Auto) [place] # (Auto) Eos # (Auto) Baso # (Auto) Immature Gran % Nucleated RBC % Immature Gran # Nucleated RBCs # Sodium Potassium Chloride Carbon Dioxide Anion Gap BUN Creatinine GFR Calculation BUN/Creatinine Ratio Glucose POC Glucose 113 H 92 115 H Calculated Osmolality Calcium Magnesium Total Bilirubin Direct Bilirubin Indirect Bilirubin AST ALT Alkaline Phosphatase Total Protein Albumin 10/22/16 10/22/16 10/22/16 03:37 03:37 03:37 WBC 7.1 RBC 3.35 L Hgb 9.2 L Hct 27.7 L MCV 82.7 L MCH 28 MCHC 33.2 RDW 16.9 Plt Count 142 MPV 11.4 Neut % (Auto) 73.1 Lymph % (Auto) 7.4 L [place] % (Auto) 14.0 H Eos % (Auto) 4.8 Baso % (Auto) 0.3 Neut # (Auto) 5.2 Lymph # (Auto) 0.5 L [place] # (Auto) 1.0 H Eos # (Auto) 0.3 Baso # (Auto) 0.0 Immature Gran % 0.4 Nucleated RBC % 0.0 Immature Gran # 0.03 Nucleated RBCs # 0.00 Sodium 133 L Potassium 4.7 Chloride 102 Carbon Dioxide 20 L Anion Gap 15.7 H BUN 47 H Creatinine 3.60 H GFR Calculation 14 BUN/Creatinine Ratio 13.00 Glucose 84 POC Glucose Calculated Osmolality 276.4 Calcium 8.2 L Magnesium 2.3 Total Bilirubin 3.00 H Direct Bilirubin 1.30 H Indirect Bilirubin 1.7 H AST 12 ALT 9 L Alkaline Phosphatase 51 Total Protein 6.2 L Albumin 3.8 10/22/16 07:45 WBC RBC Hgb Hct MCV MCH MCHC RDW Plt Count MPV Neut % (Auto) Lymph % (Auto) [place] % (Auto) Eos % (Auto) Baso % (Auto) Neut # (Auto) Lymph # (Auto) [place] # (Auto) Eos # (Auto) Baso # (Auto) Immature Gran % Nucleated RBC % Immature Gran # Nucleated RBCs # Sodium Potassium Chloride Carbon Dioxide Anion Gap BUN Creatinine GFR Calculation BUN/Creatinine Ratio Glucose POC Glucose 106 Calculated Osmolality Calcium Magnesium Total Bilirubin Direct Bilirubin Indirect Bilirubin AST ALT Alkaline Phosphatase Total Protein Albumin - Impressions Impressions: Telemetry with atrial fibrillation and maintain a controlled ventricular response. There are occasional electronic ventricular pacemaker impulses. She has had no dysrhythmias. Quality Measures - Stroke Symptom Onset Unknown: No
--- NOTE | 2016-10-22 10:32 | Gastrointestinal Progress Note ---
<Miri Dominguez Shelton - Last Filed: 10/22/16 10:29> Assessment and Plan (1) Abdominal pain Status: Acute Assessment and plan: 10/22-continued abdominal soreness slowly improving. Dopamine off at present time. Bilirubin down at 3.0. Tolerating diet. Plan an addendum to follow by Dr. Wing. 10/21-Continued dopamine, currently weaning down. Increased UOP. Bilirubin down slightly at 3.2. Plan and addendum to follow by Dr Wing. 10/20-Post op tenderness but controlled. Hypotension with Dopamine infusion, decreased UOP. Elevated bilirubin today at 3.6. Plan and addendum to follow by Dr Wing. 10/19-Pain better controlled today. US findings noted. For lap lucila today with Dr Toussaint. Plan and addendum to follow by Dr Wing. 10/18-2 day history of severe right upper quadrant abdominal pain radiating to back and shoulder shoulders with associated nausea and intractable vomiting. Recent hospitalization with findings on ultrasound of cholelithiasis without acute cholecystitis. No change in LFTs at present time. Repeat ultrasound in consult surgery at this time. Plan an addendum to follow by Dr. Wing. Current Visit: Yes Gastroenterology - PN: Subj Interval history: CC: Abdominal pain Patient is seen awake and alert sitting up in bed. States she is feeling better today. Says she has continued postop tenderness but this is improving daily. Denies any nausea or vomiting. Patient is tolerating her diet at present time abdomen soft, nontender. Bilirubin is noted to be trending downward at 3 today. KUB noted with no changes. Dopamine is noted to have been turned off at 5 AM this morning and blood pressure is holding at present time. Continues to have improved urine output. Abdomen is soft, nontender. ROS: Denies shortness of breath or chest pain Exam (Progress Note) - Constitutional Vitals: Period Temp Pulse Resp BP Sys/Marcum Pulse Ox Last 24 Hr 98.8 F-99.3 F 60-75 13-26 84-111/38-68 88-98 General appearance: normal weight, no acute distress - Head Head exam: Present: normal inspection, normocephalic - Eye Eye exam: Present: other (Lids objective unremarkable). Absent: scleral icterus - ENT ENT exam: Present: normal exam, normal oropharynx - Neck Neck exam: Present: normal inspection - Respiratory Respiratory exam: Present: clear to auscultation bilaterally. Absent: rales, rhonchi, wheezes - Cardiovascular Cardiovascular exam: Present: regular rate and rhythm. Absent: diastolic murmur , JVD, systolic murmur - GI/Abdominal GI/Abdominal exam: Present: normal bowel sounds, tenderness, soft. Absent: ascites, distended, mass, organomegaly - Extremities Exam Extremities exam: Present: normal inspection, full ROM - Back Exam Back exam: Present: normal inspection - Neurological Exam Neurological exam: Present: alert, oriented X3 - Psychiatric Psychiatric exam: Present: normal affect, normal mood - Skin Skin exam: Present: normal color, warm, dry Results - Labs CBC & BMP: 10/22/16 03:37 10/22/16 03:37 Lab Results: I have reviewed the past 24 hour labs <Martin Wing - Last Filed: 10/22/16 13:49> Exam (Progress Note) - Constitutional Vitals: Period Temp Pulse Resp BP Sys/Marcum Pulse Ox Last 24 Hr 98.1 F-99.4 F 64-75 13-26 84-111/38-68 90-100 Results - Labs CBC & BMP: 10/22/16 03:37 10/22/16 03:37
--- NOTE | 2016-10-22 10:56 | Pulmonology Progress Note ---
Pulmonary - PN: Subj Interval history: This is a 71-year-old white female whom I admitted from my office on 10/18/2016. She had had a recent hospitalization and had been sent home in good condition. At that time she had presented with anasarca secondary to pulmonary hypertension and right heart failure. She is followed from a renal standpoint by Dr. Efren Navarro, cardiology standpoint by Dr. Renato Burgess and from a GI standpoint by Dr. Mateo Wing. My impressions were. 1. Acute nausea, vomiting, and dehydration refractory top OP treatment. Viral vs. bacterial vs. medication side effect. 2. Recent hospitalization secondary to ascites/anasarca felt secondary to severe pulmonary hypertension. Requiring to paracenteses that admission. 2. Cholelithiasis per ultrasound with no evidence of cholecystitis. 3. Severe pulmonary hypertension as evidenced by estimated pulmonary artery pressure of 80 mmHg seen on echocardiogram. 4. Chronic atrial fib. Note, the patient is not on anticoagulation secondary to history of GI bleed and anemia. This is followed by Dr. Renato Burgess. 5. History of acute renal failure with medications and contrast. This is followed by Dr. Efren Navarro. 6. Systemic lupus erythematosus followed by Dr. Sunny Nguyen by report. 7. Diabetes mellitus. 8. See past medical history 10/19/2016. This patient has had acute cholecystitis and she is for surgery little later on this morning. Ultrasound of the abdomen shows she still has ascites. Her renal status is stable with a creatinine of 2.1 and a BUN of 31. Electrolytes are normal. Admit white count was 8200 with 78 segs 7 lymphs and 13 monos. 10/20/2016. On 10/19/2016 this patient had a laparoscopic cholecystectomy. Her gallbladder was infected. See Dr. Preston to lupus surgical note. Patient had hypotensive tension and I kept her in the unit overnight. She has low urine output and I put her on on dopamine open to increase her renal function. She is tolerated this well but her systolic blood pressures are mainly around 90. Creatinine is increased from 2.3-3.0 with a BUN of 38. and he is seeing her in renal consultation. Electrolytes are normal. Today's chest x-ray shows a small right pleural effusion and I assume that this is related to the patient' s ascites which Dr. Toussaint noted during surgery. Her ascites is thought to be secondary to right heart failure based on pulmonary hypertension. I am restarting her Norvasc to 5 mg daily which is one half the previous dose and I am going to restart Revatio 20 mg p.o. every 8 hours. Will have to watch her blood pressure closely while she is on this but if it works like it is supposed to it should actually help the blood pressure improved. I am giving the patient fluids for the present time and her diuretics are being held. She is previously been on Lasix and Aldactone. White count is 8800 with 78 segs per ABGs on FiO2 of 50% show a pH 7.40, PCO2 28.5, PO2 of 63 and a bicarb at 19.4. When the patient takes several deep breaths this improved significantly. There are no positive cultures. Patient's had a temp up to 100.1. She is on Cleocin and meropenem and we have given her test doses for allergies since she has multiple allergies by history. She remains in atrial fib. She cannot be anticoagulated because of previous bleeding problems. Dr. Renato Burgess is her operations asst and I have consulted him. She has been followed by Dr. Efren Navarro from a renal standpoint for chronic renal failure. For the present time I will follow serial lab chest x-rays. 10/21/2016. Patient has a stable night. Her blood pressures much better. I am going to continue her dopamine drip. Chest x-ray shows a small right pleural effusion I think this is related to ascites. I see nothing to suggest congestive heart failure. Urine output has been less than optimal. Dr. Shahid Mansfield and I have discussed the case and coordinated care including Lasix 40 IV push every 12 hours and IV fluids. Creatinine has increased to 3.20 with a BUN of 43 electrolytes are normal. White count is 9900 with 74 segs 8 lymphs and 14 monocytes. H&H is 10.1/30.3 and platelets are 135,000. Repeat TSH and free T4 are normal. Today we are going to try to get the patient out of bed and hopefully she will be ready for transfer to the floor and another day. Her daughter was present and I reviewed the case with her and she promised to inform all other family members of what I said. Raúl Medrano nurse practitioner was present and her nurses Sandra and Luis were present. Patient is eating without any problems. She has had no bowel movements. KUB shows only a small amount of air in the colon. No ileus was seen. 10/22/2016. This patient is postop infected gallbladder. She is doing good in that regard. She is afebrile she is on antibiotics. Patient has chronic renal failure creatinine is gradually increased from 2.2-3.6. Nephrology is on the case. Patient has a small right pleural effusion that is related to her ascites. She has underlying pulmonary hypertension with recent pulmonary artery pressures of 80. She was in the hospital recently with acute right heart failure. This was thought to be the source of ascites as well as anasarca. She is on Norvasc 5 daily and Revatio 20 every 8 hours. Postop the patient's been hypotensive and is on dopamine. She is also followed by cardiology and GI. I reviewed and discussed the case with the patient's son this morning. I think it is in her best interest to keep her in intensive care a few more days. Physical exam. Vital signs see below Psychiatric. Alert oriented 3. Neurological. Cranial nerves are intact long track motor functions intact Face. Symmetrical. Lips and tongue are normal. Neck. Symmetrical. No meningismus. Lymphatics. No submandibular cervical supraclavicular or epitrochlear adenopathy. Chest. Wheeze free Heart. Regular no gallop. Abdomen. Right upper quadrant tenderness. Lower extremities. Small amount of pedal and pretibial edema under much better control than usual. The remainder the physical exam is noncontributory. Plan: 10/18/2016 1. Admit to inpatient 2. Consult Dr. Navarro 3. Hold medications which could cause nausea 3. Daily labs 5. Gentle rehydration 6. See orders. GI consult. Surgery consult. #7. 10/19/2016. For cholecystectomy today. We will have to monitor her fluid status and renal status etc. very carefully. 8. 10/21/2016. See today's note above. Increase Cytotec to 200 g twice a day. Doppler venograms of the lower extremities. Inhalation therapy twice a day and as needed. Continue dopamine 9. 10/22/2016. See my note above for today see my note 10/21/2016 Exam (Progress Note) - Constitutional Vitals: Period Temp Pulse Resp BP Sys/Marcum Pulse Ox Last 24 Hr 98.8 F-99.3 F 60-75 13-26 84-111/38-68 88-98 Results - Labs CBC & BMP: 10/22/16 03:37 10/22/16 03:37
--- NOTE | 2016-10-22 10:58 | Nephrology Progress Note ---
Nephrology - PN: Subj Interval history: Patient denies shortness of breath. Review of systems GI she denies nausea or vomiting, she states she has not had a bowel movement since the surgery, she has not been eating very much due to decreased appetite. Physical exam general the patient's in no acute distress, she has trace lower extremity edema Assessment/plan 1. Acute renal failure on chronic renal failure-this patient's creatinine is increased to 3.6 mg/dL from 3.2 mg/dL yesterday and from 2 mg/dL prior to her surgery. The patient's baseline creatinine is around 1.5-2 mg/dL. I believe the patient's current injury is related to malperfusion secondary to hypotension post surgery. In the past few hours it seems patient's urine output is starting to increase, hopefully this trend will continue. She appears euvolemic to me presently, I stopped her IV fluids yesterday, she is getting some albumin 3 times a day her albumin level has been normal. I would be inclined to stop this soon especially if she maintains an acceptable blood pressure. 2. Pulmonary hypertension-patient has moderate tricuspid regurgitation with a pulmonary artery pressure of 80 mmHg on a recent echocardiogram about a month ago 3. Diabetes mellitus 4. History of hypertension 5. Hypotension-patient has been weaned off of dopamine as of this morning, her systolic blood pressures around 90 to 100 currently. 6. Abdominal/back pain with cholelithiasis-patient is status post cholecystectomy Exam (PN)-Nephrology - Vital Signs Vital signs: Period Temp Pulse Resp BP Sys/Marcum Pulse Ox Last 24 Hr 98.8 F-99.3 F 60-75 13-26 84-111/38-68 88-98 - Lab 10/22/16 03:37 10/22/16 03:37 Most recent lab results ABG pH 7.402 (7.35-7.45) 10/20/16 01:12 ABG pCO2 28.5 MM HG (35-48) L 10/20/16 01:12 ABG pO2 63.0 MM HG (80-95) L 10/20/16 01:12 ABG HCO3 19.4 MMOL/L (20-26) L 10/20/16 01:12 ABG O2 Saturation 92.7 % (95-100) L 10/20/16 01:12 Calcium 8.2 MG/DL (8.5-10.1) L 10/22/16 03:37 Magnesium 2.3 MG/DL (1.8-2.4) 10/22/16 03:37 Assessment and Plan (1) Azpny-ci-igepnrz kidney injury Status: Acute Assessment and plan: This patient's creatinine was recently around 2 mg/dL the past month it is very quite wildly between 1.3-2.3 mg/dL, I suspect she has some acute on chronic injury related to volume depletion and her decreased p.o. intake. I agree with the gentle IV fluid hydration of 75 cc an hour Current Visit: No (2) Tricuspid regurgitation Status: Acute Current Visit: Yes (3) Ascites Problem details: Agree with treatment of pHTN with revatio. Continue aldactone/ lasix at ratio of 100 aldactone 40 lasix. Status: Acute Current Visit: No (4) Debility Status: Acute Current Visit: No (5) Pulmonary hypertension Status: Acute Current Visit: No (6) Atrial fibrillation Status: Chronic Current Visit: No Qualifiers: Atrial fibrillation type: chronic Qualified Code(s): I48.2 - Chronic atrial fibrillation (7) Diabetes Status: Chronic Current Visit: No Qualifiers: Diabetes mellitus type: type 2 Diabetes mellitus complication status: with kidney complications Chronic kidney disease stage: stage 2 (mild) (8) Hypertension Problem details: controlled Status: Chronic Current Visit: No Qualifiers: Hypertension type: essential hypertension
[2016-10-22] MEDS: ONDANSETRON 4 MG/2 ML VIAL IV PRN (17:37)
[2016-10-22] MEDS: DOPamine 800 MG/250 ML PREMIX IV SCH (18:18)
[2016-10-22] MEDS: BIMATOPROST 0.01% OPH SOLN 2.5 ML BOTTLE BOTH EYES SCH (21:32)
[2016-10-22] MEDS: SIMVASTATIN 40 MG TABLET PO SCH (21:33)
[2016-10-23] MEDS: CLINDAMYCIN INJ 600 MG in PREMIX 1 EACH IV SCH ×3 (03:31→19:58)
[2016-10-23] MEDS: MEROPENEM 500 MG in SODIUM CHLORIDE 0.9% 100 ML IV SCH ×2 (03:31→16:47)
[2016-10-23 05:42] LABS: Basophils % 0.3 % (0.0-0.8); Eosinophils # 0.3 10*3/uL (0.0-0.87); Eosinophils % 3.9 % (0.00-10.9); Hematocrit 31.9 VOL% (35.7-47.0); Hemoglobin 10.7 GM/DL (12.0-16.0); Immature Granulocytes % 0.6 %; Immature Granulocytes Absolute 0.04 #; Lymphocytes # 0.3 10*3/uL (1.4-4.0); Lymphocytes % 4.9 % (21.3-54.2); Mean Corpuscular HGB Conc 33.5 GM/DL (32-36); Mean Corpuscular Hemoglobin 28 PG (27-34); Mean Platelet Volume 10.5 FL (9.6-12.0); Monocytes # 1.1 10*3/uL (0.11-0.8); Monocytes % 16.4 % (1.7-12.7); Neutrophils # 5.1 10*3/uL (1.4-7.4); Neutrophils % 73.9 % (38.7-73.9); Platelet Count 174 T/CUMM (130-400); Red Blood Count 3.89 MC/CUMM (3.8-5.5); Red Cell Distribution Width 16.6 % (9.3-17.3); White Blood Count 6.9 T/CUMM (4-12)
[2016-10-23 06:13] LABS: Calcium 8.7 MG/DL (8.5-10.1); Magnesium 2.5 MG/DL (1.8-2.4); Osmolality,Calculated 280.5 MOS/KG (273-304)
[2016-10-23] MEDS: ALBUTEROL/IPRATROPIUM 3 ML NEB RESP TX SCH ×2 (07:34→19:05)
[2016-10-23] MEDS: INSULIN REGULAR 100 UNIT/ML SUBCUT SCH ×4 (07:57→21:41)
[2016-10-23 08:09] LABS: Band Neutrophils 2 % (0-10); Eosinophils 4 % (0-10); Lymphocytes 8 % (20-55); Segmented Neutrophils 81 % (50-85); Total Cells Counted 100
[2016-10-23 08:10] LABS: Acanthocytes 1+; Hypochromasia 1+; Microcytosis 1+; Platelet Estimate Adequate
[2016-10-23] MEDS: VENLAFAXINE 75 MG TABLET PO SCH (08:20)
[2016-10-23] MEDS: INSULIN ASPART PROTAMINE/ASPART 70/30 100 UNIT/ML SUBCUT SCH ×2 (08:20→16:48)
[2016-10-23] MEDS: FUROSEMIDE 40 MG/4 ML VIAL IV SCH (08:21)
[2016-10-23] MEDS: FAMOTIDINE 20 MG TABLET PO SCH (08:21)
[2016-10-23] MEDS: miSOPROStol 200 MCG TABLET PO SCH ×2 (08:21→16:48)
[2016-10-23] MEDS: ASPIRIN EC 81 MG TABLET PO SCH (08:21)
[2016-10-23] MEDS: MONTELUKAST 10 MG TABLET PO SCH (08:21)
[2016-10-23] MEDS: ASCORBIC ACID 500 MG TABLET PO SCH (08:21)
[2016-10-23] MEDS: SODIUM BICARBONATE 650 MG TABLET PO SCH ×2 (08:21→21:41)
[2016-10-23] MEDS: SILDENAFIL 20 MG TABLET PO SCH ×3 (08:21→21:41)
[2016-10-23] MEDS: COLESEVELAM 625 MG TABLET PO SCH ×3 (08:21→16:48)
[2016-10-23] MEDS: amLODIPine 5 MG TABLET PO SCH (08:22)
[2016-10-23] MEDS: MAGNESIUM CHLORIDE 64 MG TABLET PO SCH ×2 (08:22→21:41)
--- NOTE | 2016-10-23 08:50 | XRay Report ---
XR chest 1V portable Indication: Recent surgery, pleural effusion Comparison: 22 Oct 2016 Findings: The heart and mediastinum are stable in size and configuration. Pacemaker device is unchanged in position. The pulmonary vascularity is increased similar to previous exam. There is left lower lung density and effusion similar to previous. Impression: No significant change. PROCEDURE INTERPRETED AT [facility] DEPARTMENT OF RADIOLOGY Final Report Signed by: Dr. Zack Goldman
--- NOTE | 2016-10-23 08:51 | XRay Report ---
XR KUB Indication: Recent surgery, ascites Comparison: 22 Oct 2016 Findings: No free fluid or free air seen. The bowel gas pattern appears within normal limits. No abnormal calcifications are present. Abdominal drain overlies the right mid abdomen. Clips are present from recent surgeries. No other abnormality is identified. Impression: No evidence of significant change demonstrated. PROCEDURE INTERPRETED AT [facility] [place] DEPARTMENT OF RADIOLOGY Final Report Signed by: Dr. Zack Goldman
[2016-10-23] MEDS ORDERED: SODIUM CHLORIDE 0.45% 1,000 ML IV SCH (09:30)
--- NOTE | 2016-10-23 09:54 | Pulmonology Progress Note ---
Pulmonary - PN: Subj Interval history: 71-year-old female with a history of pulmonary hypertension admitted for acute cholecystitis requiring surgical intervention. Postop patient has developed an NONI with subsequent worsening this morning. Nephrology is following. Today patient has no new complaints. She remains off dopamine and continues on broad antibiotics with meropenem and clindamycin. Exam (Progress Note) - Constitutional Vitals: Period Temp Pulse Resp BP Sys/Marcum Pulse Ox Last 24 Hr 98.1 F-99.1 F 64-94 12-25 74-108/36-76 81-100 General appearance: over weight - Head Head exam: Present: normal inspection - Eye Eye exam: Present: EOMI Pupils: Present: PERRY - ENT ENT exam: Present: normal exam - Neck Neck exam: Present: normal inspection - Respiratory Respiratory exam: Present: decreased breath sounds (Right base). Absent: rhonchi, wheezes - Cardiovascular Cardiovascular exam: Present: regular rate and rhythm - GI/Abdominal GI/Abdominal exam: Present: normal bowel sounds, soft. Absent: guarding, tenderness, rebound - Extremities Exam Extremities exam: Present: edema - Neurological Exam Neurological exam: Present: alert, oriented X3 - Skin Skin exam: Present: normal color Results - Labs CBC & BMP: 10/23/16 05:17 10/23/16 05:17 - Diagnostic Findings Procedure: Chest x-ray: report reviewed by me, image reviewed by me (Overall unchanged. Right pleural effusion), KUB x-ray: report reviewed by me, image reviewed by me (Unchanged) Assessment and Plan (1) Acute cholecystitis Status: Acute Assessment and plan: Overall improving postop with minimal pain. Continue broad antibiotics. Current Visit: Yes (2) Pleural effusion Status: Resolved Assessment and plan: Right-sided pleural effusion that has slowly enlarged. Consider thoracentesis in the near future if continued worsening. Current Visit: No (3) NONI (acute kidney injury) Status: Acute Assessment and plan: Creatinine continues to worsen today. Will hold Lasix today and monitor closely for signs of volume overload. Appreciate nephrology assistance. Current Visit: No (4) Pulmonary hypertension Status: Acute Assessment and plan: Stable on current therapy. Monitor closely while holding Lasix. Current Visit: No (5) Chronic atrial fibrillation Status: Chronic Current Visit: No
--- NOTE | 2016-10-23 10:09 | Nephrology Progress Note ---
Nephrology - PN: Subj Interval history: The patient is sitting up in bed resting comfortably. Urine output has been acceptable. Serum creatinine is noted to be 4.2 which is about the same. Exam (PN)-Nephrology - Vital Signs Vital signs: Period Temp Pulse Resp BP Sys/Marcum Pulse Ox Last 24 Hr 98.1 F-99.1 F 64-94 12-21 74-108/36-76 81-99 - General Appearance General appearance: well-developed, frail EENT: ATNC Neck: supple Respiratory: clear Cardiology: regular rate, regular rhythm Gastrointestinal: normoactive bowel sounds, no tenderness - Lab 10/23/16 05:17 10/23/16 05:17 Most recent lab results ABG pH 7.402 (7.35-7.45) 10/20/16 01:12 ABG pCO2 28.5 MM HG (35-48) L 10/20/16 01:12 ABG pO2 63.0 MM HG (80-95) L 10/20/16 01:12 ABG HCO3 19.4 MMOL/L (20-26) L 10/20/16 01:12 ABG O2 Saturation 92.7 % (95-100) L 10/20/16 01:12 Calcium 8.7 MG/DL (8.5-10.1) 10/23/16 05:17 Magnesium 2.5 MG/DL (1.8-2.4) H 10/23/16 05:17 Assessment and Plan (1) Status post laparoscopic cholecystectomy Status: Acute Assessment and plan: The patient is continued to recover. Current Visit: Yes (2) Hypotension Status: Chronic Current Visit: Yes (3) NONI (acute kidney injury) Status: Acute Current Visit: No (4) Ydant-zl-rofmoaa kidney injury Status: Acute Current Visit: No Qualifiers: Chronic kidney disease stage: stage 4 (severe)
[2016-10-23] MEDS: DOPamine 800 MG/250 ML PREMIX IV SCH ×2 (10:20→13:10)
[2016-10-23] MEDS ORDERED: DOPamine 800 MG/250 ML PREMIX IV SCH (10:30)
[2016-10-23] MEDS: LACTATED RINGERS 1,000 ML IV SCH (10:52)
--- NOTE | 2016-10-23 13:45 | Event Note ---
Status post lap lucila. Afebrile vital signs stable still on some dopamine. She has some mild nausea but denies vomiting. On exam her abdomen is soft mildly tender in the right upper quadrant near the drain insertion site. No distention appreciated. She is having quite a bit of drainage around the MARISABEL that may be some ascites. It has been collected in ostomy bag which is been placed around the MARISABEL. Labs noted. White blood cell count normal. Creatinine slightly higher at 4.2. Continue supportive care.
[2016-10-23] MEDS: BIMATOPROST 0.01% OPH SOLN 2.5 ML BOTTLE BOTH EYES SCH (21:41)
[2016-10-23] MEDS: SIMVASTATIN 40 MG TABLET PO SCH (21:41)
[2016-10-24] MEDS: LACTATED RINGERS 1,000 ML IV SCH (01:26)
[2016-10-24] MEDS: MEROPENEM 500 MG in SODIUM CHLORIDE 0.9% 100 ML IV SCH ×2 (03:39→15:12)
[2016-10-24] MEDS: CLINDAMYCIN INJ 600 MG in PREMIX 1 EACH IV SCH ×3 (03:39→20:27)
[2016-10-24] MEDS: DOPamine 800 MG/250 ML PREMIX IV SCH ×2 (04:37→11:40)
[2016-10-24 05:27] LABS: Basophils % 0.6 % (0.0-0.8); Eosinophils # 0.3 10*3/uL (0.0-0.87); Eosinophils % 4.5 % (0.00-10.9); Hematocrit 31.4 VOL% (35.7-47.0); Hemoglobin 10.5 GM/DL (12.0-16.0); Immature Granulocytes % 0.4 %; Immature Granulocytes Absolute 0.03 #; Lymphocytes # 0.5 10*3/uL (1.4-4.0); Mean Corpuscular HGB Conc 33.4 GM/DL (32-36); Mean Corpuscular Hemoglobin 27 PG (27-34); Mean Corpuscular Volume 81.1 FL (87-102); Mean Platelet Volume 10.6 FL (9.6-12.0); Monocytes # 1.2 10*3/uL (0.11-0.8); Monocytes % 17.1 % (1.7-12.7); Neutrophils % 70.4 % (38.7-73.9); Platelet Count 184 T/CUMM (130-400); Red Blood Count 3.87 MC/CUMM (3.8-5.5); Red Cell Distribution Width 16.5 % (9.3-17.3); White Blood Count 7.1 T/CUMM (4-12)
[2016-10-24 05:37] LABS: Calcium 8.4 MG/DL (8.5-10.1); Magnesium 2.3 MG/DL (1.8-2.4); Osmolality,Calculated 281.4 MOS/KG (273-304); Potassium 4.8 MMOL/L (3.5-5.1)
--- NOTE | 2016-10-24 07:23 | Pulmonology Progress Note ---
Pulmonary - PN: Subj Interval history: 71-year-old female with a history of pulmonary hypertension admitted for acute cholecystitis requiring surgical intervention. Postop patient has developed an NONI with improvement this AM with holding diuresis yesterday. Nephrology is following. Today patient has no new complaints and states she is overall feeling better. She remains on dopamine with the dose slowly being titrated down. She continues on broad antibiotics with meropenem and clindamycin. Exam (Progress Note) - Constitutional Vitals: Period Temp Pulse Resp BP Sys/Marcum Pulse Ox Last 24 Hr 98.2 F-99.9 F 64-79 13-68 86-113/41-71 91-99 General appearance: over weight - Head Head exam: Present: normal inspection - Eye Eye exam: Present: EOMI Pupils: Present: PERRY - ENT ENT exam: Present: normal exam - Neck Neck exam: Present: normal inspection - Respiratory Respiratory exam: Present: clear to auscultation bilaterally (Upper lung del toro) , decreased breath sounds (Right lung base). Absent: rhonchi, stridor, wheezes - Cardiovascular Cardiovascular exam: Present: regular rate and rhythm - GI/Abdominal GI/Abdominal exam: Present: normal bowel sounds, soft - Extremities Exam Extremities exam: Present: edema - Neurological Exam Neurological exam: Present: alert, oriented X3 - Skin Skin exam: Present: warm, dry Results - Labs CBC & BMP: 10/24/16 05:00 10/24/16 05:00 - Diagnostic Findings Procedure: Chest x-ray: image reviewed by me (Stable right pleural effusion) Assessment and Plan (1) Acute cholecystitis Status: Acute Assessment and plan: Overall improving postop with minimal pain. Continue broad antibiotics. Appreciate surgical assistance. Current Visit: Yes (2) Pleural effusion Status: Resolved Assessment and plan: Right-sided pleural effusion is stable this morning with a stable to decreasing oxygen requirement. Continue to monitor and consider thoracentesis in the near future if continued worsening. Current Visit: No (3) NONI (acute kidney injury) Status: Acute Assessment and plan: Creatinine slightly improved today with holding diuretics. We will hold fluids and diuretics today and reevaluate in the morning. Appreciate nephrology assistance. Current Visit: No (4) Pulmonary hypertension Status: Acute Assessment and plan: Stable on current therapy. Monitor closely while holding Lasix. Current Visit: No (5) Chronic atrial fibrillation Status: Chronic Current Visit: No
[2016-10-24] MEDS: INSULIN REGULAR 100 UNIT/ML SUBCUT SCH ×4 (07:35→21:49)
[2016-10-24 07:45] LABS: Acanthocytes Few; Band Neutrophils 9 % (0-10); Eosinophils 2 % (0-10); Hypochromasia 2+; Lymphocytes 11 % (20-55); Microcytosis 1+; Platelet Estimate Adequate; Polychromasia Slight; Segmented Neutrophils 71 % (50-85); Total Cells Counted 100
[2016-10-24] MEDS: ALBUTEROL/IPRATROPIUM 3 ML NEB RESP TX SCH ×2 (08:08→18:53)
[2016-10-24] MEDS: SODIUM BICARBONATE 650 MG TABLET PO SCH ×2 (08:38→21:50)
[2016-10-24] MEDS: INSULIN ASPART PROTAMINE/ASPART 70/30 100 UNIT/ML SUBCUT SCH ×2 (08:38→16:40)
[2016-10-24] MEDS: miSOPROStol 200 MCG TABLET PO SCH ×2 (08:38→16:41)
[2016-10-24] MEDS: COLESEVELAM 625 MG TABLET PO SCH ×3 (08:38→16:41)
[2016-10-24] MEDS: MAGNESIUM CHLORIDE 64 MG TABLET PO SCH ×2 (08:38→21:50)
[2016-10-24] MEDS: VENLAFAXINE 75 MG TABLET PO SCH (08:38)
[2016-10-24] MEDS: ASCORBIC ACID 500 MG TABLET PO SCH (08:38)
[2016-10-24] MEDS: ASPIRIN EC 81 MG TABLET PO SCH (08:39)
[2016-10-24] MEDS: amLODIPine 5 MG TABLET PO SCH (08:39)
[2016-10-24] MEDS: FAMOTIDINE 20 MG TABLET PO SCH (08:39)
[2016-10-24] MEDS: MONTELUKAST 10 MG TABLET PO SCH (08:39)
[2016-10-24] MEDS: SILDENAFIL 20 MG TABLET PO SCH ×3 (08:39→21:50)
--- NOTE | 2016-10-24 08:40 | XRay Report ---
XR chest 1V portable Indication: Pleural effusion, recent surgery Comparison: 23 Oct 2016 Findings: The heart and mediastinum are stable in size and configuration. Pacemaker device is unchanged in position. The pulmonary vascularity is increased with bilateral increased interstitial lung density. Right lower lung density and effusion are similar to previous exam. No other other lung infiltrates, effusions, pneumothorax or other abnormality is demonstrated. Impression: No significant change. PROCEDURE INTERPRETED AT [facility] [place] DEPARTMENT OF RADIOLOGY Final Report Signed by: Dr. Zack Goldman
--- NOTE | 2016-10-24 11:31 | Event Note ---
Afebrile vital signs stable. Patient says she is feeling better. Tolerating regular diet. Her labs are okay. Abdomen is soft appropriately tender nondistended and she has quite a bit of serous drainage around the percutaneous tube. Continue present care.
--- NOTE | 2016-10-24 12:02 | Nephrology Progress Note ---
Nephrology - PN: Subj Interval history: The patient mentions that she is feels stronger today. No shortness of breath reported. No other acute changes. Creatinine is noted to be 3.8 today. Exam (PN)-Nephrology - Vital Signs Vital signs: Period Temp Pulse Resp BP Sys/Marcum Pulse Ox Last 24 Hr 98.2 F-99.1 F 64-79 12-68 86-113/41-71 91-98 - General Appearance General appearance: well-developed, well-nourished EENT: ATNC Neck: supple Respiratory: clear Cardiology: no edema, regular rate, regular rhythm Gastrointestinal: normoactive bowel sounds, no tenderness Neurologic: alert and oriented x3, CN 3-12 intact Musculoskeletal: no deformities Psychiatric: mood/affect appropriate - Lab 10/24/16 05:00 10/24/16 05:00 Most recent lab results ABG pH 7.402 (7.35-7.45) 10/20/16 01:12 ABG pCO2 28.5 MM HG (35-48) L 10/20/16 01:12 ABG pO2 63.0 MM HG (80-95) L 10/20/16 01:12 ABG HCO3 19.4 MMOL/L (20-26) L 10/20/16 01:12 ABG O2 Saturation 92.7 % (95-100) L 10/20/16 01:12 Calcium 8.4 MG/DL (8.5-10.1) L 10/24/16 05:00 Magnesium 2.3 MG/DL (1.8-2.4) 10/24/16 05:00 Assessment and Plan (1) Status post laparoscopic cholecystectomy Status: Acute Assessment and plan: The patient is continued to recover. Current Visit: Yes (2) Hypotension Status: Chronic Current Visit: Yes (3) NONI (acute kidney injury) Status: Acute Current Visit: No (4) Shyil-em-iijxneu kidney injury Status: Acute Current Visit: No Qualifiers: Chronic kidney disease stage: stage 4 (severe)
[2016-10-24] MEDS: BIMATOPROST 0.01% OPH SOLN 2.5 ML BOTTLE BOTH EYES SCH (21:49)
[2016-10-24] MEDS: SIMVASTATIN 40 MG TABLET PO SCH (21:50)
[2016-10-25] MEDS: CLINDAMYCIN INJ 600 MG in PREMIX 1 EACH IV SCH ×3 (04:10→19:00)
[2016-10-25] MEDS: MEROPENEM 500 MG in SODIUM CHLORIDE 0.9% 100 ML IV SCH ×2 (04:10→16:50)
[2016-10-25 05:40] LABS: Basophils % 0.3 % (0.0-0.8); Eosinophils # 0.3 10*3/uL (0.0-0.87); Eosinophils % 4.8 % (0.00-10.9); Hematocrit 29.6 VOL% (35.7-47.0); Hemoglobin 9.9 GM/DL (12.0-16.0); Immature Granulocytes % 0.5 %; Immature Granulocytes Absolute 0.03 #; Lymphocytes # 0.5 10*3/uL (1.4-4.0); Lymphocytes % 7.8 % (21.3-54.2); Mean Corpuscular HGB Conc 33.4 GM/DL (32-36); Mean Corpuscular Hemoglobin 27 PG (27-34); Mean Corpuscular Volume 80.9 FL (87-102); Mean Platelet Volume 10.8 FL (9.6-12.0); Monocytes % 14.7 % (1.7-12.7); Neutrophils # 4.7 10*3/uL (1.4-7.4); Neutrophils % 71.9 % (38.7-73.9); Platelet Count 184 T/CUMM (130-400); Red Blood Count 3.66 MC/CUMM (3.8-5.5); Red Cell Distribution Width 16.3 % (9.3-17.3); White Blood Count 6.5 T/CUMM (4-12)
[2016-10-25 06:15] LABS: Calcium 8.2 MG/DL (8.5-10.1); Magnesium 2.6 MG/DL (1.8-2.4); Osmolality,Calculated 281.2 MOS/KG (273-304); Potassium 4.9 MMOL/L (3.5-5.1)
[2016-10-25 06:19] LABS: Albumin 2.8 G/DL (3.4-5.0); Bilirubin,Direct 0.7 MG/DL (0.0-0.20); Bilirubin,Indirect 1.2 MG/DL (0.0-1.0); Bilirubin,Total 1.9 MG/DL (0.2-1.0); Total Protein 5.8 G/DL (6.4-8.3)
[2016-10-25] MEDS: INSULIN ASPART PROTAMINE/ASPART 70/30 100 UNIT/ML SUBCUT SCH ×2 (07:30→16:30)
[2016-10-25] MEDS: INSULIN REGULAR 100 UNIT/ML SUBCUT SCH ×4 (07:30→21:32)
--- NOTE | 2016-10-25 07:34 | Event Note ---
General Surgery Progress Note Chief complaint This patient is a 71-year-old woman with pulmonary hypertension who was admitted to the hospital with acute cholecystitis and underwent laparoscopic cholecystectomy on 10/19/2016 Interval history The patient had no major events over the weekend. She developed a lot of ascites draining around her MARISABEL drain. Her bilirubin is downtrending. Her creatinine is also downtrending and she is making urine now. She is afebrile. She had a little bit of nausea yesterday with eating but overall she is tolerating her diet with no significant nausea or vomiting. She has not really started getting up moving around yet. She is back on a low-dose dopamine infusion this morning. White blood cell count is normal. Physical exam The patient is afebrile and she is not tachycardic but she does have a low blood pressure. She is awake and alert. Abdominal exam is benign with expected postoperative tenderness and serous fluid in the MARISABEL drain. There is an ostomy appliance around the bag and it is draining serous fluid. Labs Hemoglobin is stable White blood cell count is normal LFTs as above Imaging chest xray and abdominal x-ray reviewed. Persistent right-sided pleural effusion Assessment and plan I will probably remove the MARISABEL drain tomorrow and stitch the skin incision closed to see if we can stop the drains this occurring. Continue diet as tolerated Continue antibiotics while on pressor support
[2016-10-25] MEDS: COLESEVELAM 625 MG TABLET PO SCH ×3 (07:50→16:50)
[2016-10-25] MEDS ORDERED: HEPARIN 5,000 UNIT/1 ML VIAL SUBCUT SCH (08:00)
[2016-10-25] MEDS: ALBUTEROL/IPRATROPIUM 3 ML NEB RESP TX SCH ×2 (08:02→20:08)
--- NOTE | 2016-10-25 08:17 | XRay Report ---
Portable chest Date: 10/25/2016 Clinical history: Pleural effusion, postop lap cholecystectomy Comparison: 10/24/2016 Technique: Portable AP sitting chest Findings: Stable cardiomegaly and left subclavian atrioventricular cardiac pacemaker. No significant change in the diffuse parenchymal findings especially in the right lung with small to moderate right pleural effusion. Residual atelectasis in the left lung with stable mediastinum and osseous structures. Impression: No significant change in the appearance of the chest when compared to the previous exam. PROCEDURE INTERPRETED AT [facility] DEPARTMENT OF RADIOLOGY Final Report Signed by: Dr. Arcelia Kitchen
--- NOTE | 2016-10-25 08:20 | XRay Report ---
Exam: XR KUB Date: 10/25/2016 4:00 AM Comparison: 10/23/2016 Indication: Ascites Technique:[Supine abdomen] Findings: Progressive gaseous distention of the bowel with surgical drain in the right upper quadrant with prior cholecystectomy. Additional metallic clips in the upper left pelvis dislocation. The abdomen has a hazy appearance. Degenerative changes are noted. Impression: Progressive minimal to moderate gaseous distention of bowel, especially the stomach which may be related to postoperative ileus, etc. Follow-up x-ray for further evaluation. The abdomen has a hazy appearance which could be associated with ascites. PROCEDURE INTERPRETED AT [facility] DEPARTMENT OF RADIOLOGY Final Report Signed by: Dr. Arcelia Kitchen
[2016-10-25] MEDS: miSOPROStol 200 MCG TABLET PO SCH ×2 (08:30→19:00)
[2016-10-25] MEDS: MAGNESIUM CHLORIDE 64 MG TABLET PO SCH ×2 (08:50→21:32)
[2016-10-25] MEDS: ASPIRIN EC 81 MG TABLET PO SCH (08:50)
[2016-10-25] MEDS: SILDENAFIL 20 MG TABLET PO SCH ×3 (08:50→21:32)
[2016-10-25] MEDS: FAMOTIDINE 20 MG TABLET PO SCH (08:50)
[2016-10-25] MEDS: SODIUM BICARBONATE 650 MG TABLET PO SCH ×2 (08:50→21:32)
[2016-10-25] MEDS: ASCORBIC ACID 500 MG TABLET PO SCH (08:50)
[2016-10-25] MEDS: VENLAFAXINE 75 MG TABLET PO SCH (08:50)
[2016-10-25] MEDS: MONTELUKAST 10 MG TABLET PO SCH (08:50)
[2016-10-25] MEDS: amLODIPine 5 MG TABLET PO SCH (09:00)
[2016-10-25] MEDS: DOPamine 800 MG/250 ML PREMIX IV SCH (10:00)
--- NOTE | 2016-10-25 11:04 | Pulmonology Progress Note ---
Pulmonary - PN: Subj Interval history: Raúl Medrano, ANP-BC, GNP-BC, acting as scribe for Dr. Luis Miguel Do This is a 71-year-old white female who was admitted from [facility] on 10/18/2016. She had had a recent hospitalization and had been sent home in good condition. At the time of that admission, she had presented with anasarca secondary to pulmonary hypertension and right heart failure. She is followed from a renal standpoint by Dr. Efren Navarro, cardiology standpoint by Dr. Renato Burgess and from a GI standpoint by Dr. Mateo Wing. At the time of admission, our impressions were: 1. Acute nausea, vomiting, and dehydration refractory top OP treatment. Viral vs. bacterial vs. medication side effect. 2. Recent hospitalization secondary to ascites/anasarca felt secondary to severe pulmonary hypertension. Requiring to paracenteses that admission. 2. Cholelithiasis per ultrasound with no evidence of cholecystitis. 3. Severe pulmonary hypertension as evidenced by estimated pulmonary artery pressure of 80 mmHg seen on echocardiogram. 4. Chronic atrial fib. Note, the patient is not on anticoagulation secondary to history of GI bleed and anemia. This is followed by Dr. Renato Burgess. 5. History of acute renal failure with medications and contrast. This is followed by Dr. Efren Navarro. 6. Systemic lupus erythematosus followed by Dr. Sunny Nguyen by report. 7. Diabetes mellitus. 8. See past medical history 10/19/2016. This patient has had acute cholecystitis and she is for surgery little later on this morning. Ultrasound of the abdomen shows she still has ascites. Her renal status is stable with a creatinine of 2.1 and a BUN of 31. Electrolytes are normal. Admit white count was 8200 with 78 segs 7 lymphs and 13 monos. 10/20/2016. On 10/19/2016 this patient had a laparoscopic cholecystectomy. Her gallbladder was infected. See Dr. Preston to lupus surgical note. Patient had hypotensive tension and I kept her in the unit overnight. She has low urine output and I put her on on dopamine open to increase her renal function. She is tolerated this well but her systolic blood pressures are mainly around 90. Creatinine is increased from 2.3-3.0 with a BUN of 38. and he is seeing her in renal consultation. Electrolytes are normal. Today's chest x-ray shows a small right pleural effusion and I assume that this is related to the patient' s ascites which Dr. Toussaint noted during surgery. Her ascites is thought to be secondary to right heart failure based on pulmonary hypertension. I am restarting her Norvasc to 5 mg daily which is one half the previous dose and I am going to restart Revatio 20 mg p.o. every 8 hours. Will have to watch her blood pressure closely while she is on this but if it works like it is supposed to it should actually help the blood pressure improved. I am giving the patient fluids for the present time and her diuretics are being held. She is previously been on Lasix and Aldactone. White count is 8800 with 78 segs per ABGs on FiO2 of 50% show a pH 7.40, PCO2 28.5, PO2 of 63 and a bicarb at 19.4. When the patient takes several deep breaths this improved significantly. There are no positive cultures. Patient's had a temp up to 100.1. She is on Cleocin and meropenem and we have given her test doses for allergies since she has multiple allergies by history. She remains in atrial fib. She cannot be anticoagulated because of previous bleeding problems. Dr. Renato Burgess is her sleever and I have consulted him. She has been followed by Dr. Efren Navarro from a renal standpoint for chronic renal failure. For the present time I will follow serial lab chest x-rays. 10/21/2016. Patient has a stable night. Her blood pressures much better. I am going to continue her dopamine drip. Chest x-ray shows a small right pleural effusion I think this is related to ascites. I see nothing to suggest congestive heart failure. Urine output has been less than optimal. Dr. Shahid Mansfield and I have discussed the case and coordinated care including Lasix 40 IV push every 12 hours and IV fluids. Creatinine has increased to 3.20 with a BUN of 43 electrolytes are normal. White count is 9900 with 74 segs 8 lymphs and 14 monocytes. H&H is 10.1/30.3 and platelets are 135,000. Repeat TSH and free T4 are normal. Today we are going to try to get the patient out of bed and hopefully she will be ready for transfer to the floor and another day. Her daughter was present and I reviewed the case with her and she promised to inform all other family members of what I said. Raúl Medrano nurse practitioner was present and her nurses Sandra and Luis were present. Patient is eating without any problems. She has had no bowel movements. KUB shows only a small amount of air in the colon. No ileus was seen. 10/22/2016. This patient is postop infected gallbladder. She is doing good in that regard. She is afebrile she is on antibiotics. Patient has chronic renal failure creatinine is gradually increased from 2.2-3.6. Nephrology is on the case. Patient has a small right pleural effusion that is related to her ascites. She has underlying pulmonary hypertension with recent pulmonary artery pressures of 80. She was in the hospital recently with acute right heart failure. This was thought to be the source of ascites as well as anasarca. She is on Norvasc 5 daily and Revatio 20 every 8 hours. Postop the patient's been hypotensive and is on dopamine. She is also followed by cardiology and GI. I reviewed and discussed the case with the patient's son this morning. I think it is in her best interest to keep her in intensive care a few more days. 10/25/16. The patient was seen today along with her daughter. She has done well over the weekend. She continues to have a MARISABEL drain and this is being managed by Dr. Toussaint. Her BP is stable. She was restarted on Revatio and Norvasc last week for her pulmonary hypertension. Her bilirubin is trending downward. There are no positive cultures. She was started on Heparin this morning, but we have discontinued this secondary to her history of GI bleed and anemia. Medications have been reviewed. Labs been reviewed. White count is 6500 with 71.9% segs; H&H 9.9/29.6; platelet count 194,000; creatinine has improved to 3.20, BUN 34, sodium 134, potassium 4.9, magnesium 2.6; total bilirubin has improved to 1.90; liver function tests within normal limits; calcium is low at 8.2 reflected in the low albumin of 2.8, total protein 5.8 Exam (Progress Note) - Constitutional Vitals: Period Temp Pulse Resp BP Sys/Marcum Pulse Ox Last 24 Hr 98.2 F-99.4 F 66-88 13-24 84-127/38-80 93-99 Exam: Chest is wheeze free Heart no gallop Abdomen with appropriate postop tenderness, ascites; MARISABEL drain in place Extremities with nothing to suggest acute deep venous thrombophlebitis Psychiatric oriented 3 Neurologic long tract motor function is intact Plan: Stop heparin. Continue daily labs and x-rays. Continue present treatment. Continue dopamine infusion. See orders. Results - Labs CBC & BMP: 10/25/16 04:46 10/25/16 04:46
[2016-10-25] MEDS: ONDANSETRON 4 MG/2 ML VIAL IV PRN (11:40)
--- NOTE | 2016-10-25 13:20 | Nephrology Progress Note ---
Nephrology - PN: Subj Interval history: Patient complains of some nausea and abdominal discomfort. Review of systems pulmonary she denies shortness of breath Physical exam general the patient in no acute distress, she has no pitting edema Assessment/plan #1. Acute renal failure-this patient's creatinine is improving at 3.2 mg/dL today, her urine output has increased over the past several days. 2. Cholecystitis-patient status post cholecystectomy 3. Pulmonary hypertension 4. Diabetes mellitus 5. Hypotension-patient's on a low-dose of dopamine Exam (PN)-Nephrology - Vital Signs Vital signs: Period Temp Pulse Resp BP Sys/Marcum Pulse Ox Last 24 Hr 97.6 F-99.4 F 66-88 13-24 87-127/38-80 93-99 - Lab 10/25/16 04:46 10/25/16 04:46 Most recent lab results ABG pH 7.402 (7.35-7.45) 10/20/16 01:12 ABG pCO2 28.5 MM HG (35-48) L 10/20/16 01:12 ABG pO2 63.0 MM HG (80-95) L 10/20/16 01:12 ABG HCO3 19.4 MMOL/L (20-26) L 10/20/16 01:12 ABG O2 Saturation 92.7 % (95-100) L 10/20/16 01:12 Calcium 8.2 MG/DL (8.5-10.1) L 10/25/16 04:46 Magnesium 2.6 MG/DL (1.8-2.4) H 10/25/16 04:46 Assessment and Plan (1) [id number]-[id number] kidney injury Status: Acute Assessment and plan: This patient's creatinine was recently around 2 mg/dL the past month it is very quite wildly between 1.3-2.3 mg/dL, I suspect she has some acute on chronic injury related to volume depletion and her decreased p.o. intake. I agree with the gentle IV fluid hydration of 75 cc an hour Current Visit: No Qualifiers: Chronic kidney disease stage: stage 4 (severe) (2) Tricuspid regurgitation Status: Acute Current Visit: Yes (3) Ascites Problem details: Agree with treatment of pHTN with revatio. Continue aldactone/ lasix at ratio of 100 aldactone 40 lasix. Status: Acute Current Visit: No (4) Debility Status: Acute Current Visit: No (5) Pulmonary hypertension Status: Acute Current Visit: No (6) Atrial fibrillation Status: Chronic Current Visit: No Qualifiers: Atrial fibrillation type: chronic Qualified Code(s): I48.2 - Chronic atrial fibrillation (7) Diabetes Status: Chronic Current Visit: No Qualifiers: Diabetes mellitus type: type 2 Diabetes mellitus complication status: with kidney complications Chronic kidney disease stage: stage 2 (mild) (8) Hypertension Problem details: controlled Status: Chronic Current Visit: No Qualifiers: Hypertension type: essential hypertension
--- NOTE | 2016-10-25 13:25 | Gastrointestinal Progress Note ---
<Miri Dominguez Shelton - Last Filed: 10/25/16 13:23> Assessment and Plan (1) Abdominal pain Status: Acute Assessment and plan: 10/25-No abd pain, tolerating diet. Plan and addendum to follow by Dr Wing. 10/22-continued abdominal soreness slowly improving. Dopamine off at present time. Bilirubin down at 3.0. Tolerating diet. Plan an addendum to follow by Dr. Wing. 10/21-Continued dopamine, currently weaning down. Increased UOP. Bilirubin down slightly at 3.2. Plan and addendum to follow by Dr Wing. 10/20-Post op tenderness but controlled. Hypotension with Dopamine infusion, decreased UOP. Elevated bilirubin today at 3.6. Plan and addendum to follow by Dr Wing. 10/19-Pain better controlled today. US findings noted. For lap lucila today with Dr Toussaint. Plan and addendum to follow by Dr Wing. 10/18-2 day history of severe right upper quadrant abdominal pain radiating to back and shoulder shoulders with associated nausea and intractable vomiting. Recent hospitalization with findings on ultrasound of cholelithiasis without acute cholecystitis. No change in LFTs at present time. Repeat ultrasound in consult surgery at this time. Plan an addendum to follow by Dr. Wing. Current Visit: Yes Gastroenterology - PN: Subj Interval history: CC: Cholecystitis Patient is seen awake and alert sitting up in bed. States she was not feeling well this morning have an episode of nausea and vomiting. Denies abdominal pain at present time. She is tolerating small amounts of her diet. She is noted to be back on low-dose dopamine for her pressor support this morning. Abdomen soft, nontender. Bilirubin is noted at 1.9, trending down at this time. Auras: Denies shortness of breath or chest pain Exam (Progress Note) - Constitutional Vitals: Period Temp Pulse Resp BP Sys/Marcum Pulse Ox Last 24 Hr 97.6 F-99.4 F 66-88 13-24 87-127/38-80 93-99 General appearance: normal weight, no acute distress - Head Head exam: Present: normal inspection, normocephalic - Eye Eye exam: Present: other (Lids and conjunctive are unremarkable). Absent: scleral icterus - ENT ENT exam: Present: normal exam, normal oropharynx - Neck Neck exam: Present: normal inspection - Respiratory Respiratory exam: Present: clear to auscultation bilaterally. Absent: rales, rhonchi, wheezes - Cardiovascular Cardiovascular exam: Present: regular rate and rhythm. Absent: diastolic murmur , JVD, systolic murmur - GI/Abdominal GI/Abdominal exam: Present: normal bowel sounds, soft. Absent: ascites, distended, mass, organomegaly, tenderness - Extremities Exam Extremities exam: Present: normal inspection, full ROM - Back Exam Back exam: Present: normal inspection - Neurological Exam Neurological exam: Present: alert, oriented X3 - Psychiatric Psychiatric exam: Present: normal affect, normal mood - Skin Skin exam: Present: normal color, warm, dry Results - Labs CBC & BMP: 10/25/16 04:46 10/25/16 04:46 Lab Results: I have reviewed the past 24 hour labs <Martin Wing - Last Filed: 10/25/16 18:14> Exam (Progress Note) - Constitutional Vitals: Period Temp Pulse Resp BP Sys/Marcum Pulse Ox Last 24 Hr 97.6 F-98.8 F 66-96 13-24 87-127/38-80 93-99 Results - Labs CBC & BMP: 10/25/16 04:46 10/25/16 04:46
[2016-10-25] MEDS: BIMATOPROST 0.01% OPH SOLN 2.5 ML BOTTLE BOTH EYES SCH (21:32)
[2016-10-25] MEDS: SIMVASTATIN 40 MG TABLET PO SCH (21:32)
[2016-10-26] MEDS: MAGNESIUM CHLORIDE 64 MG TABLET PO SCH ×3 (00:55→20:58)
[2016-10-26] MEDS: CLINDAMYCIN INJ 600 MG in PREMIX 1 EACH IV SCH (04:25)
[2016-10-26 04:58] LABS: Basophils % 0.4 % (0.0-0.8); Eosinophils # 0.3 10*3/uL (0.0-0.87); Eosinophils % 4.9 % (0.00-10.9); Hematocrit 29.9 VOL% (35.7-47.0); Immature Granulocytes % 0.7 %; Immature Granulocytes Absolute 0.05 #; Lymphocytes # 0.4 10*3/uL (1.4-4.0); Lymphocytes % 5.8 % (21.3-54.2); Mean Corpuscular HGB Conc 33.4 GM/DL (32-36); Mean Corpuscular Hemoglobin 27 PG (27-34); Mean Corpuscular Volume 81.3 FL (87-102); Mean Platelet Volume 10.2 FL (9.6-12.0); Monocytes # 1.1 10*3/uL (0.11-0.8); Monocytes % 16.1 % (1.7-12.7); Neutrophils # 5.1 10*3/uL (1.4-7.4); Neutrophils % 72.1 % (38.7-73.9); Platelet Count 181 T/CUMM (130-400); Red Blood Count 3.68 MC/CUMM (3.8-5.5); Red Cell Distribution Width 16.4 % (9.3-17.3)
[2016-10-26] MEDS: MEROPENEM 500 MG in SODIUM CHLORIDE 0.9% 100 ML IV SCH (05:11)
[2016-10-26 05:25] LABS: Alanine Aminotransferase < 9 U/L (13-56); Albumin 2.7 G/DL (3.4-5.0); Alkaline Phosphatase 87 U/L (45-117); Aspartate Amino Transferase 15 U/L (0-37); Blood Urea Nitrogen 48 MG/DL (7-18); Calcium 8.2 MG/DL (8.5-10.1); Glucose 76 MG/DL (74-106); Osmolality,Calculated 281.1 MOS/KG (273-304); Potassium 4.8 MMOL/L (3.5-5.1); Sodium 135 MMOL/L (136-145); Total Protein 5.7 G/DL (6.4-8.3)
[2016-10-26 05:28] LABS: Band Neutrophils 2 % (0-10); Eosinophils 6 % (0-10); Lymphocytes 7 % (20-55); Segmented Neutrophils 76 % (50-85); Total Cells Counted 100
[2016-10-26 05:29] LABS: Hypochromasia 1+; Microcytosis 1+; Ovalocytes Few; Platelet Estimate Adequate
--- NOTE | 2016-10-26 06:51 | XRay Report ---
Exam: XR KUB Date: 10/26/2016 4:00 AM Indication: Ascites Comparison: 10/25/2016 Technical: AP supine 2 images Findings: Mary drain is present in the right upper quadrant with cholecystectomy clips present. Secondary of tubing superimposes the right lower abdomen. Some surgical clips present in the left lower quadrant. Some dilated loops of large and small bowel present. No obvious evidence of pneumoperitoneum. The liver spleen and renal shadows are mostly obscured. Mild degenerative changes thoracolumbar spine. Impression: 1. Previous cholecystectomy and Mary drain right upper abdomen with surgical clips in the left lower quadrant and second area of tubing in the right lower quadrant noted. 2. Abdominal ileus pattern suspected. Slight decreased size the stomach when compared to previous exam PROCEDURE INTERPRETED AT [facility] DEPARTMENT OF RADIOLOGY Final Report Signed by: Dr. Luis Miguel Valdez
--- NOTE | 2016-10-26 06:52 | XRay Report ---
Exam: XR chest 1V portable Date: 10/26/2016 4:00 AM Indication: Pleural effusion follow-up Comparison: 10/25/2016 Technical: AP portable Findings: Cardiac pacing device with atrial ventricular leads present. Right base pleural effusion atelectatic change or infiltrate persist. Oxygen tubing superimposes exam. There is mild obscuration of right hemidiaphragm. No pneumothorax. ASVD is present. There is calcification in tracheobronchial tree. Impression: 1. Persistent right base pleural effusion atelectatic change or infiltrate 2. Stable persistent cardiac pacing device with cardiac enlargement. PROCEDURE INTERPRETED AT [facility] DEPARTMENT OF RADIOLOGY Final Report Signed by: Dr. Luis Miguel Valdez
--- NOTE | 2016-10-26 07:26 | Event Note ---
General Surgery Progress Note Chief complaint This patient is a 71-year-old woman with pulmonary hypertension who was admitted to the hospital with acute cholecystitis and underwent laparoscopic cholecystectomy on 10/19/2016 Interval history The patient continues to have drainage around her MARISABEL drain. Her lab work continues to improve and she is making adequate urine output now. She is not tolerating a whole lot of food and says she has a metallic taste in her mouth but she does not really have any nausea or vomiting. She is starting to pass some gas and has been getting up in the chair some during the day. She is off of her dopamine now since 4 PM yesterday. Physical exam The patient is afebrile and her vital signs are normal now. She is awake and alert. Abdominal exam is benign with expected postoperative tenderness and serous fluid in the MARISABEL drain. There is an ostomy appliance around the bag and it is draining serous fluid. There was some clot in the MARISABEL drain tubing and I stripped the tubing and got the clot out. Labs Hemoglobin is stable Creatinine and bilirubin continue to downtrending. Imaging chest xray and abdominal x-ray reviewed. Persistent right-sided pleural effusion. Abdominal ileus pattern Assessment and plan The MARISABEL drain had clotted in the tubing and I stripped this today and asked the nurses to do this 3 times daily. I am hoping with better stripping on the MARISABEL drain that the ascites fluid leaking around the drain will stop and it will preferentially drain through the MARISABEL. For this reason I will leave the MARISABEL again today and see how this works. The patient appears stable for transfer to the floor from my standpoint Continue diet as tolerated We will discontinue antibiotics today
[2016-10-26] MEDS: INSULIN ASPART PROTAMINE/ASPART 70/30 100 UNIT/ML SUBCUT SCH ×2 (07:30→16:30)
[2016-10-26] MEDS: INSULIN REGULAR 100 UNIT/ML SUBCUT SCH ×4 (07:30→21:47)
[2016-10-26] MEDS: ALBUTEROL/IPRATROPIUM 3 ML NEB RESP TX SCH ×2 (07:57→19:30)
[2016-10-26] MEDS: COLESEVELAM 625 MG TABLET PO SCH ×3 (08:00→16:50)
[2016-10-26] MEDS: MONTELUKAST 10 MG TABLET PO SCH (09:00)
[2016-10-26] MEDS: miSOPROStol 200 MCG TABLET PO SCH ×2 (09:00→16:50)
[2016-10-26] MEDS: ASPIRIN EC 81 MG TABLET PO SCH (09:00)
[2016-10-26] MEDS: VENLAFAXINE 75 MG TABLET PO SCH (09:00)
[2016-10-26] MEDS: SILDENAFIL 20 MG TABLET PO SCH ×3 (09:00→20:58)
[2016-10-26] MEDS: ASCORBIC ACID 500 MG TABLET PO SCH (09:00)
[2016-10-26] MEDS: amLODIPine 5 MG TABLET PO SCH (09:00)
[2016-10-26] MEDS: SODIUM BICARBONATE 650 MG TABLET PO SCH ×2 (09:00→20:58)
[2016-10-26] MEDS: FAMOTIDINE 20 MG TABLET PO SCH (09:00)
--- NOTE | 2016-10-26 10:26 | Nephrology Progress Note ---
Nephrology - PN: Subj Interval history: Patient denies shortness of breath. Review of systems GI abdominal discomfort is improved she denies nausea or vomiting Assessment/plan 1. Acute renal failure-patient's creatinine is improved at 2.4 mg/dL today her urine output is good, I am going to DC her Cornelius catheter 2. Pulmonary hypertension 3. Diabetes mellitus 4. Hypotension-patient has been weaned off dopamine. Exam (PN)-Nephrology - Vital Signs Vital signs: Period Temp Pulse Resp BP Sys/Marcum Pulse Ox Last 24 Hr 97.6 F-98.1 F 67-96 14-24 93-124/39-77 93-99 - Lab 10/26/16 04:04 10/26/16 04:04 Most recent lab results ABG pH 7.402 (7.35-7.45) 10/20/16 01:12 ABG pCO2 28.5 MM HG (35-48) L 10/20/16 01:12 ABG pO2 63.0 MM HG (80-95) L 10/20/16 01:12 ABG HCO3 19.4 MMOL/L (20-26) L 10/20/16 01:12 ABG O2 Saturation 92.7 % (95-100) L 10/20/16 01:12 Calcium 8.2 MG/DL (8.5-10.1) L 10/26/16 04:04 Magnesium 2.6 MG/DL (1.8-2.4) H 10/25/16 04:46 Assessment and Plan (1) [id number] kidney injury Status: Acute Assessment and plan: This patient's creatinine was recently around 2 mg/dL the past month it is very quite wildly between 1.3-2.3 mg/dL, I suspect she has some acute on chronic injury related to volume depletion and her decreased p.o. intake. I agree with the gentle IV fluid hydration of 75 cc an hour Current Visit: No Qualifiers: Chronic kidney disease stage: stage 4 (severe) (2) Tricuspid regurgitation Status: Acute Current Visit: Yes (3) Ascites Problem details: Agree with treatment of pHTN with revatio. Continue aldactone/ lasix at ratio of 100 aldactone 40 lasix. Status: Acute Current Visit: No (4) Debility Status: Acute Current Visit: No (5) Pulmonary hypertension Status: Acute Current Visit: No (6) Atrial fibrillation Status: Chronic Current Visit: No Qualifiers: Atrial fibrillation type: chronic Qualified Code(s): I48.2 - Chronic atrial fibrillation (7) Diabetes Status: Chronic Current Visit: No Qualifiers: Diabetes mellitus type: type 2 Diabetes mellitus complication status: with kidney complications Chronic kidney disease stage: stage 2 (mild) (8) Hypertension Problem details: controlled Status: Chronic Current Visit: No Qualifiers: Hypertension type: essential hypertension
--- NOTE | 2016-10-26 10:54 | Pulmonology Progress Note ---
Pulmonary - PN: Subj Interval history: This is a 71-year-old white female whom I admitted from my office on 10/18/2016. She had had a recent hospitalization and had been sent home in good condition. At that time she had presented with anasarca secondary to pulmonary hypertension and right heart failure. She is followed from a renal standpoint by Dr. Efren Navarro, cardiology standpoint by Dr. Renato Burgess and from a GI standpoint by Dr. Mateo Wing. My impressions were. 1. Acute nausea, vomiting, and dehydration refractory top OP treatment. Viral vs. bacterial vs. medication side effect. 2. Recent hospitalization secondary to ascites/anasarca felt secondary to severe pulmonary hypertension. Requiring to paracenteses that admission. 2. Cholelithiasis per ultrasound with no evidence of cholecystitis. 3. Severe pulmonary hypertension as evidenced by estimated pulmonary artery pressure of 80 mmHg seen on echocardiogram. 4. Chronic atrial fib. Note, the patient is not on anticoagulation secondary to history of GI bleed and anemia. This is followed by Dr. Renato Burgess. 5. History of acute renal failure with medications and contrast. This is followed by Dr. Efren Navarro. 6. Systemic lupus erythematosus followed by Dr. Sunny Nguyen by report. 7. Diabetes mellitus. 8. See past medical history 10/19/2016. This patient has had acute cholecystitis and she is for surgery little later on this morning. Ultrasound of the abdomen shows she still has ascites. Her renal status is stable with a creatinine of 2.1 and a BUN of 31. Electrolytes are normal. Admit white count was 8200 with 78 segs 7 lymphs and 13 monos. 10/20/2016. On 10/19/2016 this patient had a laparoscopic cholecystectomy. Her gallbladder was infected. See Dr. Preston to lupus surgical note. Patient had hypotensive tension and I kept her in the unit overnight. She has low urine output and I put her on on dopamine open to increase her renal function. She is tolerated this well but her systolic blood pressures are mainly around 90. Creatinine is increased from 2.3-3.0 with a BUN of 38. and he is seeing her in renal consultation. Electrolytes are normal. Today's chest x-ray shows a small right pleural effusion and I assume that this is related to the patient' s ascites which Dr. Toussaint noted during surgery. Her ascites is thought to be secondary to right heart failure based on pulmonary hypertension. I am restarting her Norvasc to 5 mg daily which is one half the previous dose and I am going to restart Revatio 20 mg p.o. every 8 hours. Will have to watch her blood pressure closely while she is on this but if it works like it is supposed to it should actually help the blood pressure improved. I am giving the patient fluids for the present time and her diuretics are being held. She is previously been on Lasix and Aldactone. White count is 8800 with 78 segs per ABGs on FiO2 of 50% show a pH 7.40, PCO2 28.5, PO2 of 63 and a bicarb at 19.4. When the patient takes several deep breaths this improved significantly. There are no positive cultures. Patient's had a temp up to 100.1. She is on Cleocin and meropenem and we have given her test doses for allergies since she has multiple allergies by history. She remains in atrial fib. She cannot be anticoagulated because of previous bleeding problems. Dr. Renato Burgess is her skeet operator and I have consulted him. She has been followed by Dr. Efren Navarro from a renal standpoint for chronic renal failure. For the present time I will follow serial lab chest x-rays. 10/21/2016. Patient has a stable night. Her blood pressures much better. I am going to continue her dopamine drip. Chest x-ray shows a small right pleural effusion I think this is related to ascites. I see nothing to suggest congestive heart failure. Urine output has been less than optimal. Dr. Shahid Mansfield and I have discussed the case and coordinated care including Lasix 40 IV push every 12 hours and IV fluids. Creatinine has increased to 3.20 with a BUN of 43 electrolytes are normal. White count is 9900 with 74 segs 8 lymphs and 14 monocytes. H&H is 10.1/30.3 and platelets are 135,000. Repeat TSH and free T4 are normal. Today we are going to try to get the patient out of bed and hopefully she will be ready for transfer to the floor and another day. Her daughter was present and I reviewed the case with her and she promised to inform all other family members of what I said. Raúl Medrano nurse practitioner was present and her nurses Sandra and Luis were present. Patient is eating without any problems. She has had no bowel movements. KUB shows only a small amount of air in the colon. No ileus was seen. 10/22/2016. This patient is postop infected gallbladder. She is doing good in that regard. She is afebrile she is on antibiotics. Patient has chronic renal failure creatinine is gradually increased from 2.2-3.6. Nephrology is on the case. Patient has a small right pleural effusion that is related to her ascites. She has underlying pulmonary hypertension with recent pulmonary artery pressures of 80. She was in the hospital recently with acute right heart failure. This was thought to be the source of ascites as well as anasarca. She is on Norvasc 5 daily and Revatio 20 every 8 hours. Postop the patient's been hypotensive and is on dopamine. She is also followed by cardiology and GI. I reviewed and discussed the case with the patient's son this morning. I think it is in her best interest to keep her in intensive care a few more days. 10/26/2016. Patient was seen along with her daughter and Raúl Medrano nurse practitioner today. We have been able to wean off dopamine and I am going to move the patient to 5 E. once a bed is available. She still requires a lot of nursing care. KUB shows gas in the abdomen. The patient has had no flatus but I do hear bowel sounds. She has been able to eat a little bit and there is been no problem with gastroesophageal reflux. Her chest x-ray still shows a small right pleural effusion related to her ascites. Patient has a J-tube drain remaining. See Dr. Preston 2 loops note. Total bilirubin has fallen to 1.80 and creatinine is fallen to 2.40 with a BUN of 48. Electrolytes are normal. CBC is stable. Patient is making slow but steady progress. Physical exam. Vital signs see below Psychiatric. Alert oriented 3. Neurological. Cranial nerves are intact long track motor functions intact Face. Symmetrical. Lips and tongue are normal. Neck. Symmetrical. No meningismus. Lymphatics. No submandibular cervical supraclavicular or epitrochlear adenopathy. Chest. Wheeze free Heart. Regular no gallop. Abdomen. Right upper quadrant tenderness. Lower extremities. Small amount of pedal and pretibial edema under much better control than usual. The remainder the physical exam is noncontributory. Plan: 10/18/2016 1. Admit to inpatient 2. Consult Dr. Navarro 3. Hold medications which could cause nausea 3. Daily labs 5. Gentle rehydration 6. See orders. GI consult. Surgery consult. #7. 10/19/2016. For cholecystectomy today. We will have to monitor her fluid status and renal status etc. very carefully. 8. 10/21/2016. See today's note above. Increase Cytotec to 200 g twice a day. Doppler venograms of the lower extremities. Inhalation therapy twice a day and as needed. Continue dopamine 9. 10/22/2016. See my note above for today see my note 10/21/2016 10. 10/26/2016. See today's note above. Possible moved to 5 E. Exam (Progress Note) - Constitutional Vitals: Period Temp Pulse Resp BP Sys/Marcum Pulse Ox Last 24 Hr 97.6 F-98.1 F 67-96 14-24 93-124/39-77 93-99 Results - Labs CBC & BMP: 10/26/16 04:04 10/26/16 04:04
--- NOTE | 2016-10-26 11:32 | Gastrointestinal Progress Note ---
<Miri Dominguez Shelton - Last Filed: 10/26/16 11:29> Assessment and Plan (1) Abdominal pain Status: Acute Assessment and plan: 10/26-No c/o pain. Off pressor support. Bilirubin 1.8. To be transferred to floor today. Plan and addendum to follow by Dr wing. 10/25-No abd pain, tolerating diet. Plan and addendum to follow by Dr Wing. 10/22-continued abdominal soreness slowly improving. Dopamine off at present time. Bilirubin down at 3.0. Tolerating diet. Plan an addendum to follow by Dr. Wing. 10/21-Continued dopamine, currently weaning down. Increased UOP. Bilirubin down slightly at 3.2. Plan and addendum to follow by Dr Wing. 10/20-Post op tenderness but controlled. Hypotension with Dopamine infusion, decreased UOP. Elevated bilirubin today at 3.6. Plan and addendum to follow by Dr Wing. 10/19-Pain better controlled today. US findings noted. For lap lucila today with Dr Toussaint. Plan and addendum to follow by Dr Wing. 10/18-2 day history of severe right upper quadrant abdominal pain radiating to back and shoulder shoulders with associated nausea and intractable vomiting. Recent hospitalization with findings on ultrasound of cholelithiasis without acute cholecystitis. No change in LFTs at present time. Repeat ultrasound in consult surgery at this time. Plan an addendum to follow by Dr. Wing. Current Visit: Yes Gastroenterology - PN: Subj Interval history: CC: Abd pain Pt is seen awake and alert sitting up in chair. States she is feeling better today. She denies any abdominal pain, nausea or vomiting. She states that she is eating more and tolerating her diet well. Abdomen is soft, nontender. Her Dopamine was stopped at 4am this morning and blood pressure has remained stable. She is to have biggs removed and to be transferred to the floor later today. Bilirubin 1.8. Abdomen is soft, nontender. ROS: Denies SOB or chest pain Exam (Progress Note) - Constitutional Vitals: Period Temp Pulse Resp BP Sys/Marcum Pulse Ox Last 24 Hr 97.6 F-99 F 67-96 12-24 93-124/39-77 93-98 General appearance: normal weight, no acute distress - Head Head exam: Present: normal inspection, normocephalic - Eye Eye exam: Present: other (lids and conjunctiva unremarkable). Absent: scleral icterus - ENT ENT exam: Present: normal exam, normal oropharynx - Neck Neck exam: Present: normal inspection - Respiratory Respiratory exam: Present: clear to auscultation bilaterally. Absent: rales, rhonchi, wheezes - Cardiovascular Cardiovascular exam: Present: regular rate and rhythm. Absent: diastolic murmur , JVD, systolic murmur - GI/Abdominal GI/Abdominal exam: Present: normal bowel sounds, soft. Absent: ascites, distended, mass, organomegaly, tenderness - Extremities Exam Extremities exam: Present: normal inspection, full ROM - Back Exam Back exam: Present: normal inspection - Neurological Exam Neurological exam: Present: alert, oriented X3 - Psychiatric Psychiatric exam: Present: normal affect, normal mood - Skin Skin exam: Present: normal color, warm, dry Results - Labs CBC & BMP: 10/26/16 04:04 10/26/16 04:04 Lab Results: I have reviewed the past 24 hour labs <Martin Wing - Last Filed: 10/26/16 23:12> Exam (Progress Note) - Constitutional Vitals: Period Temp Pulse Resp BP Sys/Marcum Pulse Ox Last 24 Hr 97.7 F-99 F 66-77 12-22 97-126/49-56 95-99 Results - Labs CBC & BMP: 10/26/16 04:04 10/26/16 04:04
[2016-10-26] MEDS: SIMVASTATIN 40 MG TABLET PO SCH (20:58)
[2016-10-26] MEDS: BIMATOPROST 0.01% OPH SOLN 2.5 ML BOTTLE BOTH EYES SCH (20:58)
[2016-10-27 06:08] LABS: Basophils % 0.4 % (0.0-0.8); Eosinophils # 0.3 10*3/uL (0.0-0.87); Eosinophils % 4.8 % (0.00-10.9); Hematocrit 29.4 VOL% (35.7-47.0); Hemoglobin 9.8 GM/DL (12.0-16.0); Immature Granulocytes % 0.7 %; Immature Granulocytes Absolute 0.04 #; Lymphocytes # 0.6 10*3/uL (1.4-4.0); Lymphocytes % 10.4 % (21.3-54.2); Mean Corpuscular HGB Conc 33.3 GM/DL (32-36); Mean Corpuscular Hemoglobin 27 PG (27-34); Mean Corpuscular Volume 81.7 FL (87-102); Mean Platelet Volume 9.9 FL (9.6-12.0); Monocytes % 18.2 % (1.7-12.7); Neutrophils # 3.7 10*3/uL (1.4-7.4); Neutrophils % 65.5 % (38.7-73.9); Platelet Count 193 T/CUMM (130-400); Red Cell Distribution Width 16.4 % (9.3-17.3); White Blood Count 5.6 T/CUMM (4-12)
[2016-10-27 06:37] LABS: Albumin 2.6 G/DL (3.4-5.0); Bilirubin,Total 1.3 MG/DL (0.2-1.0); Calcium 8.5 MG/DL (8.5-10.1); Osmolality,Calculated 284.7 MOS/KG (273-304); Potassium 4.9 MMOL/L (3.5-5.1); Total Protein 5.4 G/DL (6.4-8.3)
--- NOTE | 2016-10-27 06:43 | XRay Report ---
Exam: XR chest 1V portable Date: 10/27/2016 4:00 AM Indication: Pleural effusion follow-up Comparison: 10/26/2016 Technical: AP portable Findings: Cardiac pacing device with atrial ventricular leads present with mild cardiac enlargement. Haziness in the right lung reveals a effusion and atelectatic change or infiltrate persisting. ASVD is present. Bony demineralization is present. Lateral marginal osteophytes are noted. Impression: 1. Persistent low volume right effusion and atelectatic change with layering along the right chest. 2. Cardiac enlargement with stable persistent cardiac pacing device 3. No significant interval change PROCEDURE INTERPRETED AT [facility] DEPARTMENT OF RADIOLOGY Final Report Signed by: Dr. Luis Miguel Valdez
[2016-10-27 07:02] LABS: Eosinophils 9 % (0-10); Lymphocytes 10 % (20-55); Platelet Estimate Normal; Segmented Neutrophils 66 % (50-85); Total Cells Counted 100
[2016-10-27 07:03] LABS: Hypochromasia 1+; Microcytosis 1+; Ovalocytes Slight
[2016-10-27] MEDS: ALBUTEROL/IPRATROPIUM 3 ML NEB RESP TX SCH ×2 (07:36→19:25)
--- NOTE | 2016-10-27 07:40 | Event Note ---
General Surgery Progress Note Chief complaint This patient is a 71-year-old woman with pulmonary hypertension who was admitted to the hospital with acute cholecystitis and underwent laparoscopic cholecystectomy on 10/19/2016 Interval history The patient is doing better today. Her renal function is improving and her bilirubin is downtrending. She is tolerating her diet better and passing gas. She has not had a real bowel movement yet. She is getting up and walking to the restroom. She is quite a bit up as far as her weight but is not having any breathing difficulty or significant swelling in her legs. Her MARISABEL drain is controlling the output from her abdominal site with no drainage into the ostomy bag overnight. Physical exam The patient is afebrile and her vital signs are normal now. She is awake and alert. Abdominal exam is benign with expected postoperative tenderness and serous fluid in the MARISABEL drain. There is an ostomy appliance around the bag and it is draining serous fluid. Labs Hemoglobin is stable Creatinine and bilirubin continue to downtrending. Imaging Reviewed Assessment and plan Continue MARISABEL drain today and continue stripping the drain to make sure no further clots arise. Remove ostomy bag in place gauze dressing over the skin to try to protect it and let it heal Diet as tolerated Discharge planning
[2016-10-27] MEDS ORDERED: HEPARIN 5,000 UNIT/1 ML VIAL SUBCUT SCH (08:00)
--- NOTE | 2016-10-27 08:50 | Gastrointestinal Progress Note ---
<AngelicaMiri Shelton - Last Filed: 10/27/16 08:48> Assessment and Plan (1) Abdominal pain Status: Acute Assessment and plan: 10/27-Pain improved, bilirubin down at 1.3. Tolerating diet. Plan and addendum to follow by DR Wing. 10/26-No c/o pain. Off pressor support. Bilirubin 1.8. To be transferred to floor today. Plan and addendum to follow by Dr wing. 10/25-No abd pain, tolerating diet. Plan and addendum to follow by Dr Wing. 10/22-continued abdominal soreness slowly improving. Dopamine off at present time. Bilirubin down at 3.0. Tolerating diet. Plan an addendum to follow by Dr. Wing. 10/21-Continued dopamine, currently weaning down. Increased UOP. Bilirubin down slightly at 3.2. Plan and addendum to follow by Dr Wing. 10/20-Post op tenderness but controlled. Hypotension with Dopamine infusion, decreased UOP. Elevated bilirubin today at 3.6. Plan and addendum to follow by Dr Wing. 10/19-Pain better controlled today. US findings noted. For lap lucila today with Dr Toussaint. Plan and addendum to follow by Dr Wing. 10/18-2 day history of severe right upper quadrant abdominal pain radiating to back and shoulder shoulders with associated nausea and intractable vomiting. Recent hospitalization with findings on ultrasound of cholelithiasis without acute cholecystitis. No change in LFTs at present time. Repeat ultrasound in consult surgery at this time. Plan an addendum to follow by Dr. Wing. Current Visit: Yes Gastroenterology - PN: Subj Interval history: CC: Abdominal pain Pt is seen awake and alert sitting up in bed with family at bedside. States that she is feeling some better today. She denies any abdominal pain, nausea or vomiting. Her appetite is slowly improving. Her bilirubin is trending down at 1.3. She is to have her MARISABEL drain removed today. Abdomen is soft, nontender. ROS: Denies SOB or chest pain Exam (Progress Note) - Constitutional Vitals: Period Temp Pulse Resp BP Sys/Marcum Pulse Ox Last 24 Hr 97.6 F-99.8 F 66-86 14-22 102-126/51-60 94-99 General appearance: normal weight, no acute distress - Head Head exam: Present: normal inspection, normocephalic - Eye Eye exam: Present: other (lids and conjunctiva unremarkable). Absent: scleral icterus - ENT ENT exam: Present: normal exam, normal oropharynx - Neck Neck exam: Present: normal inspection - Respiratory Respiratory exam: Present: clear to auscultation bilaterally. Absent: rales, rhonchi, wheezes - Cardiovascular Cardiovascular exam: Present: regular rate and rhythm. Absent: diastolic murmur , JVD, systolic murmur - GI/Abdominal GI/Abdominal exam: Present: normal bowel sounds, soft. Absent: ascites, distended, mass, organomegaly, tenderness - Extremities Exam Extremities exam: Present: normal inspection, full ROM - Back Exam Back exam: Present: normal inspection - Neurological Exam Neurological exam: Present: alert, oriented X3 - Psychiatric Psychiatric exam: Present: normal affect, normal mood - Skin Skin exam: Present: normal color, warm, dry Results - Labs CBC & BMP: 10/27/16 05:49 10/27/16 05:49 Lab Results: I have reviewed the past 24 hour labs <Martin Wing - Last Filed: 10/27/16 17:53> Exam (Progress Note) - Constitutional Vitals: Period Temp Pulse Resp BP Sys/Marcum Pulse Ox Last 24 Hr 97.6 F-99.8 F 70-86 14-22 110-133/55-62 91-99 Results - Labs CBC & BMP: 10/27/16 05:49 10/27/16 05:49
[2016-10-27] MEDS: INSULIN REGULAR 100 UNIT/ML SUBCUT SCH ×4 (09:04→21:04)
[2016-10-27] MEDS: INSULIN ASPART PROTAMINE/ASPART 70/30 100 UNIT/ML SUBCUT SCH ×2 (09:04→16:30)
[2016-10-27] MEDS: COLESEVELAM 625 MG TABLET PO SCH ×3 (09:05→16:49)
[2016-10-27] MEDS: SILDENAFIL 20 MG TABLET PO SCH ×3 (09:05→21:11)
[2016-10-27] MEDS: ASPIRIN EC 81 MG TABLET PO SCH (09:05)
[2016-10-27] MEDS: FAMOTIDINE 20 MG TABLET PO SCH (09:05)
[2016-10-27] MEDS: miSOPROStol 200 MCG TABLET PO SCH ×2 (09:05→16:48)
[2016-10-27] MEDS: ASCORBIC ACID 500 MG TABLET PO SCH (09:05)
[2016-10-27] MEDS: MONTELUKAST 10 MG TABLET PO SCH (09:05)
[2016-10-27] MEDS: VENLAFAXINE 75 MG TABLET PO SCH (09:06)
[2016-10-27] MEDS: SODIUM BICARBONATE 650 MG TABLET PO SCH ×2 (09:06→21:12)
[2016-10-27] MEDS: MAGNESIUM CHLORIDE 64 MG TABLET PO SCH ×2 (09:06→21:11)
[2016-10-27] MEDS: amLODIPine 5 MG TABLET PO SCH (09:07)
--- NOTE | 2016-10-27 12:06 | Pulmonology Progress Note ---
Pulmonary - PN: Subj Interval history: Raúl Medrano, ANP-BC, GNP-BC, acting as scribe for Dr. Luis Miguel Do This is a 71-year-old white female who was admitted from [facility] on 10/18/2016. She had had a recent hospitalization and had been sent home in good condition. At the time of that admission, she had presented with anasarca secondary to pulmonary hypertension and right heart failure. She is followed from a renal standpoint by Dr. Efren Navarro, cardiology standpoint by Dr. Renato Burgess and from a GI standpoint by Dr. Mateo Wing. At the time of admission, our impressions were: 1. Acute nausea, vomiting, and dehydration refractory top OP treatment. Viral vs. bacterial vs. medication side effect. 2. Recent hospitalization secondary to ascites/anasarca felt secondary to severe pulmonary hypertension. Requiring to paracenteses that admission. 2. Cholelithiasis per ultrasound with no evidence of cholecystitis. 3. Severe pulmonary hypertension as evidenced by estimated pulmonary artery pressure of 80 mmHg seen on echocardiogram. 4. Chronic atrial fib. Note, the patient is not on anticoagulation secondary to history of GI bleed and anemia. This is followed by Dr. Renato Burgess. 5. History of acute renal failure with medications and contrast. This is followed by Dr. Efren Navarro. 6. Systemic lupus erythematosus followed by Dr. Sunny Nguyen by report. 7. Diabetes mellitus. 8. See past medical history 10/19/2016. This patient has had acute cholecystitis and she is for surgery little later on this morning. Ultrasound of the abdomen shows she still has ascites. Her renal status is stable with a creatinine of 2.1 and a BUN of 31. Electrolytes are normal. Admit white count was 8200 with 78 segs 7 lymphs and 13 monos. 10/20/2016. On 10/19/2016 this patient had a laparoscopic cholecystectomy. Her gallbladder was infected. See Dr. Preston to lupus surgical note. Patient had hypotensive tension and I kept her in the unit overnight. She has low urine output and I put her on on dopamine open to increase her renal function. She is tolerated this well but her systolic blood pressures are mainly around 90. Creatinine is increased from 2.3-3.0 with a BUN of 38. and he is seeing her in renal consultation. Electrolytes are normal. Today's chest x-ray shows a small right pleural effusion and I assume that this is related to the patient' s ascites which Dr. Toussaint noted during surgery. Her ascites is thought to be secondary to right heart failure based on pulmonary hypertension. I am restarting her Norvasc to 5 mg daily which is one half the previous dose and I am going to restart Revatio 20 mg p.o. every 8 hours. Will have to watch her blood pressure closely while she is on this but if it works like it is supposed to it should actually help the blood pressure improved. I am giving the patient fluids for the present time and her diuretics are being held. She is previously been on Lasix and Aldactone. White count is 8800 with 78 segs per ABGs on FiO2 of 50% show a pH 7.40, PCO2 28.5, PO2 of 63 and a bicarb at 19.4. When the patient takes several deep breaths this improved significantly. There are no positive cultures. Patient's had a temp up to 100.1. She is on Cleocin and meropenem and we have given her test doses for allergies since she has multiple allergies by history. She remains in atrial fib. She cannot be anticoagulated because of previous bleeding problems. Dr. Renato Burgess is her welfare visitor and I have consulted him. She has been followed by Dr. Efren Navarro from a renal standpoint for chronic renal failure. For the present time I will follow serial lab chest x-rays. 10/21/2016. Patient has a stable night. Her blood pressures much better. I am going to continue her dopamine drip. Chest x-ray shows a small right pleural effusion I think this is related to ascites. I see nothing to suggest congestive heart failure. Urine output has been less than optimal. Dr. Shahid Mansfield and I have discussed the case and coordinated care including Lasix 40 IV push every 12 hours and IV fluids. Creatinine has increased to 3.20 with a BUN of 43 electrolytes are normal. White count is 9900 with 74 segs 8 lymphs and 14 monocytes. H&H is 10.1/30.3 and platelets are 135,000. Repeat TSH and free T4 are normal. Today we are going to try to get the patient out of bed and hopefully she will be ready for transfer to the floor and another day. Her daughter was present and I reviewed the case with her and she promised to inform all other family members of what I said. Raúl Medrano nurse practitioner was present and her nurses Sandra and Luis were present. Patient is eating without any problems. She has had no bowel movements. KUB shows only a small amount of air in the colon. No ileus was seen. 10/22/2016. This patient is postop infected gallbladder. She is doing good in that regard. She is afebrile she is on antibiotics. Patient has chronic renal failure creatinine is gradually increased from 2.2-3.6. Nephrology is on the case. Patient has a small right pleural effusion that is related to her ascites. She has underlying pulmonary hypertension with recent pulmonary artery pressures of 80. She was in the hospital recently with acute right heart failure. This was thought to be the source of ascites as well as anasarca. She is on Norvasc 5 daily and Revatio 20 every 8 hours. Postop the patient's been hypotensive and is on dopamine. She is also followed by cardiology and GI. I reviewed and discussed the case with the patient's son this morning. I think it is in her best interest to keep her in intensive care a few more days. 10/25/16. The patient was seen today along with her daughter. She has done well over the weekend. She continues to have a MARISABEL drain and this is being managed by Dr. Toussaint. Her BP is stable. She was restarted on Revatio and Norvasc last week for her pulmonary hypertension. Her bilirubin is trending downward. There are no positive cultures. She was started on Heparin this morning, but we have discontinued this secondary to her history of GI bleed and anemia. 10/26/2016. Patient was seen along with her daughter and Raúl Medrano nurse practitioner today. We have been able to wean off dopamine and I am going to move the patient to 5 E. once a bed is available. She still requires a lot of nursing care. KUB shows gas in the abdomen. The patient has had no flatus but I do hear bowel sounds. She has been able to eat a little bit and there is been no problem with gastroesophageal reflux. Her chest x-ray still shows a small right pleural effusion related to her ascites. Patient has a J-tube drain remaining. See Dr. Preston 2 loops note. Total bilirubin has fallen to 1.80 and creatinine is fallen to 2.40 with a BUN of 48. Electrolytes are normal. CBC is stable. Patient is making slow but steady progress. 10/27/16. The patient was seen today along with her son and Melissa Jamison RN. The patient has now been moved up to the medical floor. Her blood pressure has remained stable. Her creatinine and total bilirubin have further improved to 1.80 and 1.30, respectively. She has some lower extremity edema. We've asked her to elevate her legs as much as possible and pump her feet back and forth. Now that she is more stable, we will ask physical therapy to see and treat her. She has known severe pulmonary hypertension. We will re-evaluate her echocardiogram today. Medications have been reviewed. Labs been reviewed. Exam (Progress Note) - Constitutional Vitals: Period Temp Pulse Resp BP Sys/Marcum Pulse Ox Last 24 Hr 97.6 F-99.8 F 66-86 14-22 103-127/51-62 91-99 Exam: Chest is wheeze free Heart no gallop Abdomen with appropriate postop tenderness, ascites; MARISABEL drain in place Extremities with nothing to suggest acute deep venous thrombophlebitis Psychiatric oriented 3 Neurologic long tract motor function is intact Plan: Continue daily labs and x-rays. Continue present treatment. Echocardiogram. See orders. Results - Labs CBC & BMP: 10/27/16 05:49 10/27/16 05:49
--- NOTE | 2016-10-27 14:28 | Nephrology Progress Note ---
Nephrology - PN: Subj Interval history: Patient denies shortness of breath. Review of systems GI she has some abdominal soreness but her pain is improved, her appetite is improving as well Physical exam general the patient's chronically ill-appearing, she has trace pretibial edema Assessment/plan 1. Acute renal failure-this patient's creatinine is improved to 1.8 mg/dL 2. Pulmonary hypertension 3. Diabetes mellitus 4. Hypertension this is controlled 5. Cholecystitis-patient status post lap lucila Exam (PN)-Nephrology - Vital Signs Vital signs: Period Temp Pulse Resp BP Sys/Marcum Pulse Ox Last 24 Hr 97.6 F-99.8 F 66-86 14-22 106-127/51-62 91-99 - Lab 10/27/16 05:49 10/27/16 05:49 Most recent lab results ABG pH 7.402 (7.35-7.45) 10/20/16 01:12 ABG pCO2 28.5 MM HG (35-48) L 10/20/16 01:12 ABG pO2 63.0 MM HG (80-95) L 10/20/16 01:12 ABG HCO3 19.4 MMOL/L (20-26) L 10/20/16 01:12 ABG O2 Saturation 92.7 % (95-100) L 10/20/16 01:12 Calcium 8.5 MG/DL (8.5-10.1) 10/27/16 05:49 Magnesium 2.3 MG/DL (1.8-2.4) 10/27/16 05:49 Assessment and Plan (1) [id number] kidney injury Status: Acute Assessment and plan: This patient's creatinine was recently around 2 mg/dL the past month it is very quite wildly between 1.3-2.3 mg/dL, I suspect she has some acute on chronic injury related to volume depletion and her decreased p.o. intake. I agree with the gentle IV fluid hydration of 75 cc an hour Current Visit: No Qualifiers: Chronic kidney disease stage: stage 4 (severe) (2) Tricuspid regurgitation Status: Acute Current Visit: Yes (3) Ascites Problem details: Agree with treatment of pHTN with revatio. Continue aldactone/ lasix at ratio of 100 aldactone 40 lasix. Status: Acute Current Visit: No (4) Debility Status: Acute Current Visit: No (5) Pulmonary hypertension Status: Acute Current Visit: No (6) Atrial fibrillation Status: Chronic Current Visit: No Qualifiers: Atrial fibrillation type: chronic Qualified Code(s): I48.2 - Chronic atrial fibrillation (7) Diabetes Status: Chronic Current Visit: No Qualifiers: Diabetes mellitus type: type 2 Diabetes mellitus complication status: with kidney complications Chronic kidney disease stage: stage 2 (mild) (8) Hypertension Problem details: controlled Status: Chronic Current Visit: No Qualifiers: Hypertension type: essential hypertension
[2016-10-27] MEDS: SIMVASTATIN 40 MG TABLET PO SCH (21:12)
[2016-10-27] MEDS: BIMATOPROST 0.01% OPH SOLN 2.5 ML BOTTLE BOTH EYES SCH (21:12)
[2016-10-28] MEDS: ALBUTEROL/IPRATROPIUM 3 ML NEB RESP TX SCH ×2 (07:20→19:19)
--- NOTE | 2016-10-28 08:03 | Event Note ---
General Surgery Progress Note Chief complaint This patient is a 71-year-old woman with pulmonary hypertension who was admitted to the hospital with acute cholecystitis and underwent laparoscopic cholecystectomy on 10/19/2016 Interval history The patient had a bowel movement yesterday. She feels well today. She still having small amount of pain in her right upper quadrant under trocar sites. No nausea. Vital signs are normal. Having some swelling in her legs. MARISABEL drain output is down to 60 cc and there is minimal drainage around the tube. Physical exam The patient is afebrile and her vital signs are normal now. She is awake and alert. Abdominal exam is benign with expected postoperative tenderness and serous fluid in the MARISABEL drain. There is minimal serous dressing on the bandage over the drain. No bile. Labs CBGs are normal this morning Imaging None Assessment and plan The patient can be discharged home from my standpoint. If she goes home today I instructed the nurses to remove her MARISABEL drain. If she stays another day and I think we will just leave this and take it out tomorrow. Follow-up with me in 2 weeks in clinic
[2016-10-28] MEDS: INSULIN ASPART PROTAMINE/ASPART 70/30 100 UNIT/ML SUBCUT SCH ×2 (08:52→16:01)
[2016-10-28] MEDS: INSULIN REGULAR 100 UNIT/ML SUBCUT SCH ×4 (08:52→21:17)
[2016-10-28] MEDS: miSOPROStol 200 MCG TABLET PO SCH ×2 (09:00→16:00)
[2016-10-28] MEDS: FAMOTIDINE 20 MG TABLET PO SCH (09:00)
[2016-10-28] MEDS: ASCORBIC ACID 500 MG TABLET PO SCH (09:00)
[2016-10-28] MEDS: SODIUM BICARBONATE 650 MG TABLET PO SCH ×2 (09:00→21:23)
[2016-10-28] MEDS: VENLAFAXINE 75 MG TABLET PO SCH (09:00)
[2016-10-28] MEDS: MONTELUKAST 10 MG TABLET PO SCH (09:00)
[2016-10-28] MEDS: MAGNESIUM CHLORIDE 64 MG TABLET PO SCH ×2 (09:00→21:23)
[2016-10-28] MEDS: COLESEVELAM 625 MG TABLET PO SCH ×3 (09:00→15:57)
[2016-10-28] MEDS: SILDENAFIL 20 MG TABLET PO SCH ×3 (09:01→21:23)
[2016-10-28] MEDS: amLODIPine 5 MG TABLET PO SCH (09:01)
[2016-10-28] MEDS: ASPIRIN EC 81 MG TABLET PO SCH (09:01)
--- NOTE | 2016-10-28 10:44 | Pulmonology Progress Note ---
Pulmonary - PN: Subj Interval history: This is a 71-year-old white female who was admitted from [facility] on 10/18/2016. She had had a recent hospitalization and had been sent home in good condition. At the time of that admission, she had presented with anasarca secondary to pulmonary hypertension and right heart failure. She is followed from a renal standpoint by Dr. Efren Navarro, cardiology standpoint by Dr. Renato Burgess and from a GI standpoint by Dr. Mateo Wing. At the time of admission, our impressions were: 1. Acute nausea, vomiting, and dehydration refractory top OP treatment. Viral vs. bacterial vs. medication side effect. 2. Recent hospitalization secondary to ascites/anasarca felt secondary to severe pulmonary hypertension. Requiring to paracenteses that admission. 2. Cholelithiasis per ultrasound with no evidence of cholecystitis. 3. Severe pulmonary hypertension as evidenced by estimated pulmonary artery pressure of 80 mmHg seen on echocardiogram. 4. Chronic atrial fib. Note, the patient is not on anticoagulation secondary to history of GI bleed and anemia. This is followed by Dr. Renato Burgess. 5. History of acute renal failure with medications and contrast. This is followed by Dr. Efren Navarro. 6. Systemic lupus erythematosus followed by Dr. Sunny Nguyen by report. 7. Diabetes mellitus. 8. See past medical history 10/19/2016. This patient has had acute cholecystitis and she is for surgery little later on this morning. Ultrasound of the abdomen shows she still has ascites. Her renal status is stable with a creatinine of 2.1 and a BUN of 31. Electrolytes are normal. Admit white count was 8200 with 78 segs 7 lymphs and 13 monos. 10/20/2016. On 10/19/2016 this patient had a laparoscopic cholecystectomy. Her gallbladder was infected. See Dr. Preston to lupus surgical note. Patient had hypotensive tension and I kept her in the unit overnight. She has low urine output and I put her on on dopamine open to increase her renal function. She is tolerated this well but her systolic blood pressures are mainly around 90. Creatinine is increased from 2.3-3.0 with a BUN of 38. and he is seeing her in renal consultation. Electrolytes are normal. Today's chest x-ray shows a small right pleural effusion and I assume that this is related to the patient' s ascites which Dr. Toussaint noted during surgery. Her ascites is thought to be secondary to right heart failure based on pulmonary hypertension. I am restarting her Norvasc to 5 mg daily which is one half the previous dose and I am going to restart Revatio 20 mg p.o. every 8 hours. Will have to watch her blood pressure closely while she is on this but if it works like it is supposed to it should actually help the blood pressure improved. I am giving the patient fluids for the present time and her diuretics are being held. She is previously been on Lasix and Aldactone. White count is 8800 with 78 segs per ABGs on FiO2 of 50% show a pH 7.40, PCO2 28.5, PO2 of 63 and a bicarb at 19.4. When the patient takes several deep breaths this improved significantly. There are no positive cultures. Patient's had a temp up to 100.1. She is on Cleocin and meropenem and we have given her test doses for allergies since she has multiple allergies by history. She remains in atrial fib. She cannot be anticoagulated because of previous bleeding problems. Dr. Renato Burgess is her epic willow specialist and I have consulted him. She has been followed by Dr. Efren Navarro from a renal standpoint for chronic renal failure. For the present time I will follow serial lab chest x-rays. 10/21/2016. Patient has a stable night. Her blood pressures much better. I am going to continue her dopamine drip. Chest x-ray shows a small right pleural effusion I think this is related to ascites. I see nothing to suggest congestive heart failure. Urine output has been less than optimal. Dr. Shahid Mansfield and I have discussed the case and coordinated care including Lasix 40 IV push every 12 hours and IV fluids. Creatinine has increased to 3.20 with a BUN of 43 electrolytes are normal. White count is 9900 with 74 segs 8 lymphs and 14 monocytes. H&H is 10.1/30.3 and platelets are 135,000. Repeat TSH and free T4 are normal. Today we are going to try to get the patient out of bed and hopefully she will be ready for transfer to the floor and another day. Her daughter was present and I reviewed the case with her and she promised to inform all other family members of what I said. Raúl Medrano nurse practitioner was present and her nurses Sandra and Luis were present. Patient is eating without any problems. She has had no bowel movements. KUB shows only a small amount of air in the colon. No ileus was seen. 10/22/2016. This patient is postop infected gallbladder. She is doing good in that regard. She is afebrile she is on antibiotics. Patient has chronic renal failure creatinine is gradually increased from 2.2-3.6. Nephrology is on the case. Patient has a small right pleural effusion that is related to her ascites. She has underlying pulmonary hypertension with recent pulmonary artery pressures of 80. She was in the hospital recently with acute right heart failure. This was thought to be the source of ascites as well as anasarca. She is on Norvasc 5 daily and Revatio 20 every 8 hours. Postop the patient's been hypotensive and is on dopamine. She is also followed by cardiology and GI. I reviewed and discussed the case with the patient's son this morning. I think it is in her best interest to keep her in intensive care a few more days. 10/25/16. The patient was seen today along with her daughter. She has done well over the weekend. She continues to have a MARISABEL drain and this is being managed by Dr. Toussaint. Her BP is stable. She was restarted on Revatio and Norvasc last week for her pulmonary hypertension. Her bilirubin is trending downward. There are no positive cultures. She was started on Heparin this morning, but we have discontinued this secondary to her history of GI bleed and anemia. 10/26/2016. Patient was seen along with her daughter and Raúl Medrano nurse practitioner today. We have been able to wean off dopamine and I am going to move the patient to 5 E. once a bed is available. She still requires a lot of nursing care. KUB shows gas in the abdomen. The patient has had no flatus but I do hear bowel sounds. She has been able to eat a little bit and there is been no problem with gastroesophageal reflux. Her chest x-ray still shows a small right pleural effusion related to her ascites. Patient has a J-tube drain remaining. See Dr. Preston 2 loops note. Total bilirubin has fallen to 1.80 and creatinine is fallen to 2.40 with a BUN of 48. Electrolytes are normal. CBC is stable. Patient is making slow but steady progress. 10/27/16. The patient was seen today along with her son and Melissa Jamison RN. The patient has now been moved up to the medical floor. Her blood pressure has remained stable. Her creatinine and total bilirubin have further improved to 1.80 and 1.30, respectively. She has some lower extremity edema. We've asked her to elevate her legs as much as possible and pump her feet back and forth. Now that she is more stable, we will ask physical therapy to see and treat her. She has known severe pulmonary hypertension. We will re-evaluate her echocardiogram today. 10/28/2016. Patient is stable today she is seen along with her daughter and along with Raúl Medrano nurse practitioner. Beginning yesterday the patient has been demanding to go home. Patient and her daughter have an argument about this. She is not ready for discharge yet. She needs to get a little stronger and physical therapy is working with her. She still has a J drain in place. Lab has just begun to look better and she is just begun to get a little stronger. At the present time she is an excellent candidate for fall and a fractured bone. A repeat echocardiogram is pending with attention to her pulmonary artery pressures which have been elevated. Medications have been reviewed. Labs been reviewed. Exam (Progress Note) - Constitutional Vitals: Period Temp Pulse Resp BP Sys/Marcum Pulse Ox Last 24 Hr 97.6 F-99.8 F 66-86 14-22 103-127/51-62 91-99 Exam: Face. Symmetrical. Lips and tongue are normal. Neck. Symmetrical. No meningismus. Lymphatics. No submandibular cervical supraclavicular or epitrochlear adenopathy. Chest is wheeze free Heart no gallop Abdomen with appropriate postop tenderness, ascites; MARISABEL drain in place Extremities with nothing to suggest acute deep venous thrombophlebitis. Residual edema which is improved overall. Also notes sacral edema Psychiatric oriented 3 Neurologic long tract motor function is intact The remainder the physical exam is noncontributory. Plan. 1. See my note 10/28/2016 2. Physical therapy 3. Home health. Hopefully this can include home health nursing and home health physical therapy. 4. 10/28/2016. Patient's on Aldactone 100 mg daily but this is being held and also her Lasix is being held. We will need to make a decision about whether not to continue this. I suspect in the long run this will be needed. We will see what today's lab shows Exam (Progress Note) - Constitutional Vitals: Period Temp Pulse Resp BP Sys/Marcum Pulse Ox Last 24 Hr 97.9 F-99.9 F 70-91 16-20 115-137/57-72 90-99 Results - Labs CBC & BMP: 10/27/16 05:49 10/27/16 05:49
[2016-10-28 10:49] LABS: Basophils % 0.4 % (0.0-0.8); Eosinophils # 0.3 10*3/uL (0.0-0.87); Eosinophils % 3.8 % (0.00-10.9); Hematocrit 31.3 VOL% (35.7-47.0); Hemoglobin 10.5 GM/DL (12.0-16.0); Immature Granulocytes % 0.5 %; Immature Granulocytes Absolute 0.04 #; Lymphocytes # 0.7 10*3/uL (1.4-4.0); Lymphocytes % 8.9 % (21.3-54.2); Mean Corpuscular HGB Conc 33.5 GM/DL (32-36); Mean Corpuscular Hemoglobin 28 PG (27-34); Mean Corpuscular Volume 81.9 FL (87-102); Mean Platelet Volume 9.9 FL (9.6-12.0); Monocytes % 13.3 % (1.7-12.7); Neutrophils # 5.7 10*3/uL (1.4-7.4); Neutrophils % 73.1 % (38.7-73.9); Platelet Count 207 T/CUMM (130-400); Red Blood Count 3.82 MC/CUMM (3.8-5.5); Red Cell Distribution Width 16.7 % (9.3-17.3); White Blood Count 7.7 T/CUMM (4-12)
[2016-10-28 11:25] LABS: Albumin 2.9 G/DL (3.4-5.0); Bilirubin,Total 1.6 MG/DL (0.2-1.0); Calcium 8.8 MG/DL (8.5-10.1); Osmolality,Calculated 287.3 MOS/KG (273-304); Potassium 4.7 MMOL/L (3.5-5.1)
--- NOTE | 2016-10-28 12:48 | Nephrology Progress Note ---
Nephrology - PN: Subj Interval history: Patient denies shortness of breath. Review of systems GI she denies nausea vomiting Physical exam general the patient is in no acute distress, her weight is gone up a little bit from yesterday, her legs look more swollen with 1-2+ pretibial edema Assessment/plan 1. Acute renal failure-patient's creatinine is improved to 1.3 mg/dL 2. Pulmonary hypertension 3. Volume overload-this patient seems to be retaining some water she is on Lasix 40 mg twice a day, the patient is under the impression her weight was down today some and she feels like she has less swelling in her overall. I think we are going to have to bump up her Lasix soon to try and stay ahead of her fluid retention problems. 3. Diabetes mellitus 4. Hypertension Exam (PN)-Nephrology - Vital Signs Vital signs: Period Temp Pulse Resp BP Sys/Marcum Pulse Ox Last 24 Hr 98.1 F-99.9 F 70-91 16-20 122-137/57-73 90-99 - Lab 10/28/16 10:36 10/28/16 10:36 Most recent lab results ABG pH 7.402 (7.35-7.45) 10/20/16 01:12 ABG pCO2 28.5 MM HG (35-48) L 10/20/16 01:12 ABG pO2 63.0 MM HG (80-95) L 10/20/16 01:12 ABG HCO3 19.4 MMOL/L (20-26) L 10/20/16 01:12 ABG O2 Saturation 92.7 % (95-100) L 10/20/16 01:12 Calcium 8.8 MG/DL (8.5-10.1) 10/28/16 10:36 Magnesium 2.3 MG/DL (1.8-2.4) 10/27/16 05:49 Assessment and Plan (1) [id number] kidney injury Status: Acute Assessment and plan: This patient's creatinine was recently around 2 mg/dL the past month it is very quite wildly between 1.3-2.3 mg/dL, I suspect she has some acute on chronic injury related to volume depletion and her decreased p.o. intake. I agree with the gentle IV fluid hydration of 75 cc an hour Current Visit: No Qualifiers: Chronic kidney disease stage: stage 4 (severe) (2) Tricuspid regurgitation Status: Acute Current Visit: Yes (3) Ascites Problem details: Agree with treatment of pHTN with revatio. Continue aldactone/ lasix at ratio of 100 aldactone 40 lasix. Status: Acute Current Visit: No (4) Debility Status: Acute Current Visit: No (5) Pulmonary hypertension Status: Acute Current Visit: No (6) Atrial fibrillation Status: Chronic Current Visit: No Qualifiers: Atrial fibrillation type: chronic Qualified Code(s): I48.2 - Chronic atrial fibrillation (7) Diabetes Status: Chronic Current Visit: No Qualifiers: Diabetes mellitus type: type 2 Diabetes mellitus complication status: with kidney complications Chronic kidney disease stage: stage 2 (mild) (8) Hypertension Problem details: controlled Status: Chronic Current Visit: No Qualifiers: Hypertension type: essential hypertension
[2016-10-28] MEDS: DESITIN 4OZ/NYSTATIN 15 GRAM MIXTURE PASTE TOP SCH ×2 (15:57→21:23)
--- NOTE | 2016-10-28 17:01 | ECHO Report ---
Erika Dasilva Exam Date: 10/28/2016 08:32 Referring Physician: Technologist: Zora Mccall Age: 71 Ht (in): 70 Wt (lb): 198 Gender: F Exam Location: [facility] Echo Indications: re evaluate pul HTN, Acute N/V, dehydration BP: 126 / 57 HR: 86 Rhythm: Sinus Technical Quality: Fair IMPRESSIONS EF55-60 %. Septal bounce. Diastolic dysfunction Mild concentric left ventricular hypertrophy. Moderately increased right ventricular size. Severely increased right atrial size. Moderately increased left atrial size. Mildly thickened mitral valve. Trace mitral valve regurgitation. Aortic valve sclerosis. Trace aortic valve regurgitation. Severe tricuspid valve regurgitation. PAP60 mmHg. Trace pulmonary valve regurgitation. No pericardial effusion. Normal size aortic root and proximal ascending aorta. MEASUREMENTS (Male / Female) Normal Values 2D ECHO LV Diastolic Diameter PLAX 3.8 cm 4.2 - 5.9 / 3.9 - 5.3 cm LV Systolic Diameter PLAX 1.8 cm LV Fractional Shortening PLAX 52.5 % IVS Diastolic Thickness 1.5 cm 0.6 - 1.0 / 0.6 - 0.9 cm LVPW Diastolic Thickness 1.1 cm 0.6 - 1.0 / 0.6 - 0.9 cm RV Internal Dim ED PLAX 2.9 cm Aortic Root Diameter 2.7 cm LA Systolic Diameter LX 4.7 cm 3.0 - 4.0 / 2.7 - 3.8 cm DOPPLER TR Peak Velocity 338.0 cm/s TR Peak Gradient 45.7 mmHg FINDINGS Left Ventricle EF55-60 %. septal bounce. Mild concentric left ventricular hypertrophy. Right Ventricle Moderately increased right ventricular size. Right Atrium Severely increased right atrial size. Left Atrium Moderately increased left atrial size. Mitral Valve Mildly thickened mitral valve. Trace mitral valve regurgitation. Aortic Valve Aortic valve sclerosis. Trace aortic valve regurgitation. Tricuspid Valve Morphologically normal tricuspid valve. Severe tricuspid valve regurgitation. PAP60 mmHg. Pulmonic Valve Pulmonic valve not well visualized. Trace pulmonary valve regurgitation. Pericardium No pericardial effusion. Aorta Normal size aortic root and proximal ascending aorta. Christopher Angelica (Electronically Signed) Final Date: 28 Oct 2016 17:00
[2016-10-28] MEDS: BIMATOPROST 0.01% OPH SOLN 2.5 ML BOTTLE BOTH EYES SCH (21:22)
[2016-10-28] MEDS: SIMVASTATIN 40 MG TABLET PO SCH (21:23)
[2016-10-29 07:36] LABS: Basophils % 0.6 % (0.0-0.8); Eosinophils # 0.3 10*3/uL (0.0-0.87); Eosinophils % 4.9 % (0.00-10.9); Hematocrit 31.2 VOL% (35.7-47.0); Hemoglobin 10.3 GM/DL (12.0-16.0); Immature Granulocytes % 0.4 %; Immature Granulocytes Absolute 0.03 #; Lymphocytes # 0.7 10*3/uL (1.4-4.0); Lymphocytes % 10.8 % (21.3-54.2); Mean Corpuscular Hemoglobin 27 PG (27-34); Mean Corpuscular Volume 81.9 FL (87-102); Mean Platelet Volume 10.1 FL (9.6-12.0); Monocytes # 0.9 10*3/uL (0.11-0.8); Monocytes % 13.1 % (1.7-12.7); Neutrophils # 4.7 10*3/uL (1.4-7.4); Neutrophils % 70.2 % (38.7-73.9); Platelet Count 218 T/CUMM (130-400); Red Blood Count 3.81 MC/CUMM (3.8-5.5); Red Cell Distribution Width 16.6 % (9.3-17.3); White Blood Count 6.7 T/CUMM (4-12)
[2016-10-29] MEDS: ALBUTEROL/IPRATROPIUM 3 ML NEB RESP TX SCH ×2 (07:40→18:40)
[2016-10-29 08:01] LABS: Albumin 2.8 G/DL (3.4-5.0); Bilirubin,Total 1.7 MG/DL (0.2-1.0); Calcium 8.3 MG/DL (8.5-10.1); Osmolality,Calculated 282.3 MOS/KG (273-304); Potassium 4.5 MMOL/L (3.5-5.1); Total Protein 5.9 G/DL (6.4-8.3)
--- NOTE | 2016-10-29 08:32 | Nephrology Progress Note ---
Nephrology - PN: Subj Interval history: Patient denies shortness of breath. Review of systems GI she complains of some abdominal soreness, she denies nausea vomiting Physical exam general the patient is in no acute distress, she has trace to 1+ pretibial edema Assessment/plan 1. Acute renal failure-this patient's creatinine is improved impressively over the past few days 2. Volume overload-patient's weight is down a little bit day will continue her present Lasix dose, she states that she is urinating in response to the Lasix 3. Pulmonary hypertension 4. Diabetes mellitus 5. Hypertension this is controlled Please page nephrology if needed over the weekend Exam (PN)-Nephrology - Vital Signs Vital signs: Period Temp Pulse Resp BP Sys/Marcum Pulse Ox Last 24 Hr 97.9 F-99.5 F 73-87 16-20 128-150/56-80 92-99 - Lab 10/29/16 07:00 10/29/16 07:00 Most recent lab results ABG pH 7.402 (7.35-7.45) 10/20/16 01:12 ABG pCO2 28.5 MM HG (35-48) L 10/20/16 01:12 ABG pO2 63.0 MM HG (80-95) L 10/20/16 01:12 ABG HCO3 19.4 MMOL/L (20-26) L 10/20/16 01:12 ABG O2 Saturation 92.7 % (95-100) L 10/20/16 01:12 Calcium 8.3 MG/DL (8.5-10.1) L 10/29/16 07:00 Magnesium 2.3 MG/DL (1.8-2.4) 10/27/16 05:49 Assessment and Plan (1) [id number] kidney injury Status: Acute Assessment and plan: This patient's creatinine was recently around 2 mg/dL the past month it is very quite wildly between 1.3-2.3 mg/dL, I suspect she has some acute on chronic injury related to volume depletion and her decreased p.o. intake. I agree with the gentle IV fluid hydration of 75 cc an hour Current Visit: No Qualifiers: Chronic kidney disease stage: stage 4 (severe) (2) Tricuspid regurgitation Status: Acute Current Visit: Yes (3) Ascites Problem details: Agree with treatment of pHTN with revatio. Continue aldactone/ lasix at ratio of 100 aldactone 40 lasix. Status: Acute Current Visit: No (4) Debility Status: Acute Current Visit: No (5) Pulmonary hypertension Status: Acute Current Visit: No (6) Atrial fibrillation Status: Chronic Current Visit: No Qualifiers: Atrial fibrillation type: chronic Qualified Code(s): I48.2 - Chronic atrial fibrillation (7) Diabetes Status: Chronic Current Visit: No Qualifiers: Diabetes mellitus type: type 2 Diabetes mellitus complication status: with kidney complications Chronic kidney disease stage: stage 2 (mild) (8) Hypertension Problem details: controlled Status: Chronic Current Visit: No Qualifiers: Hypertension type: essential hypertension Specialty Discharge - Follow Up or Referrals Follow up with: Mohan Toussaint MD [Physician] - 2 Weeks
[2016-10-29] MEDS: INSULIN ASPART PROTAMINE/ASPART 70/30 100 UNIT/ML SUBCUT SCH ×2 (09:15→16:25)
[2016-10-29] MEDS: FAMOTIDINE 20 MG TABLET PO SCH (09:16)
[2016-10-29] MEDS: SODIUM BICARBONATE 650 MG TABLET PO SCH ×2 (09:16→22:09)
[2016-10-29] MEDS: amLODIPine 5 MG TABLET PO SCH (09:16)
[2016-10-29] MEDS: MONTELUKAST 10 MG TABLET PO SCH (09:16)
[2016-10-29] MEDS: COLESEVELAM 625 MG TABLET PO SCH ×3 (09:16→16:25)
[2016-10-29] MEDS: MAGNESIUM CHLORIDE 64 MG TABLET PO SCH ×2 (09:16→22:09)
[2016-10-29] MEDS: INSULIN REGULAR 100 UNIT/ML SUBCUT SCH ×4 (09:17→22:09)
[2016-10-29] MEDS: ASCORBIC ACID 500 MG TABLET PO SCH (09:17)
[2016-10-29] MEDS: VENLAFAXINE 75 MG TABLET PO SCH (09:17)
[2016-10-29] MEDS: ASPIRIN EC 81 MG TABLET PO SCH (09:17)
[2016-10-29] MEDS: SILDENAFIL 20 MG TABLET PO SCH ×3 (09:17→22:09)
[2016-10-29] MEDS: miSOPROStol 200 MCG TABLET PO SCH ×2 (09:17→16:25)
--- NOTE | 2016-10-29 10:37 | Event Note ---
General Surgery Progress Note Chief complaint This patient is a 71-year-old woman with pulmonary hypertension who was admitted to the hospital with acute cholecystitis and underwent laparoscopic cholecystectomy on 10/19/2016 Interval history The patient is doing well. She is tolerating her diet. Her pain is well controlled. Her MRAISABEL drain output is about 230 yesterday but it is still nonbilious. She is having minimal drainage around the site of the tubing. her bilirubin did go up to 1.7 from 1.6 yesterday. Alkaline phosphatase is still normal. Creatinine is normal. Physical exam The patient is afebrile and her vital signs are normal now. She is awake and alert. Abdominal exam is benign with expected postoperative tenderness and serous fluid in the MARISABEL drain. There is minimal serous dressing on the bandage over the drain. No bile. Labs Reviewed, as above Imaging None Assessment and plan The patient's bilirubin has trended back up some. She came in with a bilirubin of 2.0 and borderline sized bile duct. I was unable to do a cholangiogram in the operating room. I will discuss this with Dr. Wing to see if he wants to keep her for an ERCP or if he is comfortable watching this with outpatient lab work.
--- NOTE | 2016-10-29 10:57 | Pulmonology Progress Note ---
Pulmonary - PN: Subj Interval history: Raúl Medrano, ANP-BC, GNP-BC, acting as scribe for Dr. Luis Miguel Do This is a 71-year-old white female who was admitted from [facility] on [place]18/2016. She had had a recent hospitalization and had been sent home in good condition. At the time of that admission, she had presented with anasarca secondary to pulmonary hypertension and right heart failure. She is followed from a renal standpoint by Dr. Efren Navarro, cardiology standpoint by Dr. Renato Burgess and from a GI standpoint by Dr. Mateo Wing. At the time of admission, our impressions were: 1. Acute nausea, vomiting, and dehydration refractory top OP treatment. Viral vs. bacterial vs. medication side effect. 2. Recent hospitalization secondary to ascites/anasarca felt secondary to severe pulmonary hypertension. Requiring to paracenteses that admission. 2. Cholelithiasis per ultrasound with no evidence of cholecystitis. 3. Severe pulmonary hypertension as evidenced by estimated pulmonary artery pressure of 80 mmHg seen on echocardiogram. 4. Chronic atrial fib. Note, the patient is not on anticoagulation secondary to history of GI bleed and anemia. This is followed by Dr. Renato Burgess. 5. History of acute renal failure with medications and contrast. This is followed by Dr. Efren Navarro. 6. Systemic lupus erythematosus followed by Dr. Sunny Nguyen by report. 7. Diabetes mellitus. 8. See past medical history 10/19/2016. This patient has had acute cholecystitis and she is for surgery little later on this morning. Ultrasound of the abdomen shows she still has ascites. Her renal status is stable with a creatinine of 2.1 and a BUN of 31. Electrolytes are normal. Admit white count was 8200 with 78 segs 7 lymphs and 13 monos. 10/20/2016. On 10/19/2016 this patient had a laparoscopic cholecystectomy. Her gallbladder was infected. See Dr. Preston to lupus surgical note. Patient had hypotensive tension and I kept her in the unit overnight. She has low urine output and I put her on on dopamine open to increase her renal function. She is tolerated this well but her systolic blood pressures are mainly around 90. Creatinine is increased from 2.3-3.0 with a BUN of 38. and he is seeing her in renal consultation. Electrolytes are normal. Today's chest x-ray shows a small right pleural effusion and I assume that this is related to the patient' s ascites which Dr. Toussaint noted during surgery. Her ascites is thought to be secondary to right heart failure based on pulmonary hypertension. I am restarting her Norvasc to 5 mg daily which is one half the previous dose and I am going to restart Revatio 20 mg p.o. every 8 hours. Will have to watch her blood pressure closely while she is on this but if it works like it is supposed to it should actually help the blood pressure improved. I am giving the patient fluids for the present time and her diuretics are being held. She is previously been on Lasix and Aldactone. White count is 8800 with 78 segs per ABGs on FiO2 of 50% show a pH 7.40, PCO2 28.5, PO2 of 63 and a bicarb at 19.4. When the patient takes several deep breaths this improved significantly. There are no positive cultures. Patient's had a temp up to 100.1. She is on Cleocin and meropenem and we have given her test doses for allergies since she has multiple allergies by history. She remains in atrial fib. She cannot be anticoagulated because of previous bleeding problems. Dr. Renato Burgess is her numerical control machine tool operator and I have consulted him. She has been followed by Dr. Efren Navarro from a renal standpoint for chronic renal failure. For the present time I will follow serial lab chest x-rays. 10/21/2016. Patient has a stable night. Her blood pressures much better. I am going to continue her dopamine drip. Chest x-ray shows a small right pleural effusion I think this is related to ascites. I see nothing to suggest congestive heart failure. Urine output has been less than optimal. Dr. Shahid Mansfield and I have discussed the case and coordinated care including Lasix 40 IV push every 12 hours and IV fluids. Creatinine has increased to 3.20 with a BUN of 43 electrolytes are normal. White count is 9900 with 74 segs 8 lymphs and 14 monocytes. H&H is 10.1/30.3 and platelets are 135,000. Repeat TSH and free T4 are normal. Today we are going to try to get the patient out of bed and hopefully she will be ready for transfer to the floor and another day. Her daughter was present and I reviewed the case with her and she promised to inform all other family members of what I said. Raúl Medrano nurse practitioner was present and her nurses Sandra and Luis were present. Patient is eating without any problems. She has had no bowel movements. KUB shows only a small amount of air in the colon. No ileus was seen. 10/22/2016. This patient is postop infected gallbladder. She is doing good in that regard. She is afebrile she is on antibiotics. Patient has chronic renal failure creatinine is gradually increased from 2.2-3.6. Nephrology is on the case. Patient has a small right pleural effusion that is related to her ascites. She has underlying pulmonary hypertension with recent pulmonary artery pressures of 80. She was in the hospital recently with acute right heart failure. This was thought to be the source of ascites as well as anasarca. She is on Norvasc 5 daily and Revatio 20 every 8 hours. Postop the patient's been hypotensive and is on dopamine. She is also followed by cardiology and GI. I reviewed and discussed the case with the patient's son this morning. I think it is in her best interest to keep her in intensive care a few more days. 10/25/16. The patient was seen today along with her daughter. She has done well over the weekend. She continues to have a MARISABEL drain and this is being managed by Dr. Toussaint. Her BP is stable. She was restarted on Revatio and Norvasc last week for her pulmonary hypertension. Her bilirubin is trending downward. There are no positive cultures. She was started on Heparin this morning, but we have discontinued this secondary to her history of GI bleed and anemia. 10/26/2016. Patient was seen along with her daughter and Raúl Medrano nurse practitioner today. We have been able to wean off dopamine and I am going to move the patient to 5 E. once a bed is available. She still requires a lot of nursing care. KUB shows gas in the abdomen. The patient has had no flatus but I do hear bowel sounds. She has been able to eat a little bit and there is been no problem with gastroesophageal reflux. Her chest x-ray still shows a small right pleural effusion related to her ascites. Patient has a J-tube drain remaining. See Dr. Preston 2 loops note. Total bilirubin has fallen to 1.80 and creatinine is fallen to 2.40 with a BUN of 48. Electrolytes are normal. CBC is stable. Patient is making slow but steady progress. 10/27/16. The patient was seen today along with her son and Melissa Jamison RN. The patient has now been moved up to the medical floor. Her blood pressure has remained stable. Her creatinine and total bilirubin have further improved to 1.80 and 1.30, respectively. She has some lower extremity edema. We've asked her to elevate her legs as much as possible and pump her feet back and forth. Now that she is more stable, we will ask physical therapy to see and treat her. She has known severe pulmonary hypertension. We will re-evaluate her echocardiogram today. 10/28/2016. Patient is stable today she is seen along with her daughter and along with Raúl Medrano nurse practitioner. Beginning yesterday the patient has been demanding to go home. Patient and her daughter have an argument about this. She is not ready for discharge yet. She needs to get a little stronger and physical therapy is working with her. She still has a J drain in place. Lab has just begun to look better and she is just begun to get a little stronger. At the present time she is an excellent candidate for fall and a fractured bone. A repeat echocardiogram is pending with attention to her pulmonary artery pressures which have been elevated. 10/29/2016. The patient was seen today along with her sister and Sesar Montesinos RN. The patient's creatinine is further improved to 1.00. Her weight, however , continues to be slightly above her baseline with edema in her hips and thighs. The patient's Aldactone and Lasix were discontinued over the weekend. We have discussed all this with Dr. Mansfield and coordinated our care. We are in agreement to restart her Lasix 40 mg p.o. twice daily, but will continue to hold her spironolactone at the present time. Total bilirubin has increased slightly to 1.70. Overall, the patient states that she is feeling reasonably well. She is ambulating with help of physical therapy and states she is doing well with this. cloud services architect is arranging for home health on discharge. Repeat echocardiogram done 10/27/[address] Dominguez showed an EF of 55- 60%, septal bounce, diastolic dysfunction, mild concentric left ventricular hypertrophy, moderately increased right ventricular size, severely increased right atrial size, moderately increased left atrial size, mildly thickened mitral valve, trace mitral valve regurgitation, aortic valve sclerosis, trace aortic valve regurgitation, severe tricuspid valve regurgitation with a pulmonary artery pressure of 60 mmHg, trace pulmonary valve regurgitation, and no pericardial effusion. This is a significant drop in her pulmonary artery pressure since last echocardiogram. We will continue her Norvasc and Revatio. Medications have been reviewed. Lasix 40 mg p.o. twice daily was restarted today. Labs been reviewed. White count is 6700 with 70.2% segs; H&H 10.3/31.2; platelet count 219,000; creatinine 1.00, BUN 22, sodium 141, potassium 4.5, liver function test within normal limits; total bilirubin 1.70, calcium is low at 8.3 reflected in the low albumin of 2.8, total protein 5.9 Exam (Progress Note) - Constitutional Vitals: Period Temp Pulse Resp BP Sys/Marcum Pulse Ox Last 24 Hr 97.9 F-99.5 F 73-87 16-20 128-150/56-80 92-99 Exam: Chest is wheeze free Heart no gallop Abdomen with appropriate postop tenderness, ascites; MARISABEL drain in place Extremities with nothing to suggest acute deep venous thrombophlebitis Psychiatric oriented 3 Neurologic long tract motor function is intact Plan: Continue daily labs and x-rays. Restart Lasix 40 mg p.o. twice daily. Continue other present treatment. Patient is making improvements and will probably be ready for discharge sometime next week. We are taking this on a day by day basis. Results - Labs CBC & BMP: 10/29/16 07:00 10/29/16 07:00 Specialty Discharge - Follow Up or Referrals Follow up with: Mohan Toussaint MD [Physician] - 2 Weeks
[2016-10-29] MEDS: DESITIN 4OZ/NYSTATIN 15 GRAM MIXTURE PASTE TOP SCH ×2 (11:34→22:09)
[2016-10-29] MEDS ORDERED: FUROSEMIDE 40 MG TABLET PO SCH (16:00)
[2016-10-29] MEDS: FUROSEMIDE 40 MG TABLET PO SCH (16:25)
[2016-10-29] MEDS: BIMATOPROST 0.01% OPH SOLN 2.5 ML BOTTLE BOTH EYES SCH (22:09)
[2016-10-29] MEDS: SIMVASTATIN 40 MG TABLET PO SCH (22:09)
[2016-10-30] MEDS: ALBUTEROL/IPRATROPIUM 3 ML NEB RESP TX SCH ×2 (07:30→18:50)
[2016-10-30] MEDS: SODIUM BICARBONATE 650 MG TABLET PO SCH ×2 (09:26→21:24)
[2016-10-30] MEDS: COLESEVELAM 625 MG TABLET PO SCH ×3 (09:27→17:39)
[2016-10-30] MEDS: FUROSEMIDE 40 MG TABLET PO SCH ×2 (09:27→17:39)
[2016-10-30] MEDS: VENLAFAXINE 75 MG TABLET PO SCH (09:27)
[2016-10-30] MEDS: ASCORBIC ACID 500 MG TABLET PO SCH (09:27)
[2016-10-30] MEDS: ASPIRIN EC 81 MG TABLET PO SCH (09:27)
[2016-10-30] MEDS: MONTELUKAST 10 MG TABLET PO SCH (09:27)
[2016-10-30] MEDS: miSOPROStol 200 MCG TABLET PO SCH ×2 (09:27→17:39)
[2016-10-30] MEDS: SILDENAFIL 20 MG TABLET PO SCH ×3 (09:27→21:25)
[2016-10-30] MEDS: FAMOTIDINE 20 MG TABLET PO SCH (09:27)
[2016-10-30] MEDS: amLODIPine 5 MG TABLET PO SCH (09:28)
[2016-10-30] MEDS: INSULIN REGULAR 100 UNIT/ML SUBCUT SCH ×4 (09:28→21:25)
[2016-10-30] MEDS: INSULIN ASPART PROTAMINE/ASPART 70/30 100 UNIT/ML SUBCUT SCH ×2 (09:28→17:39)
[2016-10-30] MEDS: MAGNESIUM CHLORIDE 64 MG TABLET PO SCH ×2 (09:28→21:24)
--- NOTE | 2016-10-30 09:58 | Pulmonology Progress Note ---
Pulmonary - PN: Subj Interval history: This is a 71-year-old white female that had a cholecystectomy. Her bilirubin has been a little elevated and there is a question as to whether she will need to have an ERCP. She denies pain or nausea. She has been eating fairly well. She has been ambulatory. She has pulmonary hypertension. She had acute kidney injury which has resolved. Exam (Progress Note) - Constitutional Vitals: Period Temp Pulse Resp BP Sys/Marcum Pulse Ox Last 24 Hr 98.0 F-99.6 F 78-87 18-20 116-145/64-81 90-99 Exam: He is alert oriented vital signs normal. Pupils react light. Neck is supple. Chest clear equal breath sounds. Heart normal rate rhythm no murmurs. Abdomen is soft bowel sounds present. Mild tenderness in the right abdomen. Extremities no clubbing cyanosis or edema. Calves nontender. Results - Labs CBC & BMP: 10/29/16 07:00 10/29/16 07:00 Lab Results: I have reviewed the past 24 hour labs Assessment and Plan (1) Pulmonary hypertension Status: Acute Assessment and plan: Continuing with Revatio and Norvasc. Cannot monitor on a daily basis. Current Visit: No (2) Acute cholecystitis Status: Acute Assessment and plan: This has resolved with the cholecystectomy. Current Visit: Yes (3) Status post laparoscopic cholecystectomy Status: Acute Assessment and plan: No nausea. No abdominal pain. Watching bilirubin levels. Current Visit: Yes Specialty Discharge - Follow Up or Referrals Follow up with: Mohan Toussaint MD [Physician] - 2 Weeks
[2016-10-30] MEDS ORDERED: TISSUE ADHESIVE 1 EACH APPLICATOR TOP ONE (10:55)
[2016-10-30] MEDS ORDERED: LIDOCAINE 1% 20 ML VIAL MISC INJ ONE (11:05)
--- NOTE | 2016-10-30 11:42 | Event Note ---
General Surgery Progress Note Chief complaint This patient is a 71-year-old woman with pulmonary hypertension who was admitted to the hospital with acute cholecystitis and underwent laparoscopic cholecystectomy on 10/19/2016 Interval history No events overnight. Patient still draining around her MARISABEL drain. Physical exam The patient is afebrile and her vital signs are normal now. She is awake and alert. Abdominal exam is benign with expected postoperative tenderness and serous fluid in the MARISABEL drain. There is increased serous dressing on the bandage over the drain. No bile. Labs None new Imaging None Assessment and plan I will remove the patient's MARISABEL and suture this whole close as well as put glue on it. Hopefully this will prevent future drainage. Repeat labs on Tuesday with LFTs
[2016-10-30] MEDS: DESITIN 4OZ/NYSTATIN 15 GRAM MIXTURE PASTE TOP SCH ×2 (12:14→21:25)
[2016-10-30] MEDS: SIMVASTATIN 40 MG TABLET PO SCH (21:24)
[2016-10-30] MEDS: BIMATOPROST 0.01% OPH SOLN 2.5 ML BOTTLE BOTH EYES SCH (21:25)
[2016-10-31] MEDS: ALBUTEROL/IPRATROPIUM 3 ML NEB RESP TX SCH ×2 (07:31→19:07)
[2016-10-31] MEDS: INSULIN ASPART PROTAMINE/ASPART 70/30 100 UNIT/ML SUBCUT SCH ×2 (07:53→17:12)
[2016-10-31] MEDS: VENLAFAXINE 75 MG TABLET PO SCH ×2 (07:54→08:48)
[2016-10-31] MEDS: COLESEVELAM 625 MG TABLET PO SCH ×3 (07:54→17:12)
[2016-10-31] MEDS: ASCORBIC ACID 500 MG TABLET PO SCH ×2 (07:54→08:49)
[2016-10-31] MEDS: FUROSEMIDE 40 MG TABLET PO SCH ×2 (07:54→17:12)
[2016-10-31] MEDS: miSOPROStol 200 MCG TABLET PO SCH ×2 (07:54→17:12)
[2016-10-31] MEDS: SODIUM BICARBONATE 650 MG TABLET PO SCH ×3 (07:54→22:22)
[2016-10-31] MEDS: amLODIPine 5 MG TABLET PO SCH ×2 (07:55→08:48)
[2016-10-31] MEDS: MAGNESIUM CHLORIDE 64 MG TABLET PO SCH ×3 (07:55→22:22)
[2016-10-31] MEDS: SILDENAFIL 20 MG TABLET PO SCH ×4 (07:55→22:22)
[2016-10-31] MEDS: ASPIRIN EC 81 MG TABLET PO SCH ×2 (07:55→08:48)
[2016-10-31] MEDS: MONTELUKAST 10 MG TABLET PO SCH ×2 (07:55→08:48)
[2016-10-31] MEDS: FAMOTIDINE 20 MG TABLET PO SCH ×2 (07:55→08:48)
[2016-10-31] MEDS: INSULIN REGULAR 100 UNIT/ML SUBCUT SCH ×4 (07:56→22:22)
[2016-10-31] MEDS: DESITIN 4OZ/NYSTATIN 15 GRAM MIXTURE PASTE TOP SCH ×2 (08:49→22:23)
--- NOTE | 2016-10-31 10:51 | Pulmonology Progress Note ---
Pulmonary - PN: Subj Interval history: This is a 71-year-old white female that had a cholecystectomy. Her bilirubin has been a little elevated and there is a question as to whether she will need to have an ERCP. She denies pain or nausea. She has been eating fairly well. She has been ambulatory. She has pulmonary hypertension. She had acute kidney injury which has resolved. 10/31/2016 symptoms are improved. Bilirubin has been following. Drain was removed today. Denies dyspnea. Exam (Progress Note) - Constitutional Vitals: Period Temp Pulse Resp BP Sys/Marcum Pulse Ox Last 24 Hr 98.0 F-99.4 F 76-97 18-20 133-152/75-87 92-98 Exam: He is alert oriented vital signs normal. Pupils react light. Neck is supple. Chest clear equal breath sounds. Heart normal rate rhythm no murmurs. Abdomen is soft bowel sounds present. Mild tenderness in the right abdomen. Extremities no clubbing cyanosis or edema. Calves nontender. Little change from yesterday. Results - Labs CBC & BMP: 10/29/16 07:00 10/29/16 07:00 Lab Results: I have reviewed the past 24 hour labs Assessment and Plan (1) Pulmonary hypertension Status: Acute Assessment and plan: Continuing with Revatio and Norvasc. Cannot monitor on a daily basis. 10/31/2016 she is not dyspneic. Denies chest pain. Current Visit: No (2) Acute cholecystitis Status: Acute Assessment and plan: This has resolved with the cholecystectomy. 10/31/2016 status post cholecystectomy. Current Visit: Yes (3) Status post laparoscopic cholecystectomy Status: Acute Assessment and plan: No nausea. No abdominal pain. Watching bilirubin levels. 10/31/2016 drain has been removed. She is not short of breath. Room air oxygen saturation acceptable. Current Visit: Yes Specialty Discharge - Follow Up or Referrals Follow up with: Mohan Toussaint MD [Physician] - 2 Weeks
--- NOTE | 2016-10-31 12:25 | Event Note ---
General Surgery Progress Note Chief complaint This patient is a 71-year-old woman with pulmonary hypertension who was admitted to the hospital with acute cholecystitis and underwent laparoscopic cholecystectomy on 10/19/2016 Interval history No events overnight. The MARISABEL drain was removed yesterday and the MARISABEL drain site was sewn up and sealed with skin glue. Has not leaked since then. Physical exam The patient is afebrile and her vital signs are normal now. She is awake and alert. Abdominal exam reveals an intact dressing over the MARISABEL drain closure site with skin glue. There is no drainage. Labs None new Imaging None Assessment and plan Continue current care Check LFTs tomorrow
[2016-10-31] MEDS: SIMVASTATIN 40 MG TABLET PO SCH (22:22)
[2016-10-31] MEDS: BIMATOPROST 0.01% OPH SOLN 2.5 ML BOTTLE BOTH EYES SCH (22:22)
[2016-11-01 06:23] LABS: Basophils % 0.6 % (0.0-0.8); Eosinophils # 0.3 10*3/uL (0.0-0.87); Hematocrit 30.2 VOL% (35.7-47.0); Immature Granulocytes % 0.3 %; Immature Granulocytes Absolute 0.02 #; Lymphocytes # 0.9 10*3/uL (1.4-4.0); Lymphocytes % 13.9 % (21.3-54.2); Mean Corpuscular HGB Conc 33.1 GM/DL (32-36); Mean Corpuscular Hemoglobin 27 PG (27-34); Mean Corpuscular Volume 82.5 FL (87-102); Mean Platelet Volume 10.4 FL (9.6-12.0); Monocytes # 0.9 10*3/uL (0.11-0.8); Monocytes % 13.9 % (1.7-12.7); Neutrophils # 4.2 10*3/uL (1.4-7.4); Neutrophils % 67.3 % (38.7-73.9); Platelet Count 221 T/CUMM (130-400); Red Blood Count 3.66 MC/CUMM (3.8-5.5); Red Cell Distribution Width 16.7 % (9.3-17.3); White Blood Count 6.3 T/CUMM (4-12)
[2016-11-01 06:42] LABS: Albumin 2.7 G/DL (3.4-5.0); Bilirubin,Direct 1.2 MG/DL (0.0-0.20); Bilirubin,Total 2.4 MG/DL (0.2-1.0); Calcium 8.1 MG/DL (8.5-10.1); Potassium 3.2 MMOL/L (3.5-5.1); Total Protein 5.9 G/DL (6.4-8.3)
[2016-11-01] MEDS: ALBUTEROL/IPRATROPIUM 3 ML NEB RESP TX SCH ×2 (07:23→19:22)
--- NOTE | 2016-11-01 07:26 | Event Note ---
General Surgery Progress Note Chief complaint This patient is a 71-year-old woman with pulmonary hypertension who was admitted to the hospital with acute cholecystitis and underwent laparoscopic cholecystectomy on 10/19/2016 Interval history No events overnight. Bilirubin is up again and alkaline phosphatase is also elevated. Physical exam The patient is afebrile and her vital signs are normal now. She is awake and alert. Abdominal exam reveals an intact dressing over the MARISABEL drain closure site with skin glue. There is no drainage. Labs Bilirubin is elevated along with alkaline phosphatase Imaging None Assessment and plan The patient will need an ERCP prior to discharge. I will discuss this with Dr. Wing.
[2016-11-01] MEDS: INSULIN REGULAR 100 UNIT/ML SUBCUT SCH ×4 (09:06→21:28)
[2016-11-01] MEDS: INSULIN ASPART PROTAMINE/ASPART 70/30 100 UNIT/ML SUBCUT SCH ×2 (09:07→17:07)
[2016-11-01] MEDS: POTASSIUM CHLORIDE RIDER 10 MEQ in PREMIX 1 EACH IV SCH ×7 (09:08→17:27)
--- NOTE | 2016-11-01 09:44 | Gastrointestinal Progress Note ---
Addendum entered and electronically signed by Miri Dominguez FNP 11/01/16 15:34: Correction to below: Patient is not taking Eliquis and was not taking prior to admission. Original Note: <Miri Dominguez - Last Filed: 11/01/16 09:42> Assessment and Plan (1) Abdominal pain Status: Acute Assessment and plan: 11/01-LFTs increased. Mild right upper quadrant soreness. Potassium 3.2, with repletion orders noted. Will plan for ERCP tomorrow tentatively. Plan an addendum to follow by Dr. Wing. 10/27-Pain improved, bilirubin down at 1.3. Tolerating diet. Plan and addendum to follow by DR Wing. 10/26-No c/o pain. Off pressor support. Bilirubin 1.8. To be transferred to floor today. Plan and addendum to follow by Dr wing. 10/25-No abd pain, tolerating diet. Plan and addendum to follow by Dr Wing. 10/22-continued abdominal soreness slowly improving. Dopamine off at present time. Bilirubin down at 3.0. Tolerating diet. Plan an addendum to follow by Dr. Wing. 10/21-Continued dopamine, currently weaning down. Increased UOP. Bilirubin down slightly at 3.2. Plan and addendum to follow by Dr Wing. 10/20-Post op tenderness but controlled. Hypotension with Dopamine infusion, decreased UOP. Elevated bilirubin today at 3.6. Plan and addendum to follow by Dr Wing. 10/19-Pain better controlled today. US findings noted. For lap lucila today with Dr Toussaint. Plan and addendum to follow by Dr Wing. 10/18-2 day history of severe right upper quadrant abdominal pain radiating to back and shoulder shoulders with associated nausea and intractable vomiting. Recent hospitalization with findings on ultrasound of cholelithiasis without acute cholecystitis. No change in LFTs at present time. Repeat ultrasound in consult surgery at this time. Plan an addendum to follow by Dr. Wing. Current Visit: Yes Gastroenterology - PN: Subj Interval history: CC: Cholecystitis Patient is seen awake alert sitting up in chair. Spoke with Dr. Toussaint this morning and Dr. Wing has been reconsulted to reevaluate due to elevation in LFTs. Patient is without complaints of pain other than mild soreness at right upper quadrant. She is afebrile without nausea or vomiting. MARISABEL drain has been pulled. Abdomen soft, mild tenderness. Bilirubin is noted to elevate at 2.4 with mild elevation in AST at 49 an increase in alkaline phosphatase at 223. Her potassium is 3.2 which she is going to have this replaced today. Discussed with Dr. Wing and at this time we will tentatively plan ERCP for tomorrow to further evaluate increase in LFTs. Discussed with nursing staff and Eliquis has not been given since prior to admission. ROS: Denies shortness of breath or chest pain Exam (Progress Note) - Constitutional Vitals: Period Temp Pulse Resp BP Sys/Marcum Pulse Ox Last 24 Hr 98.1 F-99.4 F 73-89 16-20 130-152/68-85 93-100 General appearance: normal weight, no acute distress - Head Head exam: Present: normal inspection, normocephalic - Eye Eye exam: Present: other (Lids and conjunctive are unremarkable). Absent: scleral icterus - ENT ENT exam: Present: normal exam, normal oropharynx - Neck Neck exam: Present: normal inspection - Respiratory Respiratory exam: Present: clear to auscultation bilaterally. Absent: rales, rhonchi, wheezes - Cardiovascular Cardiovascular exam: Present: regular rate and rhythm. Absent: diastolic murmur , JVD, systolic murmur - GI/Abdominal GI/Abdominal exam: Present: normal bowel sounds, tenderness (Mild right upper quadrant), soft. Absent: ascites, distended, mass, organomegaly - Extremities Exam Extremities exam: Present: normal inspection, full ROM - Back Exam Back exam: Present: normal inspection - Neurological Exam Neurological exam: Present: alert, oriented X3 - Psychiatric Psychiatric exam: Present: normal affect, normal mood - Skin Skin exam: Present: normal color, warm, dry Results - Labs CBC & BMP: 11/01/16 05:30 11/01/16 05:30 Lab Results: I have reviewed the past 24 hour labs Specialty Discharge - Follow Up or Referrals Follow up with: Mohan Toussaint MD [Physician] - 2 Weeks <Martin Wing - Last Filed: 11/01/16 23:31> Exam (Progress Note) - Constitutional Vitals: Period Temp Pulse Resp BP Sys/Marcum Pulse Ox Last 24 Hr 98.3 F-99.2 F 77-93 18-20 133-138/68-85 93-99 Results - Labs CBC & BMP: 11/01/16 05:30 11/01/16 05:30
--- NOTE | 2016-11-01 10:31 | Pulmonology Progress Note ---
Pulmonary - PN: Subj Interval history: Raúl Medrano, ANP-BC, GNP-BC, acting as scribe for Dr. Luis Miguel Do This is a 71-year-old white female who was admitted from [facility] [place], [place] on 10/18/2016. She had had a recent hospitalization and had been sent home in good condition. At the time of that admission, she had presented with anasarca secondary to pulmonary hypertension and right heart failure. She is followed from a renal standpoint by Dr. Efren Navarro, cardiology standpoint by Dr. Renato Burgess and from a GI standpoint by Dr. Mateo Wing. At the time of admission, our impressions were: 1. Acute nausea, vomiting, and dehydration refractory top OP treatment. Viral vs. bacterial vs. medication side effect. 2. Recent hospitalization secondary to ascites/anasarca felt secondary to severe pulmonary hypertension. Requiring to paracenteses that admission. 2. Cholelithiasis per ultrasound with no evidence of cholecystitis. 3. Severe pulmonary hypertension as evidenced by estimated pulmonary artery pressure of 80 mmHg seen on echocardiogram. 4. Chronic atrial fib. Note, the patient is not on anticoagulation secondary to history of GI bleed and anemia. This is followed by Dr. Renato Burgess. 5. History of acute renal failure with medications and contrast. This is followed by Dr. Efren Navarro. 6. Systemic lupus erythematosus followed by Dr. Sunny Nguyen by report. 7. Diabetes mellitus. 8. See past medical history 10/19/2016. This patient has had acute cholecystitis and she is for surgery little later on this morning. Ultrasound of the abdomen shows she still has ascites. Her renal status is stable with a creatinine of 2.1 and a BUN of 31. Electrolytes are normal. Admit white count was 8200 with 78 segs 7 lymphs and 13 monos. 10/20/2016. On 10/19/2016 this patient had a laparoscopic cholecystectomy. Her gallbladder was infected. See Dr. Preston to lupus surgical note. Patient had hypotensive tension and I kept her in the unit overnight. She has low urine output and I put her on on dopamine open to increase her renal function. She is tolerated this well but her systolic blood pressures are mainly around 90. Creatinine is increased from 2.3-3.0 with a BUN of 38. and he is seeing her in renal consultation. Electrolytes are normal. Today's chest x-ray shows a small right pleural effusion and I assume that this is related to the patient' s ascites which Dr. Toussaint noted during surgery. Her ascites is thought to be secondary to right heart failure based on pulmonary hypertension. I am restarting her Norvasc to 5 mg daily which is one half the previous dose and I am going to restart Revatio 20 mg p.o. every 8 hours. Will have to watch her blood pressure closely while she is on this but if it works like it is supposed to it should actually help the blood pressure improved. I am giving the patient fluids for the present time and her diuretics are being held. She is previously been on Lasix and Aldactone. White count is 8800 with 78 segs per ABGs on FiO2 of 50% show a pH 7.40, PCO2 28.5, PO2 of 63 and a bicarb at 19.4. When the patient takes several deep breaths this improved significantly. There are no positive cultures. Patient's had a temp up to 100.1. She is on Cleocin and meropenem and we have given her test doses for allergies since she has multiple allergies by history. She remains in atrial fib. She cannot be anticoagulated because of previous bleeding problems. Dr. Renato Burgess is her broom worker and I have consulted him. She has been followed by Dr. Efren Navarro from a renal standpoint for chronic renal failure. For the present time I will follow serial lab chest x-rays. 10/21/2016. Patient has a stable night. Her blood pressures much better. I am going to continue her dopamine drip. Chest x-ray shows a small right pleural effusion I think this is related to ascites. I see nothing to suggest congestive heart failure. Urine output has been less than optimal. Dr. Shahid Mansfield and I have discussed the case and coordinated care including Lasix 40 IV push every 12 hours and IV fluids. Creatinine has increased to 3.20 with a BUN of 43 electrolytes are normal. White count is 9900 with 74 segs 8 lymphs and 14 monocytes. H&H is 10.1/30.3 and platelets are 135,000. Repeat TSH and free T4 are normal. Today we are going to try to get the patient out of bed and hopefully she will be ready for transfer to the floor and another day. Her daughter was present and I reviewed the case with her and she promised to inform all other family members of what I said. Raúl Medrano nurse practitioner was present and her nurses Sandra and Luis were present. Patient is eating without any problems. She has had no bowel movements. KUB shows only a small amount of air in the colon. No ileus was seen. 10/22/2016. This patient is postop infected gallbladder. She is doing good in that regard. She is afebrile she is on antibiotics. Patient has chronic renal failure creatinine is gradually increased from 2.2-3.6. Nephrology is on the case. Patient has a small right pleural effusion that is related to her ascites. She has underlying pulmonary hypertension with recent pulmonary artery pressures of 80. She was in the hospital recently with acute right heart failure. This was thought to be the source of ascites as well as anasarca. She is on Norvasc 5 daily and Revatio 20 every 8 hours. Postop the patient's been hypotensive and is on dopamine. She is also followed by cardiology and GI. I reviewed and discussed the case with the patient's son this morning. I think it is in her best interest to keep her in intensive care a few more days. 10/25/16. The patient was seen today along with her daughter. She has done well over the weekend. She continues to have a MARISABEL drain and this is being managed by Dr. Toussaint. Her BP is stable. She was restarted on Revatio and Norvasc last week for her pulmonary hypertension. Her bilirubin is trending downward. There are no positive cultures. She was started on Heparin this morning, but we have discontinued this secondary to her history of GI bleed and anemia. 10/26/2016. Patient was seen along with her daughter and Raúl Medrano nurse practitioner today. We have been able to wean off dopamine and I am going to move the patient to 5 E. once a bed is available. She still requires a lot of nursing care. KUB shows gas in the abdomen. The patient has had no flatus but I do hear bowel sounds. She has been able to eat a little bit and there is been no problem with gastroesophageal reflux. Her chest x-ray still shows a small right pleural effusion related to her ascites. Patient has a J-tube drain remaining. See Dr. Preston 2 loops note. Total bilirubin has fallen to 1.80 and creatinine is fallen to 2.40 with a BUN of 48. Electrolytes are normal. CBC is stable. Patient is making slow but steady progress. 10/27/16. The patient was seen today along with her son and Melissa Jamison RN. The patient has now been moved up to the medical floor. Her blood pressure has remained stable. Her creatinine and total bilirubin have further improved to 1.80 and 1.30, respectively. She has some lower extremity edema. We've asked her to elevate her legs as much as possible and pump her feet back and forth. Now that she is more stable, we will ask physical therapy to see and treat her. She has known severe pulmonary hypertension. We will re-evaluate her echocardiogram today. 10/28/2016. Patient is stable today she is seen along with her daughter and along with Raúl Medrano nurse practitioner. Beginning yesterday the patient has been demanding to go home. Patient and her daughter have an argument about this. She is not ready for discharge yet. She needs to get a little stronger and physical therapy is working with her. She still has a J drain in place. Lab has just begun to look better and she is just begun to get a little stronger. At the present time she is an excellent candidate for fall and a fractured bone. A repeat echocardiogram is pending with attention to her pulmonary artery pressures which have been elevated. 10/29/2016. The patient was seen today along with her sister and Sesar Montesinos RN. The patient's creatinine is further improved to 1.00. Her weight, however , continues to be slightly above her baseline with edema in her hips and thighs. The patient's Aldactone and Lasix were discontinued over the weekend. We have discussed all this with Dr. Mansfield and coordinated our care. We are in agreement to restart her Lasix 40 mg p.o. twice daily, but will continue to hold her spironolactone at the present time. Total bilirubin has increased slightly to 1.70. Overall, the patient states that she is feeling reasonably well. She is ambulating with help of physical therapy and states she is doing well with this. front services agent is arranging for home health on discharge. Repeat echocardiogram done 10/27/[address] Dominguez showed an EF of 55- 60%, septal bounce, diastolic dysfunction, mild concentric left ventricular hypertrophy, moderately increased right ventricular size, severely increased right atrial size, moderately increased left atrial size, mildly thickened mitral valve, trace mitral valve regurgitation, aortic valve sclerosis, trace aortic valve regurgitation, severe tricuspid valve regurgitation with a pulmonary artery pressure of 60 mmHg, trace pulmonary valve regurgitation, and no pericardial effusion. This is a significant drop in her pulmonary artery pressure since last echocardiogram. We will continue her Norvasc and Revatio. 11/01/2016. The patient was seen today along with her nurse and sister. Her bilirubin has continued to trend upward. Total bilirubin today is 2.40. Dr. Toussaint and Dr. Wing have discussed the case, and the patient is tentatively planned for ERCP either today or tomorrow. She does have hypokalemia and this is being replaced. Last weekly restarted her Lasix but did not restart her Aldactone. We wanted to see what her creatinine and potassium would do with the reinstitution of Lasix. Her creatinine has improved to 0.90, but potassium has fallen to 3.2. We will restart her spironolactone at half her home dose ( 50 mg daily) and give 20 mEq of potassium daily for 3 days. Overall, the patient feels she is doing well. She has been working with physical therapy and at discharge will go home with home health and home physical therapy. Medications have been reviewed. Labs been reviewed. White count is 6300 with 67.3% segs; H&H 10.0/30.2; platelet count 221,000; creatinine 0.90, BUN 9, sodium 143, potassium 3.2; total bilirubin 2.40, direct bilirubin 1.20, AST 49, ALT 36, alkaline phosphatase 223; calcium 8.1 reflected in a low albumin of 2.7, total protein 5.9 Exam (Progress Note) - Constitutional Vitals: Period Temp Pulse Resp BP Sys/Marcum Pulse Ox Last 24 Hr 98.1 F-99.4 F 73-89 16-20 130-152/68-85 93-100 Exam: Chest is wheeze free Heart no gallop Abdomen with appropriate postop tenderness, ascites; MARISABEL drain has been pulled Extremities with nothing to suggest acute deep venous thrombophlebitis Psychiatric oriented 3 Neurologic long tract motor function is intact Plan: Plans for ERCP are noted. We were hoping to discharge the patient tomorrow, but she will need this prior to discharge. Restart Aldactone 50 mg daily. Calcium 20 mEq daily for 3 days. Repeat labs and x-ray in the morning. See orders. Results - Labs CBC & BMP: 11/01/16 05:30 11/01/16 05:30 Specialty Discharge - Follow Up or Referrals Follow up with: Mohan Toussaint MD [Physician] - 2 Weeks
[2016-11-01] MEDS ORDERED: GLUCAGON 1 MG VIAL IM PRN (10:57)
[2016-11-01] MEDS ORDERED: DEXTROSE 50% 25 GM/50 ML VIAL IV PRN (10:57)
[2016-11-01] MEDS: ASPIRIN EC 81 MG TABLET PO SCH (11:18)
[2016-11-01] MEDS: COLESEVELAM 625 MG TABLET PO SCH ×3 (11:18→17:09)
[2016-11-01] MEDS: SODIUM BICARBONATE 650 MG TABLET PO SCH ×2 (11:19→21:28)
[2016-11-01] MEDS: VENLAFAXINE 75 MG TABLET PO SCH (11:19)
[2016-11-01] MEDS: MONTELUKAST 10 MG TABLET PO SCH (11:20)
[2016-11-01] MEDS: miSOPROStol 200 MCG TABLET PO SCH ×2 (11:20→17:12)
[2016-11-01] MEDS: POTASSIUM CHLORIDE 20 MEQ TABLET PO SCH (11:20)
[2016-11-01] MEDS: ASCORBIC ACID 500 MG TABLET PO SCH (11:20)
[2016-11-01] MEDS: MAGNESIUM CHLORIDE 64 MG TABLET PO SCH ×2 (11:20→21:27)
[2016-11-01] MEDS: FAMOTIDINE 20 MG TABLET PO SCH (11:20)
[2016-11-01] MEDS: amLODIPine 5 MG TABLET PO SCH (11:21)
[2016-11-01] MEDS: SPIRONOLACTONE 50 MG TABLET PO SCH (11:21)
[2016-11-01] MEDS: SILDENAFIL 20 MG TABLET PO SCH ×3 (11:21→21:28)
[2016-11-01] MEDS: DESITIN 4OZ/NYSTATIN 15 GRAM MIXTURE PASTE TOP SCH ×2 (11:22→21:27)
[2016-11-01] MEDS: FUROSEMIDE 40 MG TABLET PO SCH ×2 (11:30→15:40)
--- NOTE | 2016-11-01 15:24 | Nephrology Progress Note ---
Nephrology - PN: Subj Interval history: Patient denies shortness of breath. Review of systems GI she denies nausea or vomiting Physical exam general the patient is in no acute distress, she has 1-2+ pretibial edema, her weight is stable over the past several days at 88 kg's Assessment/plan 1. Acute renal failure-this patient's acute kidney injury has resolved her creatinine is now normal 2. Pulmonary hypertension 3. Volume overload-patient is on Lasix twice a day and also Aldactone, her weight is stable presently, if we can maintain her weight here this may be acceptable if she continues to retain fluid we may have to add Zaroxolyn or increase her Lasix to 3 times a day or switch it to the longer acting preparation of torsemide 4. Diabetes mellitus 5. Hypertension 6. Hypokalemia this is being supplemented I agree with starting K Dur 7. Hypomagnesemia patient is on Slow-Mag will continue this unchanged Exam (PN)-Nephrology - Vital Signs Vital signs: Period Temp Pulse Resp BP Sys/Marcum Pulse Ox Last 24 Hr 98.1 F-99.4 F 73-93 16-20 130-152/68-85 93-100 - Lab 11/01/16 05:30 11/01/16 05:30 Most recent lab results ABG pH 7.402 (7.35-7.45) 10/20/16 01:12 ABG pCO2 28.5 MM HG (35-48) L 10/20/16 01:12 ABG pO2 63.0 MM HG (80-95) L 10/20/16 01:12 ABG HCO3 19.4 MMOL/L (20-26) L 10/20/16 01:12 ABG O2 Saturation 92.7 % (95-100) L 10/20/16 01:12 Calcium 8.1 MG/DL (8.5-10.1) L 11/01/16 05:30 Magnesium 1.5 MG/DL (1.8-2.4) L 11/01/16 05:27 Assessment and Plan (1) [id number] kidney injury Status: Acute Assessment and plan: This patient's creatinine was recently around 2 mg/dL the past month it is very quite wildly between 1.3-2.3 mg/dL, I suspect she has some acute on chronic injury related to volume depletion and her decreased p.o. intake. I agree with the gentle IV fluid hydration of 75 cc an hour Current Visit: No Qualifiers: Chronic kidney disease stage: stage 4 (severe) (2) Tricuspid regurgitation Status: Acute Current Visit: Yes (3) Ascites Problem details: Agree with treatment of pHTN with revatio. Continue aldactone/ lasix at ratio of 100 aldactone 40 lasix. Status: Acute Current Visit: No (4) Debility Status: Acute Current Visit: No (5) Pulmonary hypertension Status: Acute Current Visit: No (6) Atrial fibrillation Status: Chronic Current Visit: No Qualifiers: Atrial fibrillation type: chronic Qualified Code(s): I48.2 - Chronic atrial fibrillation (7) Diabetes Status: Chronic Current Visit: No Qualifiers: Diabetes mellitus type: type 2 Diabetes mellitus complication status: with kidney complications Chronic kidney disease stage: stage 2 (mild) (8) Hypertension Problem details: controlled Status: Chronic Current Visit: No Qualifiers: Hypertension type: essential hypertension Specialty Discharge - Follow Up or Referrals Follow up with: Mohan Toussaint MD [Physician] - 2 Weeks
[2016-11-01] MEDS: SIMVASTATIN 40 MG TABLET PO SCH (21:27)
[2016-11-01] MEDS: BIMATOPROST 0.01% OPH SOLN 2.5 ML BOTTLE BOTH EYES SCH (21:27)
[2016-11-02 06:50] LABS: Basophils % 0.5 % (0.0-0.8); Eosinophils # 0.3 10*3/uL (0.0-0.87); Eosinophils % 4.8 % (0.00-10.9); Hematocrit 29.1 VOL% (35.7-47.0); Hemoglobin 9.8 GM/DL (12.0-16.0); Immature Granulocytes % 0.3 %; Immature Granulocytes Absolute 0.02 #; Lymphocytes # 0.9 10*3/uL (1.4-4.0); Lymphocytes % 14.9 % (21.3-54.2); Mean Corpuscular HGB Conc 33.7 GM/DL (32-36); Mean Corpuscular Hemoglobin 28 PG (27-34); Mean Corpuscular Volume 82.2 FL (87-102); Mean Platelet Volume 10.3 FL (9.6-12.0); Monocytes # 0.8 10*3/uL (0.11-0.8); Monocytes % 13.8 % (1.7-12.7); Neutrophils % 65.7 % (38.7-73.9); Platelet Count 224 T/CUMM (130-400); Red Blood Count 3.54 MC/CUMM (3.8-5.5); Red Cell Distribution Width 16.6 % (9.3-17.3); White Blood Count 6.1 T/CUMM (4-12)
--- NOTE | 2016-11-02 07:20 | Event Note ---
General Surgery Progress Note Chief complaint This patient is a 71-year-old woman with pulmonary hypertension who was admitted to the hospital with acute cholecystitis and underwent laparoscopic cholecystectomy on 10/19/2016 Interval history No events overnight. Chemistry is still pending this morning Physical exam The patient is afebrile and her vital signs are normal now. She is awake and alert. Abdominal exam reveals an intact dressing over the MARISABEL drain closure site with skin glue. There is no drainage. Labs Chemistry is pending Imaging None Assessment and plan Plan for ERCP today
[2016-11-02 07:21] LABS: Albumin 2.8 G/DL (3.4-5.0); Bilirubin,Total 1.8 MG/DL (0.2-1.0); Magnesium 1.4 MG/DL (1.8-2.4); Osmolality,Calculated 282.1 MOS/KG (273-304); Potassium 3.8 MMOL/L (3.5-5.1); Total Protein 6.1 G/DL (6.4-8.3)
--- NOTE | 2016-11-02 07:36 | Nephrology Progress Note ---
Nephrology - PN: Subj Interval history: Patient denies shortness of breath. Review of systems GI she has some mild abdominal soreness but this is improving Physical exam general the patient is in no acute distress, she has 1-2+ pretibial edema Assessment/plan 1. Acute renal failure-this is resolved 2. Pulmonary hypertension 3. Diabetes mellitus 4. Hypertension this control 5. Hypokalemia this is being supplemented 6. Anemia-patient is to have a GI scope today. Exam (PN)-Nephrology - Vital Signs Vital signs: Period Temp Pulse Resp BP Sys/Marcum Pulse Ox Last 24 Hr 98.3 F-99.2 F 77-93 18-20 122-138/66-75 92-99 - Lab 11/02/16 05:52 11/02/16 05:52 Most recent lab results ABG pH 7.402 (7.35-7.45) 10/20/16 01:12 ABG pCO2 28.5 MM HG (35-48) L 10/20/16 01:12 ABG pO2 63.0 MM HG (80-95) L 10/20/16 01:12 ABG HCO3 19.4 MMOL/L (20-26) L 10/20/16 01:12 ABG O2 Saturation 92.7 % (95-100) L 10/20/16 01:12 Calcium 8.0 MG/DL (8.5-10.1) L 11/02/16 05:52 Magnesium 1.4 MG/DL (1.8-2.4) L 11/02/16 05:52 Assessment and Plan (1) [id number] kidney injury Status: Acute Assessment and plan: This patient's creatinine was recently around 2 mg/dL the past month it is very quite wildly between 1.3-2.3 mg/dL, I suspect she has some acute on chronic injury related to volume depletion and her decreased p.o. intake. I agree with the gentle IV fluid hydration of 75 cc an hour Current Visit: No Qualifiers: Chronic kidney disease stage: stage 4 (severe) (2) Tricuspid regurgitation Status: Acute Current Visit: Yes (3) Ascites Problem details: Agree with treatment of pHTN with revatio. Continue aldactone/ lasix at ratio of 100 aldactone 40 lasix. Status: Acute Current Visit: No (4) Debility Status: Acute Current Visit: No (5) Pulmonary hypertension Status: Acute Current Visit: No (6) Atrial fibrillation Status: Chronic Current Visit: No Qualifiers: Atrial fibrillation type: chronic Qualified Code(s): I48.2 - Chronic atrial fibrillation (7) Diabetes Status: Chronic Current Visit: No Qualifiers: Diabetes mellitus type: type 2 Diabetes mellitus complication status: with kidney complications Chronic kidney disease stage: stage 2 (mild) (8) Hypertension Problem details: controlled Status: Chronic Current Visit: No Qualifiers: Hypertension type: essential hypertension Specialty Discharge - Follow Up or Referrals Follow up with: Mohan Toussaint MD [Physician] - 2 Weeks
[2016-11-02] MEDS: ALBUTEROL/IPRATROPIUM 3 ML NEB RESP TX SCH ×2 (07:52→18:30)
[2016-11-02] MEDS: INSULIN REGULAR 100 UNIT/ML SUBCUT SCH ×4 (09:06→22:11)
[2016-11-02] MEDS: SPIRONOLACTONE 50 MG TABLET PO SCH (09:07)
[2016-11-02] MEDS: COLESEVELAM 625 MG TABLET PO SCH ×3 (09:07→15:35)
[2016-11-02] MEDS: INSULIN ASPART PROTAMINE/ASPART 70/30 100 UNIT/ML SUBCUT SCH ×2 (09:07→16:17)
[2016-11-02] MEDS: FUROSEMIDE 40 MG TABLET PO SCH ×2 (09:07→15:35)
[2016-11-02] MEDS: ASPIRIN EC 81 MG TABLET PO SCH (09:07)
[2016-11-02] MEDS: POTASSIUM CHLORIDE 20 MEQ TABLET PO SCH (09:07)
[2016-11-02] MEDS: miSOPROStol 200 MCG TABLET PO SCH ×2 (09:07→18:08)
[2016-11-02] MEDS: VENLAFAXINE 75 MG TABLET PO SCH (09:07)
[2016-11-02] MEDS: FAMOTIDINE 20 MG TABLET PO SCH (09:08)
[2016-11-02] MEDS: MONTELUKAST 10 MG TABLET PO SCH (09:08)
[2016-11-02] MEDS: SODIUM BICARBONATE 650 MG TABLET PO SCH ×2 (09:08→21:44)
[2016-11-02] MEDS: ASCORBIC ACID 500 MG TABLET PO SCH (09:08)
[2016-11-02] MEDS: MAGNESIUM CHLORIDE 64 MG TABLET PO SCH ×2 (09:08→21:44)
[2016-11-02] MEDS: DESITIN 4OZ/NYSTATIN 15 GRAM MIXTURE PASTE TOP SCH ×2 (09:08→21:45)
[2016-11-02] MEDS: amLODIPine 5 MG TABLET PO SCH (09:08)
[2016-11-02] MEDS: SILDENAFIL 20 MG TABLET PO SCH ×3 (09:08→21:45)
[2016-11-02] MEDS ORDERED: MAGNESIUM SULF RIDER 2 GM in PREMIX 1 EACH IV PRN (10:13)
[2016-11-02] MEDS ORDERED: MAGNESIUM SULF RIDER 4 GM in PREMIX 1 EACH IV PRN (10:13)
--- NOTE | 2016-11-02 10:15 | Pulmonology Progress Note ---
Pulmonary - PN: Subj Interval history: Raúl Medrano, ANP-BC, GNP-BC, acting as scribe for Dr. Luis Miguel Do This is a 71-year-old white female [place] [facility] [place] She had had a recent hospitalization and had been sent home in good condition. At the time of that admission, she had presented with anasarca secondary to pulmonary hypertension and right heart failure. She is followed from a renal standpoint by Dr. Efren Navarro, cardiology standpoint by Dr. Renato Burgess and from a GI standpoint by Dr. Mateo Wing. At the time of admission, our impressions were: 1. Acute nausea, vomiting, and dehydration refractory top OP treatment. Viral vs. bacterial vs. medication side effect. 2. Recent hospitalization secondary to ascites/anasarca felt secondary to severe pulmonary hypertension. Requiring to paracenteses that admission. 2. Cholelithiasis per ultrasound with no evidence of cholecystitis. 3. Severe pulmonary hypertension as evidenced by estimated pulmonary artery pressure of 80 mmHg seen on echocardiogram. 4. Chronic atrial fib. Note, the patient is not on anticoagulation secondary to history of GI bleed and anemia. This is followed by Dr. Renato Burgess. 5. History of acute renal failure with medications and contrast. This is followed by Dr. Efren Navarro. 6. Systemic lupus erythematosus followed by Dr. Sunny Nguyen by report. 7. Diabetes mellitus. 8. See past medical history 10/19/2016. This patient has had acute cholecystitis and she is for surgery little later on this morning. Ultrasound of the abdomen shows she still has ascites. Her renal status is stable with a creatinine of 2.1 and a BUN of 31. Electrolytes are normal. Admit white count was 8200 with 78 segs 7 lymphs and 13 monos. 10/20/2016. On 10/19/2016 this patient had a laparoscopic cholecystectomy. Her gallbladder was infected. See Dr. Preston to lupus surgical note. Patient had hypotensive tension and I kept her in the unit overnight. She has low urine output and I put her on on dopamine open to increase her renal function. She is tolerated this well but her systolic blood pressures are mainly around 90. Creatinine is increased from 2.3-3.0 with a BUN of 38. and he is seeing her in renal consultation. Electrolytes are normal. Today's chest x-ray shows a small right pleural effusion and I assume that this is related to the patient' s ascites which Dr. Toussaint noted during surgery. Her ascites is thought to be secondary to right heart failure based on pulmonary hypertension. I am restarting her Norvasc to 5 mg daily which is one half the previous dose and I am going to restart Revatio 20 mg p.o. every 8 hours. Will have to watch her blood pressure closely while she is on this but if it works like it is supposed to it should actually help the blood pressure improved. I am giving the patient fluids for the present time and her diuretics are being held. She is previously been on Lasix and Aldactone. White count is 8800 with 78 segs per ABGs on FiO2 of 50% show a pH 7.40, PCO2 28.5, PO2 of 63 and a bicarb at 19.4. When the patient takes several deep breaths this improved significantly. There are no positive cultures. Patient's had a temp up to 100.1. She is on Cleocin and meropenem and we have given her test doses for allergies since she has multiple allergies by history. She remains in atrial fib. She cannot be anticoagulated because of previous bleeding problems. Dr. Renato Burgess is her auricular detoxification specialist and I have consulted him. She has been followed by Dr. Efren Navarro from a renal standpoint for chronic renal failure. For the present time I will follow serial lab chest x-rays. 10/21/2016. Patient has a stable night. Her blood pressures much better. I am going to continue her dopamine drip. Chest x-ray shows a small right pleural effusion I think this is related to ascites. I see nothing to suggest congestive heart failure. Urine output has been less than optimal. Dr. Shahid Mansfield and I have discussed the case and coordinated care including Lasix 40 IV push every 12 hours and IV fluids. Creatinine has increased to 3.20 with a BUN of 43 electrolytes are normal. White count is 9900 with 74 segs 8 lymphs and 14 monocytes. H&H is 10.1/30.3 and platelets are 135,000. Repeat TSH and free T4 are normal. Today we are going to try to get the patient out of bed and hopefully she will be ready for transfer to the floor and another day. Her daughter was present and I reviewed the case with her and she promised to inform all other family members of what I said. Raúl Medrano nurse practitioner was present and her nurses Sandra and Luis were present. Patient is eating without any problems. She has had no bowel movements. KUB shows only a small amount of air in the colon. No ileus was seen. 10/22/2016. This patient is postop infected gallbladder. She is doing good in that regard. She is afebrile she is on antibiotics. Patient has chronic renal failure creatinine is gradually increased from 2.2-3.6. Nephrology is on the case. Patient has a small right pleural effusion that is related to her ascites. She has underlying pulmonary hypertension with recent pulmonary artery pressures of 80. She was in the hospital recently with acute right heart failure. This was thought to be the source of ascites as well as anasarca. She is on Norvasc 5 daily and Revatio 20 every 8 hours. Postop the patient's been hypotensive and is on dopamine. She is also followed by cardiology and GI. I reviewed and discussed the case with the patient's son this morning. I think it is in her best interest to keep her in intensive care a few more days. 10/25/16. The patient was seen today along with her daughter. She has done well over the weekend. She continues to have a MARISABEL drain and this is being managed by Dr. Toussaint. Her BP is stable. She was restarted on Revatio and Norvasc last week for her pulmonary hypertension. Her bilirubin is trending downward. There are no positive cultures. She was started on Heparin this morning, but we have discontinued this secondary to her history of GI bleed and anemia. 10/26/2016. Patient was seen along with her daughter and Raúl Medrano nurse practitioner today. We have been able to wean off dopamine and I am going to move the patient to 5 E. once a bed is available. She still requires a lot of nursing care. KUB shows gas in the abdomen. The patient has had no flatus but I do hear bowel sounds. She has been able to eat a little bit and there is been no problem with gastroesophageal reflux. Her chest x-ray still shows a small right pleural effusion related to her ascites. Patient has a J-tube drain remaining. See Dr. Preston 2 loops note. Total bilirubin has fallen to 1.80 and creatinine is fallen to 2.40 with a BUN of 48. Electrolytes are normal. CBC is stable. Patient is making slow but steady progress. 10/27/16. The patient was seen today along with her son and Melissa Jamison RN. The patient has now been moved up to the medical floor. Her blood pressure has remained stable. Her creatinine and total bilirubin have further improved to 1.80 and 1.30, respectively. She has some lower extremity edema. We've asked her to elevate her legs as much as possible and pump her feet back and forth. Now that she is more stable, we will ask physical therapy to see and treat her. She has known severe pulmonary hypertension. We will re-evaluate her echocardiogram today. 10/28/2016. Patient is stable today she is seen along with her daughter and along with Raúl Medrano nurse practitioner. Beginning yesterday the patient has been demanding to go home. Patient and her daughter have an argument about this. She is not ready for discharge yet. She needs to get a little stronger and physical therapy is working with her. She still has a J drain in place. Lab has just begun to look better and she is just begun to get a little stronger. At the present time she is an excellent candidate for fall and a fractured bone. A repeat echocardiogram is pending with attention to her pulmonary artery pressures which have been elevated. 10/29/2016. The patient was seen today along with her sister and Sesar Montesinos RN. The patient's creatinine is further improved to 1.00. Her weight, however , continues to be slightly above her baseline with edema in her hips and thighs. The patient's Aldactone and Lasix were discontinued over the weekend. We have discussed all this with Dr. Mansfield and coordinated our care. We are in agreement to restart her Lasix 40 mg p.o. twice daily, but will continue to hold her spironolactone at the present time. Total bilirubin has increased slightly to 1.70. Overall, the patient states that she is feeling reasonably well. She is ambulating with help of physical therapy and states she is doing well with this. creative services coordinator is arranging for home health on discharge. Repeat echocardiogram done 10/27/[address] Dominguez showed an EF of 55- 60%, septal bounce, diastolic dysfunction, mild concentric left ventricular hypertrophy, moderately increased right ventricular size, severely increased right atrial size, moderately increased left atrial size, mildly thickened mitral valve, trace mitral valve regurgitation, aortic valve sclerosis, trace aortic valve regurgitation, severe tricuspid valve regurgitation with a pulmonary artery pressure of 60 mmHg, trace pulmonary valve regurgitation, and no pericardial effusion. This is a significant drop in her pulmonary artery pressure since last echocardiogram. We will continue her Norvasc and Revatio. 11/01/2016. The patient was seen today along with her nurse and sister. Her bilirubin has continued to trend upward. Total bilirubin today is 2.40. Dr. Toussaint and Dr. Wing have discussed the case, and the patient is tentatively planned for ERCP either today or tomorrow. She does have hypokalemia and this is being replaced. Last weekly restarted her Lasix but did not restart her Aldactone. We wanted to see what her creatinine and potassium would do with the reinstitution of Lasix. Her creatinine has improved to 0.90, but potassium has fallen to 3.2. We will restart her spironolactone at half her home dose ( 50 mg daily) and give 20 mEq of potassium daily for 3 days. Overall, the patient feels she is doing well. She has been working with physical therapy and at discharge will go home with home health and home physical therapy. 11/02/2016. The patient was seen today along with her daughter, to female family members, and Sesar Montesinos RN. The patient is doing well this morning. Her weight is down. She is working with physical therapy and in speaking with staff physical therapist she is doing well. She is planned for ERCP today. Yesterday we restarted the patient spironolactone at 50 mg daily. Her potassium has been replaced. Her magnesium is low at 1.4. She is on Slow-Mag 128 mg twice daily. We will start IV replacement in anticipation of ERCP. Medications have been reviewed. Labs been reviewed. White count is 6100 with 65.7% segs; H&H 9.8/29.1; platelet count 224,000; creatinine 0.90, BUN 9, electrolytes are normal; magnesium 1.4; total bilirubin has fallen to 1.80; liver function tests within normal limits with the exception of a minimally elevated alkaline phosphate 180 ; calcium is low at 8.0 reflected in a low albumin of 2.8, total protein 6.1; globulin 3.3 Exam (Progress Note) - Constitutional Vitals: Period Temp Pulse Resp BP Sys/Marcum Pulse Ox Last 24 Hr 98.3 F-99.2 F 77-93 18-20 122-138/66-73 92-99 Exam: Chest is wheeze free Heart no gallop Abdomen with appropriate postop tenderness which is improving, mild ascites; MARISABEL drain has been pulled Extremities with nothing to suggest acute deep venous thrombophlebitis Psychiatric oriented 3 Neurologic long tract motor function is intact Plan: Plans for ERCP today. Continue oral magnesium and start IV mag replacement today. Keep in mind, the patient's spironolactone was restarted yesterday. Potassium today is 3.8. See orders. Results - Labs CBC & BMP: 11/02/16 05:52 11/02/16 05:52 Specialty Discharge - Follow Up or Referrals Follow up with: Mohan Toussaint MD [Physician] - 2 Weeks
--- NOTE | 2016-11-02 10:21 | XRay Report ---
XR chest 2V Indication: Pleural effusion Comparison: Chest x-ray dated October 27, 2016 Technique: Frontal and lateral views of the chest Findings: Mild cardiomegaly which appears improved from comparison study. Cardiac pacemaker apparatus again noted. There is improved right pleural effusion with minimal residual remaining. There is no sunni pulmonary edema. Osseous and surrounding soft tissue structures appear grossly unchanged. IMPRESSION: As above. PROCEDURE INTERPRETED AT [facility] DEPARTMENT OF RADIOLOGY Final Report Signed by: Dr Jame Lomax
[2016-11-02 10:49] LABS: INR 1.2; PT Patient Result 12.5 SECS
[2016-11-02] MEDS ORDERED: fentaNYL 100 MCG/2 ML VIAL ONE (12:18)
[2016-11-02] MEDS ORDERED: MIDAZOLAM 2 MG/2 ML VIAL ONE (12:18)
--- NOTE | 2016-11-02 12:33 | History and Physical Update ---
History and Physical Update - Physical Exam Mental Status: alert and oriented Heart: regular rate and rhythm Lung: clear to auscultation Abdomen: within normal limits Vitals: within normal limits
--- NOTE | 2016-11-02 12:36 | Operative Note ---
Date of procedure: 11/02/16 Pre-op diagnosis: Abnormal liver test with possible gallstone Procedure: Endoscopic retrograde cholangiopancreatography. 71-year-old female with history of pulmonary hypertension and liver congestion had cholecystitis and cholecystectomy done a few weeks ago with inability to obtain a cholangiogram. She has had some persistent abdominal discomfort and elevation of bilirubin and concern over common duct stone has been raised. She is now for ERCP to further evaluate. Informed symptoms obtained the patient She was sedated with MAC anesthesia per anesthesia protocol. Patient placed in the prone position the Olympus duodenal scope was inserted and advanced through the normal esophagus stomach duodenum to a normal- appearing ampulla. The cannulatome was utilized and the common bile duct was cannulated revealing no strictures or obvious stones. Cystic duct was identified no leak is present clips are intact. There is mild dilatation of the common bile duct common hepatic duct but no stones strictures or mass lesions were observed. We were not able to cannulate the pancreatic duct. The procedure terminated placed our procedure well she is discharged recovery in good condition. Postop diagnosis mildly dilated biliary tree with no evidence of stone or strictures. Suspect bilirubin is elevation is related to her pulmonary hypertension and liver congestion. We will continue to observe. Anesthesia: MAC Surgeon / Physician: Martin Wing Estimated blood loss: none Specimens: none sent Condition: stable Disposition: post procedure unit Results - Labs CBC & BMP: 11/02/16 05:52 11/02/16 05:52 Discharge Plan - Discharge Medications No Action Aspirin [Ecotrin] 81 mg PO DAILY Ascorbic Acid Tab [Vitamin C Tab] 500 mg PO DAILY Bimatoprost 0.01% Oph Soln [Lumigan] 1 drop BOTH EYES BEDTIME Potassium Chloride 10 meq PO BID Montelukast Tab [Singulair Tab] 10 mg PO DAILY Carvedilol 25 mg PO BID Venlafaxine [Effexor] 37.5 mg PO DAILY Simvastatin 40 mg PO BEDTIME Famotidine Tab [Pepcid Tab] 40 mg PO DAILY Magnesium Chloride [Slow Mag] 128 mg PO BID Ferrous Sulfate Tab [Feosol Original Tab] 325 mg PO BID #60 tablet Furosemide Tab [Lasix Tab] 40 mg PO BID DIURETIC #60 tablet Insulin Aspart Prot/Asp 70/30 [NovoLOG Mix 70/30] 10 unit SUBCUT AC BREAKFAST unit Sildenafil [Revatio] 20 mg PO TID #90 tablet Spironolactone [Aldactone] 100 mg PO DAILY #60 tablet miSOPROStol [Cytotec] 100 mcg PO BID W/MEALS #60 tablet Colesevelam [Welchol] 1,250 mg PO TIDAC #180 tablet Insulin Aspart Prot/Asp 70/30 [NovoLOG Mix 70/30] 4 unit SUBCUT AC SUPPER unit amLODIPine [Norvasc] 10 mg PO DAILY #30 tablet - Follow Up or Referral Follow Up: Mohan Toussaint MD [Physician] - 2 Weeks - Forms/Instructions
--- NOTE | 2016-11-02 12:51 | Anesthesia Post-Op ---
Anesthesia Post OP - Post Ansesthetic Evaluation Patient seen in post op: Yes Resp: within normal limits CV: within normal limits Mental: within normal limits Temp: within normal limits [id number]: within normal limits Nausea and Vomiting: within normal limits Pain: within normal limits
--- NOTE | 2016-11-02 14:00 | Fluoroscopy Report ---
Referring Physician: Miri Dominguez Exam: [place] ERCP Date: November 02, 2016 Reason: Elevated liver function test Comparison: CT abdomen and pelvis May 05, 2016 Findings: 6 images of the abdomen were provided after performance of an ERCP. Fluoroscopy time was 10 seconds an 8 cc of Omnipaque 240 contrast was used. No intrahepatic biliary duct dilatation is seen. The common bile duct and common hepatic duct are diffusely prominent with tapering near the ampulla. The pancreatic duct is not identified. Impression: There is diffuse prominence of the common hepatic and common bile duct. No biliary stone is identified, and this is nonspecific. This may be related to the patient's cholecystectomy status, but an occult obstructing process is difficult to exclude. Follow-up imaging would be helpful. PROCEDURE INTERPRETED AT [facility] DEPARTMENT OF RADIOLOGY Final Report Signed by: Dr. Doroteo Vieira
[2016-11-02] MEDS: BIMATOPROST 0.01% OPH SOLN 2.5 ML BOTTLE BOTH EYES SCH (21:45)
[2016-11-02] MEDS: SIMVASTATIN 40 MG TABLET PO SCH (21:45)
[2016-11-03] MEDS: INSULIN ASPART PROTAMINE/ASPART 70/30 100 UNIT/ML SUBCUT SCH (07:35)
[2016-11-03] MEDS: ALBUTEROL/IPRATROPIUM 3 ML NEB RESP TX SCH (07:37)
--- NOTE | 2016-11-03 08:47 | Gastrointestinal Progress Note ---
<Miri Dominguez Shelton - Last Filed: 11/03/16 08:45> Assessment and Plan (1) Abdominal pain Status: Acute Assessment and plan: 11/03-ERCP findings noted. No complaints of pain. Tolerating diet. Plan an addendum to follow by Dr. Wing. 11/01-LFTs increased. Mild right upper quadrant soreness. Potassium 3.2, with repletion orders noted. Will plan for ERCP tomorrow tentatively. Plan an addendum to follow by Dr. Wing. 10/27-Pain improved, bilirubin down at 1.3. Tolerating diet. Plan and addendum to follow by DR Wing. 10/26-No c/o pain. Off pressor support. Bilirubin 1.8. To be transferred to floor today. Plan and addendum to follow by Dr wing. 10/25-No abd pain, tolerating diet. Plan and addendum to follow by Dr Wing. 10/22-continued abdominal soreness slowly improving. Dopamine off at present time. Bilirubin down at 3.0. Tolerating diet. Plan an addendum to follow by Dr. Wing. 10/21-Continued dopamine, currently weaning down. Increased UOP. Bilirubin down slightly at 3.2. Plan and addendum to follow by Dr Wing. 10/20-Post op tenderness but controlled. Hypotension with Dopamine infusion, decreased UOP. Elevated bilirubin today at 3.6. Plan and addendum to follow by Dr Wing. 10/19-Pain better controlled today. US findings noted. For lap lucila today with Dr Toussaint. Plan and addendum to follow by Dr Wing. 10/18-2 day history of severe right upper quadrant abdominal pain radiating to back and shoulder shoulders with associated nausea and intractable vomiting. Recent hospitalization with findings on ultrasound of cholelithiasis without acute cholecystitis. No change in LFTs at present time. Repeat ultrasound in consult surgery at this time. Plan an addendum to follow by Dr. Wing. Gastroenterology - PN: Subj Interval history: CC: Abnormal liver tests Patient is seen awake alert sitting up in chair. States she had an uneventful night and is feeling the best she has felt in several weeks. ERCP findings noted with a mildly dilated biliary tree and no evidence of stones or strictures. She denies any abdominal pain, nausea vomiting. She is tolerating her diet at this time and appetite is slowly improving. Abdomen is soft, nontender. ROS: Denies shortness of breath or chest pain Exam (Progress Note) - Constitutional Vitals: Period Temp Pulse Resp BP Sys/Marcum Pulse Ox Last 24 Hr 97.2 F-99.2 F 71-94 16-24 125-155/67-78 92-99 General appearance: normal weight, no acute distress - Head Head exam: Present: normal inspection, normocephalic - Eye Eye exam: Present: other (Lids and conjunctive are unremarkable). Absent: scleral icterus - ENT ENT exam: Present: normal exam, normal oropharynx - Neck Neck exam: Present: normal inspection - Respiratory Respiratory exam: Present: clear to auscultation bilaterally. Absent: rales, rhonchi, wheezes - Cardiovascular Cardiovascular exam: Present: regular rate and rhythm. Absent: diastolic murmur , JVD, systolic murmur - GI/Abdominal GI/Abdominal exam: Present: normal bowel sounds, soft. Absent: ascites, distended, mass, organomegaly, tenderness - Extremities Exam Extremities exam: Present: normal inspection, full ROM - Back Exam Back exam: Present: normal inspection - Neurological Exam Neurological exam: Present: alert, oriented X3 - Psychiatric Psychiatric exam: Present: normal affect, normal mood - Skin Skin exam: Present: normal color, warm, dry Results - Labs CBC & BMP: 11/02/16 05:52 11/02/16 05:52 Lab Results: I have reviewed the past 24 hour labs Specialty Discharge - Follow Up or Referrals Follow up with: Mohan Toussaint MD [Physician] - 11/17/16 2:30 pm Luis Miguel Do MD [Physician] - 11/26/16 10:00 am (Three weeks (with Dr. Do) with CBC, Bmp, and magnesium level. Be at appt at 10 a.m to draw labs and 11 a.m for appt with Dr. Do ) <Martin Wing - Last Filed: 11/04/16 10:40> Exam (Progress Note) - Constitutional Vitals: Period Temp Pulse Resp BP Sys/Marcum Pulse Ox Last 24 Hr 98.9 F 84 20 141/71 95 Results - Labs CBC & BMP: 11/02/16 05:52 11/03/16 09:32
--- NOTE | 2016-11-03 08:48 | Event Note ---
General Surgery Progress Note Chief complaint This patient is a 71-year-old woman with pulmonary hypertension who was admitted to the hospital with acute cholecystitis and underwent laparoscopic cholecystectomy on 10/19/2016 Interval history ERCP yesterday showed no residual stone disease or bile duct obstruction and no complications from surgery. Physical exam The patient is afebrile and her vital signs are normal now. She is awake and alert. Abdominal exam reveals an intact dressing over the MARISABEL drain closure site with skin glue. There is no drainage. Labs None new Imaging None Assessment and plan Patient can be discharged home from my standpoint. I would like to see her back in 2 weeks to remove the stitch I placed at her MARISABEL drain site.
[2016-11-03] MEDS: MAGNESIUM CHLORIDE 64 MG TABLET PO SCH (09:35)
[2016-11-03] MEDS: amLODIPine 5 MG TABLET PO SCH (09:36)
[2016-11-03] MEDS: POTASSIUM CHLORIDE 20 MEQ TABLET PO SCH (09:36)
[2016-11-03] MEDS: FAMOTIDINE 20 MG TABLET PO SCH (09:36)
[2016-11-03] MEDS: MONTELUKAST 10 MG TABLET PO SCH (09:36)
[2016-11-03] MEDS: SODIUM BICARBONATE 650 MG TABLET PO SCH (09:37)
[2016-11-03] MEDS: COLESEVELAM 625 MG TABLET PO SCH ×2 (09:37→21:31)
[2016-11-03] MEDS: VENLAFAXINE 75 MG TABLET PO SCH (09:37)
[2016-11-03] MEDS: miSOPROStol 200 MCG TABLET PO SCH (09:37)
[2016-11-03] MEDS: ASCORBIC ACID 500 MG TABLET PO SCH (09:37)
[2016-11-03] MEDS: ASPIRIN EC 81 MG TABLET PO SCH (09:37)
[2016-11-03] MEDS: FUROSEMIDE 40 MG TABLET PO SCH (09:38)
[2016-11-03] MEDS: SPIRONOLACTONE 50 MG TABLET PO SCH (09:38)
[2016-11-03] MEDS: SILDENAFIL 20 MG TABLET PO SCH (09:38)
[2016-11-03] MEDS: INSULIN REGULAR 100 UNIT/ML SUBCUT SCH ×2 (09:39→21:31)
[2016-11-03] MEDS: DESITIN 4OZ/NYSTATIN 15 GRAM MIXTURE PASTE TOP SCH (09:39)
--- NOTE | 2016-11-03 09:58 | Pulmonology Progress Note ---
Pulmonary - PN: Subj Interval history: Raúl Medrano, ANP-BC, GNP-BC, acting as scribe for Dr. Luis Miguel Do This is a 71-year-old white female who was admitted from [facility] on 10/18/2016. She had had a recent hospitalization and had been sent home in good condition. At the time of that admission, she had presented with anasarca secondary to pulmonary hypertension and right heart failure. She is followed from a renal standpoint by Dr. Efren Navarro, cardiology standpoint by Dr. Renato Burgess and from a GI standpoint by Dr. Mateo Wing. At the time of admission, our impressions were: 1. Acute nausea, vomiting, and dehydration refractory top OP treatment. Viral vs. bacterial vs. medication side effect. 2. Recent hospitalization secondary to ascites/anasarca felt secondary to severe pulmonary hypertension. Requiring to paracenteses that admission. 2. Cholelithiasis per ultrasound with no evidence of cholecystitis. 3. Severe pulmonary hypertension as evidenced by estimated pulmonary artery pressure of 80 mmHg seen on echocardiogram. 4. Chronic atrial fib. Note, the patient is not on anticoagulation secondary to history of GI bleed and anemia. This is followed by Dr. Renato Burgess. 5. History of acute renal failure with medications and contrast. This is followed by Dr. Efren Navarro. 6. Systemic lupus erythematosus followed by Dr. Sunny Nguyen by report. 7. Diabetes mellitus. 8. See past medical history 10/19/2016. This patient has had acute cholecystitis and she is for surgery little later on this morning. Ultrasound of the abdomen shows she still has ascites. Her renal status is stable with a creatinine of 2.1 and a BUN of 31. Electrolytes are normal. Admit white count was 8200 with 78 segs 7 lymphs and 13 monos. 10/20/2016. On 10/19/2016 this patient had a laparoscopic cholecystectomy. Her gallbladder was infected. See Dr. Preston to lupus surgical note. Patient had hypotensive tension and I kept her in the unit overnight. She has low urine output and I put her on on dopamine open to increase her renal function. She is tolerated this well but her systolic blood pressures are mainly around 90. Creatinine is increased from 2.3-3.0 with a BUN of 38. and he is seeing her in renal consultation. Electrolytes are normal. Today's chest x-ray shows a small right pleural effusion and I assume that this is related to the patient' s ascites which Dr. Toussaint noted during surgery. Her ascites is thought to be secondary to right heart failure based on pulmonary hypertension. I am restarting her Norvasc to 5 mg daily which is one half the previous dose and I am going to restart Revatio 20 mg p.o. every 8 hours. Will have to watch her blood pressure closely while she is on this but if it works like it is supposed to it should actually help the blood pressure improved. I am giving the patient fluids for the present time and her diuretics are being held. She is previously been on Lasix and Aldactone. White count is 8800 with 78 segs per ABGs on FiO2 of 50% show a pH 7.40, PCO2 28.5, PO2 of 63 and a bicarb at 19.4. When the patient takes several deep breaths this improved significantly. There are no positive cultures. Patient's had a temp up to 100.1. She is on Cleocin and meropenem and we have given her test doses for allergies since she has multiple allergies by history. She remains in atrial fib. She cannot be anticoagulated because of previous bleeding problems. Dr. Renato Burgess is her electrolysist and I have consulted him. She has been followed by Dr. Efren Navarro from a renal standpoint for chronic renal failure. For the present time I will follow serial lab chest x-rays. 10/21/2016. Patient has a stable night. Her blood pressures much better. I am going to continue her dopamine drip. Chest x-ray shows a small right pleural effusion I think this is related to ascites. I see nothing to suggest congestive heart failure. Urine output has been less than optimal. Dr. Shahid Mansfield and I have discussed the case and coordinated care including Lasix 40 IV push every 12 hours and IV fluids. Creatinine has increased to 3.20 with a BUN of 43 electrolytes are normal. White count is 9900 with 74 segs 8 lymphs and 14 monocytes. H&H is 10.1/30.3 and platelets are 135,000. Repeat TSH and free T4 are normal. Today we are going to try to get the patient out of bed and hopefully she will be ready for transfer to the floor and another day. Her daughter was present and I reviewed the case with her and she promised to inform all other family members of what I said. Raúl Medrano nurse practitioner was present and her nurses Sandra and Luis were present. Patient is eating without any problems. She has had no bowel movements. KUB shows only a small amount of air in the colon. No ileus was seen. 10/22/2016. This patient is postop infected gallbladder. She is doing good in that regard. She is afebrile she is on antibiotics. Patient has chronic renal failure creatinine is gradually increased from 2.2-3.6. Nephrology is on the case. Patient has a small right pleural effusion that is related to her ascites. She has underlying pulmonary hypertension with recent pulmonary artery pressures of 80. She was in the hospital recently with acute right heart failure. This was thought to be the source of ascites as well as anasarca. She is on Norvasc 5 daily and Revatio 20 every 8 hours. Postop the patient's been hypotensive and is on dopamine. She is also followed by cardiology and GI. I reviewed and discussed the case with the patient's son this morning. I think it is in her best interest to keep her in intensive care a few more days. 10/25/16. The patient was seen today along with her daughter. She has done well over the weekend. She continues to have a MARISABEL drain and this is being managed by Dr. Toussaint. Her BP is stable. She was restarted on Revatio and Norvasc last week for her pulmonary hypertension. Her bilirubin is trending downward. There are no positive cultures. She was started on Heparin this morning, but we have discontinued this secondary to her history of GI bleed and anemia. 10/26/2016. Patient was seen along with her daughter and Raúl Medrano nurse practitioner today. We have been able to wean off dopamine and I am going to move the patient to 5 E. once a bed is available. She still requires a lot of nursing care. KUB shows gas in the abdomen. The patient has had no flatus but I do hear bowel sounds. She has been able to eat a little bit and there is been no problem with gastroesophageal reflux. Her chest x-ray still shows a small right pleural effusion related to her ascites. Patient has a J-tube drain remaining. See Dr. Preston 2 loops note. Total bilirubin has fallen to 1.80 and creatinine is fallen to 2.40 with a BUN of 48. Electrolytes are normal. CBC is stable. Patient is making slow but steady progress. 10/27/16. The patient was seen today along with her son and Melissa Jamison RN. The patient has now been moved up to the medical floor. Her blood pressure has remained stable. Her creatinine and total bilirubin have further improved to 1.80 and 1.30, respectively. She has some lower extremity edema. We've asked her to elevate her legs as much as possible and pump her feet back and forth. Now that she is more stable, we will ask physical therapy to see and treat her. She has known severe pulmonary hypertension. We will re-evaluate her echocardiogram today. 10/28/2016. Patient is stable today she is seen along with her daughter and along with Raúl Medrano nurse practitioner. Beginning yesterday the patient has been demanding to go home. Patient and her daughter have an argument about this. She is not ready for discharge yet. She needs to get a little stronger and physical therapy is working with her. She still has a J drain in place. Lab has just begun to look better and she is just begun to get a little stronger. At the present time she is an excellent candidate for fall and a fractured bone. A repeat echocardiogram is pending with attention to her pulmonary artery pressures which have been elevated. 10/29/2016. The patient was seen today along with her sister and Sesar Montesinos RN. The patient's creatinine is further improved to 1.00. Her weight, however , continues to be slightly above her baseline with edema in her hips and thighs. The patient's Aldactone and Lasix were discontinued over the weekend. We have discussed all this with Dr. Mansfield and coordinated our care. We are in agreement to restart her Lasix 40 mg p.o. twice daily, but will continue to hold her spironolactone at the present time. Total bilirubin has increased slightly to 1.70. Overall, the patient states that she is feeling reasonably well. She is ambulating with help of physical therapy and states she is doing well with this. environmental services technician is arranging for home health on discharge. Repeat echocardiogram done 10/27/[address] Dominguez showed an EF of 55- 60%, septal bounce, diastolic dysfunction, mild concentric left ventricular hypertrophy, moderately increased right ventricular size, severely increased right atrial size, moderately increased left atrial size, mildly thickened mitral valve, trace mitral valve regurgitation, aortic valve sclerosis, trace aortic valve regurgitation, severe tricuspid valve regurgitation with a pulmonary artery pressure of 60 mmHg, trace pulmonary valve regurgitation, and no pericardial effusion. This is a significant drop in her pulmonary artery pressure since last echocardiogram. We will continue her Norvasc and Revatio. 11/01/2016. The patient was seen today along with her nurse and sister. Her bilirubin has continued to trend upward. Total bilirubin today is 2.40. Dr. Toussaint and Dr. Wing have discussed the case, and the patient is tentatively planned for ERCP either today or tomorrow. She does have hypokalemia and this is being replaced. Last weekly restarted her Lasix but did not restart her Aldactone. We wanted to see what her creatinine and potassium would do with the reinstitution of Lasix. Her creatinine has improved to 0.90, but potassium has fallen to 3.2. We will restart her spironolactone at half her home dose ( 50 mg daily) and give 20 mEq of potassium daily for 3 days. Overall, the patient feels she is doing well. She has been working with physical therapy and at discharge will go home with home health and home physical therapy. 11/02/2016. The patient was seen today along with her daughter, to female family members, and Sesar Montesinos RN. The patient is doing well this morning. Her weight is down. She is working with physical therapy and in speaking with cardiopulmonary physical therapist she is doing well. She is planned for ERCP today. Yesterday we restarted the patient spironolactone at 50 mg daily. Her potassium has been replaced. Her magnesium is low at 1.4. She is on Slow-Mag 128 mg twice daily. We will start IV replacement in anticipation of ERCP. 11/03/2016. Patient was seen today along with Sesar Montesinos RN. She is sitting up in the bedside chair. She states she is doing very well today. ERCP was done yesterday by Dr. Wing. This showed no evidence of stone or stricture with a mildly dilated biliary tree. Dr. Wing felt that the patient's elevated bilirubin could be related to her pulmonary hypertension liver congestion. Today's labs are pending at this time. Medications have been reviewed. Labs been reviewed. Today's labs are pending. Exam (Progress Note) - Constitutional Vitals: Period Temp Pulse Resp BP Sys/Marcum Pulse Ox Last 24 Hr 97.2 F-99.2 F 71-94 16-24 125-155/67-78 92-99 Exam: Chest is wheeze free Heart no gallop Abdomen with appropriate postop tenderness which is improving, mild ascites; MARISABEL drain has been pulled Extremities with nothing to suggest acute deep venous thrombophlebitis Psychiatric oriented 3 Neurologic long tract motor function is intact Plan: The patient has now met maximum hospital benefit and will be discharged home. Please see my discharge summary dated 11/03/2016. Results - Labs CBC & BMP: 11/02/16 05:52 11/02/16 05:52 Specialty Discharge - Follow Up or Referrals Follow up with: Mohan Toussaint MD [Physician] - 11/17/16 2:30 pm
[2016-11-03 10:01] LABS: Calcium 8.4 MG/DL (8.5-10.1); Magnesium 1.8 MG/DL (1.8-2.4); Osmolality,Calculated 284.1 MOS/KG (273-304); Potassium 3.6 MMOL/L (3.5-5.1)
--- NOTE | 2016-11-03 10:01 | Discharge Summary ---
Hospital Course - Hospital Course Hospital Course: Raúl Medrano, ANP-BC, GNP-BC, acting as scribe for Dr. Luis Miguel Do Mrs. Dasilva is a 71 year old white female who was recently inpatient at [facility]. See past history and H&P. She was discharged home in improved condition. She presented to [facility] the day of admission with complaints of nausea, vomiting, and retching which started 10/16/16. She had been unable to keep any foods or liquids down. She presented to [place] ER on 10/16/16 for these complains, but after a reportedly long time, she was never called back for evaluation and subsequently left. She then went to [facility] ER. She was seen and, by her report, she was given ASA, two EKGs were taken as well as blood , and she was told "it was not the heart". She was then sent home. The day of admission she reported, her nausea and vomiting had persisted since Tuesday. She was acutely dehydrated. Given her recent prolonged hospitalization, multiple co-morbidities, and acute illness, it was felt in her best interest to hospitalize her for further evaluation and care. She was seen in GI consultation by Dr. Wing. Abdominal ultrasound done 2016 showed gallstones and gallbladder sludge. There is adjacent ascites. The common bile duct is mildly dilated measuring 0.7-0.8 cm in diameter. There is also a small right renal cyst. Surgery was consulted. On 10/19/2016 the patient had a laparoscopic cholecystectomy by Dr. Toussaint. Pathology showed acute and chronic cholecystitis with ulceration, cholelithiasis, and no evidence of malignancy. Her MARISABEL drain has now been pulled. She will follow-up with Dr. Toussaint in approximately 2 weeks. Postop the patient had hypotension and required dopamine. This was ultimately able to be weaned off. Prior to weaning the dopamine we restarted the patient' s Revatio and Norvasc. Her blood pressures remained stable. She has known pulmonary hypertension. During her September 2016 hospitalization her pulmonary artery pressure on echocardiogram was 80 mmHg. Echocardiogram repeated [address] Dominguez showed an EF 55-60%, septal bounce, diastolic dysfunction, mild concentric left ventricular hypertrophy, moderately increased right ventricular size, severely increased right atrial size, moderately increased left atrial size, mildly thickened mitral valve, trace mitral valve regurgitation, aortic valve sclerosis, trace aortic valve regurgitation, severe tricuspid valve regurgitation with a pulmonary artery pressure of 60 mmHg, trace pulmonary valve regurgitation, no pericardial effusion. This is a significant drop in the pulmonary artery pressure since her last echocardiogram. Her Norvasc and Revatio will be continued. Initially the patient had an elevation of her total bilirubin up to 3.60. This waxed and waned, but increased again approximately 3 days prior to discharge. On 11/02/2016 the patient underwent ERCP by Dr. Wing. This showed continued mildly dilated biliary tree, but no evidence of retained stone or strictures. At discharge, total bilirubin is 1.80 (normal 0.2-1.0). Doppler venograms done 10/21/2016 showed no evidence of DVT in either lower extremity. There was subcutaneous edema of the right leg. At discharge, white count is 6100 with 65.7% segs, 14.9% lymphs, 13.8% monos; H& H 9.8/29.1 with a low to low normal indices and top normal red blood cell distribution with; platelet count 224,000; INR 1.2; creatinine 1.20, BUN 11, sodium 142, potassium 3.6, magnesium 1.8; total bilirubin 1.80; liver function tests within normal limits with the exception of a minimally elevated alkaline phosphatase of 180; calcium 8.4, albumin 2.8, total protein 6.1; TSH and free T4 were normal at 0.661 and 1.35 respectively; fasting lipid profile showed a total cholesterol of less than 50, LDL 27.0, HDL 21, triglycerides 50; urinalysis done 10/19/2016 showed large leukocytes with occasional bacteria. Urine culture grew no organisms. MRSA screen of the nares was negative. Blood cultures were negative. For more information regarding Mrs. Dasilva's past medical history, family history, social history, past procedures, admit labs, admit x-rays and admit exam as well as hospital course, please see the admission note dated 10/18/2016 as well as the consultants' notes. Impression: 1. Acute nausea, vomiting, and dehydration refractory top OP treatment. Found to be secondary to acute cholecystitis requiring laparoscopic cholecystectomy this admission by Dr. Toussaint. 2. Recent hospitalization secondary to ascites/anasarca felt secondary to severe pulmonary hypertension. Requiring to paracenteses that admission. 3. Elevated total bilirubin felt secondary to patient's pulmonary hypertension and passive congestion of the liver. 4. Severe pulmonary hypertension as evidenced by estimated pulmonary artery pressure of 80 mmHg seen on echocardiogram in September 2016. Improved on Revatio and Norvasc as evidenced by pulmonary artery pressure of 60 mmHg on echocardiogram 10/27/2016. 5. Chronic atrial fib. Note, the patient is not on anticoagulation secondary to history of GI bleed and anemia. This is followed by Dr. Renato Burgess. 6. History of acute renal failure with medications and contrast. This is followed by Dr. Efren Navarro. 7. Systemic lupus erythematosus followed by Dr. Sunny Nguyen by report. 8. Diabetes mellitus. 9. Acute kidney injury as evidenced by postop creatinine elevation to 4.20. Improving. Discharge creatinine 1.20. 10. See past medical history Plan: Cytotec 100 mcg twice daily, Norvasc 10 mg daily, Effexor 37.5 mg daily, Aldactone 50 mg daily, Zocor 40 mg at bedtime, Revatio 20 mg 3 times daily, Singulair 10 mg daily, Slow-Mag 120 mg twice daily, NovoLog units before breakfast and 4 units before supper, Lasix 40 mg twice daily, ferrous sulfate 325 mg twice daily, Pepcid 40 mg daily, WelChol 1250 mg before meals 3 times a day, Coreg 12.5 mg twice daily, Lumigan eyedrops 1 drop to each eye at bedtime, enteric-coated baby aspirin 81 mg daily, vitamin C 500 mg daily, and sodium bicarb 1300 mg twice daily. We will see the patient in follow-up in approximately 3 weeks with a BMP, magnesium level, and CBC. She can be seen sooner if needed. Specialty Discharge - Follow Up or Referrals Follow up with: Mohan Toussaint MD [Physician] - 11/17/16 2:30 pm Luis Miguel Do MD [Physician] - (Three weeks (with Dr. Do) with CBC, Bmp, and magnesium level.) Discharge Plan - Discharge Data Disposition: Home Health Service Condition at Discharge: Stable - Discharge Medications New Sodium Bicarb Tab 1,300 mg PO BID #120 tablet Carvedilol [Coreg] 12.5 mg PO BID #60 tablet Continue Aspirin [Ecotrin] 81 mg PO DAILY Ascorbic Acid Tab [Vitamin C Tab] 500 mg PO DAILY Bimatoprost 0.01% Oph Soln [Lumigan] 1 drop BOTH EYES BEDTIME Montelukast Tab [Singulair Tab] 10 mg PO DAILY Venlafaxine [Effexor] 37.5 mg PO DAILY Simvastatin 40 mg PO BEDTIME Famotidine Tab [Pepcid Tab] 40 mg PO DAILY Magnesium Chloride [Slow Mag] 128 mg PO BID Ferrous Sulfate Tab [Feosol Original Tab] 325 mg PO BID #60 tablet Furosemide Tab [Lasix Tab] 40 mg PO BID DIURETIC #60 tablet Insulin Aspart Prot/Asp 70/30 [NovoLOG Mix 70/30] 10 unit SUBCUT AC BREAKFAST unit Sildenafil [Revatio] 20 mg PO TID #90 tablet miSOPROStol [Cytotec] 100 mcg PO BID W/MEALS #60 tablet Colesevelam [Welchol] 1,250 mg PO TIDAC #180 tablet Insulin Aspart Prot/Asp 70/30 [NovoLOG Mix 70/30] 4 unit SUBCUT AC SUPPER unit amLODIPine [Norvasc] 10 mg PO DAILY #30 tablet Changed Spironolactone [Aldactone] 50 mg PO DAILY #30 tablet Discontinued Potassium Chloride 10 meq PO BID Carvedilol 25 mg PO BID - Follow Up or Referral Follow Up: Mohan Toussaint MD [Physician] - 11/17/16 2:30 pm - Forms/Instructions Exam - Constitutional Vitals: Period Temp Pulse Resp BP Sys/Marcum Pulse Ox Last 24 Hr 97.2 F-99.2 F 71-94 16-24 125-155/67-78 92-99 Discharge Results Procedures and tests throughout hospitalization: Pending Orders 11/03/16 09:32 Basic Metabolic Panel w/Mg Stat Labs on day of discharge: Labs from last 24 hours 11/03/16 11/02/16 11/02/16 07:17 19:58 15:15 INR PT Patient/Control Mix POC Glucose 163 H 117 H 132 H 11/02/16 11/02/16 11:03 10:32 INR 1.2 PT Patient/Control Mix 12.5 POC Glucose 98 DS: Provider Date of admission: 10/18/16 11:21 Primary care physician: Renato Burgess MD Attending physician on admission: Luis Miguel Do MD Consults: 10/18/16 10:49 Consult to Physician [CONS] Routine Comment: known to you; n/v/dehydration Consulting Provider: Efren Navarro Person Notified: Luis Date Notified: 10/18/16 Time Notified: 12:08 Consult Notification Comment: LUIS STATED SHE SENT CONSULT TO DR. 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 KIMBERLY CALL BACK AND STATED SHE WILL LET DR. NAVARRO NOW THAT WANTED TO SEE HIM BY REQUEST. 10/18/16 14:36 Consult to Physician [CONS] Routine Comment: Consulting Provider: Martin Wing Person Notified: niesha Date Notified: 10/18/16 Time Notified: 14:36 10/18/16 14:58 Consult to Physician [CONS] Routine Comment: gallstones Consulting Provider: Mohan Toussaint Person Notified: VERITO Date Notified: 10/18/16 Time Notified: 15:55 10/19/16 18:51 Consult to Pharmacy [CONS] Routine Reason for Pharmacy Consult: Dose/Manage Antibiotics 10/20/16 10:30 Consult to Physician [CONS] Routine Comment: known to you; hypotension, pulm HTN Consulting Provider: Renato Burgess Consulting Provider Notified: Yes Consult to Specialist Group: Cardiology Person Notified: DANIEL Date Notified: 10/20/16 Time Notified: 11:05 10/21/16 09:31 Consult to Physical Therapy [CONS] Routine Reason for Physical Therapy: Evaluate and Treat Start Therapy: Today 10/27/16 11:17 Consult to Physical Therapy [CONS] Routine Reason for Physical Therapy: Evaluate and Treat 10/28/16 10:13 Consult to Case Mgmt/Social Srvs [CONS] Routine Reason for Case Mgmt/Social Srvs: Home Health 10/29/16 10:36 Consult to Wound Care - [place] [CONS] Routine Reason for Wound Care: Wound Care Management Consult Comment: reddned skin to buttock area, Dr Do wants her to be seen Discharging clinician: RETA Brown
[2016-11-03 11:59] VITALS: BP 141/71
--- NOTE | 2016-11-04 12:22 | Event Note ---
Patient seen and examined November 03, 2016 at 11:30 AM. Unfortunately the computer would not allow cosignature of Miri LUIS's progress note yesterday nor will it allow it to be edited today due to a recent computer update. Findings of ERCP were discussed with the patient. I suspect her bilirubin is more related to her pulmonary hypertension and will continue to observe. Abdomen is soft nondistended nontender Agree with additional history and physical findings per the gastroenterology progress note authored by Miri LUIS on November 03. Plans for discharge were noted. Call if needed.
--- NOTE | 2016-11-09 08:12 | Physician Query Form ---
CLICK EDIT DOCUMENT TO SELECT QUERY ANSWER --> OK --> SIGN Viv Day RN Clinical Content Architect W) [phone] (f) [phone] [email or web address] Make your selection(s) from the choices in EACH section by typing an "x" and enter comments in the comment section. Please use your independent medical judgment in providing your response. This request does not imply that any particular answer is desired or expected. CLINICAL INDICATORS: (Providers should not edit this section) The below diagnosis was documented in the record, but is not consistently noted in subsequent documentation. Diagnosis: ATN Based on documentation of "I think were dealing with an ATN injury related to hypoperfusion the main thing to do at this point is keep the patient in a euvolemic state and continue support". Creatinine of 2.20 on admission and increased to 4.20 with a GFR of 12. Blood pressure of 88/42. Pt. treated with IV fluids. Please clarify the following: (x ) The above diagnosis was monitored, evaluated, and/or treated and is a confirmed diagnosis ( ) The above diagnosis was ruled out ( ) Other, please specify: ( ) Clinically unable to determine COMMENTS: PLEASE ALSO DOCUMENT RESPONSE IN PROGRESS NOTES AND/OR DISCHARGE SUMMARY Use of terms such as suspected, likely, or probable (associated with a specific diagnosis that is being evaluated, monitored, or treated as if it exists) are acceptable and can be restated in the discharge summary if not ruled out. MTDD
== END 2016-11-03 11:49 | disposition home health service (06) | DRG 417 ==
LOC: N.5E 11:21 → N.ICU 10-19 14:43 → N.5E 10-26 20:26
PROVIDERS: ADMIT Internal Medicine Pulmonary Disease; ATTEND Internal Medicine Pulmonary Disease
PROC: LAPCHOL (2016-10-19 12:47)